=== PATIENT | female | born 1980 | race Caucasian/White ===

== ENCOUNTER 2020-04-26 12:09 | Outpatient (CLI) | payer BC, SELFPAY ==
--- NOTE | ~2020-04-26 | XR_ITS ---
XR finger 3rd RT min 2V 04/26/2020 12:33 Indication: Right third finger pain. Status post fall on 02/07/2020 Procedure: 4 views right third finger Comparison: 12/28/2019 Findings: There is a healing nondisplaced intra-articular fracture right third distal phalanx. Normal bone mineralization. No significant soft tissue abnormality. No radiopaque foreign bodies. Impression: 1: Healing nondisplaced intra-articular fracture right third distal phalanx. Reviewed, dictated and finalized at location A. Impression: 1: Healing nondisplaced intra-articular fracture right third distal phalanx.
== END 2020-04-26 12:10 | disposition home or self-care (01) ==
PROVIDERS: PCP Internal Medicine Pulmonary Disease
DX: M79.644 Pain in right finger(s) (principal)
CPT/HCPCS: 73140

== ENCOUNTER 2022-12-09 14:57 | Emergency (ER) | payer BC, SELFPAY ==
[2022-12-09 15:06] VITALS: BP 135/80; PULSE 74; RESP 14; TEMP 36.8; O2SAT 100
--- NOTE | 2022-12-09 15:21 | ED.EAR ---
HPI - Ear Problem General Chief complaint: Ear Stated complaint: Ear Pain/Sore Throat Time Seen by Provider: 12/09/22 15:18 Source: patient, RN notes reviewed and old records reviewed Mode of arrival: ambulatory Limitations: no limitations History of Present Illness HPI Narrative: 42 year old female who presents to [facility] care with complaints of 3 day history of increased pain to her right ear and sore throat with cough and nasal congestion and drainage. Patient reports that she was put on Augmentin on the 29 of November for sinus infection but quit taking it due to stomach upset. Patient reports that she has noted some wheezing and she is expectorating some green tinged phlegm.Patient has been taking Zyrtec,Claritin, Mucinex, Tylenol and Ibuprofen for her symptoms. MD Complaint: ear pain and other (cough, sinus congestion and drainage, sore throat) Location: right ear Duration: constant Discharge from ear: Reports no Treatment prior to arrival: oral analgesic and other (Mucinex, Claritin and Zyrtec) Related Data Home Medications Medication Instructions Recorded Confirmed aripiprazole 10 mg tablet 10 mg PO DAILY 12/09/22 12/09/22 Allergies Allergy/AdvReac Type Severity Reaction Status Date / Time levofloxacin Allergy Unknown Hives Verified 12/09/22 15:17 Review of Systems Review of Systems: CONSTITUTIONAL: Reports malaise, chills, sweats, or fever. EYES: Denies visual changes, redness, or discharge. ENT: Reports rhinorrhea, congestion, sinus pain, right otalgia and sore throat. CARDIOVASCULAR: Denies chest pain, palpitations, or edema. RESPIRATORY: Reports cough.? Denies acute dyspnea. GASTROINTESTINAL: Denies abdominal pain, nausea, vomiting, diarrhea SKIN: Denies rash or itching. MUSCULOSKELETAL: Denies myalgia. NEUROLOGIC: Denies headache. All systems reviewed & are unremarkable except as noted in HPI and below [facility] Past Medical History Medical History (Updated 12/10/22 @ 08:31 by Radha Manzano NP) Depression Social History Social History (Updated 12/10/22 @ 08:29 by Radha Manzano NP) Smoking packs per day: 1 Smoking cigarettes per day: 20.0 Smoking status: Current every day smoker Gender identity (if verbalized by the patient): Female Comments At time of signature, agree with nursing past medical, surgical, social and family history. There is no relevant family history pertinent to the presenting complaint Exam Narrative: GENERAL: Well-appearing, well-nourished, and in no acute distress. HEAD: Normocephalic EYES: PERRLA, conjunctivae clear ENT: Nares clear, turbinates edematous and erythematous, clear yellowish discharge. Mucous membranes moist.Right TM red and bulging, Left TM pearly villatoro with dull light reflex,no tragal tenderness. Oropharynx erythematous without lesions. Tonsils mildly enlarged and without exudate, no drooling, no hoarseness, no trismus, uvula midline, post nasal drainage NECK: Supple. No lymphadenopathy CHEST: Scattered wheezing on auscultation, breath sounds equal.positive wheezing, no rhonchi, rales, or stridor. No respiratory distress, speaks in full sentences.loose cough SAO2 100% on room air HEART: Regular rate and rhythm. No murmur heard. SKIN: Warm, dry, no rash. NEURO: Alert and oriented x3. PSYCH: Normal mood and affect Course Course Emergency Course: Patient is aware of diagnosis, understands and agrees to treatment plan.? Anticipatory guidance given.? Patient agrees to follow-up as directed and is aware of reasons to seek care at the emergency department. Portions of this record may have been created with voice recognition software Level of Care: Express Care Visit Vital Signs Vital signs: Vital Signs Temperature 36.8 C 12/09/22 15:06 Pulse Rate 74 12/09/22 15:06 Respiratory Rate 14 12/09/22 15:06 Blood Pressure 135/80 12/09/22 15:06 Pulse Oximetry 100 12/09/22 15:06 Oxygen Delivery Room Air
== END 2022-12-09 15:29 | disposition home or self-care (01) ==
PROVIDERS: Emergency Provider Registered Nurse
DX: J40 Bronchitis, not specified as acute or chronic (principal); H65.01 Acute serous otitis media, right ear; F17.210 Nicotine dependence, cigarettes, uncomplicated
CPT/HCPCS: 99213; G0463

== ENCOUNTER 2024-11-29 08:54 | Emergency (ER) | payer MEDICAID, SELFPAY ==
[2024-11-29 09:04] VITALS: BP 160/85; PULSE 90; RESP 18; TEMP 36.6; O2SAT 100
--- NOTE | 2024-11-29 09:12 | ED_ITS ---
HPI - URI/Sore Throat General Chief Complaint: Upper Respiratory Infection Stated Complaint: cough/sneezing/nose Time Seen by Provider: 11/29/24 09:14 Source: patient, RN notes reviewed and old records reviewed Mode of arrival: ambulatory Limitations: no limitations History of Present Illness HPI Narrative: 44-year-old female who presents to [facility] Care with complaints 3 day history coughing, sneezing, having runny nose, some headache, does report wheezing especially when supine denies any fevers. Patient reports she has taking Claritin, Robitussin, Mucinex and has been using albuterol inhaler for her sympt oms without improvement. Patient admits to some shortness of breath with exertion reports history of bronchitis in the past, Patient does vape daily. She states that she has not been taking her blood pressure medication lately with blood pressure elevated today at time of triage. MD elicited complaint: cough, rhinorrhea, nasal congestion and other (sneezing and some wheezing) Pertinent past history: other (Bronchitis) Onset (ago): day(s) (3) Severity: moderate Able to tolerate fluids by mouth: Yes Treatments prior to arrival: other (Mucinex Claritin Robitussin and inhaler) Related Data Home Medications ?Medication ?Instructions ?Recorded ?Confirmed ?Last Taken ?Type aripiprazole 10 mg tablet 10 mg PO DAILY 12/09/22 12/09/22 Unknown History Allergies Allergy/AdvReac Type Severity Reaction Status Date / Time levofloxacin Allergy Unknown Hives Verified 12/09/22 15:17 Review of Systems Review of Systems: CONSTITUTIONAL: Reports malaise, no chills, sweats, or fever. EYES: Denies visual changes, redness, or discharge. ENT: Reports rhinorrhea, congestion, sinus pain,no otalgia and no sore throat. CARDIOVASCULAR: Denies chest pain, palpitations, or edema. RESPIRATORY: Reports cough.? Denies dyspnea.reports some wheezing GASTROINTESTINAL: Denies abdominal pain, nausea, vomiting, diarrhea SKIN: Denies rash or itching. MUSCULOSKELETAL: Denies myalgia. NEUROLOGIC: Reports headache. All systems reviewed & are unremarkable except as noted in HPI and below [facility] Past Medical History Medical History (Updated 12/02/24 @ 13:39 by Radha Manzano NP) Hypertension Bronchitis Depression Social History Social History (Updated 12/02/24 @ 13:45 by Radha Manzano NP) Smoking packs per day: 1 Smoking cigarettes per day: 20.0 Smoking status: Current every day smoker Tobacco type: e-cigarettes/vaping Additional smoking assessment comments: former cigatette smoker Alcohol intake: current Alcohol use details: rare Substance use: unknown Gender identity (if verbalized by the patient): Female Comments At time of signature, agree with nursing past medical, surgical, social and family history. There is no relevant family history pertinent to the presenting complaint Exam Narrative: GENERAL: Well-appearing, well-nourished, and in no acute distress. HEAD: Normocephalic EYES: PERRLA, conjunctivae clear ENT: Nares clear, turbinates edematous and erythematous, clear discharge. Mucous membranes moist. TM pearly villatoro with dull light reflex bilaterally; no tragal tenderness. Oropharynx erythematous without lesions. Tonsils not enlarged and without exudate, no drooling, no hoarseness, no trismus, uvula midline.post nasal drainage observed NECK: Supple. No lymphadenopathy CHEST: scattered wheezing on auscultation, breath sounds equal.+ wheezing,no rhonchi, rales, or stridor. No respiratory distress, speaks in full sentences. HEART: Regular rate and rhythm. No murmur heard. SKIN: Warm, dry, no rash. NEURO: Alert and oriented x3. PSYCH: Normal mood and affect Course Course Emergency Course: Patient is aware of diagnosis, understands and agrees to treatment plan.? Anticipatory guidance given.? Patient agrees to follow-up as directed and is aware of reasons to seek care at the emergency department. Portions of this record may have been created with voice recognition software Level of Care: Express Care Visit Vital Signs Vital signs: Vital Signs Temperature 36.6 C 11/29/24 09:04 Pulse Rate 90 11/29/24 09:04 Respiratory Rate 18 11/29/24 09:04 Blood Pressure 160/85 H 11/29/24 09:04 Pulse Oximetry 100 11/29/24 09:04 Oxygen Delivery Room Air 11/29/24 09:04 Temperature 36.6 C 11/29/24 09:04 Pulse Rate 90 11/29/24 09:04 Respiratory Rate 18 11/29/24 09:04 Blood Pressure 160/85 H 11/29/24 09:04 Pulse Oximetry 100 11/29/24 09:04 Oxygen Delivery Room Air 11/29/24 09:04 Reviewed MDM - URI/Sore Throat MDM Narrative Medical decision making narrative: Differential diagnosis considered: Sarabia virus, strep pharyngitis, allergic rhinitis, upper respiratory tract infection, sinusitis, rhinosinusitis, nasopharyngitis. viral pharyngitis, otitis media, otitis externa, pneumonia, bronchitis, viral cough syndrome, viral syndrome, and influenza.? Exam findings show no acute concerns or changes; patient is non-toxic appearing and is in no distress.? Patient is appropriate for outpatient treatment and follow-up. Differential Diagnosis Differential diagnosis: Likely upper respiratory infection, sinusitis, viral infection and bronchitis Medical Records Attestation: I reviewed the patient's medical records. Lab Data Attestation: I reviewed the patient's lab results. Critical Care Time Critical Care Time Critical Care Time: No Discharge Plan Discharge Clinical Impression: Bronchitis Patient Disposition: Home, Self-Care Condition: Stable Instructions: Antibiotic Form, Acute Bronchitis (ED) Additional Instructions: Increase fluids especially juices and water [id number] cough and cold medicine of your choice for your symptoms Zyrtec Claritin or Idalmis daily Continue your inhaler/nebulizer as directed Steroids as directed--take with food heat to the face 20-30 minutes 4-6 times a day for pain Salt water gargles, throat lozenges or throat sprays as desired Antibiotic as directed--finished the medication If your symptoms persist, change or worsen significantly before you can contact your personal physician then please, without delay, go to the emergency department for further evaluation. Follow-up with PCP in 7-10 days or sooner if needed Follow up with PCP soon in regards to your blood pressure which is elevated above threshold for referral. Blood pressure above 120/80 may indicate pre- hypertension. 160/85 need to resume your blood pressure medication and monitor blood pressure at least twice daily Patient Language: Tamazight Prescriptions: New prednisone 50 mg tablet 50 mg PO DAILY Qty: 5 0RF azithromycin 250 mg tablet See Rx Instructions .ROUTE .COMPLEX Qty: 6 0RF Rx Instructions: For 250 mg dose pack: take 500 mg today (day 1), then 250 mg for 4 days (days 2-5) albuterol sulfate 90 mcg/actuation HFA aerosol inhaler 2 puff inhalation QID PRN (Reason: shortness of breath or wheezing) Qty: 6.7 0RF Rx Instructions: Whatever is covered on her insurance No Action aripiprazole 10 mg tablet 10 mg PO DAILY albuterol sulfate 90 mcg/actuation HFA aerosol inhaler 2 puff inhalation QID PRN (Reason: shortness of breath or wheezing) Qty: 6.7 0RF azithromycin 250 mg tablet See Rx Instructions .ROUTE .COMPLEX Qty: 6 0RF Rx Instructions: For 250 mg dose pack: take 500 mg today (day 1), then 250 mg for 4 days (days 2-5) prednisone 20 mg tablet 40 mg PO BID 5 Days Qty: 20 0RF Follow-up/Referrals: PHYSICIAN NOT ON STAFF,NONSTAFF [Primary Care Provider] - Time of Disposition: 09:27 [place] Coma Scale Eyes: Open Verbal: Oriented and Alert Motor: Follows Commands Jun Coma Total Score: 15
--- OUTSIDE RECORDS SUMMARY | 2024-12-06 17:58 | XMS_ITS | Encounter Summary ---
Author Organization [facility] Address [address] [place] [address]. [place], [place] [address] [place] [address] Care Team Providers Care Water Valve Mechanic Name Role Phone Mikhail Pineda MD Unavailable Jeancarlos Nuñez MD Primary Care Provider Unatrent ilable Encounter Details Date Type Department Care Team (Late st Contact Info) Description 05/16/2020 10:45 AM CDT - 05/16/2020 11:59 PM CDT Hospital Encounter [facility] [address] [place] [address] Jess oRjas, [facility] [address] [place] [address] Discharge Disposition: Home or Self Care (Routine Discharge) Social History Tobacco Use Types Packs/Day Years Used Date Smoking Tobacco: Every Day Cigarettes Smokeless Tobacco: Never Alcohol Use Standard Drinks/Week Comments Not Currently 0 (1 standard drink = 0.6 oz pur e alcohol) PHQ-2 Answer Date Recorded PHQ-2 Score - If the patient scores above 3, please move on to questions 3-9 2 05/08/2020 Comments Unknown Sex and Gender Information Value Date Recorded Sex Assigned at Not on file Legal Sex Female 7:01 PM CDT Gender Identity Not on file Sexual Orientation Not on file COVID-19 Exposure Response Date Recorded In the last month, have you been in contact with someone who was confirmed or suspected to have Coronavirus / COVID-19? No / Unsure 05/16/2020 10:42 AM CDT documented as of this encounter Medications at Time of Discharge acetaminophen 325 MG tablet Take by mouth every 6 (six) hours as needed for Pain. acyclovir 400 MG tablet TAKE 1 TABLET BY MOUTH EVERY 12 HOURS FROM START OF PRODOMAL STAGE TO HEALING STAGE 03/06/2020 buPROPion XL 300 MG 24 hr tabletIndication s:Anxiety and depression Take 1 tablet (300 mg total) by mouth daily. 30 tablet 5 05/08/2020 cetirizine 10 MG tabletIndication s:Non-seasonal allergic rhinitis due to other allergic trigger Take 1 tablet (10 mg total) by mouth daily. 30 tablet 5 05/08/2020 fluticasone propionate 50 MCG/ACT nasal sprayIndications :Non-seasonal allergic rhinitis due to other allergic trigger 1 spray by Nasal route daily. 16 g 5 05/08/2020 ibuprofen 400 MG tablet Take 400 mg by mouth every 6 (six) hours as needed for Pain. montelukast 10 MG tabletIndication s:Anxiety and depression Take 1 tablet (10 mg total) by mouth daily. 30 tablet 5 05/01/2020 vitamin B-12 (CYANOCOBALAMIN) 1000 mcg tablet Take 1,000 mcg by mouth daily. vitamin D3, cholecalciferol, 5000 UNITS capsule Take 1 capsule by mouth daily. ARIPiprazole 10 MG tabletIndication s:Recurrent major depressive disorder, in partial remission (CMS/HCC),Anxiet y and depression Take 1 tablet (10 mg total) by mouth daily. 30 tablet 5 05/08/2020 01/01/2021 LORazepam 0.5 MG tabletIndication s:Anxiety and depression Take 1 tablet (0.5 mg total) by mouth every 6 (six) hours as needed for Anxiety. 30 tablet 05/01/2020 05/26/2020 documented as of this encounter Plan of Treatment Not on file documented as of this encounter Procedures Procedure Name Priority Date/Time Associated Diagnosis Comments XR THIRD FINGER RT 3V Routine 05/16/2020 10:52 AM CDT Finger injury, right, subsequent encounter documented in this encounter Results * XR THIRD FINGER RT 3V (05/16/2020 10:52 AM CDT) Anatomical Region Laterality Modality Hand Radiographic Jazzy ging 05/16/2020 11:5 6 AM CDT Impressions 05/16/2020 11:59 AM CDT IMPRESSION: No significant interval healing changes known subacute right third finger distal phalangeal fracture. Interpreted By: Charisse Monterroso MD, 05/16/2020 11:56 AM Narrative 05/16/2020 11:59 AM CDT EXAMINATION: ??RIGHT THIRD FINGER RADIOGRAPH(S) INDICATION: Follow-up fracture TECHNIQUE: ??3 views. COMPARISON: Right third finger radiograph from [facility] 04/26/2020 FINDINGS: ??No subacute fracture involving third finger distal phalanx at the medial base with oblique orientation and intra-articular extension demonstrates no significant interval callus formation. No significant angulation No dislocation of the third finger. Limited evaluation of the partially imaged remaining hand on this nondedicated study. ?? Procedure Note Charisse Monterroso MD - 05/16/2020 EXAMINATION: RIGHT THIRD FINGER RADIOGRAPH(S) INDICATION: Follow-up fracture TECHNIQUE: 3 views. COMPARISON: Right third finger radiograph from [facility] 04/26/2020 FINDINGS: No subacute fracture involving third finger distal phalanx at the medial base with oblique orientation and intra-articular extension demonstrates no significant interval callus formation. No significant angulation No dislocation of the third finger. Limited evaluation of the partially imaged remaining hand on this nondedicated study. IMPRESSION: No significant interval healing changes known subacute right thirdfinger distal phalangeal fracture. Interpreted By: Charisse Monterroso MD, 05/16/2020 11:56 AM us Jess Rojas [facility] Final Resu lt documented in this encounter Visit Diagnoses Diagnosis Finger injury, right, subsequent encounter documented in this encounter Additional Health Concerns Assessment Noted Time PHQ-9 Depression Total Score: 7 03/08/20 20 4:11 PM CDT documented as of this encounter Care Teams Water Valve Mechanic Relationship Specialty Start Date End Date Jeancarlos Nuñez MD PCP - General FAMILY PRACTICE 04/26/20 05/30/21 Mikhail Pineda MD 03/06/20 documented as of this encounter
--- OUTSIDE RECORDS SUMMARY | 2024-12-06 17:58 | XMS_ITS | Encounter Summary ---
Author Organization [facility] Address [facility] [facility]. [place], [place] [id number] [place] [address] Care Team Providers Care Systems Management Consultant Name Role Phone Malathi Sheppard MD Primary Care Provider [phone] Mikhail Pineda MD Unavailable Encounter Details Date Type Department Care Team (Late st Contact Info) Description 04/20/2020 [employer] Message Enc [facility] Medical [facility] [address] [place] [address] Jeancarlos Nuñez MD Other Social History Tobacco Use Types Packs/Day Years Used Date Smoking Tobacco: Never Smokeless Tobacco: Never Alcohol Use Standard Drinks/Week Comments Not Currently 0 (1 standard drink = 0.6 oz pur e alcohol) PHQ-2 Answer Date Recorded PHQ-2 Score 3 03/20/2020 Comments Unknown Sex and Gender Information Value Date Recorded Sex Assigned at Not on file Legal Sex Female 7:01 PM CDT Gender Identity Not on file Sexual Orientation Not on file COVID-19 Exposure Response Date Recorded In the last month, have you been in contact with someone who was confirmed or suspected to have Coronavirus / COVID-19? No / Unsure 04/07/2020 10:55 AM CDT documented as of this encounter Progress Notes * Cathy Santos RN - 04/25/2020 4:32 PM CDT Sent to Dr. Sheppard in another encounter documented in this encounter Plan of Treatment Not on file documented as of this encounter Visit Diagnoses Not on filedocumented in this encounter Additional Health Concerns Assessment Noted Time PHQ-9 Depression Total Score: 7 03/08/20 4:11 PM CDT documented as of this encounter Care Teams Systems Management Consultant Relationship Specialty Start Date End Date Malathi Sheppard MD [address] [facility] [place] [address] PCP - General FAMILY PRACTICE 03/06/20 04/25/20 Mikhail Pineda MD [address] [place] [address] 03/06/20 documented as of this encounter
--- OUTSIDE RECORDS SUMMARY | 2024-12-06 17:58 | XMS_ITS | Encounter Summary ---
Author Organization [facility] Address [facility]. [place], [place] [address] [place] [address] Care Team Providers Care Carpentry Teacher Name Role Phone Mikhail Pineda MD Primary Care Provider [phone] Encounter Details Date Type Department Care Team (Late st Contact Info) Description 06/13/2015 Abstract [facility] [address] [place] [address] [place] [address] Mikhail Pineda MD [address] - [facility] [address] [place] [id number] Social History Tobacco Use Types Packs/Day Years Used Date Smoking Tobacco: Never Assessed Comments Unknown Sex and Gender Information Value Date Recorded Sex Assigned at Not on file Legal Sex Female 7:01 PM CDT Gender Identity Not on file Sexual Orientation Not on file documented as of this encounter Plan of Treatment Not on file documented as of this encounter Visit Diagnoses Diagnosis Routine general medical examination at a health care facility documented in this encounter Care Teams Carpentry Teacher Relationship Specialty Start Date End Date Mikhail Pineda MD PCP - General 12/10/11 03/05/20 documented as of this encounter
--- OUTSIDE RECORDS SUMMARY | 2024-12-06 17:58 | XMS_ITS | Clinical Summary ---
Author Organization [facility] Address [facility]6 [facility]. [place], [place] [address] [place] [address] Care Team Providers Care Pie Maker Name Role Phone Mikhail Pineda MD Unavailable Brianna Blanco NP Primary Care Provider [phone] Allergies Active Allergy Reactions Criticality Noted Date Comments Levofloxacin Anaphylaxis High 03/08/2020 Medications vitamin D3, cholecalciferol, 5000 UNITS capsule Take 1 capsule by mouth daily. Active vitamin B-12 (CYANOCOBALAMIN) 1000 mcg tablet Take 1,000 mcg by mouth daily. Active acyclovir 400 MG tablet TAKE 1 TABLET BY MOUTH EVERY 12 HOURS FROM START OF PRODOMAL STAGE TO HEALING STAGE 0 Active montelukast 10 MG tabletIndication s:Anxiety and depression Take 1 tablet (10 mg total) by mouth daily. 30 tablet 5 0 Active buPROPion XL 300 MG 24 hr tabletIndication s:Anxiety and depression Take 1 tablet (300 mg total) by mouth daily. 30 tablet 5 0 Active fluticasone propionate 50 MCG/ACT nasal sprayIndications :Non-seasonal allergic rhinitis due to other allergic trigger 1 spray by Nasal route daily. 16 g 5 0 Active cetirizine 10 MG tabletIndication s:Non-seasonal allergic rhinitis due to other allergic trigger Take 1 tablet (10 mg total) by mouth daily. 30 tablet 5 0 Active acetaminophen 325 MG tablet Take by mouth every 6 (six) hours as needed for Pain. Active ibuprofen 400 MG tablet Take 400 mg by mouth every 6 (six) hours as needed for Pain. Active fluconazole 150 MG tabletIndication s:Acute recurrent sinusitis, unspecified location Take 1 tablet po on first day, repeat 1 tablet in 3 days 2 tablet 0 Active LORazepam 0.5 MG tabletIndication s:Anxiety and depression TAKE 1 TABLET(0.5 MG) BY MOUTH EVERY 6 HOURS NEEDED FOR ANXIETY 30 tablet 1 Active ARIPiprazole 10 MG tabletIndication s:Recurrent major depressive disorder, in partial remission (CMS/HCC),Anxiet y and depression Take 1 tablet (10 mg total) by mouth daily. 90 tablet 1 1 Active azithromycin 250 MG tabletIndication s:Acute non-recurrent sinusitis of other sinus Take 2 tablets by mouth on day one then 1 daily for four days. 6 tablet 1 Active methylPREDNISolo ne, MARIIA, 4 MG tabletIndication s:Acute recurrent sinusitis, unspecified location 6 TABLETS ON DAY ONE, 5 TABLETS DAY TWO, 4 TABLETS DAY THREE, 3 TABLETS DAY FOUR, 2 TABLETS DAY FIVE, AND 1 TABLET DAY SIX 1 each 1 Active Active Problems Problem Noted Date Diagnosed Date Closed nondisplaced fracture of distal phalanx of right middle finger with routine healing, subsequent encounter 05/16/2020 Family disruption due to fam jackson member on deployment 05/08/2020 Recurrent major depressive disorder, in partial remission 04/08/2020 Anxiety and depression 03/08/2020 Family History Medical History Relation Comments No Known Problems Father COPD Mother Relation Status Comments Father Alive Mother Alive Social History Tobacco Use Types Packs/Day Years [...] on file Sexual Orientation Not on file Last Filed Vital Signs Vital Sign Reading Time Taken Comments Blood Pressure 139/88 03/08/2020 4:00 PM CDT Pulse 98 03/08/2020 4:00 PM CDT Temperature 36.8 ??C (98.3 ??F) 03/08/2020 4:00 PM CD T Respiratory Rate - - Oxygen Saturation 100% 03/08/2020 4:00 PM CDT Inhaled Oxygen Concentration - - Weight 75.3 kg (166 lb) 06/07/2020 11:16 AM CDT Height 170.2 cm (5' 7 ) 06/07/2020 11:16 AM CDT Body Mass Index 26 06/07/2020 11:16 AM CDT Plan of Treatment Health Maintenance Due Date Last Done Comments Cervical Cancer Screening Pa p Smear (Age 30 to 64) Every 3 Years 1980 Annual Physical 1983 Pneumococcal Vaccine: Pediat rics (0 to 5 Years) and At-Risk Patients (6 to 64 Years) (1 of 2 - PCV) 1986 Hepatitis C 1998 DTaP, Tdap and Td Vaccines ( 1 - Tdap) 1999 Hepatitis B Vaccines (1 of 3 - 19+ 3-dose series) 1999 Cervical Cancer Screening Pa p with HPV Testing (Age 30 to 64) Every 5 Years 2010 Cervical Cancer Screening with HPV 2010 Mammogram Screening 2020 COVID-19 Vaccine (2023-2 5 season) 2024 Influenza Adult (#1) 2024 HPV Vaccines Aged Out No longer eligi ble based on patient's age to complete this topic Meningococcal Vaccine Aged Out No sean edi eligible based on patient's age to complete this topic RSV Immunizations Under 20 Months Aged Out No longer eligible based on patient's age to complete this topic Insurance [facility] [[email or web address]] Care Teams Pie Maker Relationship Specialty Start Date End Date Brianna Blanco NP PCP - General Nurse Practitioner Family 09/25/22 Mikhail Pineda MD 03/06/20
--- OUTSIDE RECORDS SUMMARY | 2024-12-06 17:58 | XMS_ITS | Encounter Summary ---
Author Organization [facility] Address [facility]. [place], [place] [address] [place] [address] Care Team Providers Care Silo Painter Name Role Phone Mikhail Pineda MD Unavailable Jeancarlos Nuñez MD Primary Care Provider Unava ilable Bebe Pack BAR HOSTESS Primary Care Provider [phone] Brianna Blanco BAR HOSTESS Primary Care Provider [phone] Encounter Details Date Type Department Care Team (Late st Contact Info) Description 01/29/2021 MyChart Message Enc [facility] Medical [place] [address] [place] [address] Jeancarlos Nuñez MD RE: Other Social History Tobacco Use Types Packs/Day [...] documented as of this encounter Care Teams Silo Painter Relationship Specialty Start Date End Date Jeancarlos Nuñez MD PCP - General FAMILY PRACTICE 04/26/20 05/30/21 Bebe Pack NP [address] [place], [place] [id number] PCP - General NURSE PRACTITIONER 05/31/21 09/24/22 Brianna Blanco NP [address] [place] [address] PCP - General Nurse Practitioner [facility] 09/25/22 Mikhail Pineda MD 03/06/20 documented as of this encounter
--- OUTSIDE RECORDS SUMMARY | 2024-12-06 17:58 | XMS_ITS | Encounter Summary ---
Author Organization [facility] Address [facility]6 [facility]. [place], [place] [address] [place] [address] Care Team Providers Care Sueding Machine Operator Name Role Phone Mikhail Pineda MD Unavailable Jeancarlos Nuñez MD Primary Care Provider Unava ilable Reason for Referral * Consultation (Routine) - Closed Specialty Diagnoses / Procedures Referred By Donaldo adams Referred To Contact ORTHOPAEDICS Diagnoses Displaced fracture of distal phalanx of left middle finger, initial encounter for closed fracture Jeancarlos Nuñez MD [facility] [address] [place] [address] Phone: tel: Referral ID Status Reason Start Date Expiration Date V isits Requested Visits Authorized [id number] Closed Specialty Services 05/11/2020 06/10/2021 99 99 Reason for Visit * Reason Onset Date Comments Results 05/10/2020 Encounter Details Date Type Department Care Team (Late st Contact Info) Description 05/10/2020 Telephone [facility] Medical [address] [address] Jeancarlos Nuñez MD Results Social History Tobacco Use Types Packs/Day Years [...] have Coronavirus / COVID-19? No / Unsure 05/08/2020 1:42 PM CDT documented as of this encounter Progress Notes * Adri Brenner - 05/11/2020 3:46 PM CDT Spoke to pt and she wanted to go ahead and proceed with ortho ref. I ordered this for the patient * Jeancarlos Nuñez MD - 05/11/2020 2:18 PM CDT The report says her injury occurred on 02/07/2020, the xr was taken 04/26/2020 and showed a nondisplaced healing fracture of the end joint of the middle finger. Since she is about 3 months out from the injury and assuming no further injury since 01/2020, it should gradually be getting better. If she still has significant symptoms she should see an ortho doctor, find out if she wants a referral to [facility]. * Cathy Santos RN - 05/11/2020 11:01 AM CDT The x-ray was ordered under Dr. Sheppard's name & the patient had just established with Dr. Nuñez, it's scanned under the media tab 05/08/20 05:20 and just says result. Can you please look at this * Paolo Gordon - 05/10/2020 3:14 PM CDT Patient calling in for results on x-rays done about 3 weeks ago she had them done at [facility]. please give her a call back when available documented in this encounter Plan of Treatment Scheduled Referrals Name Type Priority Associated Diagnoses Orde r Schedule Ambulatory referral to Orthopedics (OTHER) Referral Routine Displaced fracture of distal phalanx of left middle finger, initial encounter for closed fracture Ordered: 05/11/2020 documented as of this encounter Visit Diagnoses Diagnosis Displaced fracture of distal phalanx of left middle finger, initial encounter for closed fracture- Primary documented in this encounter Additional Health Concerns Assessment Noted Time PHQ-9 Depression Total Score: 7 03/08/20 20 4:11 PM CDT documented as of this encounter Care Teams Sueding Machine Operator Relationship Specialty Start Date End Date Jeancarlos Nuñez MD PCP - General FAMILY PRACTICE 04/26/20 05/30/21 Mikhail Pineda MD 03/06/20 documented as of this encounter
--- OUTSIDE RECORDS SUMMARY | 2024-12-06 17:58 | XMS_ITS | Encounter Summary ---
Author Organization [facility] Address [address] [place] [address]. [place], [place] [address] [place] [address] Care Team Providers Care Enterprise Project Manager Name Role Phone Mikhail Pineda MD Unavailable Jeancarlos Nuñez MD Primary Care Provider Unava ilable Bebe Pack SKIN DIVING TEACHER Primary Care Provider [phone] Brianna Blanco SKIN DIVING TEACHER Primary Care Provider [phone] Encounter Details Date Type Department Care Team (Late st Contact Info) Description 05/16/2020 [email or web address] Message Enc [facility] [address], [address] [address] Jess Rojas, OPERATING ROOM MANAGER- [address] [facility] [address] Visit Follow Up Social History Tobacco Use Types Packs/Day Years [...] AM CDT documented as of this encounter Plan of Treatment Not on file documented as of this encounter Visit Diagnoses Not on filedocumented in this encounter Additional Health Concerns Assessment Noted Time PHQ-9 Depression Total Score: 7 03/08/20 20 4:11 PM CDT documented as of this encounter Care Teams Enterprise Project Manager Relationship Specialty Start Date End Date Jeancarlos Nuñez MD PCP - General FAMILY PRACTICE 04/26/20 05/30/21 Bebe Pack NP [address] [place] [address] PCP - General NURSE PRACTITIONER 05/31/21 09/24/22 Brianna Blanco NP [address] [place] [address] PCP - General Nurse Practitioner [facility] 09/25/22 Mikhail Pineda MD 03/06/20 documented as of this encounter
--- OUTSIDE RECORDS SUMMARY | 2024-12-06 17:58 | XMS_ITS | Encounter Summary ---
Author Organization [facility] Address [address] [place] [address]. [place], [place] [address] [place] [address] Care Team Providers Care Manipulative Therapy Specialist Name Role Phone Malathi Sheppard MD Primary Care Provider [phone] Mikhail Pineda MD Unavailable Encounter Details Date Type Department Care Team (Latest Contact Info) Description 04/07/2020 Travel Social History Tobacco Use Types Packs/Day Years [...] documented as of this encounter Care Teams Manipulative Therapy Specialist Relationship Specialty Start Date End Date Malathi Sheppard MD [facility] [address] [address] PCP - General FAMILY PRACTICE 03/06/20 04/25/20 Mikhail Pineda MD [address] [address] 03/06/20 documented as of this encounter
--- OUTSIDE RECORDS SUMMARY | 2024-12-06 17:58 | XMS_ITS | Encounter Summary ---
Author Organization [facility] Address [facility]6 [facility]. [place], [place] [address] [place] [address] Care Team Providers Care Golf Teacher Name Role Phone Mikhail Pineda MD Unavailable Jeancarlos Nuñez MD Primary Care Provider Unava ilable Reason for Visit * Reason Onset Date Comments Problem 04/26/2020 Encounter Details Date Type Department Care Team (Late st Contact Info) Description 04/26/2020 Telephone [facility] Medical [address] [address] Jeancarlos Nuñez MD Problem Social History Tobacco Use Types Packs/Day Years [...] as of this encounter Progress Notes * Jeancarlos Nuñez MD - 04/26/2020 4:19 PM CDT I recommend 2 things: 1, I am sending in a prescription for Lorazepam/Ativan 0.5 mg 4 times daily as needed, #30, 2, I recommend she increase the buspirone from 5 to 10 mg daily, I sent a prescription for it also both to the [facility] in [place]. * Jeancarlos Nuñez MD - 04/26/2020 4:14 PM CDT Contact: ----- Message from Cathy Santos RN sent at 04/26/2020 3:41 PM CDT ----- ----- Message ----- From: Cathy Santos RN Sent: 04/25/2020 4:34 PM CDT To: Malathi Sheppard MD ----- Message from Cathy Santos RN sent at 04/25/2020 4:34 PM CDT ----- Homer, I was wondering if I could get a short term prescription until my appt for anxiety. I don't always have a lot of issues with it but lately it's been worse. I've been having a lot of personal problemsand having anxiety/panic attacks 1- 2x's a week. Abilify has definitely helped my moods so thank youvery much for that. If not on the anxiety until we talk I understand but thought I would ask. Thank you, Alecia documented in this encounter Plan of Treatment Not on file documented as of this encounter Visit Diagnoses Diagnosis Recurrent major depressive disorder, in partial remission (CMS/HCC)- Primary Anxiety and depression Dysthymic disorder documented in this encounter Additional Health Concerns Assessment Noted Time PHQ-9 Depression Total Score: 7 03/08/20 20 4:11 PM CDT documented as of this encounter Care Teams Golf Teacher Relationship Specialty Start Date End Date Jeancarlos Nuñez MD PCP - General FAMILY PRACTICE 04/26/20 05/30/21 Mikhail Pineda MD 03/06/20 documented as of this encounter
--- OUTSIDE RECORDS SUMMARY | 2024-12-06 17:58 | XMS_ITS | Encounter Summary ---
Author Organization [facility] Address [facility]6 [facility] [place], [place] [address] [place] [address] Care Team Providers Care Vegetable Inspector Name Role Phone Malathi Sheppard MD Primary Care Provider [phone] Mikhail Pineda MD Unavailable Jeancarlos Nuñez MD Primary Care Provider Unava ilable Reason for Visit * Reason Onset Date Comments Refill Request 04/25/2020 Encounter Details Date Type Department Care Team (Late st Contact Info) Description 04/25/2020 Telephone [place] [address] [place] [address] Jeancarlos Nuñez MD Refill Request Social History Tobacco Use Types Packs/Day Years [...] as of this encounter Progress Notes * Hilda Nguyen MA - 04/25/2020 3:41 PM CDT Last seen 03/08/20 Last fill was not by us as she was a new pt to us, will pend * JodiEliodonna Salmeron - 04/25/2020 3:37 PM CDT Patient was told to call pharmacy, she states pharmacy told her to call us. Patient requesting refill on buPROPion XL 300 MG 24 hr tablet, and montelukast 10 MG tablet, send to [facility] in [place]. Callback # [phone] documented in this encounter Plan of Treatment Not on file documented as of this encounter Visit Diagnoses Diagnosis Anxiety and depression- Primary Dysthymic disorder documented in this encounter Additional Health Concerns Assessment Noted Time PHQ-9 Depression Total Score: 7 03/08/20 4:11 PM CDT documented as of this encounter Care Teams Vegetable Inspector Relationship Specialty Start Date End Date Malathi Sheppard MD [address] [place] [address] PCP - General FAMILY PRACTICE 03/06/20 04/25/20 Jeancarlos Nuñez MD [address] [place] [address] PCP - General FAMILY PRACTICE 04/26/20 05/30/21 Mikhail Pineda MD [address] [place] [address] 03/06/20 documented as of this encounter
--- OUTSIDE RECORDS SUMMARY | 2024-12-06 17:58 | XMS_ITS | Encounter Summary ---
Author Organization [facility] Address [address] [place] [address]. [place], [place] [address] [place] [address] Care Team Providers Care Data Integrity Specialist Name Role Phone Mikhail Pineda MD Unavailable Jeancarlos Nuñez MD Primary Care Provider Unava ilable Reason for Visit * Reason Comments Image (SCAN) XR FINGER 3RD RT MIN 2V Encounter Details Date Type Department Care Team (Late st Contact Info) Description 04/26/2020 Scan HEALTH INFO [facility] Scanned, Documents Image (SCAN) (XR FINGER 3RD RT MIN 2V) Social History Tobacco Use Types Packs/Day Years [...] PM CDT documented as of this encounter Plan of Treatment Not on file documented as of this encounter Procedures Procedure Name Priority Date/Time Associated Diagnosis Comments IMAGE GENERIC Routine 04/26/2020 5:30 AM CDT documented in this encounter Results * IMAGE STUDY (04/26/2020 5:30 AM CDT) Anatomical Region Laterality Modality Other 04/26/2020 5:30 AM CDT us Documents Scanned SCANNING Edited Result - Final documented in this encounter Visit Diagnoses Not on filedocumented in this encounter Additional Health Concerns Assessment Noted Time PHQ-9 Depression Total Score: 7 03/08/20 4:11 PM CDT documented as of this encounter Care Teams Data Integrity Specialist Relationship Specialty Start Date End Date Jeancarlos Nuñez MD PCP - General FAMILY PRACTICE 04/26/20 05/30/21 Mikhail Pineda MD 03/06/20 documented as of this encounter
--- OUTSIDE RECORDS SUMMARY | 2024-12-06 17:58 | XMS_ITS | Encounter Summary ---
Author Organization [facility] Address [facility]6 [facility]. [place], [place] [address] [place] [address] Care Team Providers Care Radio Engineer Name Role Phone Mikhail Pineda MD Unavailable Jeancarlos Nuñez MD Primary Care Provider Unava ilable Encounter Details Date Type Department Care Team (Late st Contact Info) Description 04/26/2020 Orders Only [facility] Medical [facility] [address] [place] [address] Jeancarlos Nuñez MD Social History Tobacco Use Types Packs/Day Years [...] documented as of this encounter Care Teams Radio Engineer Relationship Specialty Start Date End Date Jeancarlos Nuñez MD PCP - General FAMILY PRACTICE 04/26/20 05/30/21 Mikhail Pineda MD 03/06/20 documented as of this encounter
--- OUTSIDE RECORDS SUMMARY | 2024-12-06 17:58 | XMS_ITS | Encounter Summary ---
Author Organization [facility] Address [address] [place] [address]. [place], [place] [address] [place] [address] Care Team Providers Care Broadcast Systems Engineer Name Role Phone Mikhail Pineda MD Unavailable Jeancarlos Nuñez MD Primary Care Provider Unava ilable Reason for Visit * Reason Onset Date Comments Question 04/26/2021 Encounter Details Date Type Department Care Team (Late st Contact Info) Description 04/26/[address] [address] Jeancarlos Nuñez MD Question Social History Tobacco Use Types Packs/Day Years [...] on file documented as of this encounter Progress Notes * Jeancarlos Nuñez MD - 04/26/2021 4:50 PM CDT I erx'ed zpak and medrol dosepak * Jeancarlos Nuñez MD - 04/26/2021 4:50 PM CDT ----- Message from Leta Farfan sent at 04/26/2021 4:45 PM CDT ----- ----- Message ----- From: Adri Brenner MA Sent: 04/26/2021 3:16 PM CDT To: Jeancarlos Nuñez MD ----- Message ----- From: Leta Farfan Sent: 04/26/2021 10:37 AM CDT To: Jeancarlos Alarcon * Leta Farfan - 04/26/2021 4:44 PM CDT How many mg of zpack and medrol * Jeancarlos Nuñez MD - 04/26/2021 3:30 PM CDT Ok to send in a zpak and a medrol dosepak, should be seen if not improved * Adri Brenner - 04/26/2021 3:16 PM CDT Please adivse * Leta Farfan - 04/26/2021 10:36 AM CDT Images from the original note were not included. Alecia Mabry James Nurse I was wondering if I could get a zpack and a medrol dose pack. Since I've been back from [place] for a month now I've had a lot of yellow/green sinus drainage, headaches, sneezing, itchy/watery eyes and now I have a cough that is dry and non productive but making my chest hurt from doing it so much. Thelast time this happened Dr. Nuñez prescribed a zpack and a medrol dose pack for me. If so I use [facility] in [facility]. Thanks so much. documented in this encounter Plan of Treatment Not on file documented as of this encounter Visit Diagnoses Diagnosis Acute recurrent pansinusitis- Primary Other acute sinusitis Acute non-recurrent sinusitis of other sinus Acute recurrent sinusitis, unspecified location documented in this encounter Additional Health Concerns Assessment Noted Time PHQ-9 Depression Total Score: 7 03/08/20 20 4:11 PM CDT documented as of this encounter Care Teams Broadcast Systems Engineer Relationship Specialty Start Date End Date Jeancarlos Nuñez MD PCP - General FAMILY PRACTICE 04/26/20 05/30/21 Mikhail Pineda MD 03/06/20 documented as of this encounter
--- OUTSIDE RECORDS SUMMARY | 2024-12-06 17:58 | XMS_ITS | Encounter Summary ---
Author Organization [facility] Address [address] [place] [address]. [place], [place] [address] [place] [address] Care Team Providers Care Assistant Child Care Teacher Name Role Phone Mikhail Pineda MD Unavailable Jeancarlos Nuñez MD Primary Care Provider Unava ilable Encounter Details Date Type Department Care Team (Late st Contact Info) Description 04/26/2021 Orders Only [facility] Medical Replaced By [facility] [address] [place] [address] Leta Farfan Social History Tobacco Use Types Packs/Day Years [...] as of this encounter Progress Notes * Leta Farfan - 04/26/2021 4:43 PM CDT How many documented in this encounter Plan of Treatment Not on file documented as of this encounter Visit Diagnoses Not on filedocumented in this encounter Additional Health Concerns Assessment Noted Time PHQ-9 Depression Total Score: 7 03/08/20 20 4:11 PM CDT documented as of this encounter Care Teams Assistant Child Care Teacher Relationship Specialty Start Date End Date Jeancarlos Nuñez MD PCP - General FAMILY PRACTICE 04/26/20 05/30/21 Mikhail Pineda MD 03/06/20 documented as of this encounter
--- OUTSIDE RECORDS SUMMARY | 2024-12-06 17:58 | XMS_ITS | Encounter Summary ---
Author Organization [facility] Address [facility]. [place], [place] [address] [place] [address] Care Team Providers Care Geriatric Aide Name Role Phone Malathi Sheppard MD Primary Care Provider [phone] Mikhail Pineda MD Unavailable Reason for Visit * Reason Comments Medication Patient states that she wants to discuss about changing anxiety medication. [facility] [place], [place] Meet and Greet Provider meet and greet w [facility] provider Encounter Details Date Type Department Care Team (Late st Contact Info) Description 04/07/2020 11:40 AM CDT Telemedicine [facility] Medical [place] [address] [place] [id number] Charlie Kaur MD Medication (Patient states that she wants to discuss about changing anxiety medication. [facility] [place], [place]); Meet and Greet Provider (meet and greet with provider) Social History Tobacco Use Types Packs/Day Years [...] as of this encounter Progress Notes * Charlie Kaur MD - 04/07/2020 11:40 AM CDT Reason for Visit: Medication (Patient states that she wants to discuss about changing anxiety medication. [facility] [place], [place]) and Meet and Greet Provider (meet and greet with provider) Diagnoses/Impression: 1. Recurrent major depressive disorder, in partial remission ([facility]) ARIPiprazole 5 MG tablet Recommendations and Plan: Rx sent for abilify 5 mg to [facility], I asked her to make a video visit again in 1 month. Orders Placed This Encounter ??? acyclovir 400 MG tablet ??? ARIPiprazole 5 MG tablet History of Present Illness: HPI Visit :I introduced and identified myself, received verbal consent from the patient to proceed with this video visit and made the patient aware that the same confidentiality and information systems auditor practices apply. The patient joined the video visit from Home. I completed the virtual visit from Office. The following clinical staff helped with this visit Nurse: Isac Baker and LINDSAY Zamudio. Total Time Spent in Minutes: 15 minutes recreation therapist, 20 min on documentation and erx'es I spoke with Alecia via Room 77/[employer]. She indicated that she had used Abilify/aripiprazole 5 mg (though she was not sure of the dose) before for about 2 months and had a good response to it with improved energy, mood and sleep. She has been depressed, denied SI, and is wanting to go back on Abilify. She did not have problems with it including no galactorrhea. She has some sleep diffuculty, shehas used trazodone in the past but did not have a good experience with it. She has not tried mirtazapine. Today I sent in an rx for Abilify 5 mg daily to [facility] in [place]. I asked her to make a video visit in 1 month or call sooner if problems. Health maint:Never smoked no DM, glucose 113 03/08/202003/2020 Imm needs Tdap,flu No lipids, Pap ROS: Review of Systems Constitutional: Positive for malaise/fatigue. Psychiatric/Behavioral: Positive for depression. Negative for suicidal ideas. The patient has insomnia. The patient is not nervous/anxious. Medications: Current Outpatient Medications: ??? ARIPiprazole 5 MG tablet, Take 1 tablet (5 mg total) by mouth daily., Disp: 30 tablet, Rfl: 5 ??? acyclovir 400 MG tablet, TAKE 1 TABLET BY MOUTH EVERY 12 HOURS FROM START OF PRODOMAL STAGE TO HEALING STAGE, Disp: , Rfl: ??? azithromycin 250 MG tablet, Take 2 tablets by mouth on day one then 1 daily for four days., Disp: 6 tablet, Rfl: 0 ??? buPROPion XL 300 MG 24 hr tablet, Take 300 mg by mouth daily., Disp: , Rfl: ??? busPIRone 5 MG tablet, Take 1 tablet (5 mg total) by mouth 2 (two) times daily., Disp: 60 tablet, Rfl: 0 ??? cetirizine 10 MG tablet, Take 10 mg by mouth daily., Disp: , Rfl: ??? fluticasone propionate 50 MCG/ACT nasal spray, 1 spray by Nasal route daily., Disp: , Rfl: ??? montelukast 10 MG tablet, Take 10 mg by mouth daily., Disp: , Rfl: ??? vitamin B-12 (CYANOCOBALAMIN) 1000 mcg tablet, Take 1,000 mcg by mouth daily., Disp: , Rfl: ??? vitamin D3, cholecalciferol, 5000 UNITS capsule, Take 1 capsule by mouth daily., Disp: , Rfl: Allergies Allergen Reactions ??? Levaquin [Levofloxacin] Anaphylaxis Past Medical History: Diagnosis Date ??? Allergy ??? Anxiety ??? Depression Past Surgical History: Procedure Laterality Date ??? ACNE CYST REMOVAL left rist ??? BONE MARROW/BLOOD-DERIVED PERIPHERAL STEM CELL TRANSPLANTAT; ALLOGENEIC DONOR LYMPHOCYTE INFUSIONS 2017 ??? SOLUTION ELECTRODE CLEAN 2005 ??? TUBAL LIGATION 2003 Social History Socioeconomic History ??? Marital status: Spouse name: Not on file ??? Number of children: Not on file ??? Years of education: Not on file ??? Highest education level: Not on file Occupational History ??? Not on file Social Needs ??? Financial resource strain: Not on file ??? Food insecurity: Worry: Not on file Inability: Not on file ??? Transportation needs: Medical: Not on file Non-medical: Not on file Tobacco Use ??? Smoking status: Never Smoker ??? Smokeless tobacco: Never Used Substance and Sexual Activity ??? Alcohol use: Not Currently ??? Drug use: Never ??? Sexual activity: Not on file Lifestyle ??? Physical activity: Days per week: Not on file Minutes per session: Not on file ??? Stress: Not on file Relationships ??? Social connections: Talks on phone: Not on file Gets together: Not on file Attends yarsani service: Not on file Active member of club or organization: Not on file Attends meetings of clubs or organizations: Not on file Relationship status: Not on file ??? Intimate partner violence: Fear of current or ex partner: Not on file Emotionally abused: Not on file Physically abused: Not on file Forced sexual activity: Not on file Other Topics Concern ??? Not on file Social History Narrative ??? Not on file No family history on file. No family status information on file. Physical Exam Constitutional: She appears well-developed and well-nourished. No distress. Neurological: She is alert. No cranial nerve deficit. Coordination normal. Psychiatric: Her behavior is normal. Thought content normal. There were no vitals filed for this visit. Diagnoses/Impression: 1. Recurrent major depressive disorder, in partial remission (CMS/HCC) ARIPiprazole 5 MG tablet Recommendations and Plan: Rx sent for abilify 5 mg to [facility] in [place], I asked her to make a video visit again in 1 month. Orders Placed This Encounter ??? acyclovir 400 MG tablet ??? ARIPiprazole 5 MG tablet CHARLIE KAUR Referring Provider: No ref. provider found PCP: Malathi Sheppard MD Multiple questions asked and answered, patient expressed understanding and agreement with plan. documented in this encounter Plan of Treatment Not on file documented as of this encounter Visit Diagnoses Diagnosis Recurrent major depressive disorder, in partial remission (CMS/HCC)- Primary documented in this encounter Additional Health Concerns Assessment Noted Time PHQ-9 Depression Total Score: 7 03/08/20 20 4:11 PM CDT documented as of this encounter Care Teams Geriatric Aide Relationship Specialty Start Date End Date Malathi Sheppard MD [address] [id number] PCP - General FAMILY PRACTICE 03/06/20 04/25/20 Mikhail Pineda MD [address] [address] 03/06/20 documented as of this encounter
--- OUTSIDE RECORDS SUMMARY | 2024-12-06 17:58 | XMS_ITS | Encounter Summary ---
Author Organization [facility] Address [facility]. [place], [place] [address] [place] [address] Care Team Providers Care Ludlow Machine Operator Name Role Phone Mikhail Pineda MD Unavailable Jeancarlos Nuñez MD Primary Care Provider Unava ilable Reason for Visit * Reason Onset Date Comments Refill Request 01/31/2021 Encounter Details Date Type Department Care Team (Late st Contact Info) Description 01/31/[address] [address] Jeancarlos Nuñez MD Refill Request Social [...] Progress Notes * Hilda Nguyen MA - 01/31/2021 12:05 PM CST Seen 04/07 Filled 09/22 and 01/01 L APPLIANCE ASSEMBLY SUPERVISOR * Stacie Mendez Tobias - 01/31/2021 11:11 AM CST Refil; ARIPiprazole 10 MG tablet [[id number] LORAZEPAM 0.5 MG tablet [[id number] [facility] [place] C/b [phone] L APPLIANCE ASSEMBLY SUPERVISOR documented in this encounter Plan of Treatment Not on file documented as of this encounter Visit Diagnoses Diagnosis Anxiety and depression Dysthymic disorder Recurrent major depressive disorder, in partial remission (CMS/HCC) documented in this encounter Additional Health Concerns Assessment Noted Time PHQ-9 Depression Total Score: 7 03/08/20 4:11 PM CDT documented as of this encounter Care Teams Ludlow Machine Operator Relationship Specialty Start Date End Date Jeancarlos Nuñez MD PCP - General FAMILY PRACTICE 04/26/20 05/30/21 Mikhail Pineda MD 03/06/20 documented as of this encounter
--- OUTSIDE RECORDS SUMMARY | 2024-12-06 17:58 | XMS_ITS | Encounter Summary ---
Author Organization [facility] Address [address] [place] [address]. [place], [place] [address] [place] [address] Care Team Providers Care Assessor Name Role Phone Mikhail Pineda MD Unavailable Jeancarlos Nuñez MD Primary Care Provider [facility] Encounter Details Date Type Department Care Team (Latest Contact Info) Description 05/08/2020 Travel Social History Tobacco Use Types Packs/Day [...] documented as of this encounter Care Teams Assessor Relationship Specialty Start Date End Date Jeancarlos Nuñez MD PCP - General FAMILY PRACTICE 04/26/20 05/30/21 Mikhail Pineda MD 03/06/20 documented as of this encounter
--- OUTSIDE RECORDS SUMMARY | 2024-12-06 17:58 | XMS_ITS | Encounter Summary ---
Author Organization [facility] Address [address] [place] [address]. [place], [place] [address] [place] [address] Care Team Providers Care Container Washer Machine Name Role Phone Mikhail Pineda MD Unavailable Jeancarlos Nuñez MD Primary Care Provider Unava ilable Reason for Visit * Reason Onset Date Comments Problem 06/09/2020 Encounter Details Date Type Department Care Team (Late st Contact Info) Description 06/09/2020 Telephone [facility] Medical [address] [address] Jeancarlos Nuñez MD Problem Social [...] have Coronavirus / COVID-19? No / Unsure 06/07/2020 10:40 AM CDT documented as of this encounter Progress Notes * Jeancarlos Nuñez MD - 06/09/2020 1:39 PM CDT I sent a prescription for Augmentin and Medrol to the [facility] in [place], I am also sending a prescription for yeast infection in case that develops after taking the antibiotic. Let us know if youare not improved * Jeancarlos Nuñez MD - 06/09/2020 1:37 PM CDT ----- Message from Fabián Darden MA sent at 06/09/2020 12:30 PM CDT ----- Regarding: Medication Questions Contact: ----- Message ----- From: Alecia Mabry Sent: 06/09/2020 7:58 AM CDT To: Jeancarlos Alarcon Nurse Subject: Medication Questions I've have allergies and sinus issues. I take Zyrtec singular and Flonase for over a year without much relief. Today my allergies are awful. My sinuses are green/yellow a lot of sneezing and constant runny nose. My last dr gave me antibiotics and medrol dose pack back in January . I was wondering if I could get another round of those. If so [facility]. Thank you documented in this encounter Plan of Treatment Not on file documented as of this encounter Visit Diagnoses Diagnosis Acute recurrent sinusitis, unspecified location- Primary documented in this encounter Additional Health Concerns Assessment Noted Time PHQ-9 Depression Total Score: 7 03/08/20 20 4:11 PM CDT documented as of this encounter Care Teams Container Washer Machine Relationship Specialty Start Date End Date Jeancarlos Nuñez MD PCP - General FAMILY PRACTICE 04/26/20 05/30/21 Mikhail Pineda MD 03/06/20 documented as of this encounter
--- OUTSIDE RECORDS SUMMARY | 2024-12-06 17:58 | XMS_ITS | Encounter Summary ---
Author Organization [facility] Address [address] [place] [address]. [place], [place] [address] [place] [address] Care Team Providers Care Leather Polisher Name Role Phone Mikhail Pineda MD Unavailable Jeancarlos Nuñez MD Primary Care Provider Unava ilable Reason for Visit * Reason Onset Date Comments Medication Request 01/01/2021 Encounter Details Date Type Department Care Team (Late st Contact Info) Description 01/01/[address] [address] Jeancarlos Nuñez MD Medication Request Social History Tobacco Use Types Packs/Day [...] as of this encounter Progress Notes * Trish Elizondo RN - 01/18/2021 2:52 PM CST No answer/ no option to leave message D DAYCARE WORKER * Jeancarlos Nuñez MD - 01/01/2021 12:06 PM CST I approved the aripiprazole. We should do at least a video visit regarding this intervention, ask Alecia to check her weight and report to us D DAYCARE WORKER * Hilda Nguyen MA - 01/01/2021 11:43 AM CST Pended to below pharmacy last given 05/2020 Please advise on the other art of message D DAYCARE WORKER * Hilda Nguyen MA - 01/01/2021 11:42 AM CST ----- Message from Alecia Velazquezer sent at 12/30/2020 6:12 AM CHILD DAYCARE WORKER ----- Regarding: Other Contact: Hi, I'm needing a refill on my generic Abilify but am needing it sent to the pharmacy below. We currently don't have insurance and with the [facility] this is the cheapest place. Also, was wondering if Dr. Nuñez would order me some Phentermine. I've gained some weight over the last 4 years and would like a little help to lose it. I've used it in the past and it worked well. He asked me before about weight gain since starting Abilify and I've probably gained about 10 pounds so not horrible but I'm weighing around 185-190 and usually weigh 135-140. I also weaned off Wellbutrin a month ago as it was not helping moods as well as it once had. I feelgood on just the Abilify for now unless he would like to add a low dose of something else. I am usually on 2 mood stabilizers at a time but am fine holding off if that is his recommendations. I look forward to hearing back from you. Thanks so much for all the help. [facility] [phone] [address] [facility] D DAYCARE WORKER documented in this encounter Plan of Treatment Not on file documented as of this encounter Visit Diagnoses Diagnosis Recurrent major depressive disorder, in partial remission (CMS/HCC) Anxiety and depression Dysthymic disorder documented in this encounter Additional Health Concerns Assessment Noted Time PHQ-9 Depression Total Score: 7 03/08/20 20 4:11 PM CDT documented as of this encounter Care Teams Leather Polisher Relationship Specialty Start Date End Date Jeancarlos Nuñez MD PCP - General FAMILY PRACTICE 04/26/20 05/30/21 Mikhail Pineda MD 03/06/20 documented as of this encounter
--- OUTSIDE RECORDS SUMMARY | 2024-12-06 17:58 | XMS_ITS | Encounter Summary ---
Author Organization [facility] Address [address] [place] [address]. [place], [place] [address] [place] [address] Care Team Providers Care Engineering Faculty Member Name Role Phone Mikhail Pineda MD Unavailable Jeancarlos Nuñez MD Primary Care Provider [facility] Encounter Details Date Type Department Care Team (Latest Contact Info) Description 05/16/2020 Travel Social History Tobacco Use Types Packs/Day [...] documented as of this encounter Care Teams Engineering Faculty Member Relationship Specialty Start Date End Date Jeancarlos Nuñez MD PCP - General FAMILY PRACTICE 04/26/20 05/30/21 Mikhail Pineda MD 03/06/20 documented as of this encounter
--- OUTSIDE RECORDS SUMMARY | 2024-12-06 17:58 | XMS_ITS | Encounter Summary ---
Author Organization [facility] Address [address] [place] [address]. [place], [place] [address] [place] [address] Care Team Providers Care Epic Professional Name Role Phone iMkhail Pineda MD Primary Care Provider [phone] Encounter Details Date Type Department Care Team (Late st Contact Info) Description 12/09/2011 [facility] Emergency Room [address] [place] [address] [place] [address] Cayetano Meléndez MD [address] [place] [address] Social History Tobacco Use Types Packs/Day Years Used Date Smoking Tobacco: Never Assessed Comments Unknown Sex and Gender Information Value Date Recorded Sex Assigned at Not on file Legal Sex Female 7:01 PM CDT Gender Identity Not on file Sexual Orientation Not on file documented as of this encounter Plan of Treatment Not on file documented as of this encounter Visit Diagnoses Diagnosis Other depressive disorder documented in this encounter Care Teams Epic Professional Relationship Specialty Start Date End Date Mikhail Pineda MD PCP - General 12/10/11 03/05/20 documented as of this encounter
--- OUTSIDE RECORDS SUMMARY | 2024-12-06 17:58 | XMS_ITS | Encounter Summary ---
Author Organization [facility] Address [facility]6 [facility]. [place], [place] [address] [place] [address] Care Team Providers Care Lieutenant Fire Fighter Name Role Phone Mikhail Pineda MD Unavailable Jeancarlos Nuñez MD Primary Care Provider [facility] ilable Encounter Details Date Type Department Care Team (Late st Contact Info) Description 04/04/2021 Orders Only [facility] Medical [facility] [address] [place] [address] Jeancarlos Nuñez MD Social History [...] documented as of this encounter Care Teams Lieutenant Fire Fighter Relationship Specialty Start Date End Date Jeancarlos Nuñez MD PCP - General FAMILY PRACTICE 04/26/20 05/30/21 Mikhail Pineda MD 03/06/20 documented as of this encounter
--- OUTSIDE RECORDS SUMMARY | 2024-12-06 17:58 | XMS_ITS | Encounter Summary ---
Author Organization [facility] Address [facility]. [place], [place] [address] [place] [address] Care Team Providers Care Lifter/Driver Name Role Phone Mikhail Pineda MD Unavailable Jeancarlos Nuñez MD Primary Care Provider Unava ilable Bebe Pack RISK AND INSURANCE MANAGER Primary Care Provider [phone] Brianna Blanco RISK AND INSURANCE MANAGER Primary Care Provider [phone] Encounter Details Date Type Department Care Team (Late st Contact Info) Description 12/30/2020 MyChart Message Enc [facility] Medical [address] [address] [place] [address] Jeancarlos Nuñez MD Other Social [...] documented as of this encounter Care Teams Lifter/Driver Relationship Specialty Start Date End Date Jeancarlos Nuñez MD PCP - General FAMILY PRACTICE 04/26/20 05/30/21 Bebe Pack NP [address] [place] [address] PCP - General NURSE PRACTITIONER 05/31/21 09/24/22 Brianna Blanco NP [address] [place] [address] PCP - General Nurse Practitioner [facility] 09/25/22 Mikhail Pineda MD 03/06/20 documented as of this encounter
--- OUTSIDE RECORDS SUMMARY | 2024-12-06 17:58 | XMS_ITS | Encounter Summary ---
Author Organization [facility] Address [address] [place] [address]. [place], [place] [address] [place] [address] Care Team Providers Care Disability Benefits Specialist Name Role Phone Mikhail Pineda MD Unavailable Jeancarlos Nuñez MD Primary Care Provider [facility] Encounter Details Date Type Department Care Team (Latest Contact Info) Description 06/07/2020 Travel Social History Tobacco Use Types Packs/Day [...] documented as of this encounter Care Teams Disability Benefits Specialist Relationship Specialty Start Date End Date Jeancarlos Nuñez MD PCP - General FAMILY PRACTICE 04/26/20 05/30/21 Mikhail Pineda MD 03/06/20 documented as of this encounter
--- OUTSIDE RECORDS SUMMARY | 2024-12-06 17:58 | XMS_ITS | Encounter Summary ---
Author Organization [facility] Address [facility]6 [facility]. [place], [place] [address] [place] [address] Care Team Providers Care Drafter Seismograph Name Role Phone Katie Paul MD Primary Care Provider [phone] Mikhail Pineda MD Unavailable Reason for Visit * Reason Comments New Patient Patient is new to [facility], here for a meet and greet. [facility] [place], [place] Medication pt states that she n eeds to chage depression med Finger pain pt c/o swelling in r ight middle finger x 4 wks ago Encounter Details Date Type Department Care Team (Late st Contact Info) Description 03/08/2020 4:00 PM CDT Office Visit [facility] [address] [place] [address] Katie Paul MD [address] [facility] [place] [address] New Patient (Patient is new to the clinic, here for a meet and greet. [facility] [place], [place]); Medication (pt states that she needs to chage depression med); Finger pain (pt c/o swelling in right middle finger x 4 wks ago) Social History Tobacco Use Types Packs/Day Years Used Date Smoking Tobacco: Never Smokeless Tobacco: Never Alcohol Use Standard Drinks/Week Comments Not Currently 0 (1 standard drink = 0.6 oz pur e alcohol) Comments Unknown Sex and Gender Information Value Date Recorded Sex Assigned at Not on file Legal Sex Female 7:01 PM CDT Gender Identity Not on file Sexual Orientation Not on file COVID-19 Exposure Response Date Recorded In the last month, have you been in contact with someone who was confirmed or suspected to have Coronavirus / COVID-19? No / Unsure 03/08/2020 3:33 PM CDT documented as of this encounter Last Filed Vital Signs Vital Sign Reading Time Taken Comments Blood Pressure 139/88 03/08/2020 4:00 PM CDT Pulse 98 03/08/2020 4:00 PM CDT Temperature 36.8 ??C (98.3 ??F) 03/08/2020 4:00 PM CD T Respiratory Rate - - Oxygen Saturation 100% 03/08/2020 4:00 PM CDT Inhaled Oxygen Concentration - - Weight 75.5 kg (166 lb 6.4 oz) 03/08/2020 4:00 P M CDT Height 171.5 cm (5' 7.5 ) 03/08/2020 4:00 PM CDT Body Mass Index 25.68 03/08/2020 4:00 PM CDT documented in this encounter Progress Notes * Katie Paul MD - 03/08/2020 4:00 PM CDTAddended by: KATIE PAUL on: 03/14/2020 12:41 PM Modules accepted: Orders * Katie Paul MD - 03/08/2020 4:00 PM CDT Reason for Visit: New Patient (Patient is new to the clinic, here for a meet and greet. [facility] [place], [place]); Medication (pt states that she needs to chage depression med); and Finger pain (pt c/o swelling in right middle finger x 4 wks ago) History of Present Illness: I met Alecia in clinic today for the first time and she is here to establish care with us. Her medical history is significant for anxiety/ depression since age 9 and seasonal allergies. She wants to change her depression medications today stating Cymbalta is not helping her anymore and causing side effects so agrees to taper it off. She has tried some SSRIs and SNRIs in the past. Interested in giving Buspirone a try and will initiate it after she has tapered herself off of Cymbalta over a 2 weeks period. No SI or HI, intent or plans. Admits to increased stress for the past few monthsnow. Also mentions pain associated with swelling in her right middle finger for the past 4 weeks now after she fell outdoors playing with her dog. She noticed some initial bruising which has resolved now but she continues to have localized pain with occasional swelling so wants to get imaging done. ROS: Review of Systems Constitutional: Negative for chills, fever and malaise/fatigue. Respiratory: Negative for cough and shortness of breath. Cardiovascular: Negative for chest pain and palpitations. Gastrointestinal: Negative for abdominal pain, constipation, diarrhea, nausea and vomiting. Musculoskeletal: Positive for falls and joint pain (right middle finger swelling x weeks). Skin: Negative for itching and rash. Neurological: Negative for dizziness and headaches. Psychiatric/Behavioral: Positive for depression. Negative for hallucinations, memory loss, substance abuse and suicidal ideas. The patient is nervous/anxious. The patient does not have insomnia. Medications: Current Outpatient Medications: ??? busPIRone 5 MG tablet, Take 1 tablet (5 mg total) by mouth 2 (two) times daily., Disp: 60 tablet, Rfl: 0 ??? cetirizine 10 MG tablet, Take 10 mg by mouth daily., Disp: , Rfl: ??? DULoxetine 30 MG capsule, Take 1 capsule (30 mg total) by mouth daily., Disp: 15 capsule, Rfl: 0 ??? fluticasone propionate 50 MCG/ACT nasal spray, 1 spray by Nasal route daily., Disp: , Rfl: ??? vitamin B-12 (CYANOCOBALAMIN) 1000 mcg tablet, Take 1,000 mcg by mouth daily., Disp: , Rfl: ??? vitamin D3, cholecalciferol, 5000 UNITS capsule, Take 1 capsule by mouth daily., Disp: , Rfl: ??? buPROPion XL 300 MG 24 hr tablet, Take 300 mg by mouth daily., Disp: , Rfl: ??? montelukast 10 MG tablet, Take 10 mg by mouth daily., Disp: , Rfl: Not on File Past Medical History: Diagnosis Date ??? Allergy [...] file Gets together: Not on file Attends judaism service: Not on file Active member of [...] information on file. Physical Exam Constitutional: She is oriented to person, place, and time. She appears well- developed and well-nourished. No distress. HENT: Head: Normocephalic and atraumatic. Right Ear: External ear normal. Left Ear: External ear normal. Eyes: Conjunctivae are normal. Right eye exhibits no discharge. Left eye exhibits no discharge. Cardiovascular: Normal rate and regular rhythm. Musculoskeletal: Normal range of motion. She exhibits no edema, tenderness (of right midlle finger,not warm and ROM completely ivon,) or deformity. Neurological: She is alert and oriented to person, place, and time. Psychiatric: She has a normal mood and affect. Her behavior is normal. Nursing note and vitals reviewed. Filed Vitals: 03/08/20 1600 BP: 139/88 Pulse: 98 Temp: 98.3 ??F (36.8 ??C) TempSrc: Oral SpO2: 100% Weight: 75.5 kg (166 lb 6.4 oz) Height: 5' 7.5 (1.715 m) Diagnoses/Impression: 1. Encounter to establish care with new doctor COMPREHENSIVE METABOLIC PANEL CBC W/DIFF AUTOMATED THYROID STIM HORMONE, TSH 2. Encounter for medication review and counseling 3. Pain of finger of right hand XR THIRD FINGER RT 3V 4. Anxiety and depression DULoxetine 30 MG capsule busPIRone 5 MG tablet Recommendations and Plan: - Will call patient with lab results tomorrow and she requests for a printed out X ray order so shecan get it at a facility closer to her residence - Plan regarding mood medications discussed in detail, Cymbalta to be tapered off after which Buspirone will be introduced, possibility of increasing Wellbutrin's dose to 450 mg/ day max discussed for near future and advised to keep an eye on any additional or worsening symptoms - F/U after 4 weeks via tele or virtual visit Orders Placed This Encounter ??? XR THIRD FINGER RT 3V ??? COMPREHENSIVE METABOLIC PANEL ??? CBC W/DIFF AUTOMATED ??? THYROID STIM HORMONE, TSH ??? buPROPion XL 300 MG 24 hr tablet ??? DISCONTD: DULoxetine 60 MG capsule ??? montelukast 10 MG tablet ??? cetirizine 10 MG tablet ??? vitamin D3, cholecalciferol, 5000 UNITS capsule ??? vitamin B-12 (CYANOCOBALAMIN) 1000 mcg tablet ??? fluticasone propionate 50 MCG/ACT nasal spray ??? DULoxetine 30 MG capsule ??? busPIRone 5 MG tablet Katie Paul Referring Provider: No ref. provider found PCP: Katie Paul MD I discussed the entire plan with my patient and all questions/ concerns were answered. Patient verbalizes understanding of the plan and agrees to follow the recommendations. * Lizz Bradley - 03/08/2020 4:00 PM CDT Performed a blood draw in pt's right cephalic vein with one stick successfully without any incidents. LWCMA * Katie Paul MD - 03/08/2020 4:00 PM CDT Normal hemoglobin, kidney/ liver function and thyroid level. Her white count is elevated with high neutrophil count and not sure what's the source of this as yesterday she was feeling fine (afebrile)besides seasonal allergies. Ask patient about any additional symptoms like fever, cough. SOB, UTI and should get repeat CBC after a week or so on a nurse visit to make sure these values are trending d own. Order for lab placed. documented in this encounter Plan of Treatment Not on file documented as of this encounter Procedures Procedure Name Priority Date/Time Associated Diagnosis Comments COMPREHENSIVE METABOLIC PANEL Routine 03/08/2020 4:54 PM CDT Encounter to establish care with new doctor CBC W/DIFF AUTOMATED Routine 03/08/2020 4:54 PM CDT Encounter to establish care with new doctor THYROID STIM HORMONE TSH Routine 03/08/2020 4:54 PM CDT Encounter to establish care with new doctor COLLECTION VENOUS BLOOD VENIPUNCTURE Routine 03/08/2020 4:52 PM CDT Pain of finger of right hand documented in this encounter Results * THYROID STIM HORMONE, TSH (03/08/2020 4:54 PM CDT) TSH 1.568 0.358 - 3.740 uIU/ML 03/08/2020 6:35 PM CDT [facility] 03/08/2020 4:54 PM CDT us Katie Paul MD LABORATORY Final Result [facility] [address] [place] [address], * (ABNORMAL) CBC W/DIFF AUTOMATED (03/08/2020 4:54 PM CDT) [facility] Signature WBC 16.2(H) 4.50 - 10.80 x10'3/uL 03/08/2020 6:35 PM CDT [facility] RBC 4.59 4.10 - 5.40 x10'6/uL 03/08/2020 6:35 PM CDT [facility] HGB 14.0 12.0 - 16.0 G/DL 03/08/2020 6:35 PM CDT [facility] HCT 43.1 36.0 - 47.0 % 03/08/2020 6:35 PM CDT [facility] MCV 93.9 78.0 - 100.0 FL 03/08/2020 6:35 PM CDT [facility] MCH 30.5 27.0 - 31.0 PG 03/08/2020 6:35 PM CDT [facility] MCHC 32.5(L) 33.0 - 36.0 G/DL 03/08/2020 6:35 PM CDT [facility] RDW 13.0 11.5 - 14.5 % 03/08/2020 6:35 PM CDT [facility] PLT 329 150 - 350 x10'3/uL 03/08/2020 6:35 PM CDT [facility] MPV 11.8(H) 7.4 - 10.4 FL 03/08/2020 6:35 PM CDT [facility] DIFFERENTIAL TYPE AUTOMATED DIFFERENTIAL 03/08/2020 6:36 PM CDT [facility] NEUTROPHILS % 73.3 % 03/08/2020 6:36 PM CDT [facility] LYMPHOCYTES % 16.8 % 03/08/2020 6:36 PM CDT [facility] MONOCYTES % 7.4 % 03/08/2020 6:36 PM CDT [facility] EOSINOPHILS % 2.3 % 03/08/2020 6:36 PM CDT [facility] BASOPHILS % 0.2 % 03/08/2020 6:36 PM CDT [facility] ABS. NEUTROPHILS 11.84(H) 1.60 - 8.30 x10'3/uL 03/08/2020 6:36 PM CDT [facility] ABS. LYMPHOCYTES 2.72 0.80 - 4.70 x10'3/uL 03/08/2020 6:36 PM CDT [facility] ABS. MONOCYTES 1.20 0.00 - 1.50 x10'3/uL 03/08/2020 6:36 PM CDT [facility] ABS. EOSINOPHILS 0.37 0.00 - 0.40 x10'3/uL 03/08/2020 6:36 PM CDT [facility] ABS. BASOPHILS 0.04 0.00 - 0.20 x10'3/uL 03/08/2020 6:36 PM CDT [facility] 03/08/2020 4:54 PM CDT Katie Paul MD LABORATORY Final Result [facility] [address] [place] [address], * (ABNORMAL) COMPREHENSIVE METABOLIC PANEL (03/08/2020 4:54 PM CDT) SODIUM S/P/B 141 136 - 145 MMOL/L 03/08/2020 6:35 PM CDT [facility] POTASSIUM S/P/B 3.8 3.5 - 5.1 MMOL/L 03/08/2020 6:35 PM CDT [facility] CHLORIDE S/P/B 104 98 - 107 MMOL/L 03/08/2020 6:35 PM T [facility] CO2 29.7 21 - 32 MMOL/L 03/08/2020 6:35 PM T [facility] GLUCOSE 113(H) 70 - 99 MG/DL 03/08/2020 6:35 PM T [facility] BUN 13 6 - 24 MG/DL 03/08/2020 6:35 PM T [facility] CREATININE S/P/B 0.97 0.55 - 1.02 MG/DL 03/08/2020 6:35 PM [facility] CALCIUM S/P/B 9.2 8.4 - 10.5 MG/DL 03/08/2020 6:35 PM T [facility] BILIRUBIN TOTAL S/P/B 0.5 0.2 - 1.0 MG/DL 03/08/2020 6:35 PM T [facility] ALKALINE PHOSPHATASE S/P/B 88 37 - 98 U/L 03/08/2020 6:35 PM [facility] AST 13(L) 15 - 37 U/L 03/08/2020 6:35 PM [facility] ALT 19 14 - 59 U/L 03/08/2020 6:35 PM T [facility] TOTAL PROTEIN S/P/B 8.3(H) 6.4 - 8.2 G/DL 03/08/2020 6:35 PM [facility] ALBUMIN S/P/B 4.0 3.4 - 5.0 G/DL 03/08/2020 6:35 [facility] ANION GAP 7.3 5 - 15 MMOL/L 03/08/2020 6:35 PM [facility] Comment:REFERENCE RANGE NOT ESTABLISHED OSMOLALITY (CALC) 293 MOSM/KG 03/08/2020 6:35 PM T [facility] Comment:REFERENCE RANGE NOT ESTABLISHED EGFR NON-AFR. AMER. 74(L) >90 ML/MIN/1 .73 M2 03/08/2020 6:35 PM CDT [facility] EGFR AFR. AMER. 85(L) >90 ML/MIN/1 .73 M2 03/08/2020 6:35 PM CDT [facility] GFR NOTES THE ESTIMATED GFR IS CALCULATED USING THE 2009 CKD-EPI EQUATION. THE FOLLOWING CATEGORIES FOR GRADING RENAL FUNCTION ARE RECOMMENDED BY THE INTERNATIONAL SOCIETY OF NEPHROLOGY (KDIGO 2012 CLINICAL PRACTICE GUIDELINE). 03/08/2020 6:35 PM CDT [facility] Comment: G1,NORMAL OR HIGH: >89 ml/min/1.73 m2 G2,MILDLY DECREASED: 60-89 ml/min/1.73 m2 G3A,MILDLY TO MODERATELY DECREASED: 45-59 ml/min/1.73 m2 G3B,MODERATELY TO SEVERELY DECREASED: 30-44 ml/min/1.73 m2 G4,SEVERELY DECREASED: 15-29 ml/min/1.73 m2 G5,KIDNEY FAILURE: <15 ml/min/1.73 m2 03/08/2020 4:54 PM CDT Katie Paul MD LABORATORY Final Result Performing Organization Address City/State/[facility] Co de Phone Number [facility] [address] [place] [address], documented in this encounter Visit Diagnoses Diagnosis Encounter to establish care with new doctor- Primary Other reasons for seeking consultation Encounter for medication review and counseling Other specified counseling Pain of finger of right hand Pain in limb Anxiety and depression Dysthymic disorder Abnormal white blood cell count Unspecified disease of white blood cells Acute non-recurrent sinusitis of other sinus documented in this encounter Additional Health Concerns Assessment Noted Time PHQ-9 Depression Total Score: 7 03/08/20 20 4:11 PM CDT documented as of this encounter Care Teams Drafter Seismograph Relationship Specialty Start Date End Date Katie Paul MD [address] [place] [id number] PCP - General FAMILY PRACTICE 03/06/20 04/25/20 Mikhail Pineda MD [address] [place] [address] 03/06/20 documented as of this encounter
--- OUTSIDE RECORDS SUMMARY | 2024-12-06 17:58 | XMS_ITS | Encounter Summary ---
Author Organization [facility] Address formerly [facility]6 [facility]. [place], [place] [address] [place] [address] Care Team Providers Care Experimental Welder Name Role Phone Mikhail Pineda MD Unavailable Jeancarlos Nuñez MD Primary Care Provider Unava ilable Bebe Pack PEST TECHNICIAN Primary Care Provider [phone] Brianna Blanco PEST TECHNICIAN Primary Care Provider [phone] Encounter Details Date Type Department Care Team (Late st Contact Info) Description 04/26/2021 MyChart Message Enc [facility] Medical [place] [address] [place] [address] Jeancarlos Nuñez MD Other Social [...] documented as of this encounter Care Teams Experimental Welder Relationship Specialty Start Date End Date Jeancarlos Nuñez MD PCP - General FAMILY PRACTICE 04/26/20 05/30/21 Bebe Pack NP [address] [place] [address] PCP - General NURSE PRACTITIONER 05/31/21 09/24/22 Brianna Blanco NP [address] [place] [address] PCP - General Nurse Practitioner [facility] 09/25/22 Mikhail Pineda MD 03/06/20 documented as of this encounter
--- OUTSIDE RECORDS SUMMARY | 2024-12-06 17:58 | XMS_ITS | Encounter Summary ---
Author Organization [facility] Address [address] [place] [address]. [place], [place] [address] [place] [address] Care Team Providers Care Vice Principal Name Role Phone Mikhail Pineda MD Unavailable Jeancarlos Nuñez MD Primary Care Provider Unava ilable Reason for Visit * Reason Comments Hand Injury Right 3rd digit DOI: 02/04/2020 Encounter Details Date Type Department Care Team (Late st Contact Info) Description 05/16/2020 11:00 AM CDT Office Visit [facility] [address] [place] [address] Jess Rojas, [facility] [address] [facility] [place] [address] Hand Injury (Right 3rd digit DOI: 02/04/2020) Social History Tobacco Use Types Packs/Day Years [...] AM CDT documented as of this encounter Last Filed Vital Signs Vital Sign Reading Time Taken Comments Blood Pressure - - Pulse - - Temperature - - Respiratory Rate - - Oxygen Saturation - - Inhaled Oxygen Concentration - - Weight 75.3 kg (166 lb) 05/16/2020 10:51 AM CDT Height 171.5 cm (5' 7.5 ) 05/16/2020 10:51 AM CD T Body Mass Index 25.62 05/16/2020 10:51 AM CDT documented in this encounter Progress Notes * Jess Rojas, TRUST ADMINISTRATOR-BC - 05/16/2020 11:00 AM CDT Chief Complaint: Hand Injury (Right 3rd digit DOI: 02/04/2020) History of Present Illness: Alecia Mabry is a 39-year-old female who presents to the office for Hand Injury (Right 3rd digit DOI:02/04/2020) Patient states that she fell over her dog's toy and stuck her hand out to catch herself. She statesthat the next day her middle finger was swollen and bruised. She states that the pain has continuedsince the injury. She states that 3 weeks ago she had an appointment with her PCP and they ordered an xray at [facility] and they referred her to our office. She states that she has an aching pain located at the phalange joint and distally on her RIGHT 3rd finger. She states that she feels a shifting motion. She states that she is unable to make a fist and has a hard time grabbing items. She has notattended physical therapy and has not been wearing any immobilizer. She has continued with her daily activities. Patient denies numbness but does still have tingling with certain motions. She has tried Tylenol and ibuprofen without relief. Patient in LEFT hand dominant. ROS: See HPI for pertinent positives Problem List: Patient Active Problem List Diagnosis ??? Anxiety and depression ??? Recurrent major depressive disorder, in partial remission (CMS/HCC) ??? Family disruption due to family member on deployment ??? Closed nondisplaced fracture of distal phalanx of right middle finger, initial encounter History: Past Medical History: Diagnosis Date ??? Allergy ??? Anxiety ??? Depression Past Surgical History: Procedure Laterality Date ??? ACNE CYST REMOVAL left rist ??? BONE MARROW/BLOOD-DERIVED PERIPHERAL STEM CELL TRANSPLANTAT; ALLOGENEIC DONOR LYMPHOCYTE INFUSIONS 2017 ??? SOLUTION ELECTRODE CLEAN 2005 ??? TUBAL LIGATION 2003 Family History Problem Relation Name Age of Onset ??? COPD Mother ??? No Known Problems Father Family Status Relation Name Status ??? Mother Alive ??? Father Alive Social History Socioeconomic History ??? Marital status: [...] on file Tobacco Use ??? Smoking status: Current Every Day Smoker Types: Cigarettes ??? Smokeless tobacco: Never Used Substance and Sexual Activity ??? Alcohol use: Not Currently ??? Drug use: Never ??? Sexual activity: Not on file Lifestyle ??? Physical activity: Days per week: Not on file Minutes per session: Not on file ??? Stress: Not on file Relationships ??? Social connections: Talks on phone: Not on file Gets together: Not on file Attends baptism service: Not on file Active member of [...] Social History Narrative ??? Not on file Medications: Current Outpatient Medications: ??? acetaminophen 325 MG tablet, Take by mouth every 6 (six) hours as needed for Pain., Disp: , Rfl: ??? ibuprofen 400 MG tablet, Take 400 mg by mouth every 6 (six) hours as needed for Pain., Disp: , Rfl: ??? acyclovir 400 MG tablet, TAKE 1 TABLET BY MOUTH EVERY 12 HOURS FROM START OF PRODOMAL STAGE TO HEALING STAGE, Disp: , Rfl: ??? ARIPiprazole 10 MG tablet, Take 1 tablet (10 mg total) by mouth daily., Disp: 30 tablet, Rfl: 5 ??? buPROPion XL 300 MG 24 hr tablet, Take 1 tablet (300 mg total) by mouth daily., Disp: 30 tablet, Rfl: 5 ??? cetirizine 10 MG tablet, Take 1 tablet (10 mg total) by mouth daily., Disp: 30 tablet, Rfl: 5 ??? fluticasone propionate 50 MCG/ACT nasal spray, 1 spray by Nasal route daily., Disp: 16 g, Rfl: 5 ??? LORazepam 0.5 MG tablet, Take 1 tablet (0.5 mg total) by mouth every 6 (six) hours as needed for Anxiety., Disp: 30 tablet, Rfl: 0 ??? montelukast 10 MG tablet, Take 1 tablet (10 mg total) by mouth daily., Disp: 30 tablet, Rfl: 5 ??? vitamin B-12 (CYANOCOBALAMIN) 1000 mcg tablet, Take 1,000 mcg by mouth daily., Disp: , Rfl: ??? vitamin D3, cholecalciferol, 5000 UNITS capsule, Take 1 capsule by mouth daily., Disp: , Rfl: Allergies Allergen Reactions ??? Levaquin [Levofloxacin] Anaphylaxis Objective: Body mass index is 25.62 kg/m??. Last Recorded Weight 05/16/20 1051 Weight: 75.3 kg (166 lb) Physical exam: Constitutional: Alert and in no acute distress. Neurological: The patient was oriented to person, place, and time. Eyes: The sclera and conjunctiva were normal ENT: Hearing was normal. Neck: The appearance of the neck was normal. Cardiovascular: Normal pulses. Pulmonary: No respiratory distress. Skin: No injuries or skin lesion. Musculoskeletal: EXAM of right third finger today reveals tenderness to ulnar side of distal interphalangeal joint with palpation, able to make a fist, minimal swelling, no ecchymosis, good capillaryrefill, good wrist range of motion, neurovascularly intact. Results: X-ray of right third from today reviewed and reveals distal phalanx at the base of the ulnar side with intra-articular extension with minimal signs of healing in stable positioning. Assessment: Encounter Diagnose(s) ICD-10-CM ICD-9-CM SNOMED CT(R) 1. Closed nondisplaced fracture of distal phalanx of right middle finger, initial encounter S62.662A 816.02 CLOSED FRACTURE OF DISTAL PHALANX OF MIDDLE FINGER Plan: She has been using her hand frequently since she has been moving and has not been immobilizing at all since her injury. I had placed her in a metal splint prior to leaving the office but also demonstrated that she can charis tape her second and third digits if the splint becomes intolerable. I have encouraged for her to quit smoking which he voices that she is already working on. She will follow-up in 2 weeks for reevaluation and depending on her healing possible discontinuation of splinting at that time. Follow up: Return in about 2 weeks (around 05/30/2020) for Visit with Imaging (RIGHT 3rd finger). KELLY CAMP documented in this encounter Plan of Treatment Not on file documented as of this encounter Visit Diagnoses Diagnosis Closed nondisplaced fracture of distal phalanx of right middle finger, initial encounter- Primary documented in this encounter Additional Health Concerns Assessment Noted Time PHQ-9 Depression Total Score: 7 03/08/20 4:11 PM CDT documented as of this encounter Care Teams Vice Principal Relationship Specialty Start Date End Date Jeancarlos Nuñez MD PCP - General FAMILY PRACTICE 04/26/20 05/30/21 Mikhail Pineda MD 03/06/20 documented as of this encounter
--- OUTSIDE RECORDS SUMMARY | 2024-12-06 17:58 | XMS_ITS | Encounter Summary ---
Author Organization [facility] Address [facility] [place] [address] [place] [address] Care Team Providers Care Ticket Printer Name Role Phone Mikhail Pineda MD Unavailable Jeancarlos Nuñez MD Primary Care Provider Unava ilable Bebe Pack FILLER WIPER Primary Care Provider [phone] Brianna Blanco FILLER WIPER Primary Care Provider [phone] Encounter Details Date Type Department Care Team (Late st Contact Info) Description 06/09/2020 MyChart Message Enc [facility] Medical [place] [address] [place] [address] Jeancarlos Nuñez MD RE: Medication Questions Social History Tobacco Use Types Packs/Day Years [...] as of this encounter Progress Notes * Fabián Darden MA - 06/09/2020 12:30 PM CDT Please advise documented in this encounter Plan of Treatment Not on file documented as of this encounter Visit Diagnoses Not on filedocumented in this encounter Additional Health Concerns Assessment Noted Time PHQ-9 Depression Total Score: 7 03/08/20 20 4:11 PM CDT documented as of this encounter Care Teams Ticket Printer Relationship Specialty Start Date End Date Jeancarlos Nuñez MD PCP - General FAMILY PRACTICE 04/26/20 05/30/21 Bebe Pack NP [address] [place] [address] PCP - General NURSE PRACTITIONER 05/31/21 09/24/22 Brianna Blanco NP [address] [facility] [place] [address] PCP - General Nurse Practitioner Family 09/25/22 Mikhail Pineda MD 03/06/20 documented as of this encounter
--- OUTSIDE RECORDS SUMMARY | 2024-12-06 17:58 | XMS_ITS | Encounter Summary ---
Author Organization [facility] Address [address] [place] [address]. [place], [place] [address] [place] [address] Care Team Providers Care Torch Cutter Name Role Phone Mikhail Pineda MD Primary Care Provider [phone] Encounter Details Date Type Department Care Team (Late st Contact Info) Description 05/09/1995 Abstract [facility] CONVERSION [address] [place] [address] , Generic ConversionMD Social History Tobacco Use Types Packs/Day Years [...] Diagnoses Not on filedocumented in this encounter Care Teams Torch Cutter Relationship Specialty Start Date End Date Mikhail Pineda MD PCP - General 12/10/11 03/05/20 documented as of this encounter
--- OUTSIDE RECORDS SUMMARY | 2024-12-06 17:58 | XMS_ITS | Encounter Summary ---
Author Organization [facility] Address [address] [place] [address]. [place], [place] [address] [place] [address] Care Team Providers Care Fermentation Scientist Name Role Phone Mikhail Pineda MD Primary Care Provider [phone] Encounter Details Date Type Department Care Team (Late st Contact Info) Description 07/29/1999 Abstract [facility] CONVERSION [address] [place] [address] , Generic ConversionMD Social History Tobacco Use [...] on filedocumented in this encounter Care Teams Fermentation Scientist Relationship Specialty Start Date End Date Mikhail Pineda MD PCP - General 12/10/11 03/05/20 documented as of this encounter
--- OUTSIDE RECORDS SUMMARY | 2024-12-06 17:58 | XMS_ITS | Encounter Summary ---
Author Organization [facility] Address [facility]. [place], [place] [address] [place] [address] Care Team Providers Care Picker And Packer Name Role Phone Mikhail Pineda MD Unavailable Jeancarlos Nuñez MD Primary Care Provider Unava ilable Reason for Visit * Reason Onset Date Comments Refill Request 04/28/2020 please send to n pharmacy Encounter Details Date Type Department Care Team (Late st Contact Info) Description 04/28/2020 Telephone [place] [address] [place] [address] Jeancarlos Nuñez MD Refill Request (please send to new pharmacy) Social History Tobacco Use Types Packs/Day Years [...] Progress Notes * Cathy Santos RN - 05/01/2020 11:02 AM CDT Websphere Administrator verified with the pharmacy that the Lorazepam was not picked up. * Tigist Turner - 04/28/2020 1:18 PM CDT Pt asking that her scripts for lorazepam 0.5 MG, buproprion XL 300 MG, and montelukast 10 MG be resent to [facility] at [address] [place], [place]. States they did not potato picker script intime before leaving for [place]. documented in this encounter Plan of Treatment Not on file documented as of this encounter Visit Diagnoses Diagnosis Anxiety and depression Dysthymic disorder documented in this encounter Additional Health Concerns Assessment Noted Time PHQ-9 Depression Total Score: 7 03/08/20 20 4:11 PM CDT documented as of this encounter Care Teams Picker And Packer Relationship Specialty Start Date End Date Jeancarlos Nuñez MD PCP - General FAMILY PRACTICE 04/26/20 05/30/21 Mikhail Pineda MD 03/06/20 documented as of this encounter
--- OUTSIDE RECORDS SUMMARY | 2024-12-06 17:58 | XMS_ITS | Encounter Summary ---
Author Organization [facility] Address [facility]6 [facility]. [place], [place] [address] [place] [address] Care Team Providers Care Credit Card Associate Name Role Phone Malathi Sheppard MD Primary Care Provider [phone] Mikhail Pineda MD Unavailable Reason for Visit * Reason Onset Date Comments Medication Information 03/16/2020 Encounter Details Date Type Department Care Team (Late st Contact Info) Description 03/16/2020 Telephone [facility] Medical [facility] [address] [place] [address] Malathi Sheppard MD 125 [facility] [place] [address] Medication Information Social History Tobacco Use Types Packs/Day Years [...] as of this encounter Progress Notes * Martha Tavarez MA - 03/16/2020 4:27 PM CDT Sent order to [facility] pharmacy * Deepika Saba - 03/16/2020 3:58 PM CDT Pt is in [place] and would like script sent to [facility]. [facility] [phone] Pt can be reached at [phone] * Nissa Parra - 03/16/2020 3:48 PM CDT Called pt. No answer left voicemail to call back * Nissa Parra - 03/16/2020 3:48 PM CDT ----- Message from Malathi Sheppard MD sent at 03/14/2020 12:40 PM CDT ----- Will send an antibiotic script to her pharmacy for sinusitis. documented in this encounter Plan of Treatment Not on file documented as of this encounter Visit Diagnoses Diagnosis Acute non-recurrent sinusitis of other sinus documented in this encounter Additional Health Concerns Assessment Noted Time PHQ-9 Depression Total Score: 7 03/08/20 20 4:11 PM CDT documented as of this encounter Care Teams Credit Card Associate Relationship Specialty Start Date End Date Malathi Sheppard MD [address] [place] [address] PCP - General FAMILY PRACTICE 03/06/20 04/25/20 Mikhail Pineda MD [address] [place] [address] 03/06/20 documented as of this encounter
--- OUTSIDE RECORDS SUMMARY | 2024-12-06 17:58 | XMS_ITS | Encounter Summary ---
Author Organization [facility] Address [address] [place] [address]. [place], [place] [address] [place] [address] Care Team Providers Care Racing Mechanic Name Role Phone Mikhail Pineda MD Primary Care Provider [phone] Encounter Details Date Type Department Care Team (Late st Contact Info) Description 02/04/1995 Abstract [facility] CONVERSION [address] [place] [address] , Generic ConversionMD Social History Tobacco Use [...] on filedocumented in this encounter Care Teams Racing Mechanic Relationship Specialty Start Date End Date Mikhail Pineda MD PCP - General 12/10/11 03/05/20 documented as of this encounter
--- OUTSIDE RECORDS SUMMARY | 2024-12-06 17:58 | XMS_ITS | Encounter Summary ---
Author Organization [facility] Address [facility]6 [facility]. [place], [place] [address] [place] [address] Care Team Providers Care Software Team Leader Name Role Phone Malathi Sheppard MD Primary Care Provider [phone] Mikhail Pineda MD Unavailable Encounter Details Date Type Department Care Team (Latest Contact Info) Description 03/08/2020 Travel Social History Tobacco Use Types Packs/Day [...] documented as of this encounter Care Teams Software Team Leader Relationship Specialty Start Date End Date Malathi Sheppard MD [address] [place] [address] PCP - General FAMILY PRACTICE 03/06/20 04/25/20 Mikhail Pineda MD 125 [facility] [place] [address] 03/06/20 documented as of this encounter
--- OUTSIDE RECORDS SUMMARY | 2024-12-06 17:58 | XMS_ITS | Encounter Summary ---
Author Organization [facility] Address [facility]. [place], [place] [address] [place] [address] Care Team Providers Care Surveying Crew Stake Runner Name Role Phone Mikhail Pineda MD Unavailable Jeancarlos Nuñez MD Primary Care Provider Unava ilable Reason for Visit * Reason Comments Hand Injury Right 3rd digit DOI: 02/04/2020 Fracture Closed nondisplaced fracture of distal phalanx of right middle finger Encounter Details Date Type Department Care Team (Late st Contact Info) Description 06/07/2020 10:45 AM CDT Office Visit [address] [address] Jess Rojas, HARDBOARD GRINDER- [address] [facility] [place] [address] Hand Injury (Right 3rd digit DOI: 02/04/2020); Fracture (Closed nondisplaced fracture of distal phalanx of right middle finger) Social History Tobacco Use Types Packs/Day Years [...] Mass Index 26 06/07/2020 11:16 AM CDT documented in this encounter Progress Notes * Jess Rojas, HARDBOARD GRINDER-JESUS - 06/07/2020 10:45 AM CDT Chief Complaint: Hand Injury (Right 3rd digit DOI: 02/04/2020) and Fracture (Closed nondisplaced fracture of distal phalanx of right middle finger) History of Present Illness: Alecia Mabry is a 39-year-old female who presents to the office for Hand Injury (Right 3rd digit DOI:02/04/2020) and Fracture (Closed nondisplaced fracture of distal phalanx of right middle finger) Patient return to clinic today for follow up RIGHT middle finger injury. She came into clinic without any splints or charis taping. She reports that her pain is doing better and only hurts with certain movements. She states she has not been using her splint as much due to it gets in the way of her activities. She denies any numbness or tingling. Previous visit on 05/16/2020: Patient states that she fell over her dog's toy and stuck her hand out to catch herself. She statesthat the next day her middle finger was swollen and bruised. She states that the pain has continuedsince the injury. She states that 3 weeks ago she had an appointment with her PCP and they ordered an xray at [facility] and they referred her to our [...] middle finger with routine healing, subsequent encounter History: Past Medical History: Diagnosis Date ??? Allergy ??? Anxiety ??? Depression Past Surgical History: Procedure Laterality Date ??? ACNE CYST REMOVAL left rist ??? BONE MARROW/BLOOD-DERIVED PERIPHERAL STEM CELL TRANSPLANTAT; ALLOGENEIC DONOR LYMPHOCYTE INFUSIONS 2017 ??? SOLUTION ELECTRODE CLEAN 4 2005 ??? TUBAL LIGATION 2003 Family History Problem Relation Name Age of Onset ??? COPD Mother ??? No Known Problems Father Social History Tobacco Use ??? Smoking status: Current Every Day Smoker Types: Cigarettes ??? Smokeless tobacco: Never Used Substance Use Topics ??? Alcohol use: Not Currently ??? Drug use: Never Medications: Current Outpatient Medications: ??? acetaminophen 325 [...] daily., Disp: 16 g, Rfl: 5 ??? ibuprofen 400 MG tablet, Take 400 mg by mouth every 6 (six) hours as needed for Pain., Disp: , Rfl: ??? LORazepam 0.5 MG tablet, Take 1 [...] Allergen Reactions ??? Levaquin [Levofloxacin] Anaphylaxis Objective: Filed Vitals: 06/07/20 1116 Weight: 75.3 kg (166 lb) Height: 5' 7 (1.702 m) Body mass index is 26 kg/m??. Physical Exam: Constitutional: Alert and in no acute distress. Neurological: The patient was oriented to person, place, and time. Eyes: The sclera and conjunctiva were normal ENT: Hearing was normal. Neck: The appearance of the neck was normal. Cardiovascular: Normal pulses. Pulmonary: No respiratory distress. Skin: No injuries or skin lesions. Musculoskeletal: EXAM of RIGHT 3rd finger today reveals minimal tenderness at the ulna sided base of the distal phalanx with palpation, able to make a fist, no pain with flexion, able to make a fist,no swelling, no ecchymosis, good capillary refill. Results: XRAY of RIGHT hand today reveals progressive healing of 3rd distal phalanx fracture in stable alignment with minimal visualization of fracture line on imaging today. Assessment: Encounter Diagnose(s) ICD-10-CM ICD-9-CM SNOMED CT(R) 1. Closed nondisplaced fracture of distal phalanx of right middle finger with routine healing, subsequent encounter S62.662D V54.19 CLOSED FRACTURE OF DISTAL PHALANX OF MIDDLE FINGER Plan: She has done very well and is demonstrating minimal signs of pain on examination today. I have recommend discontinuing the bracing and activity as tolerated. She will follow up as needed. Follow up: Return if symptoms worsen or fail to improve. KELLY CAMP documented in this encounter Plan of Treatment Not on file documented as of this encounter Visit Diagnoses Diagnosis Closed nondisplaced fracture of distal phalanx of right middle finger with routine healing, subsequent encounter- Primary documented in this encounter Additional Health Concerns Assessment Noted Time PHQ-9 Depression Total Score: 7 03/08/20 4:11 PM CDT documented as of this encounter Care Teams Surveying Crew Stake Runner Relationship Specialty Start Date End Date Jeancarlos Nuñez MD PCP - General FAMILY PRACTICE 04/26/20 05/30/21 Mikhail Pineda MD 03/06/20 documented as of this encounter
--- OUTSIDE RECORDS SUMMARY | 2024-12-06 17:58 | XMS_ITS | Encounter Summary ---
Author Organization [facility] Address [address] [place] [address]. [place], [place] [address] [place] [address] Care Team Providers Care Creative Writing Professor Name Role Phone Mikhail Pineda MD Unavailable Jeancarlos Nuñez MD Primary Care Provider Unava ilable Encounter Details Date Type Department Care Team (Late st Contact Info) Description 04/03/2021 MyCReferrizert Message Enc [facility] Medical [facility] [address] [place] [address] Jeancarlos Nuñez MD Other Social [...] as of this encounter Progress Notes * Aisha Elizondo - 04/04/2021 2:26 PM CDT Last visit 05/08/2020 Filled 01/31/21 * Aisha Elizondo - 04/04/2021 2:25 PM CDTFrom: Alecia Mabry To: Dr. Donna Nuñez Sent: 04/03/2021 10:58 AM CDT Subject: Other Could you please send a 90 day supply of my Aripiprazole 10mg to [facility] in [facility]. documented in this encounter Plan of Treatment Not on file documented as of this encounter Visit Diagnoses Diagnosis Recurrent major depressive disorder, in partial remission (CMS/HCC) Anxiety and depression Dysthymic disorder documented in this encounter Additional Health Concerns Assessment Noted Time PHQ-9 Depression Total Score: 7 03/08/20 4:11 PM CDT documented as of this encounter Care Teams Creative Writing Professor Relationship Specialty Start Date End Date Jeancarlos Nuñez MD PCP - General FAMILY PRACTICE 04/26/20 05/30/21 Mikhail Pineda MD 03/06/20 documented as of this encounter
--- OUTSIDE RECORDS SUMMARY | 2024-12-06 17:58 | XMS_ITS | Encounter Summary ---
Author Organization [facility] Address [address] [place] [address]. [place], [place] [address] [place] [address] Care Team Providers Care Hand Baseball Sewer Name Role Phone Mikhail Pineda MD Unavailable Jeancarlos Nuñez MD Primary Care Provider Unava ilable Encounter Details Date Type Department Care Team (Late st Contact Info) Description 05/16/2020 Orders Only [facility] [address] [facility] 1 [place] [address] Jess Rojas, [facility] 1215 [facility] [place] [address] Social History Tobacco Use Types Packs/Day Years [...] on file documented as of this encounter Results * XR THIRD FINGER [...] Right third finger radiograph from [facility] 04/26/2020 FINDINGS: ??No subacute fracture involving third [...] views. COMPARISON: Right third finger radiograph from [facility] 04/26/2020 FINDINGS: No subacute fracture involving third [...] Monterroso MD, 05/16/2020 11:56 AM us Jess Mendez Bob [employer] SUPERINTENDENT-[facility] GENERAL IMAGING Final Resu lt documented in this encounter Visit Diagnoses Diagnosis Finger injury, right, subsequent encounter- Primary Finger injury, right, subsequent encounter documented in this encounter Additional Health Concerns Assessment Noted Time PHQ-9 Depression Total Score: 7 03/08/20 20 4:11 PM CDT documented as of this encounter Care Teams Hand Baseball Sewer Relationship Specialty Start Date End Date Jeancarlos Nuñez MD PCP - General FAMILY PRACTICE 04/26/20 05/30/21 Mikhail Pineda MD 03/06/20 documented as of this encounter
--- OUTSIDE RECORDS SUMMARY | 2024-12-06 17:58 | XMS_ITS | Encounter Summary ---
Author Organization [facility] Address [facility]6 [facility]. [place], [place] [address] [place] [address] Care Team Providers Care Piggyback Clerk Name Role Phone Malathi Sheppard MD Primary Care Provider [phone] Mikhail Pineda MD Unavailable Reason for Visit * Reason Onset Date Comments Fax Documentation 04/07/2020 Encounter Details Date Type Department Care Team (Late st Contact Info) Description 04/07/2020 Telephone [facility] Medical [facility] [address] [place] [address] Malathi Sheppard MD 125 [facility] [place] [address] Fax Documentation Social History Tobacco Use Types Packs/Day Years [...] as of this encounter Progress Notes * Lizz Bradley - 04/07/2020 12:50 PM CDT Called and spoke with the Radiology dept at [facility] regarding pt's X- Ray orders, info will be faxed to [phone]. documented in this encounter Plan of Treatment Not on file documented as of this encounter Visit Diagnoses Not on filedocumented in this encounter Additional Health Concerns Assessment Noted Time PHQ-9 Depression Total Score: 7 03/08/20 20 4:11 PM CDT documented as of this encounter Care Teams Piggyback Clerk Relationship Specialty Start Date End Date Malathi Sheppard MD 125 [facility] [place] [address] PCP - General FAMILY PRACTICE 03/06/20 04/25/20 Mikhail Pineda MD 125 [facility] [place] [address] 03/06/20 documented as of this encounter
--- OUTSIDE RECORDS SUMMARY | 2024-12-06 17:58 | XMS_ITS | Encounter Summary ---
Author Organization [facility] Address [facility]. [place], [place] [address] [place] [address] Care Team Providers Care Moving Worker Name Role Phone Malathi Sheppard MD Primary Care Provider [phone] Mikhail Pineda MD Unavailable Jeancarlos Nuñez MD Primary Care Provider Unava ilable Bebe Pack PROCESS VALIDATION ENGINEER Primary Care Provider [phone] Brianna Blanco PROCESS VALIDATION ENGINEER Primary Care Provider [phone] Encounter Details Date Type Department Care Team (Late st Contact Info) Description 04/21/2020 MyChart Message Enc [facility] Medical [address] [address] Jeancarlos Nuñez MD Medication Questions Social History Tobacco Use Types [...] encounter Progress Notes * Adri Brenner - 04/27/2020 11:54 AM CDT Called pt and could not get through on the number * Jeancarlos Nuñez MD - 04/26/2020 5:05 PM CDT Ah ok, so no increase in buspirone * Zoila Peña LPN - 04/26/2020 4:33 PM CDT Patient states Buspirone was discontinued when Dr. Nuñez started her on Bupropion 300mg qd. * Jeancarlos Nuñez MD - 04/26/2020 4:23 PM CDT I sent in Rx's for Lorazepam and an increased dose of the buspirone from 5 to 10 mg daily. * Malathi Sheppard MD - 04/26/2020 2:08 PM CDT Patient recently established care with Dr. Nuñez. Can you kindly send this message to him? Thanks * Cathy Santos RN - 04/25/2020 4:33 PM CDT Patient has a virtual visit 05/08, please advise * Cathy Santos RN - 04/25/2020 4:33 PM CDTFrom: Alecia Mabry To: Jeancarlos Nuñez MD Sent: 04/21/2020 2:45 PM CDT Subject: Medication Questions Hello, I was wondering if I could get a short term prescription until my appt for anxiety. I don't always have a lot of issues with it but lately it's been worse. I've been having a lot of personal problemsand having anxiety/panic attacks 1- 2x's a week. Abilify has definitely helped my moods so thank youvery muc h for that. If not on the anxiety [...] documented as of this encounter Care Teams Moving Worker Relationship Specialty Start Date End Date Malathi Sheppard MD [address] [place] [address] PCP - General FAMILY PRACTICE 03/06/20 04/25/20 Jeancarlos Nuñez MD [address] [place] [address] PCP - General FAMILY PRACTICE 04/26/20 05/30/21 Bebe Pack NP [address] [place] [address] PCP - General NURSE PRACTITIONER 05/31/21 09/24/22 Brianna Blanco NP [address] [place] [address] PCP - General Nurse Practitioner [facility] 09/25/22 Mikhail Pineda MD [address] [place] [address] 03/06/20 documented as of this encounter
--- OUTSIDE RECORDS SUMMARY | 2024-12-06 17:58 | XMS_ITS | Encounter Summary ---
Author Organization [facility] Address [facility]6 [facility]. [place], [place] [address] [place] [address] Care Team Providers Care Gun Numberer Name Role Phone Malathi hSeppard MD Primary Care Provider [phone] Mikhail Pineda MD Unavailable Reason for Visit * Reason Onset Date Comments Appointment Request 04/04/2020 Encounter Details Date Type Department Care Team (Late st Contact Info) Description 04/04/2020 Telephone [place] [address] [place] [address] Jeancarlos Nuñez MD Appointment Request Social History Tobacco Use Types Packs/Day [...] as of this encounter Progress Notes * Zoila Peña LPN - 04/05/2020 1:27 PM CDT Given to front end specialist staff to schedule. * Jeancarlos Nuñez MD - 04/05/2020 12:17 PM CDT Yes video visit is ok * Zoila Peña LPN - 04/05/2020 12:12 PM CDT Patient would like to schedule a video visit. Is that going to be okay with you Dr. Nuñez? * Jeancarlos Nuñez MD - 04/05/2020 10:33 AM CDT Yes I would accept her as a new pt as I see her * Cathy Santos RN - 04/05/2020 10:21 AM CDT Patient just established with Dr. Sheppard 03/08/20. Are you accepting new patients? * Johnie Salmeron - 04/04/2020 12:58 PM CDT Patient requesting a new patient appointment. According to my info Dr. Nuñez is not accepting nepatients; patient is aware but still requesting an appointment. Callback # [phone] documented in this encounter Plan of Treatment Not on file documented as of this encounter Visit Diagnoses Not on filedocumented in this encounter Additional Health Concerns Assessment Noted Time PHQ-9 Depression Total Score: 7 03/08/20 20 4:11 PM CDT documented as of this encounter Care Teams Gun Numberer Relationship Specialty Start Date End Date Malathi Sheppard MD [address] [place] [address] PCP - General FAMILY PRACTICE 03/06/20 04/25/20 Mikhail Pineda MD [address] [place] [address] 03/06/20 documented as of this encounter
--- OUTSIDE RECORDS SUMMARY | 2024-12-06 17:58 | XMS_ITS | Encounter Summary ---
Author Organization [facility] Address [address] [place] [address]. [place], [place] [address] [place] [address] Care Team Providers Care Health Insurance Specialist Name Role Phone Mikhail Pineda MD Unavailable Jeancarlos Nuñez MD Primary Care Provider Ariela weirable Encounter Details Date Type Department Care Team (Late st Contact Info) Description 06/06/2020 Orders Only [facility] [address] [place] [address], [facility] [address] [place] [address] Lyndsey Hurd RN Social History Tobacco Use Types Packs/Day Years [...] as of this encounter Results * XR HAND RT 3V (06/07/2020 11:20 AM CDT) Anatomical Region Laterality Modality Hand Radiographic Jazzy ging 06/07/2020 2:53 PM CDT Impressions 06/07/2020 3:02 PM CDT IMPRESSION: Healed third distal phalangeal fracture. Otherwise unremarkable. Interpreted By: Rajiv Morse, 06/07/2020 2:53 PM Narrative 06/07/2020 3:02 PM CDT Examination: Right hand. Exam time: 1022 hours. Clinical history: Follow-up of third distal phalangeal fracture. Comparison: 05/16/2020. Technique: Three views. Findings: There has been complete healing of the previously evident nondisplaced oblique intra-articular fracture through the ulnar aspect of the base of the third distal phalanx. No new fracture is identified. No other significant bone or joint abnormality is noted. The soft tissues are unremarkable. Procedure Note Rajiv Morse MD - 06/07/2020 Examination: Right hand. Exam time: 1022 hours. Clinical history: Follow-up of third distal phalangeal fracture. Comparison: 05/16/2020. Technique: Three views. Findings: There has been complete healing of the previously evident nondisplaced oblique intra-articular fracture through the ulnar aspectof the base of the third distal phalanx. No new fracture is identified. No other significant bone or joint abnormality is noted. The soft tissuesare unremarkable. IMPRESSION: Healed third distal phalangeal fracture. Otherwise unremarkable. Interpreted By: Rajiv Morse, 06/07/2020 2:53 PM Jess Rojas PRODUCT MARKETER-[facility] Final Resu lt documented in this encounter Visit Diagnoses Diagnosis Closed nondisplaced fracture of distal phalanx of right middle finger, initial encounter- Primary Closed nondisplaced fracture of distal phalanx of right middle finger, initial encounter documented in this encounter Additional Health Concerns Assessment Noted Time PHQ-9 Depression Total Score: 7 03/08/20 20 4:11 PM CDT documented as of this encounter Care Teams Health Insurance Specialist Relationship Specialty Start Date End Date Jeancarlos Nuñez MD PCP - General FAMILY PRACTICE 04/26/20 05/30/21 Mikhail Pineda MD 03/06/20 documented as of this encounter
--- OUTSIDE RECORDS SUMMARY | 2024-12-06 17:58 | XMS_ITS | Encounter Summary ---
Author Organization [facility] Address [address] [place] [address]. [place], [place] [address] [place] [address] Care Team Providers Care Clinical Account Manager Name Role Phone Mikhail Pineda MD Unavailable Jeancarlos Nuñez MD Primary Care Provider Unatrent ilable Encounter Details Date Type Department Care Team (Late st Contact Info) Description 06/07/2020 10:15 AM CDT - 06/07/2020 11:59 PM CDT Hospital Encounter [facility] [address] [place] [address] Jess Rojas, [facility] [address] [facility] [place] [address] Discharge Disposition: Home or Self Care (Routine [...] spray by Nasal route daily. 16 g 05/08/2020 ibuprofen 400 MG tablet Take 400 [...] hours as needed for Anxiety. 30 tablet 05/29/2020 06/26/2020 documented as of this encounter Plan of Treatment Not on file documented as of this encounter Procedures Procedure Name Priority Date/Time Associated Diagnosis Comments XR HAND RT 3V Routine 06/07/2020 11:20 AM CDT Closed nondisplaced fracture of distal phalanx of right middle finger, initial encounter documented in this encounter Results * XR HAND RT [...] Rajiv Morse, 06/07/2020 2:53 PM Jess Rojas CLINICAL AIDE-[facility] GENERAL IMAG[facility] Final Resu lt documented in this encounter Visit Diagnoses Diagnosis Closed nondisplaced fracture of distal phalanx of right middle finger, initial encounter documented in this encounter Additional Health Concerns Assessment Noted Time PHQ-9 Depression Total Score: 7 03/08/20 20 4:11 PM CDT documented as of this encounter Care Teams Clinical Account Manager Relationship Specialty Start Date End Date Jeancarlos Nuñez MD PCP - General FAMILY PRACTICE 04/26/20 05/30/21 Mikhail Pineda MD 03/06/20 documented as of this encounter
--- OUTSIDE RECORDS SUMMARY | 2024-12-06 17:58 | XMS_ITS | Encounter Summary ---
Author Organization [facility] Address [facility]. [place], [place] [address] [place] [id number] Care Team Providers Care Cloth Shrinking Machine Operator Helper Name Role Phone Mikhail Pineda MD Unavailable Charlie Kaur MD Primary Care Provider Unava ilable Reason for Visit * Reason Comments Medication Check [facility] today the [facility] Encounter Details Date Type Department Care Team (Latest Contact Info) Description 05/08/2020 2:00 PM CDT Telemedicine [address] [phone] Charlie Kaur MD Medication Check ([facility] uses [facility] today the [facility]) Social History Tobacco Use Types Packs/Day Years [...] Progress Notes * Charlie Kaur MD - 05/08/2020 2:00 PM CDT Reason for Visit: Medication Check ([facility] [place] [facility] the [facility]) Diagnoses/Impression: 1. Non-seasonal allergic rhinitis due to other allergic trigger fluticasone propionate 50 MCG/ACT nasal spray cetirizine 10 MG tablet 2. Anxiety and depression buPROPion XL 300 MG 24 hr tablet ARIPiprazole 10 MG tablet 3. Recurrent major depressive disorder, in partial remission (CMS/HCC) ARIPiprazole 10 MG tablet 4. Family disruption due to family member on deployment son to [facility] [employer] [facility] [place] 05/2020 , out of contact for 9 weeks Recommendations and Plan: Increase aripiprazole to 10 mg daily, continue same bupropion and lorazepam, refills for fluticasone and cetirizine, all prescription sent to [facility] in [facility], repeat video visit in 6weeks. Orders Placed This Encounter ??? buPROPion XL 300 MG 24 hr tablet ??? fluticasone propionate 50 MCG/ACT nasal spray ??? ARIPiprazole 10 MG tablet ??? cetirizine 10 MG tablet History of Present Illness: HPI Chief complaint:med check V.V. Visit : I introduced and identified myself, received verbal consent from the patient to proceed with this video visit and made the patient aware that the same confidentiality and career information specialist practices apply. The patient joined the video visit from Home. I completed the virtual visit from Office. The following clinical staff helped with this visit MA: Hilda Caceres Total Time Spent in Minutes: 8 minutes on phone call, Today I had a video visit with Alecia, she said that her mood was about 80% improved with the additionof Abilify 1 month ago, she did experience slight next-day sedation after taking the aripiprazole at at bedtime, but felt that she needed some additional help with her mood and anxiety. There have been some additional stressors most notably her son, 17 years old just joined the and is going away to [facility] [place] for 9 weeks during which time she cannot be in contact with him. Also her 20-year-old daughter is moving out although she will be in contact with Alecia. There is no interpersonal conflict between the patient and either of her children. Due to the above stressors and response 5 mg Abilify I will increase her dose to 10 mg and I sent the new dose to the [facility] in [facility]. I am also sending refills for her fluticasone and cetirizine and bupropion there. I have askedthe patient to have another video visit in about 6 weeks. Health maint:Never smoked no DM, glucose 113 03/08/202003/2020 Imm needs Tdap,flu No lipids, Pap ROS: Review of Systems Psychiatric/Behavioral: Positive for depression. Negative for suicidal ideas. The patient is nervous/anxious. The patient does not have insomnia. Medications: Current Outpatient Medications: ??? ARIPiprazole 10 MG tablet, Take 1 [...] daily., Disp: 16 g, Rfl: 5 ??? acyclovir 400 MG tablet, TAKE 1 TABLET BY MOUTH EVERY 12 HOURS FROM START OF PRODOMAL STAGE TO HEALING STAGE, Disp: , Rfl: ??? LORazepam 0.5 MG [...] file Gets together: Not on file Attends islam service: Not on file Active member of [...] appears well- developed and well-nourished. No distress. Pulmonary/Chest: No respiratory distress. Neurological: She is alert and oriented to person, place, and time. No cranial nerve deficit. There were no vitals filed for this visit. Diagnoses/Impression: 1. Non-seasonal allergic rhinitis due to other allergic trigger fluticasone propionate 50 MCG/ACT nasal spray cetirizine 10 MG tablet 2. Anxiety and depression buPROPion XL 300 MG 24 hr tablet ARIPiprazole 10 MG tablet 3. Recurrent major depressive disorder, in partial remission (CMS/HCC) ARIPiprazole 10 MG tablet 4. Family disruption due to family member on deployment son to [employer] 05/2020 , out of contact for 9 weeks Recommendations and Plan: Increase aripiprazole to 10 mg daily, continue same bupropion and lorazepam, refills for fluticasone and cetirizine, all prescription sent to [facility] in [facility], repeat video visit in 6weeks. Orders Placed This Encounter ??? buPROPion XL 300 MG 24 hr tablet ??? fluticasone propionate 50 MCG/ACT nasal spray ??? ARIPiprazole 10 MG tablet ??? cetirizine 10 MG tablet CHARLIE KAUR Referring Provider: No ref. provider found PCP: CHARLIE KAUR MD Multiple questions asked and answered, patient expressed understanding and agreement with plan. documented in this encounter Plan of Treatment Not on file documented as of this encounter Visit Diagnoses Diagnosis Non-seasonal allergic rhinitis due to other allergic trigger- Primary Anxiety and depression Dysthymic disorder Recurrent major depressive disorder, in partial remission ([facility]) Family disruption due to family member on deployment documented in this encounter Additional Health Concerns Assessment Noted Time PHQ-9 Depression Total Score: 7 03/08/20 20 4:11 PM CDT documented as of this encounter Care Teams Cloth Shrinking Machine Operator Helper Relationship Specialty Start Date End Date Charlie Kaur MD PCP - General FAMILY PRACTICE 04/26/20 05/30/21 Mikhail Pineda MD 03/06/20 documented as of this encounter
--- OUTSIDE RECORDS SUMMARY | 2024-12-06 17:58 | XMS_ITS | Encounter Summary ---
Author Organization [facility] Address [facility]. [place], [place] [address] [place] [address] Care Team Providers Care Cargo Broker Name Role Phone Mikhail Pineda MD Primary Care Provider Encounter Details Date Type Department Care Team (Late st Contact Info) Description 12/10/2011 [place] [address] Kyleigh Salmon MD [address] [place] [id number] Social History Tobacco Use Types Packs/Day Years Used Date Smoking Tobacco: Never Assessed Comments Unknown Sex and Gender Information Value Date Recorded Sex Assigned at Not on file Legal Sex Female 7:01 PM CDT Gender Identity Not on file Sexual Orientation Not on file documented as of this encounter Plan of Treatment Not on file documented as of this encounter Visit Diagnoses Diagnosis Major depressive disorder, recurrent episode (CMS/HCC) Major depressive disorder, recurrent episode, unspecified documented in this encounter Care Teams Cargo Broker Relationship Specialty Start Date End Date Mikhail Pineda MD PCP - General 12/10/11 03/05/20 documented as of this encounter
--- OUTSIDE RECORDS SUMMARY | 2024-12-06 18:00 | XMS_ITS | Encounter Summary ---
Author Organization [facility] Address [address] [place] [address] Care Team Providers Care Superintendent Building Name Role Phone Mona Hernandez NP Primary Care Provider [phone] Evaristo Wills MD Unavailable [phone] Encounter Details Date Type Department Care Team (Late st Contact Info) Description 07/30/[address] [facility] Medical Group [facility] [address] [place] [address] Mayra Richardson, DO [address] [place] [id number] Menopausal symptoms (Primary Dx) Social History Tobacco Use Types Packs/Day Years Used Date Smoking Tobacco: Every Day Vaping Smokeless Tobacco: Former Alcohol Use Standard Drinks/Week Comments Yes 0 (1 standard drink = 0.6 oz pur e alcohol) once per month Comments No Sex and Gender Information Value Date Recorded Sex Assigned at Not on file Legal Sex Female 9:09 AM CASING SEWER Gender Identity Female 07/30/2024 4:35 PM CDT Sexual Orientation Choose not to disclose 2023 4:35 PM CDT Occupation Industry Job Start Date Job End Date [employer] Not on file Not on file Not on file documented as of this encounter Plan of Treatment Not on file documented as of this encounter Results * LH (07/30/2024 9:48 AM CDT) LH 9.1 IUnits/L Comment: Interpretive Data Males: ??Adults: ? 1.7 - 8.6 ?? IUnits/L Females: ?Follicular: ? 2.4 - 12.6 ??IUnits/L ??Ovulation: ? 14.0 - 95.6 ??IUnits/L ?Luteal: ? 1.0 - 11.4 ??IUnits/L ??Postmenopausal: 7.7 - 58.5 ??IUnits/L Current interpretive data was last revised on 2019. Testing performed by: [facility], [address] [place] [address]., [id number] Blood 07/30/2024 9:48 AM CDT 07/30/2024 2:50 PM CDT us Mayra Richardson DO LAB BLOOD ORDERABLES [facility] Result MICHELLE [id number] [address] Department [place] [address] * Follicle stimulating hormone (07/30/2024 9:48 AM CDT) FSH 5.6 IUnits/L Comment: Interpretive Data Male: Adults: ?1.5 - 12.4 IUnits/L Female: ?? Follicular: ?3.5 - 12.5 IUnits/L Ovulation: ? 4.7 - 21.5 IUnits/L Luteal: ?1.7 - 7.7 IUnits/L Postmenopausal: 25.8 - 134.8 IUnits/L Current interpretive data was last revised 2015. Testing performed by: [facility], [address] [place]., [address] Blood 07/30/2024 9:48 AM CDT 07/30/2024 2:50 PM CDT Mayra Richardson DO LAB BLOOD ORDERABLES Fi [facility] Result MICHELLE SPRINGER [address] [address] Department [employer] [place] [address] * Estradiol (07/30/2024 9:48 AM CDT) Estradiol 87.8 pg/mL Comment: Interpretive Data Male: ?11 - 43 pg/mL Female: ??Follicular ? 31 - 90 pg/mL ??Ovulation ?60 - 533 pg/mL ??Luteal ? 60 - 232 pg/mL ??Postmenopausal ?? < 50 ??pg/mL Patients treated with Fluvestrant (Faslodex) should be tested using an alternate assay such as LC-MS. Contact the [facility], , to request analysis by LC-MS. Current interpretive data was last revised 2020. Testing performed by: [facility], [address] [place]., [address] Blood 07/30/2024 9:48 AM CDT 07/30/2024 2:50 PM CDT Mayra Richardson DO LAB BLOOD ORDERABLES Fi n[facility] Result MICHELLE SPRINGER [id number] [address] Department [employer] [place] [address] documented in this encounter Visit Diagnoses Diagnosis Menopausal symptoms- Primary Symptomatic menopausal or female climacteric states documented in this encounter Care Teams Superintendent Building Relationship Specialty Start Date End Date Mona Hernandez NP [address] [place] [id number] PCP - General Internal Medicine 12/12/22 Evaristo Wills MD [address] [place] [address] 12/12/22 documented as of this encounter
--- OUTSIDE RECORDS SUMMARY | 2024-12-06 18:00 | XMS_ITS | Encounter Summary ---
Author Organization [facility] Healthcare Address [address] [place] [address] Care Team Providers Care Web Press Jogger Name Role Phone Mona Hernandez NP Primary Care Provider [phone] Evaristo Wills MD Unavailable [phone] Encounter Details Date Type Department Care Team (Latest Contact Info) Description 08/26/2023 3:14 PM CDT - 08/26/2023 11:59 PM CDT Hospital Encounter [address] [address] Screening for malignant neoplasm of the cervix Discharge Disposition: Discharge to home or self care Social History Tobacco Use Types Packs/Day Years Used Date Smoking Tobacco: Every Day Vaping Smokeless Tobacco: Former Alcohol Use Standard Drinks/Week Comments Yes 0 (1 standard drink = 0.6 oz pur e alcohol) once per month Comments No Sex and Gender Information Value Date Recorded Sex Assigned at Not on file Legal Sex Female 9:09 AM PIANO SOUNDING BOARD MATCHER Gender Identity Female 07/30/2024 4:35 PM CDT Sexual Orientation Choose not to disclose 2023 4:35 PM CDT Occupation Industry Job Start Date Job End Date Lyndon Torres Not on file Not on file Not on file documented as of this encounter Medications at Time of Discharge Abilify 15 mg tablet Take 1 tablet (15 mg total) by mouth daily 07/01/2023 albuterol HFA (PROVENTIL HFA,VENTOLIN HFA,PROAIR HFA) 90 mcg/actuation inhaler INHALE 2 PUFFS BY MOUTH 4 TIMES DAILY NEEDED FOR SHORTNESS OF BREATH FOR WHEEZING 12/09/2022 zolpidem (AMBIEN) 5 mg tablet Take 1 tablet (5 mg total) by mouth nightly at bedtime. 07/25/2023 ARIPiprazole (ABILIFY) 10 mg tablet Take 1 tablet (10 mg total) by mouth daily 4 ferrous sulfate 325 mg (65 mg of elemental iron) tabletIndication s:Iron Deficiency Anemia Take 1 tablet (65 mg of elemental iron total) by mouth daily with breakfast. 30 tablet 10/10/2018 4 mirtazapine (REMERON) 7.5 mg tablet Take 7.5 mg by mouth nightly 4 oxyCODONE (ROXICODONE) 5 mg immediate release tabletIndication s:Pain Take 1-2 tablets (5-10 mg total) by mouth every 4 (four) hours as needed for pain. 10 tablet 10/10/2018 4 documented as of this encounter Discharge Disposition Disposition Code Departure Means Destination Discharge to home or self care documented in this encounter Plan of Treatment Not on file documented as of this encounter Procedures Procedure Name Priority Date/Time Associated Diagnosis Comments HIGH RISK HPV DNA DETECTION WITH GENOTYPING Routine 08/26/2023 3:14 PM CDT Screening for malignant neoplasm of the cervix PAP AND HIGH RISK HPV, REFLEX TO GENOTYPING Routine 08/26/2023 9:11 AM CDT Screening for malignant neoplasm of the cervix documented in this encounter Results * High Risk HPV DNA Detection with Genotyping (Molecular component) (08/26/2023 3:14 PM CDT) HPV HR 16 Not Detected Not Detected MICHELLE SPRINGER Comment:Testing performed by : [facility], [address] [facility], [place]., [address] HPV HR 18 Not Detected Not Detected MICHELLE SPRINGER Comment:Testing performed by : [facility], [address] [place]., [address] HPV HR Non 16/18 Not Detected Not Detected MICEHLLE SPRINGER Comment: Interpretive Data Nucleic acid amplification for detection of high-risk Human Papilloma virus (HPV) is performed by the Alexis Vamsi 6800 HPV test. ??This assay specifically detects HPV-16 and HPV-18 genotypes. ??The following HPV genotypes are detected as high-risk HPV: ?? HPV-31, 33, 35, ,39, 45, 51, 52, 56, 58, 59, 66, and 68. ??This assay has been approved by the [place] Food and Drug Administration for detection of HPV in cervical specimens collected by a physician using an endocervical brush/spatula or cervical broom and placed in the ThinPrep Pap Test PreservCyt collection containers. ??The performance characteristics of this test have been verified by the [facility] Molecular Infectious Disease laboratory. Correlate with separately reported cytology results, as applicable. Interpretive data last revised 23 Testing performed by: [facility], [address] [place]., [address] Endocervical 08/26/2023 3:14 PM CDT 08/27/2023 12:32 PM CDT Narrative MICHELLE - 2023 4:41 AM CDT Clinical history and diagnosis->DX Z12.4 Testing type->Screening Last menstrual period (date if known)->N/A Mayra Richardson DO LAB BODY FLUIDS AND STO OLS ORDERABLES Final Result MICHELLE SPRINGER [address] Department [place] [address] * Pap and High Risk HPV and Genotyping (Cytology Component) (08/26/2023 9:11 AM CDT) Thin prep (Pap test) 08/26/2023 9:11 AM CDT 08/26/2023 9:11 AM CDT Narrative PATHOLOGY - 09/01/2023 9:02 AM CDT [facility] Department of Pathology [id number] [place] [id number] Final Report with Addendum Note to Patients: This report may contain a detailed description of human tissue sent by a health care provider to the laboratory for pathologic evaluation. The content of this report is essential for diagnosis and may provide important critical findings. This information may be unfamiliar to patients to review without a medical professional present. It is advised that the patient review this report in the presence of a health care provider who can answer questions and explain the details. Patient Name: ??ALECIA MABRY Address: ??[address] [facility] [facility], ?? [place], [place] [address] Gender: ??F : ??1980 (Age: 42) Service: ?? Location: ?? Hospital #: ??[id number] Patient Type: ?? SPECIMEN Taken: ??08/26/2023 Received: ??08/26/2023 Accessioned:: ??08/27/2023 Reported: ??09/01/2023 Physician(s): Salud Soria D.O. Diagnosis: SOURCE OF SPECIMEN ? SCREENING THIN PREP IMAGED PAP w/ HPV: STATEMENT OF ADEQUACY ?- Specimen satisfactory for interpretation; endocervical/transformation zone component absent or ?insufficient ? GENERAL CATEGORIZATION: ?- Negative for intraepithelial lesion or malignancy ? INTERPRETATION: ?- Fungal organisms present, morphologically consistent with leann species ?- Predominance of coccobacilli consistent with shift in vaginal gio. Possible bacterial vaginosis ? TODD Bee(ASCP) Report Electronically Reviewed and Signed Out By ??TODD Mireles(ASCP) ??09/01/2023 09:02:01Addenda: HPV Test Interpretation (Normal-Negative for High Risk HPV) HPV HR 16- Not detected HPV HR 18-Not detected HPV HR non 16/18- Not detected Interpretive Data Nucleic acid amplification for detection of high-risk Human Papilloma virus (HPV) is performed by the Alexis Vamsi 6800 HPV test. This assay specifically detects HPV- 16 and HPV-18 genotypes. The following HPV genotypes are detected as high-risk HPV: HPV-31, 33, 35, 39, 45, 51, 52, 56, 58, 59, 66, and 68. This assay has been approved by the [place] Food and Drug Administration for detection of HPV in cervical specimens collected by a physician using an endocervical brush/spatula or cervical broom and placed in the ThinPrep Pap Test PreservCyt collection containers. The performance characteristics of this test have been verified by the [facility] Molecular Infectious Disease laboratory. Correlate with reported cytology results, as applicable. Interpretive data last revised 23 TODD Bee(ASCP)Report Electronically Reviewed and Signed Out By ??TODD Bee(ASCP) ??2023 12:48:27 ?? Specimen(s) Received: A: SCREENING THIN PREP IMAGED PAP w/ HPV Clinical History: Last Menstrual Period: n/s The Pap test is a screening test used to aid in the detection of cervical cancer and its precursors. ??It should not be the sole means by which malignant and premalignant lesions are diagnosed. ??Both false negative and false positive results may occur. ?? It also has poor sensitivity for the detection of endometrial lesions and should not be used to evaluate suspected endometrial abnormalities. ??For these reasons it is most important to obtain Pap tests at regular intervals. The performance characteristics of some immunohistochemical stains, fluorescence in-situ hybridization tests and immunophenotyping by flow cytometry cited in this report (if any) were determined by the Surgical Pathology Department at [facility] as part of an ongoing quality control representative program and in compliance with federally mandated regulations drawn from the Clinical Laboratory Improvement Act of 1988 (CLIA '88). ??Some of these tests rely on the use of analyte specific reagents and are subject to specific labeling requirements by the [place] Food and Drug Administration. ??Such diagnostic tests may only be performed in a facility that is certified by the Department of Health and Human Services as a high complexity laboratory under CLIA '88. The FDA has determined that such clearance or approval is not necessary. ??This test is used for clinical purposes. ??It should not be regarded as investigational or for research. ??Nevertheless, federal rules concerning the medical use of analyte specific reagents require that the following disclaimer be attached to the report: This test was developed and its performance characteristics determined by the Surgical Pathology Department [facility]. ??It has not been cleared or approved by the U. S. Food and Drug Administration. Mayra Richardson DO LAB CYTOLOGY ORDERABLES Final Result Performing Organization Address City/State/[facility] Co de Phone Number PATHOLOGY [address] [place] [address] documented in this encounter Visit Diagnoses Diagnosis Screening for malignant neoplasm of the cervix documented in this encounter Care Teams Web Press Jogger Relationship Specialty Start Date End Date Mona Hernandez NP [address] [place] [address] PCP - General Internal Medicine 12/12/22 Evaristo Wills MD [address] [facility] [place] [address] 12/12/22 documented as of this encounter
--- OUTSIDE RECORDS SUMMARY | 2024-12-06 18:00 | XMS_ITS | Encounter Summary ---
Author Organization [facility] Address [address] [address] Care Team Providers Care Rn Advice Name Role Phone Mona Hernandez NP Primary Care Provider [phone] Evaristo Wills MD Unavailable [phone] Reason for Visit * Diagnostic Imaging (Routine) - Closed Specialty Diagnoses / Procedures Referred By Donaldo adams Referred To Contact Diagnoses Encounter for screening mammogram for malignant neoplasm of breast Procedures Screening Mammogram Bilateral W Mayra Cisse, DO [address] [address] Phone: tel: fax: [facility] Referral ID Status Reason Start Date Expiration Date Visits Re quested Visits Authorized [id number] Closed 08/26/2023 09/24/2024 1 1 Encounter Details Date Type Department Care Team (Latest Contact Info) Description 08/27/2023 11:10 AM CDT Ancillary Procedure [facility] [address] [facility] [place] [phone] Encounter for screening mammogram for malignant neoplasm of breast Social History Tobacco Use Types Packs/Day Years Used Date Smoking Tobacco: Every Day Vaping Smokeless Tobacco: Former Alcohol Use Standard Drinks/Week Comments Yes 0 (1 standard drink = 0.6 oz pur e alcohol) once per month Comments No Sex and Gender Information Value Date Recorded Sex Assigned at Not on file 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 Gender Identity Female 07/30/2024 4:35 PM CDT Sexual Orientation Choose not to disclose 2023 4:35 PM CDT Occupation Industry Job Start Date Job End Date 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 Torres Not on file Not on file Not on file documented as of this encounter Plan of Treatment Not on file documented as of this encounter Procedures Procedure Name Priority Date/Time Associated Diagnosis Comments SCREENING MAMMOGRAM BILATERAL W ANDRE Schedule Routine, Read Routine (OP Routine) 08/27/2023 11:30 AM CDT Encounter for screening mammogram for malignant neoplasm of breast documented in this encounter Results * Screening Mammogram Bilateral W Andre (08/27/2023 11:30 AM CDT) Anatomical Region Laterality Modality Breast Bilateral Mammography Addenda Addendum by Efrain Curry MD on 09/05/2023 4:39 PM CDT BILATERAL DIGITAL MAMMOGRAPHY with tomography. Comparison studies have become available. ??These are dated 04/02/2019 and 03/16/2019. Mammography Findings CAD (computer-aided detection) software was utilized. The breasts are heterogeneously dense. ??This may lower the sensitivity of mammography. No masses, significant calcifications or other abnormalities are seen. Impression There is no mammographic evidence of malignancy. Screening mammogram in 1 year is recommended. BI-RADS Category 1: Negative Narrative 2023 4:41 PM CDT BILATERAL DIGITAL MAMMOGRAPHY with tomography. The present examination has no comparisons. ??If comparison studies become available, the current study will be reviewed. Mammography Findings CAD (computer-aided detection) software was utilized. The breasts are heterogeneously dense. ??This may lower the sensitivity of mammography. No masses, significant calcifications or other abnormalities are seen. Impression There is no mammographic evidence of malignancy. Screening mammogram in 1 year is recommended. BI-RADS Category 1: Negative PATIENT LETTER SENT Mayra Richardson DO IMG MAMMO PROCEDURES Ed ited Result - Final documented in this encounter Visit Diagnoses Diagnosis Encounter for screening mammogram for malignant neoplasm of breast documented in this encounter Care Teams Rn Advice Relationship Specialty Start Date End Date Mona Hernandez NP [address] [facility] [place] [address] PCP - General Internal Medicine 12/12/22 Evaristo Wills MD [address] [facility] [place] [address] 12/12/22 documented as of this encounter
--- OUTSIDE RECORDS SUMMARY | 2024-12-06 18:00 | XMS_ITS | Encounter Summary ---
Author Organization [facility] Healthcare Address [address] [place] [address] Care Team Providers Care Financial Aid Manager Name Role Phone Mona Hernandez NP Primary Care Provider [phone] Evaristo Wills MD Unavailable [phone] Encounter Details Date Type Department Care Team (Late st Contact Info) Description 07/30/2024 9:50 AM CDT Lab [facility] [address] [place] [id number] Menopausal symptoms Social History Tobacco Use Types Packs/Day Years Used Date Smoking Tobacco: Every Day Vaping Smokeless Tobacco: Former Alcohol Use Standard Drinks/Week Comments Yes 0 (1 standard drink = 0.6 oz pur e alcohol) once per month Comments No Sex and Gender Information Value Date Recorded Sex Assigned at Not on file 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 Gender Identity Female 07/30/2024 4:35 PM CDT Sexual Orientation Choose not to disclose 2023 4:35 PM CDT Occupation Industry Job Start Date Job End Date [employer] Torres Not on file Not on file Not on file documented as of this encounter Plan of Treatment Not on file documented as of this encounter Procedures Procedure Name Priority Date/Time Associated Diagnosis Comments ESTRADIOL Routine 07/30/2024 9:48 AM CDT Menopausal symptoms LUTEINIZING HORMONE (LH) Routine 07/30/2024 9:48 AM CDT Menopausal symptoms FOLLICLE STIMULATING HORMONE Routine 07/30/2024 9:48 AM CDT Menopausal symptoms documented in this encounter Results * Estradiol (07/30/2024 9:48 AM CDT) Estradiol [...] was last revised 2020. Testing performed by: [facility], [address] [place]., [address] Blood 07/30/2024 9:48 AM CDT 07/30/2024 2:50 PM CDT Mayra Richardson DO LAB BLOOD ORDERABLES Fi nal Result MICHELLE [address] [address] Department [place] [address] * Follicle stimulating hormone (07/30/2024 9:48 AM CDT) FSH 5.6 IUnits/L Comment: Interpretive Data Male: Adults: ?1.5 - 12.4 IUnits/L Female: ?? Follicular: ?3.5 - 12.5 IUnits/L Ovulation: ? 4.7 - 21.5 IUnits/L Luteal: ?1.7 - 7.7 IUnits/L Postmenopausal: 25.8 - 134.8 IUnits/L Current interpretive data was last revised 2015. Testing performed by: [facility], [address] [place]., [address] Blood 07/30/2024 9:48 AM CDT 07/30/2024 2:50 PM CDT Mayra Richardson DO LAB BLOOD ORDERABLES Fi nal Result Performing Organization Address [facility] de Phone Number MICHELLE SPRINGER [address] [address] [place] [address] * (07/30/2024 9:48 AM CDT) [facility] 9.1 IUnits/L Comment: Interpretive Data Males: ??Adults: ? 1.7 - 8.6 ?? IUnits/L Females: ?Follicular: ? 2.4 - 12.6 ??IUnits/L ??Ovulation: ? 14.0 - 95.6 ??IUnits/L ?Luteal: ? 1.0 - 11.4 ??IUnits/L ??Postmenopausal: 7.7 - 58.5 ??IUnits/L Current interpretive data was last revised on 2019. Testing performed by: [facility], [address] [place]., [address] Blood 07/30/2024 9:48 AM CDT 07/30/2024 2:50 PM CDT Mayra Richardson DO LAB BLOOD ORDERABLES Fi nal Result Performing Organization Address [facility] de Phone Number MICHELLE SPRINGER [address] [place] [address] documented in this encounter Visit Diagnoses Diagnosis Menopausal symptoms Symptomatic menopausal or female climacteric states documented in this encounter Care Teams Financial Aid Manager Relationship Specialty Start Date End Date Mona Hernandez NP [address] [facility] [place] [address] PCP - General Internal Medicine 12/12/22 Evaristo Wills MD [address] [facility] [address] 12/12/22 documented as of this encounter
--- OUTSIDE RECORDS SUMMARY | 2024-12-06 18:00 | XMS_ITS | Encounter Summary ---
Author Organization [facility] Address [address] [address] Care Team Providers Care Director Of Veterans Affairs Name Role Phone Mona Hernandez NP Primary Care Provider [phone] Evaristo Wills MD Unavailable [phone] Reason for Visit * Reason Comments Cough Cough, wheezing for over 1 week. Mucinex for her SX and Advil.. Pt has inhaler after previous diagnosis for bronchitis 1 month ago. Not helping much.Right ear pain. Pt tests for Covid at work and is neg. 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 Gender Identity Female 07/30/2024 4:35 PM CDT Sexual Orientation Choose not to disclose 2023 4:35 PM CDT documented as of this encounter Last Filed Vital Signs Vital Sign Reading Time Taken Comments Blood Pressure 142/100 02/09/2023 2:10 PM CDT Pulse 92 02/09/2023 2:10 PM CDT Temperature 36.6 ??C (97.8 ??F) 02/09/2023 2:10 PM CD T Respiratory Rate 20 02/09/2023 2:10 PM CDT Oxygen Saturation 99% 02/09/2023 2:10 PM CDT Inhaled Oxygen Concentration - - Weight 79.4 kg (175 lb) 02/09/2023 2:10 PM CDT Height 170.7 cm (5' 7.21 ) 02/09/2023 2:10 PM CD T Body Mass Index 27.24 02/09/2023 2:10 PM CDT documented in this encounter Patient Instructions * Patient Instructions* Jeancarlos Skinner PA - 02/09/2023 3:15 PM CDT Complete any medications as prescribed You will need to take over the counter medications Mucinex for chest congestion Sudafed for nasal/head congestion Zyrtec for nasal drainage Flonase for sinuses Dayquil/Delysm for cough Tylenol/Motrin for fever Drink plenty of fluids to stay hydrated Get plenty of rest If your symptoms worsen or you experience shortness of breath, return or go to ER. documented in this encounter Ordered Prescriptions Prescription Sig Dispense Quantity Refills Last Filled Start Date End Date azithromycin (ZITHROMAX) 250 mg tabletIndications:B acterial upper respiratory infection Take 2 tabs (500 mg) by mouth today, than 1 tab (250 mg) daily for 4 days. 6 tablet 02/09/2023 02/14/2023 documented in this encounter Progress Notes * Jeancarlos Skinner PA - 02/09/2023 3:15 PM CDT Images from the original note were not included. Subjective/Objective Patient ID: Alecia Mabyr is a 42 y.o. female. Chief Complaint Cough (Cough, wheezing for over 1 week. Mucinex for her SX and Advil.. Pt has inhaler after previous diagnosis for bronchitis 1 month ago. Not helping much./Right ear pain. Pt tests for Covid at workand is neg.) 42-year-old white female with one-week history of fatigue, congestion, right ear pain, postnasal drainage, runny nose, sinus pressure, sore throat, cough with green sputum and headache, she has used Mucinex, Robitussin, Sudafed, Tylenol, ibuprofen and an inhaler with no relief, she has been vaccinated for COVID, no known COVID exposure Cough Associated symptoms include ear pain, headaches, postnasal drip, rhinorrhea and a sore throat. Pertinent negatives include no chills, fever, myalgias, shortness of breath or wheezing. Review of Systems Constitutional: Positive for fatigue. Negative for appetite change, chills, diaphoresis and fever. HENT: Positive for congestion, ear pain, postnasal drip, rhinorrhea, sinus pressure and sore throat. Negative for facial swelling, sinus pain and sneezing. Respiratory: Positive for cough. Negative for shortness of breath and wheezing. Gastrointestinal: Negative for abdominal pain, diarrhea, nausea and vomiting. Musculoskeletal: Negative for myalgias. Neurological: Positive for headaches. Physical Exam Vitals and nursing note reviewed. Constitutional: General: She is not in acute distress. Appearance: Normal appearance. HENT: Right Ear: Hearing, tympanic membrane, ear canal and external ear normal. Left Ear: Hearing, tympanic membrane, ear canal and external ear normal. Nose: No congestion or rhinorrhea. Right Sinus: No maxillary sinus tenderness or frontal sinus tenderness. Left Sinus: No maxillary sinus tenderness or frontal sinus tenderness. Mouth/Throat: Pharynx: Posterior oropharyngeal erythema present. No pharyngeal swelling, oropharyngeal exudate oruvula swelling. Eyes: General: Right eye: No discharge. Left eye: No discharge. Cardiovascular: Rate and Rhythm: Normal rate and regular rhythm. Pulmonary: Breath sounds: Normal breath sounds and air entry. Abdominal: Tenderness: There is no abdominal tenderness. Lymphadenopathy: Cervical: No cervical adenopathy. Skin: General: Skin is warm and dry. Neurological: Mental Status: She is alert. Mental status is at baseline. Psychiatric: Attention and Perception: Attention normal. Mood and Affect: Mood normal. Speech: Speech normal. Vitals: 02/09/23 1410 BP: 142/100 Pulse: 92 Resp: 20 Temp: 36.6 ??C (97.8 ??F) TempSrc: Temporal SpO2: 99% Weight: 79.4 kg (175 lb) Height: 170.7 cm (5' 7.21 ) Procedures Assessment/Plan COVID negative Rx for Zithromax sent to pharmacy Complete any medications as prescribed You will need to take over the counter medications Mucinex for chest congestion Sudafed for nasal/head congestion Zyrtec for nasal drainage Flonase for sinuses Dayquil/Delysm for cough Tylenol/Motrin for fever Drink plenty of fluids to stay hydrated Get plenty of rest If your symptoms worsen or you experience shortness of breath, return or go to ER. Diagnoses and all orders for this visit: Bacterial upper respiratory infection (Primary) - azithromycin (ZITHROMAX) 250 mg tablet; Take 2 tabs (500 mg) by mouth today, than 1 tab (250 mg) daily for 4 days. Acute cough - COVID-19 POC Recent Results (from the past 4 hour(s)) COVID-19 POC Collection Time: 02/09/23 3:24 PM Result Value Ref Range COVID-19 Ag POC (BD Veritor) Presumptive Negative Presumptive Negative, Invalid Patient Education: Disposition Treatment plan including expectations, follow up, and return precautions discussed with patient/parent, verbalizes understanding. Medication dosage, use, and potential adverse reactions discussed with patient/parent. Advised to follow up with PCP if symptoms do not resolve as expected or sooner if condition worsens. Signs/symptoms warranting ER evaluation reviewed. Patient and/or guardian was given an opportunity to ask questions, questions answered. ADRIANA Maxwell documented in this encounter Plan of Treatment Not on file documented as of this encounter Procedures Procedure Name Priority Date/Time Associated Diagnosis Comments COVID-19 POC Routine 02/09/2023 3:24 PM CDT Acute cough documented in this encounter Results * COVID-19 POC (02/09/2023 3:24 PM CDT) COVID-19 Ag POC (BD Veritor) Presumptive Negative Presumptive Negative, Invalid [facility] [place] Nasal 02/09/2023 3:24 PM CDT Jeancarlos WRIGHT POINT OF CARE TEST ORDERABLES Final Result [facility] [address] [place] [address] documented in this encounter Visit Diagnoses Diagnosis Bacterial upper respiratory infection- Primary Acute cough documented in this encounter Historical Medications * This list may reflect changes made after this encounter. albuterol HFA (PROVENTIL HFA,VENTOLIN HFA,PROAIR HFA) 90 mcg/actuation inhaler INHALE 2 PUFFS BY MOUTH 4 TIMES DAILY NEEDED FOR SHORTNESS OF BREATH FOR WHEEZING 12/09/2022 added in this encounter Additional Health Concerns Infection Onset Date Last Indicated Resolved Time COVID: Suspected 02/09/2023 02/09/2023 02/09/2023 3:26 PM CDT documented as of this encounter Care Teams Director Of Veterans Affairs Relationship Specialty Start Date End Date Mona Hernandez, KEISHA [address] [place] [address] PCP - General Internal Medicine 12/12/22 Evaristo Wills MD [address] [facility] [place] [address] 12/12/22 documented as of this encounter
--- OUTSIDE RECORDS SUMMARY | 2024-12-06 18:00 | XMS_ITS | Encounter Summary ---
Author Organization [facility] Address [address] [place] [address] Care Team Providers Care Spiritual Counselor Name Role Phone Evaristo Wills MD Primary Care Provider [phone] Reason for Visit * Diagnostic Imaging (Routine) - Closed Specialty Diagnoses / Procedures Referred By Contac bryan Referred To Contact Procedures Breast Imaging Diagnostic Outside Reference Transcribed Order, Provider Referral ID Status Reason Start Date Expiration Date Visits Re quested Visits Authorized [id number] Closed 09/01/2023 09/30/2024 1 1 Encounter Details Date Type Department Care Team (Late st Contact Info) Description 04/02/2019 Ancillary Procedure [facility] [address] [place] [address] Social History Tobacco Use Types Packs/Day Years Used Date Smoking Tobacco: Some Days Cigarettes Comments:5 cigarettes per we ek Alcohol Use Standard Drinks/Week Comments Yes 0 (1 standard drink = 0.6 oz pur e alcohol) once per month Comments Unknown Sex and Gender Information Value Date Recorded Sex Assigned at Not on file 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 us Provider Transcribed Order IMG MAMMO PROCEDURES Final Result [id number] documented in this encounter Visit Diagnoses Not on filedocumented in this encounter Care Teams Spiritual Counselor Relationship Specialty Start Date End Date Evaristo Wills MD PCP - General 09/07/18 12/11/22 documented as of this encounter
--- OUTSIDE RECORDS SUMMARY | 2024-12-06 18:00 | XMS_ITS | Encounter Summary ---
Author Organization [facility] Healthcare Address [address] [place] [address] Care Team Providers Care Railway Switchman Name Role Phone Evaristo Wills MD Primary Care Provider [phone] Encounter Details Date Type Department Care Team (Late st Contact Info) Description 10/09/2018 7:30 AM TANK PUMPER PANELBOARD - 10/09/2018 10:20 AM TANK PUMPER PANELBOARD Surgery [facility] [place] [address] [place] [address] Rosemarie Jung MD 1 [facility] [address] [place] [address] [facility] Surgery Details Date/Time Status Location OR Service Patient Class Case Class Case Type Trauma Case? 10/09/2018 7:30 AM Posted [facility] OPERATING ROOM OR 08 Minor Procedures Outpatient in Bed Emergent Panel 1 Procedure LRB Anes Op Region Wound Class Comments [facility] Bone Marrow Bilateral Choice Hip Class I - Clean Back cleaned with betadine. Draped with ioban and sterile drapes Bilateral marrow harvests performed 15 ml of 0.5% bupivacaine instilled on each side for pain control Pressure dressing applied, patient transferred to PACU post extubation. 1400 ml of marrow extracted and transferred to cryotherapy labotatory. Surgeon Surgeon Role Service Panel Yaquelin Hill MD Assisting Minor Procedures 1 Rosemarie Jung MD Primary Minor Procedures 1 Case Notes Approved 09/16 documented in this encounter Social History Tobacco Use Types Packs/Day Years Used Date Smoking Tobacco: Some Days Cigarettes Comments:5 cigarettes per we ek Alcohol Use Standard Drinks/Week Comments Yes 0 (1 standard drink = 0.6 oz pur e alcohol) once per month Comments Unknown Sex and Gender Information Value Date Recorded Sex Assigned at Not on file Legal Sex Female 9:09 AM TANK PUMPER PANELBOARD Gender Identity Female 07/30/2024 4:35 PM CDT Sexual Orientation Choose not to disclose 2023 4:35 PM CDT documented as of this encounter Last Filed Vital Signs Vital Sign Reading Time Taken Comments Blood Pressure 130/89 10/09/2018 6:15 AM TANK PUMPER PANELBOARD Pulse 68 10/09/2018 6:15 AM TANK PUMPER PANELBOARD Temperature 36.2 ??C (97.2 ??F) 10/09/2018 6:15 AM CS T Respiratory Rate 16 10/09/2018 6:15 AM TANK PUMPER PANELBOARD Oxygen Saturation 100% 10/09/2018 6:15 AM TANK PUMPER PANELBOARD Inhaled Oxygen Concentration - - Weight 74.4 kg (164 lb 0.4 oz) 10/09/2018 6:15 A M TANK PUMPER PANELBOARD Height 172 cm (5' 7.72 ) 10/09/2018 6:15 AM TANK PUMPER PANELBOARD Body Mass Index 25.15 10/09/2018 6:15 AM TANK PUMPER PANELBOARD documented in this encounter Discharge Summaries * Amador Chavarria MD - 10/10/2018 12:44 PM CST Inpatient Discharge Summary BRIEF OVERVIEW Admitting Provider: Yaquelin Hill MD Discharge Provider: Yaquelin Hill MD Primary Care Physician at Discharge: Evaristo Wills MD [phone] Admission Date: 10/09/2018 Discharge Date: 10/10/2018 Admission Location: [facility] Primary Discharge Diagnosis: Donor of stem cell DETAILS OF HOSPITAL STAY Hospital Course: Brief Admission History Patient is a 38 y.o.??female??healthy stem cell donor candidate for her daughter Rika Gaines. ??Patient presents today for bone marrow harvest. There has been no change in past medical history, allergies, medications, or hospitalizations since she was last seen. Problem List Patient Active Problem List Diagnosis ??? Donor of stem cell No past medical history on file. Social History Social History ??? Marital status: Spouse name: N/A ??? Number of children: N/A ??? Years of education: N/A Occupational History ??? Not on file. Social History Main Topics ??? Smoking status: Current Some Day Smoker Types: Cigarettes ??? Smokeless tobacco: Not on file Comment: 5 cigarettes per week ??? Alcohol use Yes Comment: once per month ??? Drug use: No ??? Sexual activity: No Other Topics Concern ??? Not on file Social History Narrative ??? No narrative on file Past Surgical History: Procedure Laterality Date ??? CYST REMOVAL Left 05/1995 wrist cyst removal ??? CYST REMOVAL Right 05/1995 right leg bone spur removed ??? ENDOMETRIAL ABLATION 11/04/2007 ??? TUBAL LIGATION 07/20/2004 No family history on file. Hospital Course by Systems: 1. Neurologic: Alecia received oxycodone PRN for pain following harvest. She will continue oxycodone at home as needed. 2. Respiratory: She remained stable on room air. 3. Cardiovascular: Alecia remained hemodynamically stable during her admission. 4. FEN/GI: Alecia was given PRN Zofran following the procedure. She was able to tolerate PO without issue prior to discharge. 7. Hematology: The follow up CBC was stable and Alecia required no blood transfusions. She was startedon Fe+ supplements for the next 30 days. Operative Procedures Performed: Procedure(s): [facility] Bone Marrow Discharge Details Physical Exam at Discharge: Discharge Condition: stable Pulse: 72 Resp: 14 BP: 105/58 Temp: 37 ??C (98.6 ??F) Weight: 74.4 kg (164 lb 0.4 oz) Pertinent Exam Findings at Discharge: none Discharge Disposition: Code Status at Discharge: Full Discharge Instructions: Activity Instructions Post-Discharge Activity: May return to school / daycare / usual activities with restrictions (Specify) Return to School: No restrictions Diet Instructions Pediatric Discharge Diet Diet Type: Return to previous diet Other Instructions Oncology Discharge Notify Provider Call the Hematology/Oncology Clinic at for any of the following symptoms: -Temperature greater than 101F once or greater than 100.4F twice within a 1 hour period. -Persistent nausea, vomiting, diarrhea. -Shortness of breath -Rash -Chills Summary of care Alecia was admitted for a bone marrow aspiration as she is the donor for her daughter's stem cell transplant. Discharge Medications: Your medication list START taking these medications ferrous sulfate 325 mg (65 mg of elemental iron) tablet Take 1 tablet (65 mg of elemental iron total) by mouth daily with breakfast. oxyCODONE 5 mg immediate release tablet Commonly known as: ROXICODONE Take 1-2 tablets (5-10 mg total) by mouth every 4 (four) hours as needed for pain. Outpatient Follow-Up: Future Appointments Date Time Provider Department Center 11/10/2018 10:00 AM Neela Ortiz, [id number] Cosigned by Cindy Berumen MD at 10/10/2018 3:39 PM TANK PUMPER PANELBOARD PUMPER PANELBOARD PUMPER PANELBOARD Associated attestation - Cindy Berumen MD - 10/10/2018 3:39 PM TANK PUMPER PANELBOARD I have seen and examined the patient on 10/10/18. I agree with the findings and plan of care as documented by Dr. Chavarria... documented in this encounter Medications at Time of Discharge ferrous sulfate 325 mg (65 mg of elemental iron) tabletIndication s:Iron Deficiency Anemia Take 1 tablet (65 mg of elemental iron total) by mouth daily with breakfast. 30 tablet 10/10/2018 4 oxyCODONE (ROXICODONE) 5 mg immediate release tabletIndication s:Pain Take 1-2 tablets (5-10 mg total) by mouth every 4 (four) hours as needed for pain. 10 tablet 10/10/2018 4 documented as of this encounter Ordered Prescriptions Prescription Sig Dispense Quantity Refills Last Filled Start Date End Date oxyCODONE (ROXICODONE) 5 mg immediate release tabletIndications: Pain Take 1-2 tablets (5-10 mg total) by mouth every 4 (four) hours as needed for pain. 10 tablet 10/10/2018 4 ferrous sulfate 325 mg (65 mg of elemental iron) tabletIndications: Iron Deficiency Anemia Take 1 tablet (65 mg of elemental iron total) by mouth daily with breakfast. 30 tablet 10/10/2018 4 documented in this encounter Discharge Disposition Disposition Code Departure Means Destination Discharge to home or self care documented in this encounter Progress Notes * Amador Chavarria MD - 10/10/2018 11:28 AM CST Images from the original note were not included. Pediatric Oncology Daily Progress Note Subjective Chief complaint of stem cell donor. Interval History: Underwent bone marrow aspiration successfully yesterday. Pain has been controlled. No other acute events. Objective Vitals: Vitals 24 hour ranges: Temp: [36.4 ??C (97.5 ??F)-37 ??C (98.6 ??F)] Pulse: [62-77] Resp: [14-20] BP: (86-107)/(42-75) CAB 24 hr Ranges: I/O last 2 completed shifts: In: 5542 [P.O.:2742; I.V.:2800] Out: 1400 [Blood:1400] I/O this shift: In: 500 [P.O.:500] Out: - Physical Exam: Physical Exam Constitutional: She is oriented to person, place, and time. She appears well- developed and well-nourished. No distress. HENT: Head: Normocephalic and atraumatic. Right Ear: External ear normal. Left Ear: External ear normal. Nose: Nose normal. Eyes: EOM are normal. Right eye exhibits no discharge. Left eye exhibits no discharge. Cardiovascular: Normal rate, regular rhythm and normal heart sounds. Exam reveals no gallop and no friction rub. No murmur heard. Pulmonary/Chest: Effort normal and breath sounds normal. No stridor. No respiratory distress. She has no wheezes. She has no rales. Abdominal: Soft. Bowel sounds are normal. She exhibits no distension. There is no tenderness. Thereis no guarding. Musculoskeletal: She exhibits no edema. Back: Neurological: She is alert and oriented to person, place, and time. No cranial nerve deficit. She exhibits normal muscle tone. Skin: Skin is warm. Capillary refill takes less than 2 seconds. No rash noted. She is not diaphoretic. Psychiatric: She has a normal mood and affect. Nursing note and vitals reviewed. Lab/Radiology/Diagnostic Review: Laboratory review: Lab results in the last 24 hours: Recent Results (from the past 24 hour(s)) Allogenic profile Collection Time: 10/09/18 11:29 AM Result Value Ref Range CD2 % 81 % CD3 Percent 73 % CD4 Percent 39 35 - 79 % CD8 Percent 32 15 - 57 % CD19 Percent 15 % CD20 % 16 % [id number] Percent 10 % Allogenic profile Collection Time: 10/09/18 11:30 AM Result Value Ref Range CD2 % 84 % CD3 Percent 76 % CD4 Percent 40 35 - 79 % CD8 Percent 33 15 - 57 % CD19 Percent 13 % CD20 % 13 % [id number] Percent 11 % CBC with auto differential Collection Time: 10/10/18 10:22 AM Result Value Ref Range WBC 19.3 (H) 3.8 - 9.9 K/cumm Hgb 9.5 (L) 11.9 - 15.5 g/dL Hct 28.5 (L) 35.6 - 45.5 % Plt 223 150 - 400 K/cumm MPV 11.7 9.1 - 12.3 fL RBC 3.07 (L) 3.90 - 5.20 M/cumm MCV 92.8 81.3 - 96.4 fL MCH 30.9 27.1 - 33.3 pg MCHC 33.3 32.3 - 35.7 g/dL RDW CV 13.3 11.1 - 14.9 % RDW SD 45.2 35.7 - 48.1 fL NRBC Abs 0.00 0.00 - 0.01 K/cumm Differential, auto Collection Time: 10/10/18 10:22 AM Result Value Ref Range Neutrophil absolute 13.8 (H) 1.7 - 6.5 K/cumm Immature granulocyte absolute 0.1 0.0 - 0.1 K/cumm Lymphocytes absolute 4.1 (H) 0.8 - 3.3 K/cumm Monocyte absolute 1.1 (H) 0.2 - 0.8 K/cumm Eosinophils absolute 0.1 0.0 - 0.5 K/cumm Basophils, abs 0.0 0.0 - 0.1 K/cumm Neutrophils 71.7 % Immature granulocytes 0.6 % Lymphocytes 21.2 % Monocytes 5.9 % Eosinophils 0.3 % Basophils 0.3 % Assessment/Plan Donor of stem cell Assessment & Plan Repeat CBC today stable. Pain has been well controlled. - Will change dressing - Discharge today Cosigned by Cindy Berumen MD at 10/10/2018 3:48 PM TANK PUMPER PANELBOARD PUMPER PANELBOARD PUMPER PANELBOARD Associated attestation - Cindy Berumen MD - 10/10/2018 3:48 PM TANK PUMPER PANELBOARD I have seen and examined the patient on 10/10/18. I agree with the findings and plan of care as documented by Dr. Chavarria... documented in this encounter H&P Notes * Yaquelin Hill MD - 10/09/2018 7:27 AM CST Images from the original note were not included. HPI: Patient is a 38 y.o. female healthy stem cell donor candidate for her daughter Rika Gaines. Patient presents today for bone marrow harvest. There has been no change in past medical history, allergies, medications, or hospitalizations since she was last seen. ?? Patient is currently well with no fevers, no rashes, no cough, rhinorrhea, no weight loss, change in appetite. Detailed ROS below. ? Medical History No past medical history on file. Surgical History Past Surgical History: Procedure Laterality Date ??? CYST REMOVAL Left 05/1995 ?? wrist cyst removal ??? CYST REMOVAL Right 05/1995 ?? right leg bone spur removed ??? ENDOMETRIAL ABLATION ?? 11/04/2007 ??? TUBAL LIGATION ?? 07/20/2004 ?? Allergies Allergen Reactions ??? Levofloxacin Hives Family history: Daughter with Aplastic Anemia Social History: Pediatric Social History: Living Conditions: Living Conditions ?? Social History Narrative: Social History ?? Social History Narrative ??? No narrative on file ?? Tobacco History: History Smoking Status ??? Not on file Smokeless Tobacco ??? Not on file ? Review of Systems: ?? Review of Systems Constitutional: Negative. HENT: Negative. Eyes: Negative for photophobia, pain, discharge, redness and itching. Respiratory: Negative for apnea, cough, choking, chest tightness and shortness of breath. Cardiovascular: Negative for chest pain, palpitations and leg swelling. Gastrointestinal: Negative for abdominal distention, abdominal pain, constipation, diarrhea and nausea. Genitourinary: Negative for difficulty urinating and dysuria. Musculoskeletal: Negative for arthralgias, back pain, gait problem and myalgias. Allergic/Immunologic: Negative for environmental allergies, food allergies and immunocompromised state. Neurological: Negative for dizziness, light-headedness, numbness and headaches. Hematological: Negative for adenopathy. Does not bruise/bleed easily. Psychiatric/Behavioral: Negative for agitation. ? Objective Vitals: Vitals: 10/09/18 0615 BP: 130/89 Pulse: 68 Resp: 16 Temp: 36.2 ??C (97.2 ??F) SpO2: 100% ?? Physical Exam: ?? Physical Exam ?? General: stable, no acute distress HEENT: PERRL, EOMI, OP clear Neck: no lymphadenopathy Lungs: Clear to auscultation bilaterally. Heart: RRR, no murmur Abd: soft, NT, no hepatosplenomegaly, no tenderness, no mass Ext: warm, well-perfused, no edema Neuro: normal strength and reflexes throughout. ?? Lab/Radiology/Diagnostic Review: ??Results for ALECIA LOUIS ( ) as of 10/09/2018 07:28 Ref. Range 10/08/2018 12:58 10/08/2018 13:16 WBC Latest Ref Range: 3.8 - 9.9 K/cumm 8.2 Hgb Latest Ref Range: 11.9 - 15.5 g/dL 13.4 Hct Latest Ref Range: 35.6 - 45.5 % 40.6 Plt Latest Ref Range: 150 - 400 K/cumm 245 MPV Latest Ref Range: 9.1 - 12.3 fL 11.7 RBC Latest Ref Range: 3.90 - 5.20 M/cumm 4.40 MCV Latest Ref Range: 81.3 - 96.4 fL 92.3 MCH Latest Ref Range: 27.1 - 33.3 pg 30.5 MCHC Latest Ref Range: 32.3 - 35.7 g/dL 33.0 RDW CV Latest Ref Range: 11.1 - 14.9 % 13.1 RDW SD Latest Ref Range: 35.7 - 48.1 fL 44.5 NRBC, abs Latest Ref Range: 0.00 - 0.01 K/cumm 0.00 Neutrophil abs Latest Ref Range: 1.7 - 6.5 K/cumm 5.0 Immature granulocyte absolute Latest Ref Range: 0.0 - 0.1 K/cumm 0.0 Lymphocytes absolute Latest Ref Range: 0.8 - 3.3 K/cumm 2.4 Monocyte abs Latest Ref Range: 0.2 - 0.8 K/cumm 0.6 Eosinophils absolute Latest Ref Range: 0.0 - 0.5 K/cumm 0.1 Basophils, abs Latest Ref Range: 0.0 - 0.1 K/cumm 0.1 Neutrophil pct Latest Units: % 60.6 Immature granulocytes Latest Units: % 0.2 Lymphocytes Latest Units: % 28.9 Monocytes Latest Units: % 7.9 Eosinophils Latest Units: % 1.6 Basophils Latest Units: % 0.8 HCG, ur Latest Ref Range: Negative Negative ?? Assessment / Plan Patient Active Problem List Diagnosis ??? Donor of stem cell ?No change in medical history. Plan to proceed with bone marrow harvest today. Admit for observation for pain control after the procedure PUMPER PANELBOARD PUMPER PANELBOARD documented in this encounter Nursing Notes * Jackie Parry RN - 10/10/2018 3:45 PM CST Discharge instruction and pain control discussed with patient. No further questions or concerns from pt. At this time. PUMPER PANELBOARD * Kaylynn Pimentel RN - 10/10/2018 5:35 AM CST Notified resident of patients blood pressure 92/52 and pain of 8 that current pain regimen is not managing. DrMani To see patient. PUMPER PANELBOARD documented in this encounter Miscellaneous Notes * Assessment & Plan Note - Amador Chavarria MD - 10/10/2018 11:28 AM TANK PUMPER PANELBOARD Associated Problem(s): Donor of stem cell Repeat CBC today stable. Pain has been well controlled. - Will change dressing - Discharge today PUMPER PANELBOARD * Subjective & Objective - Amador Chavarria MD - 10/10/2018 11:26 AM TANK PUMPER PANELBOARD Images from the original note were not included. Pediatric Oncology Daily Progress Note Subjective Chief complaint of stem cell donor. Interval History: Underwent bone marrow aspiration successfully yesterday. Pain has been controlled. No other acute events. Objective Vitals: Vitals 24 hour ranges: Temp: [36.4 ??C (97.5 ??F)-37 ??C (98.6 ??F)] Pulse: [62-77] Resp: [14-20] BP: (86-107)/(42-75) CAB 24 hr Ranges: I/O last 2 completed shifts: In: 5542 [P.O.:2742; I.V.:2800] Out: 1400 [Blood:1400] I/O this shift: In: 500 [P.O.:500] Out: - Physical Exam: Physical Exam Constitutional: She is oriented to person, place, and time. She appears well- developed and well-nourished. No distress. HENT: Head: Normocephalic and atraumatic. Right Ear: External ear normal. Left Ear: External ear normal. Nose: Nose normal. Eyes: EOM are normal. Right eye exhibits no discharge. Left eye exhibits no discharge. Cardiovascular: Normal rate, regular rhythm and normal heart sounds. Exam reveals no gallop and no friction rub. No murmur heard. Pulmonary/Chest: Effort normal and breath sounds normal. No stridor. No respiratory distress. She has no wheezes. She has no rales. Abdominal: Soft. Bowel sounds are normal. She exhibits no distension. There is no tenderness. Thereis no guarding. Musculoskeletal: She exhibits no edema. Back: Neurological: She is alert and oriented to person, place, and time. No cranial nerve deficit. She exhibits normal muscle tone. Skin: Skin is warm. Capillary refill takes less than 2 seconds. No rash noted. She is not diaphoretic. Psychiatric: She has a normal mood and affect. Nursing note and vitals reviewed. Lab/Radiology/Diagnostic Review: Laboratory review: Lab results in the last 24 hours: Recent Results (from the past 24 hour(s)) Allogenic profile Collection Time: 10/09/18 11:29 AM Result Value Ref Range CD2 % 81 % CD3 Percent 73 % CD4 Percent 39 35 - 79 % CD8 Percent 32 15 - 57 % CD19 Percent 15 % CD20 % 16 % [id number] Percent 10 % Allogenic profile Collection Time: 10/09/18 11:30 AM Result Value Ref Range CD2 % 84 % CD3 Percent 76 % CD4 Percent 40 35 - 79 % CD8 Percent 33 15 - 57 % CD19 Percent 13 % CD20 % 13 % [id number] Percent 11 % CBC with auto differential Collection Time: 10/10/18 10:22 AM Result Value Ref Range WBC 19.3 (H) 3.8 - 9.9 K/cumm Hgb 9.5 (L) 11.9 - 15.5 g/dL Hct 28.5 (L) 35.6 - 45.5 % Plt 223 150 - 400 K/cumm MPV 11.7 9.1 - 12.3 fL RBC 3.07 (L) 3.90 - 5.20 M/cumm MCV 92.8 81.3 - 96.4 fL MCH 30.9 27.1 - 33.3 pg MCHC 33.3 32.3 - 35.7 g/dL RDW CV 13.3 11.1 - 14.9 % RDW SD 45.2 35.7 - 48.1 fL NRBC Abs 0.00 0.00 - 0.01 K/cumm Differential, auto Collection Time: 10/10/18 10:22 AM Result Value Ref Range Neutrophil absolute 13.8 (H) 1.7 - 6.5 K/cumm Immature granulocyte absolute 0.1 0.0 - 0.1 K/cumm Lymphocytes absolute 4.1 (H) 0.8 - 3.3 K/cumm Monocyte absolute 1.1 (H) 0.2 - 0.8 K/cumm Eosinophils absolute 0.1 0.0 - 0.5 K/cumm Basophils, abs 0.0 0.0 - 0.1 K/cumm Neutrophils 71.7 % Immature granulocytes 0.6 % Lymphocytes 21.2 % Monocytes 5.9 % Eosinophils 0.3 % Basophils 0.3 % PUMPER PANELBOARD * Plan of Care - Kaylynn Pimentel RN - 10/10/2018 3:02 AM CST Health Behavior: ??? Understanding of discharge needs will improve Adequate for Discharge Goals: Clinical Goals for the Shift: Increase PO intake to maintain hydration status Summary: PUMPER PANELBOARD * Hospital Course - Amador Chavarria MD - 10/09/2018 12:52 PM CST Brief Admission History Patient is a 38 y.o.??female??healthy stem cell donor candidate for her daughter Rika Gaines. ??Patient presents today for bone marrow harvest. There has been no change in past medical history, allergies, medications, or hospitalizations since she was last seen. Problem List Patient Active Problem List Diagnosis ??? Donor of stem cell No past medical history on file. Social History Social History ??? Marital status: Spouse name: N/A ??? Number of children: N/A ??? Years of education: N/A Occupational History ??? Not on file. Social History Main Topics ??? Smoking status: Current Some Day Smoker Types: Cigarettes ??? Smokeless tobacco: Not on file Comment: 5 cigarettes per week ??? Alcohol use Yes Comment: once per month ??? Drug use: No ??? Sexual activity: No Other Topics Concern ??? Not on file Social History Narrative ??? No narrative on file Past Surgical History: Procedure Laterality Date ??? CYST REMOVAL Left 05/1995 wrist cyst removal ??? CYST REMOVAL Right 05/1995 right leg bone spur removed ??? ENDOMETRIAL ABLATION 11/04/2007 ??? TUBAL LIGATION 07/20/2004 No family history on file. Hospital Course by Systems: 1. Neurologic: Alecia received oxycodone PRN for pain following harvest. She will continue oxycodone at home as needed. 2. Respiratory: She remained stable on room air. 3. Cardiovascular: Alecia remained hemodynamically stable during her admission. 4. FEN/GI: Alecia was given PRN Zofran following the procedure. She was able to tolerate PO without issue prior to discharge. 7. Hematology: The follow up CBC was stable and Alecia required no blood transfusions. She was startedon Fe+ supplements for the next 30 days. PUMPER PANELBOARD PUMPER PANELBOARD PUMPER PANELBOARD * Brief Op Note - Rosemarie Jung MD - 10/09/2018 7:30 AM CST Operative Progress Note Attending Surgeon: Rosemarie Jung MD Surgical Team: Type Proof Reproducer: Geneva Land RN Scrub: Alecia Bello RN DATE OF SURGERY : 10/09/2018 Preoperative Diagnosis: Z52.3 Postoperative Diagnosis: Post-op Diagnosis Bone marrow donor [Z52.3] Procedure: Procedure(s): [facility] Bone Marrow from haploidentical family member - mother Operative Findings: General anesthesia induced. Patient placed prone on table and arm rests adjusted. Back cleaned withbetadine mid back to mid thigh. Draped with ioban and sterile drapes. Bone marrow harvested bilaterally from posterior iliac crests. Cell count 19 mid-way through procedure. 1400 ml marrow extracted.Hemostasis secured with pressure. 15 ml of 0.5% bupivacaine instilled into periosteum on each side for analgesia. Pressure dressings applied. Anesthesia revered, patient extubated and transferred to recovery room. Marrow filtered, labeled, and transferred to cryotherapy lab for red cell depletion prior to infusion. Estimated Blood Loss: 1400 mL Intraoperative Fluids: As needed Specimens: No specimen collected in procedure Implants: Nothing was implanted during the procedure Blood/Blood Products Transfused: None during procedure Complications: None Condition on Discharge from the operating room was stable Rosemarie Jung MD Date: 10/12/2018 Time: 5:09 PM No Resident involved on case. Dr. Hill assisted with the procedure. PUMPER PANELBOARD * Pre-Procedure Instructions - Ariadna Torrez RN - 10/05/2018 3:58 PM TANK PUMPER PANELBOARD We are pleased that you and your doctor have chosen [facility] for this surgery. We hope that the following information will help make your visit a pleasant one. Any changes in health status from screening call: Anesthesia evaluation 09/04/18. Alecia denies any changes in her health status Surgery Date: 10/09/2018 Surgery Time: 0730 Arrival Time: 0615 Solids Time: 0000 (solid food, milk products, breast milk or formula) Clears Time: 0400 (water, clear apple juice, white soda or electrolyte solutions such as Gatorade or Pedialyte Nothing in mouth after Clears time Night before your surgery: ?? Good bath/shower, wash hair and brush teeth. Wear clean clothes after bath/shower. Day of surgery: We are located on the 6th floor of [facility]. Please take green [facility] elevators. Check in at the Registration Desk in the Same Day Surgery Waiting Area. Give medication as directed. ?? No makeup, no jewelry (including all body piercings) nail kazakh and no metal in hair. ?? Dress in clean comfortable clothes. No contact lens or removable dental retainers. ?? We may require a urine sample of your child. No tampons, must wear pad only. ?? If you have a special item such as stuffed animal, pillow or blanket please bring with you. ?? If you use a BIPAP,CPAP machine or glucometer machine, please bring it with you. ?? Please bring insurance cards and photo ID for any adult with you. ?? Park in the Main Garage across from the main hospital. ?? Check in at the Registration Desk on the 6th Floor in the Perioperative Area When you arrive for the procedure: ?? You will be registered and taken back to the pre-op room. We limit visitors to 2 at a time with the patient. We ask that you not bring other children with you. ?? An IV may be started prior to going to sleep. ?? A head to toe cleansing with antibacterial wipes may be completed while you are still awake. Please call [phone] if you have questions, concerns or are delayed on day of surgery. PUMPER PANELBOARD documented in this encounter Plan of Treatment Not on file documented as of this encounter Procedures Procedure Name Priority Date/Time Associated Diagnosis Comments DIFFERENTIAL AUTO STAT 10/10/2018 10: 22 AM TANK PUMPER PANELBOARD CBC WITH AUTO DIFFERENTIAL STAT 10/10/2018 10:22 AM TANK PUMPER PANELBOARD ALLOGENEIC PROFILE Routine 10/09/2018 11 :30 AM TANK PUMPER PANELBOARD ALLOGENEIC PROFILE Routine 10/09/2018 11 :29 AM TANK PUMPER PANELBOARD CBC WITHOUT DIFFERENTIAL STAT 10/09/2018 10:53 AM TANK PUMPER PANELBOARD CBC WITHOUT DIFFERENTIAL STAT 10/09/2018 9:12 AM TANK PUMPER PANELBOARD HARVEST BONE MARROW 10/09/2018 7 :35 AM TANK PUMPER PANELBOARD Bone marrow donor Case Notes Approved 09/16 documented in this encounter Results * (ABNORMAL) Differential, auto (10/10/2018 10:22 AM TANK PUMPER PANELBOARD) Neutrophil abs 13.8(H) 1.7 - 6.5 K/cumm [facility] Imm gran abs 0.1 0.0 - 0.1 K/cumm [facility] Lymphocyte abs 4.1(H) 0.8 - 3.3 K/cumm [facility] Monocyte abs 1.1(H) 0.2 - 0.8 K/cumm [facility] Eosinophil abs 0.1 0.0 - 0.5 K/cumm [facility] Basophil abs 0.0 0.0 - 0.1 K/cumm [facility] Neutrophil pct 71.7 % [facility] Comment: Interpretive Data Percent cell count reference ranges are not reported, since discordance with absolute values may lead to misinterpretation of CBC data. Current Interpretive Data was last revised on 2018. Imm gran pct 0.6 % [facility] Comment: Interpretive Data Percent cell count reference ranges are not reported, since discordance with absolute values may lead to misinterpretation of CBC data. Current Interpretive Data was last revised on 2018. Lymphocyte pct 21.2 % [facility] Comment: Interpretive Data Percent cell count reference ranges are not reported, since discordance with absolute values may lead to misinterpretation of CBC data. Current Interpretive Data was last revised on 2018. Monocyte pct 5.9 % [facility] Comment: Interpretive Data Percent cell count reference ranges are not reported, since discordance with absolute values may lead to misinterpretation of CBC data. Current Interpretive Data was last revised on 2018. Eosinophil pct 0.3 % [facility] Comment: Interpretive Data Percent cell count reference ranges are not reported, since discordance with absolute values may lead to misinterpretation of CBC data. Current Interpretive Data was last revised on 2018. Basophil pct 0.3 % [facility] Comment: Interpretive Data Percent cell count reference ranges are not reported, since discordance with absolute values may lead to misinterpretation of CBC data. Current Interpretive Data was last revised on 2018. Blood specimen (specimen) 10/10/2018 10:22 AM TANK PUMPER PANELBOARD 10/10/2018 10:29 AM TANK PUMPER PANELBOARD Narrative [facility] - 10/10/2018 10:39 AM TANK PUMPER PANELBOARD Amador Chavarria MD LAB BLOOD ORDERABLES Final Result [facility] Department [place] [address] * (ABNORMAL) CBC with auto differential (10/10/2018 10:22 AM TANK PUMPER PANELBOARD) WBC 19.3(H) 3.8 - 9.9 K/cumm [facility] Hgb 9.5(L) 11.9 - 15.5 g/dL [facility] Hct 28.5(L) 35.6 - 45.5 % [facility] Plt 223 150 - 400 K/cumm [facility] MPV 11.7 9.1 - 12.3 fL [facility] RBC 3.07(L) 3.90 - 5.20 M/cumm [facility] MCV 92.8 81.3 - 96.4 fL [facility] MCH 30.9 27.1 - 33.3 pg [facility] MCHC 33.3 32.3 - 35.7 g/dL [facility] RDW CV 13.3 11.1 - 14.9 % [facility] RDW SD 45.2 35.7 - 48.1 fL [facility] NRBC abs 0.00 0.00 - 0.01 K/cumm [facility] Blood specimen (specimen) 10/10/2018 10:22 AM TANK PUMPER PANELBOARD 10/10/2018 10:29 AM TANK PUMPER PANELBOARD Narrative [facility] - 10/10/2018 10:38 AM TANK PUMPER PANELBOARD Amador Chavarria MD LAB BLOOD ORDERABLES Final Result Performing Organization Address City/State/[facility] Co ar Phone Number [facility] Department [place] [address] * Allogenic profile (10/09/2018 11:30 AM TANK PUMPER PANELBOARD) CD2 pct 84 % [facility] Comment:Testing performed by : [facility], [address] [place] [address], [address] CD3 pct 76 % [facility] Comment:Testing performed by : [facility], [address] [place] [address]., [address] CD4 pct 40 35 - 79 % [facility] Comment:Testing performed by : [facility], [address] [place]., [address] CD8 pct 33 15 - 57 % [facility] Comment:Testing performed by : [facility], [address], [address] CD19 pct 13 % [facility] Comment:Testing performed by : [facility], [address], [address] CD20 % 13 % [facility] Comment:Testing performed by : [facility], [address] [place]., [address] [id number] pct 11 % [facility] Comment:Testing performed by : [facility], [address] [place]., [address] Bone marrow 10/09/2018 11:3 0 AM TANK PUMPER PANELBOARD 10/09/2018 1:20 PM TANK PUMPER PANELBOARD Narrative [facility] - 10/09/2018 2:41 PM TANK PUMPER PANELBOARD POST ??This test was developed and its performance characteristics determined by the [facility]. It has not been cleared or approved by the [place] Food and Drug Administration. This test is used for clinical purposes. It should not be regarded as investigational or for research. This laboratory is certified under the Clinical Laboratory Improvement Amendments (CLIA) as qualified to perform high complexity clinical laboratory testing. Yaquelin Hill MD LAB BLOOD ORDERABLES Final Resu lt [facility] Department [place] [address] * Allogenic profile (10/09/2018 11:29 AM TANK PUMPER PANELBOARD) CD2 pct 81 % [facility] Comment:Testing performed by : [facility], [address], [address] CD3 pct 73 % [facility] Comment:Testing performed by : [facility], [address] [place]., [address] CD4 pct 39 35 - 79 % [facility] Comment:Testing performed by : [facility], [address] [place]., [address] CD8 pct 32 15 - 57 % [facility] Comment:Testing performed by : [facility], [address] [place]., [address] CD19 pct 15 % [facility] Comment:Testing performed by : [facility], [address], [address] CD20 % 16 % [facility] Comment:Testing performed by : [facility], [address] [facility], [place]., [address] [id number] pct 10 % [facility] Comment:Testing performed by : [facility], [address] [facility], [place]., [address] Bone marrow 10/09/2018 11:2 9 AM TANK PUMPER PANELBOARD 10/09/2018 11:29 AM TANK PUMPER PANELBOARD Narrative [facility] - 10/09/2018 1:16 PM TANK PUMPER PANELBOARD This test was developed and its performance characteristics determined by the [facility]. It has not been cleared or approved by the [place] Food and Drug Administration. This test is used for clinical purposes. It should not be regarded as investigational or for research. This laboratory is certified under the Clinical Laboratory Improvement Amendments (CLIA) as qualified to perform high complexity clinical laboratory testing. us Yaquelin Hill MD LAB BLOOD ORDERABLES Final Resu lt [facility] Department [place] [address] * (ABNORMAL) CBC without differential (10/09/2018 10:53 AM TANK PUMPER PANELBOARD) WBC 15.5(H) 3.8 - 9.9 K/cumm [facility] Hgb 10.9(L) 11.9 - 15.5 g/dL [facility] Hct 32.8(L) 35.6 - 45.5 % [facility] Plt 216 150 - 400 K/cumm [facility] Comment:Repeated and Verifie d. MPV 11.8 9.1 - 12.3 fL [facility] RBC 3.50(L) 3.90 - 5.20 M/cumm [facility] MCV 93.7 81.3 - 96.4 fL [facility] MCH 31.1 27.1 - 33.3 pg [facility] MCHC 33.2 32.3 - 35.7 g/dL [facility] RDW CV 13.1 11.1 - 14.9 % [facility] RDW SD 44.6 35.7 - 48.1 fL [facility] NRBC abs 0.00 0.00 - 0.01 K/cumm [facility] Blood specimen (specimen) 10/09/2018 10:53 AM TANK PUMPER PANELBOARD 10/09/2018 10:59 AM TANK PUMPER PANELBOARD Narrative [facility] - 10/09/2018 12:06 PM TANK PUMPER PANELBOARD Ramya Bernardo MD LAB BLOOD ORDERABLES Final Resu lt [facility] Department [place] [address] * (ABNORMAL) CBC without differential (10/09/2018 9:12 AM TANK PUMPER PANELBOARD) WBC 19.6(H) 3.8 - 9.9 K/cumm [facility] Hgb 10.5(L) 11.9 - 15.5 g/dL [facility] Comment:Repeated and Verifie d. Hct 31.2(L) 35.6 - 45.5 % [facility] Plt 120(L) 150 - 400 K/cumm [facility] Comment:Repeated and Verifie d. MPV 12.2 9.1 - 12.3 fL [facility] RBC 3.37(L) 3.90 - 5.20 M/cumm [facility] MCV 92.6 81.3 - 96.4 fL [facility] MCH 31.2 27.1 - 33.3 pg [facility] MCHC 33.7 32.3 - 35.7 g/dL [facility] RDW CV 13.2 11.1 - 14.9 % [facility] RDW SD 44.9 35.7 - 48.1 fL [facility] NRBC abs 1.15(H) 0.00 - 0.01 K/cumm [facility] Blood specimen (specimen) 10/09/2018 9:12 AM TANK PUMPER PANELBOARD 10/09/2018 9:12 AM TANK PUMPER PANELBOARD Narrative [facility] - 10/09/2018 9:29 AM TANK PUMPER PANELBOARD us Yaquelin Hill MD LAB BLOOD ORDERABLES Final Resu lt [facility] Department [place] [address] documented in this encounter Visit Diagnoses Diagnosis Donor of stem cell- Primary Bone marrow donor documented in this encounter Administered Medications Inactive Administered Medications - up to 3 most recent administrations Medication Order MAR Action Action Date Dose Rate Site acetaminophen (TYLENOL) tablet 650 mg 650 mg, oral, Every 6 hours PRN, headaches, Starting on Fri10/09/18 at 1613 Given 10/10/2018 10:19 AM TANK PUMPER PANELBOARD 650 mg Given 10/10/2018 4:35 AM TANK PUMPER PANELBOARD 650 mg Given 10/09/2018 9:55 PM TANK PUMPER PANELBOARD 650 mg bupivacaine (MARCAINE) 0.5 % (5 mg/mL) preservative free injection As needed, Starting on Fri10/09/18 at 1015, Intra-Op Given 10/09/2018 10:15 AM TANK PUMPER PANELBOARD 30 mL electrolyte-A (PLASMA-LYTE) infusion As needed, Starting on Fri10/09/18 at 0859, Intra-Op Given 10/09/2018 8:59 AM TANK PUMPER PANELBOARD 70 mL ferrous sulfate delayed release tablet 65 mg of elemental iron 65 mg of elemental iron, oral, Daily with breakfast, First dose on 10/10/18 at 0800, Indications: Iron Deficiency AnemiaIndications:Iron Deficiency Anemia Given 10/10/2018 10:20 AM TANK PUMPER PANELBOARD 65 mg of elemental iron heparin 1,000 unit/mL preservative free injection As needed, Starting on Fri10/09/18 at 0924, Intra-Op Given 10/09/2018 9:24 AM TANK PUMPER PANELBOARD 16,000 Units Other (Comment) ibuprofen (ADVIL,MOTRIN) tablet 600 mg 600 mg, oral, Every 6 hours PRN, mild pain (pain scale 1-4), Starting on 10/10/18 at 1014 Lactated Ringer's (LR) infusion 100 mL/hr, intravenous, Continuous, Starting on Fri10/09/18 at 1115, Phase I New Bag 10/09/2018 11:01 AM TANK PUMPER PANELBOARD 100 mL/hr 100 mL/hr Restarted 10/09/2018 10:36 AM TANK PUMPER PANELBOARD 100 mL/hr 100 mL/hr ondansetron (ZOFRAN) injection 4 mg 4 mg, intravenous, Once, On Fri10/09/18 at 1247, For 1 dose Given 10/09/2018 12:39 PM TANK PUMPER PANELBOARD 4 mg ondansetron ODT (ZOFRAN-ODT) disintegrating tablet 4 mg 4 mg, oral, Every 6 hours PRN, nausea, vomiting, Starting on Fri10/09/18 at 1216 Given 10/10/2018 12:27 PM TANK PUMPER PANELBOARD 4 mg Given 10/10/2018 5:40 AM TANK PUMPER PANELBOARD 4 mg oxyCODONE (ROXICODONE) tablet 10 mg 10 mg, oral, Every 4 hours PRN, 1st line for pain, Starting on 10/10/18 at 1015, Indications: PainIndications:Pain Given 10/10/2018 2:41 PM TANK PUMPER PANELBOARD 10 mg Given 10/10/2018 10:19 AM TANK PUMPER PANELBOARD 10 mg oxyCODONE (ROXICODONE) tablet 5 mg 5 mg, oral, Every 4 hours PRN, 1st line for pain, Starting on Fri10/09/18 at 1217, Indications: PainIndications:Pain Given 10/10/2018 2:35 AM TANK PUMPER PANELBOARD 5 mg Given 10/09/2018 10:55 PM TANK PUMPER PANELBOARD 5 mg Given 10/09/2018 12:39 PM TANK PUMPER PANELBOARD 5 mg oxyCODONE (ROXICODONE) tablet 7.5 mg 7.5 mg, oral, Every 4 hours PRN, 1st line for pain, Starting on 10/10/18 at 1015, Indications: PainIndications:Pain Given 10/10/2018 6:19 AM TANK PUMPER PANELBOARD 7.5 mg documented in this encounter Active and Recently Administered Medications Times are shown in TANK PUMPER PANELBOARD. Scheduled Medication Order 10/08/2018 10/09/2018 10/10/2018 bacitracin 500 unit/gram ointment 1 application 1 application (deactivated), topical, Once, On 10/10/18 at 1146, For 1 dose, Apply to affected area: wound 1146 (Due) ferrous sulfate delayed release tablet 65 mg of elemental iron 65 mg of elemental iron, oral, Daily with breakfast, First dose on 10/10/18 at 0800, Indications: Iron Deficiency Anemia 1020 (Given - Provid er: Jackie Parry RN - Comment: Pt wanted to have breakfast first.) ondansetron (ZOFRAN) injection 4 mg (COMPLETED) 4 mg, intravenous, Once, On Fri10/09/18 at 1247, For 1 dose 1239 (Given - Provider: Deepika Simons, HERBER) Continuous Medication Order 10/08/2018 10/09/2018 10/10/2018 Lactated Ringer's (LR) infusion 100 mL/hr, intravenous, Continuous, Starting on Fri10/09/18 at 1115, Phase I 1036 (Restarted - Provider: Maria C Wall, HERBER)1101 (New Bag - Provider: Maria C Wall, HERBER)2138 (Stopped - Provider: Kaylynn Pimentel RN - Comment: Fluids stopped on previous shift. Time unknown) PRN Medication Order 10/08/2018 10/09/2018 10/10/2018 acetaminophen (TYLENOL) tablet 650 mg 650 mg, oral, Every 6 hours PRN, headaches, Starting on Fri10/09/18 at 1613 1650 (Given - Provider: Jackie Parry, HERBER)2155 (Given - Provider: Kaylynn Pimentel, RN) 0435 (Given - Provider: Kaylynn Pimentel, HERBER)1019 (Given - Provider: Jackie Parry, HERBER) bupivacaine (MARCAINE) 0.5 % (5 mg/mL) preservative free injection (CANCELED) As needed, Starting on Fri10/09/18 at 1015, Intra-Op 1015 (Given - Provider: Yaquelin Hill MD - Comment: 15 mL injected to each surgical site, right and left lower back, per surgeon) electrolyte-A (PLASMA-LYTE) infusion (CANCELED) As needed, Starting on Fri10/09/18 at 0859, Intra-Op 0859 (Given - Provider: Yaquelin Hill MD - Comment: Used as irrigation for Bone marrow collection throughout case per surgeon) heparin 1,000 unit/mL preservative free injection (CANCELED) As needed, Starting on Fri10/09/18 at 0924, Intra-Op 0924 (Given - Provider: Yaquelin Hill MD - Comment: Not given intravenously. Used as irrigation in bone marrow collection bag throughout case per surgeon) ibuprofen (ADVIL,MOTRIN) tablet 600 mg 600 mg, oral, Every 6 hours PRN, mild pain (pain scale 1-4), Starting on 10/10/18 at 1014 1546 (Not Given - Provider: Jackie Parry RN - Reason: Patient/family refused - Comment: Pt. decided she did not want Ibuporfen. Med returned to [facility].) ondansetron ODT (ZOFRAN-ODT) disintegrating tablet 4 mg 4 mg, oral, Every 6 hours PRN, nausea, vomiting, Starting on Fri10/09/18 at 1216 0540 (Given - Provid er: Jo Rodriguez RN)1227 (Given - Provider: Jackie Parry RN) oxyCODONE (ROXICODONE) tablet 10 mg 10 mg, oral, Every 4 hours PRN, 1st line for pain, Starting on 10/10/18 at 1015, Indications: Pain 1019 (Given - Provid er: Jackie Parry RN)1441 (Given - Provider: Jackie Parry RN) oxyCODONE (ROXICODONE) tablet 5 mg (CANCELED) 5 mg, oral, Every 4 hours PRN, 1st line for pain, Starting on Fri10/09/18 at 1217, Indications: Pain 1239 (Given - Provider: Deepiak Simons RN)2255 (Given - Provider: Kaylynn Pimentel RN) 0235 (Given - Provider: Kaylynn Pimentel RN) oxyCODONE (ROXICODONE) tablet 5 mg 5 mg, oral, Every 4 hours PRN, 1st line for pain, Starting on Fri10/09/18 at 1426, For 10 doses, Indications: Pain oxyCODONE (ROXICODONE) tablet 7.5 mg (CANCELED) 7.5 mg, oral, Every 4 hours PRN, 1st line for pain, Starting on 10/10/18 at 1015, Indications: Pain 0619 (Given - Provid er: Kaylynn Pimentel RN) documented in this encounter Orders Medications Ordered That Trevor ht Not Have Been Administered Count Last Ordered Date First Ordered Date bacitracin 500 unit/gram oin tment 1 application 1 10/10/2018 ibuprofen (ADVIL,MOTRIN) tablet 600 mg 1 oxyCODONE (ROXICODONE) tablet 5 mg 2 201710/09/2018 acetaminophen (TYLENOL) tablet 650 mg 1 08/2018 HYDROmorphone (DILAUDID) injection 0.37 mg 1 10/09/2018 lidocaine 1% buffered 1 % (0 .5 mL) injection - ADS Override Pull 1 10/09/2018 ondansetron (ZOFRAN) injection 4 mg 1 10/09 Diet Count Last Ordered Date First Orde red Date PEDIATRIC DISCHARGE DIET 1 10/10/2018 Nursing Count Last Ordered Date First Orde red Date DISCHARGE ACTIVITY 1 10/10/2018 DISCHARGE CALL PROVIDER 1 10/10/2018 DISCHARGE INSTRUCTIONS 1 10/10/2018 Admission Count Last Ordered Date First Orde red Date ASSIGN PATIENT STATUS 1 10/09/2018 documented in this encounter Care Teams Railway Switchman Relationship Specialty Start Date End Date Evaristo Wills MD PCP - General 09/07/18 12/11/22 documented as of this encounter
--- OUTSIDE RECORDS SUMMARY | 2024-12-06 18:00 | XMS_ITS | Encounter Summary ---
Author Organization [facility] Address [address] [place] [address] Care Team Providers Care Circuits Engineer Name Role Phone Mona Hernandez NP Primary Care Provider [phone] Evaristo Wills MD Unavailable [phone] Encounter Details Date Type Department Care Team (Late st Contact Info) Description 09/03/2023 Telephone [facility] [address] [place] [address] Nissa Youssef LPN Social History Tobacco Use Types Packs/Day Years Used Date Smoking Tobacco: Every Day Vaping Smokeless Tobacco: Former Alcohol Use Standard Drinks/Week Comments Yes 0 (1 standard drink = 0.6 oz pur e alcohol) once per month Comments No Sex and Gender Information Value Date Recorded Sex Assigned at Not on file 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 Denies having any symptoms of BV or yeast * Telephone Encounter - Nissa Youssef LPN - 09/03/2023 2:08 PM CDT ----- Message from Mayra Richardson DO sent at 09/03/2023 12:52 PM CDT ----- Please inform the patient her pap smear was normal but did show evidence of both BV and yeast. If having symptoms, can send treatment to her pharmacy. documented in this encounter Plan of Treatment Not on file documented as of this encounter Visit Diagnoses Not on filedocumented in this encounter Care Teams Circuits Engineer Relationship Specialty Start Date End Date Mona Hernandez NP [facility] [facility] [place] [address] PCP - General Internal Medicine 12/12/22 Evaristo Wills MD [address] [facility] [place] [address] 12/12/22 documented as of this encounter
--- OUTSIDE RECORDS SUMMARY | 2024-12-06 18:00 | XMS_ITS | Encounter Summary ---
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 Name Role Phone Mona Hernandez NP Primary Care Provider [phone] Evaristo Wills MD Unavailable [phone] Reason for Visit * Reason Comments New Patient Encounter Details Date Type Department Care Team (Late st Contact Info) Description 08/26/2023 2:20 PM CDT Office Visit [facility] [place] [address] Mayra Richardson, DO [address] [place] [address] Encounter for annual routine gynecological examination (Primary Dx); Screening for malignant neoplasm of the cervix; Encounter for screening mammogram for malignant neoplasm of breast; Pelvic pain; Cystocele, midline Social History Tobacco Use Types Packs/Day Years Used Date Smoking Tobacco: Every Day Vaping Smokeless Tobacco: Former Tobacco Cessation:Ready to Q uit: Not Asked; Counseling Given: Not Answered Alcohol Use Standard Drinks/Week Comments Yes 0 (1 standard drink = 0.6 oz pur e alcohol) once per month Comments No Sex and Gender Information Value Date Recorded Sex Assigned at Not on file 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 Gender Identity Female 07/30/2024 4:35 PM CDT Sexual Orientation Choose not to disclose 2023 4:35 PM CDT Occupation Industry Job Start Date Job End Date Lyndon Torres Not on file Not on file Not on file documented as of this encounter Last Filed Vital Signs Vital Sign Reading Time Taken Comments Blood Pressure 132/100 08/26/2023 2:28 PM CDT Pulse - - Temperature - - Respiratory Rate - - Oxygen Saturation - - Inhaled Oxygen Concentration - - Weight 88.9 kg (196 lb) 08/26/2023 2:28 PM CDT Height 170.2 cm (5' 7 ) 08/26/2023 2:28 PM CDT Body Mass Index 30.7 08/26/2023 2:28 PM CDT documented in this encounter Progress Notes * Mayra Richardson, DO - 08/26/2023 2:20 PM CDT New CERTIFIED FRAUD EXAMINER Subjective: Alecia Mabry is a 42 y.o. year old female who presents for a new patient visit. Last pap in 2018 and abnormal. She reports abnormals in the past requiring colposcopy and states she was supposed to have one following her 2018 pap and didn't. She had it scheduled but the doctor got called out for a delivery and she kept trying to reschedule but states the office never called [place]. Last mammogram was in 2019. She is s/p tubal for contraception in 2003 after her last delivery. She had an ablation in 2005 andhas been amenorrheic since. She complains of possible prolapse. She states she saw something that looks like a penis at the vaginal opening. She has had intermittent loss of urine as well as low back pain and pelvic pressure. Menstrual History: No LMP recorded. (Menstrual status: Tubal Ligation). Sexual History: OB History 4 Para 3 Term 3 AB 1 Living 3 SAB 1 IAB Ectopic Multiple Live Births 3 # Outcome Date GA Labor/2nd Weight Sex Delivery Anes PTL Lv A1 A5 1 SAB 2 Term 11/11/00 2.977 kg (6 lb 9 oz) F Vag-Spont Living 3 Term 06/20/02 2.722 kg (6 lb) M Vag-Spont Living 4 Term 04/30/04 3.062 kg (6 lb 12 oz) F Vag-Spont Living Past Medical History: Diagnosis Date Depression Low vitamin D level Current Outpatient Medications: ARIPiprazole (ABILIFY) 10 mg tablet, Take 1 tablet (10 mg total) by mouth daily, Disp: , Rfl: zolpidem (AMBIEN) 5 mg tablet, Take 1 tablet (5 mg total) by mouth nightly at bedtime., Disp: , Rfl: albuterol HFA (PROVENTIL HFA,VENTOLIN HFA,PROAIR HFA) 90 mcg/actuation inhaler, INHALE 2 PUFFS BY MOUTH 4 TIMES DAILY NEEDED FOR SHORTNESS OF BREATH FOR WHEEZING (Patient not taking: Reported on 08/26/2023), Disp: , Rfl: ferrous sulfate 325 mg (65 mg of elemental iron) tablet, Take 1 tablet (65 mg of elemental iron total) by mouth daily with breakfast., Disp: 30 tablet, Rfl: 0 mirtazapine (REMERON) 7.5 mg tablet, Take 7.5 mg by mouth nightly, Disp: , Rfl: oxyCODONE (ROXICODONE) 5 mg immediate release tablet, Take 1-2 tablets (5-10 mg total) by mouth every 4 (four) hours as needed for pain., Disp: 10 tablet, Rfl: 0 Current Facility-Administered Medications: oxyCODONE (ROXICODONE) tablet 5 mg, 5 mg, oral, Q4H PRN, Michelleit-Meenakshi Gaines MD Allergies Allergen Reactions Levofloxacin Hives Augmentin [Amoxicillin-Pot Clavulanate] Stomach upset History reviewed. No pertinent family history. Social History Tobacco Use Smoking status: Every Day Types: Vaping Smokeless tobacco: Former Substance and Sexual Activity Drug use: No Sexual activity: Yes Partners: Female control/protection: Tubal Ligation Alcohol Use: Not on file Review of Systems Constitutional: Positive for fatigue. Negative for fever and unexpected weight change. HENT: Positive for postnasal drip. Respiratory: Negative for shortness of breath and wheezing. Cardiovascular: Positive for leg swelling. Negative for chest pain and palpitations. Gastrointestinal: Negative for abdominal pain, blood in stool, nausea and vomiting. Genitourinary: Positive for frequency. Negative for dysuria, hematuria, urgency, vaginal bleeding and vaginal discharge. Musculoskeletal: Positive for back pain. Skin: Negative for rash. Sweating Neurological: Positive for headaches. Psychiatric/Behavioral: Depression, Insomnia Objective: BP 132/100 Ht 170.2 cm (5' 7 ) Wt 196 lb (88.9 kg) BMI 30.70 kg/m?? Physical Exam Constitutional: Appearance: She is well-developed. Cardiovascular: Rate and Rhythm: Normal rate and regular rhythm. Pulmonary: Effort: Pulmonary effort is normal. Breath sounds: Normal breath sounds. Chest: Breasts: Right: No mass or tenderness. Left: No mass or tenderness. Abdominal: Palpations: Abdomen is soft. Tenderness: There is no abdominal tenderness. Genitourinary: Rectum normal, vagina normal and uterus normal. Right labia: normal. Left Labia: normal. No vaginal discharge. Right adnexa: normal. Left adnexa: normal. Cervix: nabothian cyst. Cervix: Normal exam. Genitourinary Comments: Grade 2 cystocele Musculoskeletal: General: No tenderness. Skin: General: Skin is warm and dry. Neurological: Mental Status: She is alert and oriented to person, place, and time. Psychiatric: Behavior: Behavior normal. Assessment and Plan: Alecia Mabry is a 42 y.o. female [employer] - Screening guidelines reviewed. Pap collected. - STD screening declined. - Mammogram ordered. - S/p tubal for contraception. Cystocele - Discussed in detail with the patient. She is very distraught by this and was tearful today. She would like it fixed LACHO. Discussed that her urinary issues are likely related to the prolapse and possibly the pelvic pressure but I'm not sure the back pain is. Will order a pelvic US to evaluate forother causes. Discussed treatment options of PFPT, pessary, and surgery. The patient wishes to undergo surgery. Will refer to urogynecology today. RTC in 1 year for WWE and PRN Mayra Richardson DO 08/26/2023 documented in this encounter Plan of Treatment Not on file documented as of this encounter Results * High Risk HPV DNA Detection with Genotyping (Molecular component) (08/26/2023 3:14 PM CDT) HPV HR 16 Not Detected Not Detected MICHELLE SPRINGER Comment:Testing performed by : , [address] [place]., [address] HPV HR 18 Not Detected Not Detected MICHELLE SPRINGER Comment:Testing performed by : , [address] [place]., [address] HPV HR Non 16/18 Not Detected Not Detected MICHELLE SPRINGER Comment: Interpretive Data Nucleic acid amplification [...] this test have been verified by the Molecular Infectious Disease laboratory. Correlate with separately reported cytology results, as applicable. Interpretive data last revised 23 Testing performed by: , [address] [place]., [address] Endocervical 08/26/2023 3:14 PM CDT 08/27/2023 12:32 PM CDT Narrative MICHELLE SPRINGER - 2023 4:41 AM CDT Clinical history and diagnosis->DX Z12.4 Testing type->Screening Last menstrual period (date if known)->N/A us Mayra Richardson DO LAB BODY FLUIDS AND STO OLS ORDERABLES Final Result MICHELLE SPRINGER [address] Department [place] [address] * Pap and High Risk HPV and Genotyping (Cytology Component) (08/26/2023 9:11 AM CDT) Thin prep (Pap test) 08/26/2023 9:11 AM CDT 08/26/2023 9:11 AM CDT Narrative PATHOLOGY [facility] - 09/01/2023 9:02 AM CDT [facility] Department of Pathology [address] [place], [place] [id number] Final Report with Addendum Note to Patients: [...] the details. Patient Name: ??ALECIA MABRY Address: ??[facility] [address] [facility], ?? [place], [place] [address] Gender: ??F : ??1980 (Age: 42) Service: ?? Location: ?? Hospital #: ??[id number] Patient Type: ?? SPECIMEN Taken: ??08/26/2023 Received: [...] this test have been verified by the Molecular Infectious Disease laboratory. Correlate with reported [...] determined by the Surgical Pathology Department at [facility] as part of an ongoing vice president quality improvement program and in compliance with federally mandated [...] determined by the Surgical Pathology Department [facility]. ??It has not been cleared or approved by the [place]. [place]. Food and Drug Administration. Mayra Richardson DO LAB CYTOLOGY ORDERABLES Final Result PATHOLOGY [address] [place] [address] documented in this encounter Visit Diagnoses Diagnosis Encounter for annual routine gynecological examination- Primary Screening for malignant neoplasm of the cervix Encounter for screening mammogram for malignant neoplasm of breast Pelvic pain Cystocele, midline Screening for malignant neoplasm of the cervix documented in this encounter Historical Medications * This list may reflect changes made after this encounter. zolpidem (AMBIEN) 5 mg tablet Take 1 tablet (5 mg total) by mouth nightly at bedtime. 07/25/2023 added in this encounter Care Teams Putty Mixer And Applier Relationship Specialty Start Date End Date Mona Hernandez NP [address] [place] [address] PCP - General Internal Medicine 12/12/22 Evaristo Wills MD [address] [place] [address] 12/12/22 documented as of this encounter
--- OUTSIDE RECORDS SUMMARY | 2024-12-06 18:00 | XMS_ITS | Encounter Summary ---
Author Organization [facility] Healthcare Address [address] [place] [address] Care Team Providers Care Clinical Case Manager Name Role Phone Evaristo Wills MD Primary Care Provider [phone] Encounter Details Date Type Department Care Team (Late st Contact Info) Description 10/09/2018 6:01 AM LOG HAUL CHAIN FEEDER - 10/10/2018 2:45 PM LOG HAUL CHAIN FEEDER Hospital Encounter [facility] [address] [place] [address] Yaquelin Hill MD 1 [facility] [address] [place] [address] Donor of stem cell (Primary Dx) Discharge Disposition: Discharge to home or self [...] on file Legal Sex Female 9:09 AM LOG HAUL CHAIN FEEDER Gender Identity Female 07/30/2024 4:35 PM CDT Sexual Orientation Choose not to disclose 2023 4:35 PM CDT documented as of this encounter Last Filed Vital Signs Vital Sign Reading Time Taken Comments Blood Pressure 116/59 10/10/2018 1:21 PM LOG HAUL CHAIN FEEDER Pulse 67 10/10/2018 1:21 PM LOG HAUL CHAIN FEEDER Temperature 36.3 ??C (97.3 ??F) 10/10/2018 1:21 PM CS T Respiratory Rate 14 10/10/2018 1:21 PM LOG HAUL CHAIN FEEDER Oxygen Saturation 97% 10/10/2018 1:21 PM LOG HAUL CHAIN FEEDER Inhaled Oxygen Concentration - - Weight 74.4 kg (164 lb 0.4 oz) 10/09/2018 6:15 A M LOG HAUL CHAIN FEEDER Height 172 cm (5' 7.72 ) 10/09/2018 6:15 AM LOG HAUL CHAIN FEEDER Body Mass Index 25.15 10/09/2018 6:15 AM LOG HAUL CHAIN FEEDER documented in this encounter Discharge Summaries * Amador Chavarria MD - 10/10/2018 12:44 PM CST Inpatient Discharge Summary BRIEF OVERVIEW Admitting Provider: Yaquelin Hill MD Discharge Provider: Yaquelin Hill MD Primary Care Physician at Discharge: Evaristo Wills MD [phone] Admission Date: 10/09/2018 Discharge Date: 10/10/2018 Admission Location: [facility] Primary Discharge Diagnosis: Donor of stem cell [...] next 30 days. Operative Procedures Performed: Procedure(s): [place] Bone Marrow Discharge Details Physical Exam at [...] Provider Department Center 11/10/2018 10:00 AM Neela Ortiz NP PD HEM [id number] PD Cosigned by Cindy Berumen MD at 10/10/2018 3:39 PM LOG HAUL CHAIN FEEDER HAUL CHAIN FEEDER HAUL CHAIN FEEDER Associated attestation - Cindy Berumen MD - 10/10/2018 3:39 PM LOG HAUL CHAIN FEEDER I have seen and examined the patient [...] Percent 15 % CD20 % 16 % [id number] Percent 10 % Allogenic profile Collection Time: 10/09/18 11:30 AM Result Value Ref Range CD2 % 84 % CD3 Percent 76 % CD4 Percent 40 35 - 79 % CD8 Percent 33 15 - 57 % CD19 Percent 13 % CD20 % 13 % [id number] Percent 11 % CBC with auto differential [...] Cindy Berumen MD at 10/10/2018 3:48 PM LOG HAUL CHAIN FEEDER HAUL CHAIN FEEDER HAUL CHAIN FEEDER Associated attestation - Cindy Berumen MD - 10/10/2018 3:48 PM LOG HAUL CHAIN FEEDER I have seen and examined the patient [...] observation for pain control after the procedure HAUL CHAIN FEEDER HAUL CHAIN FEEDER documented in this encounter Nursing Notes * Jackie Parry RN - 10/10/2018 3:45 PM CST Discharge instruction and pain control discussed with patient. No further questions or concerns from pt. At this time. HAUL CHAIN FEEDER * Kaylynn Pimentel, HERBER - 10/10/2018 5:35 AM CST Notified resident of patients blood pressure 92/52 and pain of 8 that current pain regimen is not managing. To see patient. HAUL CHAIN FEEDER documented in this encounter Miscellaneous Notes * Assessment & Plan Note - Amador Chavarria MD - 10/10/2018 11:28 AM LOG HAUL CHAIN FEEDER Associated Problem(s): Donor of stem cell Repeat CBC today stable. Pain has been well controlled. - Will change dressing - Discharge today HAUL CHAIN FEEDER * Subjective & Objective - Amador Chavarria MD - 10/10/2018 11:26 AM LOG HAUL CHAIN FEEDER Images from the original note were not [...] Percent 15 % CD20 % 16 % [id number] Percent 10 % Allogenic profile Collection Time: 10/09/18 11:30 AM Result Value Ref Range CD2 % 84 % CD3 Percent 76 % CD4 Percent 40 35 - 79 % CD8 Percent 33 15 - 57 % CD19 Percent 13 % CD20 % 13 % [id number] Percent 11 % CBC with auto differential [...] % Eosinophils 0.3 % Basophils 0.3 % HAUL CHAIN FEEDER * Plan of Care - Kaylynn Pimentel RN - 10/10/2018 3:02 AM CST Health Behavior: ??? Understanding of discharge needs will improve Adequate for Discharge Goals: Clinical Goals for the Shift: Increase PO intake to maintain hydration status Summary: HAUL CHAIN FEEDER * Hospital Course - Amador Chavarria MD [...] Fe+ supplements for the next 30 days. HAUL CHAIN FEEDER HAUL CHAIN FEEDER HAUL CHAIN FEEDER * Brief Op Note - Rosemarie Jung MD - 10/09/2018 7:30 AM CST Operative Progress Note Attending Surgeon: Rosemarie Jung MD Surgical Team: Automotive Project Engineer: Geneva Land RN Scrub: Alecia Bello RN DATE OF SURGERY : 10/09/2018 Preoperative Diagnosis: Z52.3 Postoperative Diagnosis: Post-op Diagnosis Bone marrow donor [Z52.3] Procedure: Procedure(s): [place] Bone Marrow from haploidentical family member - [...] case. Dr. Hill assisted with the procedure. HAUL CHAIN FEEDER * Pre-Procedure Instructions - Ariadna Torrez RN - 10/05/2018 3:58 PM LOG HAUL CHAIN FEEDER We are pleased that you and your doctor have chosen [facility] for this surgery. We hope that [...] are located on the 6th floor of [facility]. Please take green Atrium elevators. Check in at the Registration Desk in the Same Day Surgery Waiting Area. Give medication as directed. ?? No makeup, no jewelry (including all body piercings) nail pashto and no metal in hair. ?? Dress [...] while you are still awake. Please call [phone] if you have questions, concerns or are delayed on day of surgery. HAUL CHAIN FEEDER documented in this encounter Plan of Treatment Not on file documented as of this encounter Procedures Procedure Name Priority Date/Time Associated Diagnosis Comments DIFFERENTIAL AUTO STAT 10/10/2018 10: 22 AM LOG HAUL CHAIN FEEDER CBC WITH AUTO DIFFERENTIAL STAT 10/10/2018 10:22 AM LOG HAUL CHAIN FEEDER ALLOGENEIC PROFILE Routine 10/09/2018 11 :30 AM LOG HAUL CHAIN FEEDER ALLOGENEIC PROFILE Routine 10/09/2018 11 :29 AM LOG HAUL CHAIN FEEDER CBC WITHOUT DIFFERENTIAL STAT 10/09/2018 10:53 AM LOG HAUL CHAIN FEEDER CBC WITHOUT DIFFERENTIAL STAT 10/09/2018 9:12 AM LOG HAUL CHAIN FEEDER HARVEST BONE MARROW 10/09/2018 7 :35 AM LOG HAUL CHAIN FEEDER Bone marrow donor Case Notes Approved 09/16 documented in this encounter Results * (ABNORMAL) Differential, auto (10/10/2018 10:22 AM LOG HAUL CHAIN FEEDER) Neutrophil abs 13.8(H) 1.7 - 6.5 K/cumm [facility] Imm gran abs 0.1 0.0 - 0.1 K/cumm [facility] Lymphocyte abs 4.1(H) 0.8 - 3.3 K/cumm [facility] Monocyte abs 1.1(H) 0.2 - 0.8 K/cumm [facility] Eosinophil abs 0.1 0.0 - 0.5 K/cumm [facility] Basophil abs 0.0 0.0 - 0.1 K/cumm [facility] Neutrophil pct 71.7 % [facility] Comment: Interpretive Data Percent cell count reference ranges are not reported, since discordance with absolute values may lead to misinterpretation of CBC data. Current Interpretive Data was last revised on 2018. Imm gran pct 0.6 % [facility] Comment: Interpretive Data Percent cell count reference ranges are not reported, since discordance with absolute values may lead to misinterpretation of CBC data. Current Interpretive Data was last revised on 2018. Lymphocyte pct 21.2 % [facility] Comment: Interpretive Data Percent cell count reference ranges are not reported, since discordance with absolute values may lead to misinterpretation of CBC data. Current Interpretive Data was last revised on 2018. Monocyte pct 5.9 % [facility] Comment: Interpretive Data Percent cell count reference ranges are not reported, since discordance with absolute values may lead to misinterpretation of CBC data. Current Interpretive Data was last revised on 2018. Eosinophil pct 0.3 % [facility] Comment: Interpretive Data Percent cell count reference ranges are not reported, since discordance with absolute values may lead to misinterpretation of CBC data. Current Interpretive Data was last revised on 2018. Basophil pct 0.3 % [facility] Comment: Interpretive Data Percent cell count reference ranges are not reported, since discordance with absolute values may lead to misinterpretation of CBC data. Current Interpretive Data was last revised on 2018. Blood specimen (specimen) 10/10/2018 10:22 AM LOG HAUL CHAIN FEEDER 10/10/2018 10:29 AM LOG HAUL CHAIN FEEDER Narrative [facility] - 10/10/2018 10:39 AM LOG HAUL CHAIN FEEDER Amador Chavarria MD LAB BLOOD ORDERABLES Final Result [facility] [place] [address] * (ABNORMAL) CBC with auto differential (10/10/2018 10:22 AM LOG HAUL CHAIN FEEDER) WBC 19.3(H) 3.8 - 9.9 K/cumm [facility] Hgb 9.5(L) 11.9 - 15.5 g/dL [facility] Hct 28.5(L) 35.6 - 45.5 % [facility] Plt 223 150 - 400 K/cumm [facility] MPV 11.7 9.1 - 12.3 fL [facility] RBC 3.07(L) 3.90 - 5.20 M/cumm [facility] MCV 92.8 81.3 - 96.4 fL [facility] MCH 30.9 27.1 - 33.3 pg [facility] MCHC 33.3 32.3 - 35.7 g/dL [facility] RDW CV 13.3 11.1 - 14.9 % [facility] RDW SD 45.2 35.7 - 48.1 fL [facility] NRBC abs 0.00 0.00 - 0.01 K/cumm [facility] Blood specimen (specimen) 10/10/2018 10:22 AM LOG HAUL CHAIN FEEDER 10/10/2018 10:29 AM LOG HAUL CHAIN FEEDER Narrative [facility] - 10/10/2018 10:38 AM LOG HAUL CHAIN FEEDER Amador Chavarria MD LAB BLOOD ORDERABLES Final Result [facility] Department [place] [address] * Allogenic profile (10/09/2018 11:30 AM LOG HAUL CHAIN FEEDER) CD2 pct 84 % [facility] Comment:Testing performed by : [facility], [address] [facility], [address] CD3 pct 76 % [facility] Comment:Testing performed by : [facility], [address] [facility], [address] CD4 pct 40 35 - 79 % [facility] Comment:Testing performed by : [facility], [address] [facility], [address] CD8 pct 33 15 - 57 % [facility] Comment:Testing performed by : [facility], [address] [facility], [address] CD19 pct 13 % [facility] Comment:Testing performed by : [facility], [address] [facility], [address] CD20 % 13 % [facility] Comment:Testing performed by : [facility], [address] [facility], [address] [id number] pct 11 % [facility] Comment:Testing performed by : [facility], [address] [place] [address], [address] Bone marrow 10/09/2018 11:3 0 AM LOG HAUL CHAIN FEEDER 10/09/2018 1:20 PM LOG HAUL CHAIN FEEDER Narrative [facility] - 10/09/2018 2:41 PM LOG HAUL CHAIN FEEDER POST ??This test was developed and its performance characteristics determined by the [facility]. It has not been cleared or approved by the US Food and Drug Administration. This test is used for clinical purposes. It should not be regarded as investigational or for research. This laboratory is certified under the Clinical Laboratory Improvement Amendments (CLIA) as qualified to perform high complexity clinical laboratory testing. Yaquelin Hill MD LAB BLOOD ORDERABLES Final Resu lt [facility] Department [place] [address] * Allogenic profile (10/09/2018 11:29 AM LOG HAUL CHAIN FEEDER) CD2 pct 81 % [facility] Comment:Testing performed by : [facility], [address] [facility], [address] CD3 pct 73 % [facility] Comment:Testing performed by : [facility], [address] [place] [address], [address] CD4 pct 39 35 - 79 % [facility] Comment:Testing performed by : [facility], [address] [facility], [address] CD8 pct 32 15 - 57 % [facility] Comment:Testing performed by : [facility], [address] [place]., [address] CD19 pct 15 % [facility] Comment:Testing performed by : [facility], [address] [place] [address], [address] CD20 % 16 % [facility] Comment:Testing performed by : [facility], [address] [place] [address], [address] [id number] pct 10 % [facility] Comment:Testing performed by : [address], [address] Bone marrow 10/09/2018 11:2 9 AM LOG HAUL CHAIN FEEDER 10/09/2018 11:29 AM LOG HAUL CHAIN FEEDER Narrative [facility] - 10/09/2018 1:16 PM LOG HAUL CHAIN FEEDER This test was developed and its performance characteristics determined by the [facility]. It has not been [...] MD LAB BLOOD ORDERABLES Final Resu lt [facility] Department [place] [address] * (ABNORMAL) CBC without differential (10/09/2018 10:53 AM LOG HAUL CHAIN FEEDER) WBC 15.5(H) 3.8 - 9.9 K/cumm [facility] Hgb 10.9(L) 11.9 - 15.5 g/dL [facility] Hct 32.8(L) 35.6 - 45.5 % [facility] Plt 216 150 - 400 K/cumm [facility] Comment:Repeated and Verifie d. MPV 11.8 9.1 - 12.3 fL [facility] RBC 3.50(L) 3.90 - 5.20 M/cumm [facility] MCV 93.7 81.3 - 96.4 fL [facility] MCH 31.1 27.1 - 33.3 pg [facility] MCHC 33.2 32.3 - 35.7 g/dL [facility] RDW CV 13.1 11.1 - 14.9 % [facility] RDW SD 44.6 35.7 - 48.1 fL [facility] NRBC abs 0.00 0.00 - 0.01 K/cumm [facility] Blood specimen (specimen) 10/09/2018 10:53 AM LOG HAUL CHAIN FEEDER 10/09/2018 10:59 AM LOG HAUL CHAIN FEEDER Narrative [facility] - 10/09/2018 12:06 PM LOG HAUL CHAIN FEEDER Ramya Bernardo MD LAB BLOOD ORDERABLES Final Resu lt [facility] Department [place] [address] * (ABNORMAL) CBC without differential (10/09/2018 9:12 AM LOG HAUL CHAIN FEEDER) WBC 19.6(H) 3.8 - 9.9 K/cumm [facility] Hgb 10.5(L) 11.9 - 15.5 g/dL [facility] Comment:Repeated and Verifie d. Hct 31.2(L) 35.6 - 45.5 % [facility] Plt 120(L) 150 - 400 K/cumm [facility] Comment:Repeated and Verifie d. MPV 12.2 9.1 - 12.3 fL [facility] RBC 3.37(L) 3.90 - 5.20 M/cumm [facility] MCV 92.6 81.3 - 96.4 fL [facility] MCH 31.2 27.1 - 33.3 pg [facility] MCHC 33.7 32.3 - 35.7 g/dL [facility] RDW CV 13.2 11.1 - 14.9 % [facility] RDW SD 44.9 35.7 - 48.1 fL [facility] NRBC abs 1.15(H) 0.00 - 0.01 K/cumm [facility] Blood specimen (specimen) 10/09/2018 9:12 AM LOG HAUL CHAIN FEEDER 10/09/2018 9:12 AM LOG HAUL CHAIN FEEDER Narrative [facility] - 10/09/2018 9:29 AM LOG HAUL CHAIN FEEDER us Yaquelin Hill MD LAB BLOOD ORDERABLES Final Resu lt [facility] [place] [address] documented in this encounter Visit Diagnoses Diagnosis Donor of stem cell- Primary Donor of stem cell documented in this encounter Administered Medications Inactive Administered Medications - up to 3 most recent administrations Medication Order MAR Action Action Date Dose Rate Site acetaminophen (TYLENOL) tablet 650 mg 650 mg, oral, Every 6 hours PRN, headaches, Starting on Fri10/09/18 at 1613 Given 10/10/2018 10:19 AM LOG HAUL CHAIN FEEDER 650 mg Given 10/10/2018 4:35 AM LOG HAUL CHAIN FEEDER 650 mg Given 10/09/2018 9:55 PM LOG HAUL CHAIN FEEDER 650 mg ferrous sulfate delayed release tablet 65 mg of elemental iron 65 mg of elemental iron, oral, Daily with breakfast, First dose on 10/10/18 at 0800, Indications: Iron Deficiency AnemiaIndications:Iron Deficiency Anemia Given 10/10/2018 10:20 AM LOG HAUL CHAIN FEEDER 65 mg of elemental iron ibuprofen (ADVIL,MOTRIN) tablet 600 mg 600 mg, oral, Every 6 hours PRN, mild pain (pain scale 1-4), Starting on 10/10/18 at 1014 Lactated Ringer's (LR) infusion 100 mL/hr, intravenous, Continuous, Starting on Fri10/09/18 at 1115, Phase I New Bag 10/09/2018 11:01 AM LOG HAUL CHAIN FEEDER 100 mL/hr 100 mL/hr Restarted 10/09/2018 10:36 AM LOG HAUL CHAIN FEEDER 100 mL/hr 100 mL/hr ondansetron (ZOFRAN) injection 4 mg 4 mg, intravenous, Once, On Fri10/09/18 at 1247, For 1 dose Given 10/09/2018 12:39 PM LOG HAUL CHAIN FEEDER 4 mg ondansetron ODT (ZOFRAN-ODT) disintegrating tablet 4 mg 4 mg, oral, Every 6 hours PRN, nausea, vomiting, Starting on Fri10/09/18 at 1216 Given 10/10/2018 12:27 PM LOG HAUL CHAIN FEEDER 4 mg Given 10/10/2018 5:40 AM LOG HAUL CHAIN FEEDER 4 mg oxyCODONE (ROXICODONE) tablet 10 mg 10 mg, oral, Every 4 hours PRN, 1st line for pain, Starting on 10/10/18 at 1015, Indications: PainIndications:Pain Given 10/10/2018 2:41 PM LOG HAUL CHAIN FEEDER 10 mg Given 10/10/2018 10:19 AM LOG HAUL CHAIN FEEDER 10 mg oxyCODONE (ROXICODONE) tablet 5 mg 5 mg, oral, Every 4 hours PRN, 1st line for pain, Starting on Fri10/09/18 at 1217, Indications: PainIndications:Pain Given 10/10/2018 2:35 AM LOG HAUL CHAIN FEEDER 5 mg Given 10/09/2018 10:55 PM LOG HAUL CHAIN FEEDER 5 mg Given 10/09/2018 12:39 PM LOG HAUL CHAIN FEEDER 5 mg oxyCODONE (ROXICODONE) tablet 7.5 mg 7.5 mg, oral, Every 4 hours PRN, 1st line for pain, Starting on Fri10/10/18 at 1015, Indications: PainIndications:Pain Given 10/10/2018 6:19 AM LOG HAUL CHAIN FEEDER 7.5 mg documented in this encounter Active and Recently Administered Medications Times are shown in LOG HAUL CHAIN FEEDER. Scheduled Medication Order 10/08/2018 10/09/2018 10/10/2018 bacitracin 500 unit/gram ointment 1 application 1 application (deactivated), topical, Once, On 10/10/18 at 1146, For 1 dose, Apply to affected area: wound 1146 (Due) ferrous sulfate delayed release tablet 65 mg of elemental iron 65 mg of elemental iron, oral, Daily with breakfast, First dose on Fri10/10/18 at 0800, Indications: Iron Deficiency Anemia 1020 [...] I 1036 (Restarted - Provider: Maria C Wall RN)1101 (New Bag - Provider: Maria C Wall RN)2138 (Stopped - Provider: Kaylynn Pimentel RN - Comment: Fluids stopped on previous shift. Time unknown) PRN Medication Order 10/08/2018 10/09/2018 10/10/2018 acetaminophen (TYLENOL) tablet 650 mg 650 mg, oral, Every 6 hours PRN, headaches, Starting on Fri10/09/18 at 1613 1650 (Given - Provider: Jackie Parry, HERBER)2155 (Given - Provider: Kayylnn Pimentel RN) 0435 (Given - Provider: Kaylynn Pimentel RN)1019 (Given - Provider: Jackie Parry, HERBER) bupivacaine [...] did not want Ibuporfen. Med returned to [facility].) ondansetron ODT (ZOFRAN-ODT) disintegrating tablet 4 mg 4 mg, oral, Every 6 hours PRN, nausea, vomiting, Starting on Fri10/09/18 at 1216 0540 (Given - Provid er: Jo Rodriguez RN)1227 (Given - Provider: Jackie Parry, HERBER) oxyCODONE (ROXICODONE) tablet 10 mg 10 mg, oral, Every 4 hours PRN, 1st line for pain, Starting on 10/10/18 at 1015, Indications: Pain 1019 (Given - Provid er: Jackie Parry, HERBER)1441 (Given - Provider: Jackie Parry RN) oxyCODONE (ROXICODONE) tablet 5 mg (CANCELED) 5 mg, oral, Every 4 hours PRN, 1st line for pain, Starting on Fri10/09/18 at 1217, Indications: Pain 1239 (Given - Provider: Deepika Simons RN)2255 (Given - Provider: Kaylynn Pimentel RN) 0235 (Given - Provider: Kaylynn Pimentel RN) oxyCODONE (ROXICODONE) tablet 5 mg 5 mg, oral, Every 4 hours PRN, 1st line for pain, Starting on 10/09/18 at 1426, For 10 doses, Indications: Pain [...] acetaminophen (TYLENOL) tablet 650 mg 1 08/2018 bupivacaine (MARCAINE) 0.5 % (5 mg/mL) preservative free injection 1 10/09/2018 electrolyte-A (PLASMA-LYTE) infusion 1 08/2018 heparin 1,000 unit/mL preser vative free injection 1 10/09/2018 HYDROmorphone (DILAUDID) injection 0.37 mg 1 10/09/2018 [...] 10/09/2018 documented in this encounter Care Teams Clinical Case Manager Relationship Specialty Start Date End Date Evaristo Wills MD PCP - General 09/07/18 12/11/22 documented as of this encounter
--- OUTSIDE RECORDS SUMMARY | 2024-12-06 18:00 | XMS_ITS | Encounter Summary ---
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 Gender Identity Female 07/30/2024 4:35 PM CDT Sexual Orientation Choose not to disclose 2023 4:35 PM CDT documented as of this encounter Discharge Disposition Disposition Code Departure Means Destination Discharge to home or self care documented in this encounter Plan of Treatment Not on file documented as of this encounter Procedures Procedure Name Priority Date/Time Associated Diagnosis Comments HEPATITIS A ANTIBODY,IGG Routine 09/29/2018 4:43 PM CDT Stem cell donor BMT DONOR EVALUATION Routine 09/29/2018 4:43 PM CDT Stem cell donor CMV, IGG AND IGM ANTIBODIES Routine 09/29/2018 4:43 PM CDT Stem cell donor HEPATITIS C ANTIBODY Routine 09/29/2018 4:43 PM CDT Stem cell donor HEPATITIS A ANTIBODY, IGM Routine 09/29/2018 4:43 PM CDT Stem cell donor ELENA-PAREDES VIRUS VCA, IGM Routine 09/29/2018 4:43 PM CDT Stem cell donor ELENA PAREDES VIRUS VCA, IGG Routine 09/29/2018 4:43 PM CDT Stem cell donor HSV 2 ANTIBODY, IGG Routine 09/29/2018 4 :43 PM CDT Stem cell donor HSV 1 ANTIBODY, IGG Routine 09/29/2018 4 :43 PM CDT Stem cell donor VARICELLA ZOSTER ANTIBODY, IGG Routine 09/29/2018 4:43 PM CDT Stem cell donor documented in this encounter Results * Varicella zoster antibody, IgG (09/29/2018 4:43 PM CDT) Pathologist [facility] VZV IgG Negative Negative [facility] Comment: Interpretive Data Negative: ??No detectable antibody to Varicella-zoster ? virus. ??Such individuals ? are presumed to be uninfected with VZV and to ? be susceptible to primary infection. Equivocal: Presence or absence of detectable antibodies ? to VZV IgG cannot be determined and the test ? should be repeated. Positive: ??Indicated presence of detectable antibody to ? VZV. ??Indicative of current ? or previous infection or vaccination. Current interpretive data was last revised on 2017. Testing performed by: [facility], [address] [place] [address]., [id number] Blood specimen (specimen) 09/29/2018 4:43 PM CDT 09/29/2018 6:38 PM CDT Narrative [facility] - 09/30/2018 10:32 AM CDT Yaquelin Hill MD LAB MICROBIOLOGY - [facility] Final Result Performing Organization Address City/[facility]/ZIP Co de Phone Number [facility] Department [place] [address] * (ABNORMAL) CMV, IgG and IgM antibodies (09/29/2018 4:43 PM CDT) Pathologist [facility] CMV IgG Positive(A) Negative [facility] Comment: Interpretive Data Negative - No detectable CMV IgG antibody. Equivocal- Uncertain Immune Status. ??Additional sample should be sent. Positive - Indicates presence of detectable CMV IgG antibody. Current interpretive data was last revised on 2017. Testing performed by: [facility], [address] [place] [address]., [id number] CMV IgM Negative Negative [facility] Comment: Interpretive Data Negative - No detectable CMV IgM antibody. Equivocal- Uncertain Immune Status. ??Additional sample should be sent. Positive - Indicates presence of detectable CMV IgM antibody. Current interpretive data was last revised on 2017. Testing performed by: [facility], [address] [place] [address]., [id number] Blood specimen (specimen) 09/29/2018 4:43 PM CDT 09/29/2018 6:38 PM CDT [facility] - 09/30/2018 10:33 AM CDT Yaquelin Hill MD LAB MICROBIOLOGY - GENERAL [place] C[facility]KE RABBHARATHI Final Result [facility] [place] [address] * Elena-Paredes virus VCA, IgM (09/29/2018 4:43 PM CDT) [facility] EBV VCA IgM Negative Negative [facility] Comment: Interpretive Data Results ? Interpretation Negative ?No detectable IgM antibody to EBV-VCA. ?A negative result indicates no current ?infection with EBV. If clinical suspicion ?of acute EBV infection is present, testing ?should be repeated after one week. Equivocal ? If the sample is equivocal, recommend ?repeating the test with a second sample ?within one week. Positive ?A positive test result indicates a current ?or reactivated infection with EBV. Interpretive data revised 02/25/2017. Testing performed by: [facility], [address] [place]., [address] Blood specimen (specimen) 09/29/2018 4:43 PM CDT 09/29/2018 6:38 PM CDT Narrative [facility] - 09/30/2018 10:31 AM CDT us Yaquelin Hill MD LAB BLOOD ORDERABLES Final Resu lt Performing Organization Address [facility] [place] [address] * (ABNORMAL) Elena Paredes virus VCA, IgG (09/29/2018 4:43 PM CDT) [facility] EBV VCA IgG Positive( A) Negative [facility] Comment: Interpretive Data Results ? Interpretation Negative ?No detectable antibody to VCA IgG ?antibody. Equivocal ? Uncertain immune status, suggest ?sending additional sample. Positive ?Indicates the presence of antibody; ?90% of the adult population will ?have been infected with EBV sometime ?in the past. Interpretive data revised 02/25/2017. Testing performed by: [facility], [address] [place] [address]., [id number] Blood specimen (specimen) 09/29/2018 4:43 PM CDT 09/29/2018 6:38 PM CDT Narrative [facility] - 09/30/2018 10:30 AM CDT us Yaquelin Hill MD LAB BLOOD ORDERABLES Final Resu lt [facility] [place] [address] * Hepatitis C antibody (09/29/2018 4:43 PM CDT) Hep C Ab Nonreactive Nonreactive [facility] Comment: Interpretive Data Positive results should be confirmed by a molecular method. If positive, a second separately collected sample should be submitted for Hepatitis C Virus (HCV) RNA Detection and Quantitation by Real-Time Reverse Assistant Professor Of Art-PCR (RT-PCR). Current interpretive data was last revised on 2016. Testing performed by: [facility], [address] [place] [address]., [id number] Blood specimen (specimen) 09/29/2018 4:43 PM CDT 09/29/2018 6:38 PM CDT Narrative [facility] - 09/30/2018 10:59 AM CDT Yaquelin Hill MD LAB MICROBIOLOGY - GENERAL KATELYN WILLIS Edited Result - Final Performing Organization Address [facility] [place] [address] * Hepatitis A antibody, IgM (09/29/2018 4:43 PM CDT) Hep A IgM Nonreactive Nonreactive [facility] Comment: Interpretive Data If test is reported as GRAYZONE, new sample should be drawn in two weeks for testing. Current interpretive data was last revised on 2016. Testing performed by: [facility], [address] [place] [address]., [id number] Blood specimen (specimen) 09/29/2018 4:43 PM CDT 09/29/2018 6:38 PM CDT Narrative [facility] - 09/30/2018 10:59 AM CDT Yaquelin Hill MD LAB MICROBIOLOGY - GENERAL KATELYN WILLIS Edited Result - Final Performing Organization Address [facility] [place] [address] * Hepatitis A antibody, IgG (09/29/2018 4:43 PM CDT) Hep A IgG Nonreactive Nonreactive [facility] Comment:Testing performed by : [facility], [address] [place] [address]., [id number] Blood specimen (specimen) 09/29/2018 4:43 PM CDT 09/29/2018 6:38 PM CDT Narrative [facility] - 09/30/2018 10:28 AM CDT Yaquelin Hill MD LAB [place]LOOD [place] [address] * (ABNORMAL) HSV 2 antibody, IgG (09/29/2018 4:43 PM CDT) HSV 2 IgG Positive( A) Negative [facility] Comment: Interpretive Data 1. Negative: No detectable IgG antibody to HSV-2. 2. Equivocal: Presence or absence of detectable antibodies to HSV-2 cannot be determined and the test should be repeated. 3. Positive: Indicates presence of detectable IgG antibody to HSV-2. Current interpretive data was last revised on 2017. Testing performed by: [facility], [address] [place] [address]., [id number] Blood specimen (specimen) 09/29/2018 4:43 PM CDT 09/29/2018 6:38 PM CDT Narrative [facility] - 09/30/2018 10:32 AM CDT Yaquelin Hill MD LAB MICROBIOLOGY - [facility] [place] [address] * (ABNORMAL) HSV 1 antibody, IgG (09/29/2018 4:43 PM CDT) HSV 1 IgG Positive( A) Negative [facility] Comment: Interpretive Data 1. Negative: No detectable IgG antibody to HSV-1. 2. Equivocal: Presence or absence of detectable antibodies to HSV-1 cannot be determined and the test should be repeated. 3. Positive: Indicates presence of detectable IgG antibody to HSV-1. Current interpretive data was last revised on 2017. Testing performed by: [facility], [address] [place] [address]., [id number] Blood specimen (specimen) 09/29/2018 4:43 PM CDT 09/29/2018 6:38 PM CDT [facility] - 09/30/2018 10:32 AM CDT Yaquelin Hill MD LAB MICROBIOLOGY - GENERAL KATELYN WILLIS Final Result [facility] [place] [address] * (ABNORMAL) BMT donor evaluation (09/29/2018 4:43 PM CDT) Hep B surf Ag, donor Negative Negative [facility] Comment:Testing performed by : [facility], [address] [place] [address]., [address] Hep B core Ab, donor Negative Negative [facility] Comment:Testing performed by : [facility], [address] [place] [address], [id number] Hep C Ab, donor Negative Negative [facility] Comment:Testing performed by : [facility], [address] [place] [address], [address] HIV 1-2 Ab, donor Negative Negative [facility] Comment:Testing performed by : [facility], [address] [place] [address]., [address] HTLV I/II Ab, donor Negative Negative [facility] Comment:Testing performed by : [facility], [address] [place] [address]., [address] Syphilis testing, donor Negative Negative [facility] Comment:Testing performed by : [facility], [address] [place] [address]., [address] HIV EMIL, donor Negative Negative [facility] Comment:Testing performed by : [facility], [address] [place] [address]., [address] HCV EMIL, donor Negative Negative [facility] Comment:Testing performed by : [address] [address] HBV EMIL, donor Negative Negative [facility] Comment:Testing performed by : [facility], [address] [place] [address], [address] WNV EMIL, donor Negative Negative [facility] Comment:Testing performed by : [facility], [address] [place] [address]., [address] CMV testing, donor Positive(A) Negative [facility] Comment: Interpretive Data Testing [place] [address]. ??Panel consists of testing for Hepatitis B, Hepatitis C, HIV, HTLV, Syphilis, CMV, West Nile Virus, and Chaga. Testing performed by: [facility], [address] [place]., [address] Chagas testing, donor Negative Negative [facility] Comment:Testing performed by : [facility], [address] [place]., [address] Blood specimen (specimen) 09/29/2018 4:43 PM CDT 09/29/2018 5:44 PM CDT Narrative [facility] - 09/30/2018 12:01 PM CDT us Yaquelin Hill MD LAB BLOOD ORDERABLES Final Resu lt [facility] [place] [address] documented in this encounter Visit Diagnoses Diagnosis Stem cell donor documented in this encounter Care Teams Senior Instructor Relationship Specialty Start Date End Date Evarisot Wills MD PCP - General 09/07/18 12/11/22 documented as of this encounter
--- OUTSIDE RECORDS SUMMARY | 2024-12-06 18:00 | XMS_ITS | Clinical Summary ---
Author Organization [facility] Care Team Providers Care Milker Machine Name Role Phone Mona Hernandez NP Primary Care Provider [phone] Evaristo Wills MD Unavailable [phone] Allergies Active Allergy Reactions Criticality Noted Date Comments Amoxicillin-Pot Clavulanate Stomach upset Low 12/12 Levofloxacin Hives Medium 09/04/2018 Medications zolpidem (AMBIEN) 5 mg tablet Take 1 tablet (5 mg total) by mouth nightly at bedtime. 3 Active albuterol HFA (PROVENTIL HFA,VENTOLIN HFA,PROAIR HFA) 90 mcg/actuation inhaler INHALE 2 PUFFS BY MOUTH 4 TIMES DAILY NEEDED FOR SHORTNESS OF BREATH FOR WHEEZING 3 Active lisinopriL (PRINIVIL,ZESTR IL) 40 mg tablet Take 1 tablet (40 mg total) by mouth daily 4 Active Abilify 15 mg tablet Take 1 tablet (15 mg total) by mouth daily 3 Active hydroCHLOROthia zide (MICROZIDE) 12.5 mg capsule Take 1 capsule (12.5 mg total) by mouth daily 4 Active Hospital, Clinic, or Other Facility Administered Medication Ordered Dose Route Frequency Start Date End Date Status oxyCODONE (ROXICODONE) tablet 5 mgIndications:Pain 5 mg oral Every 4 hours PRN 10/09/2018 Active Active Problems Problem Noted Date Diagnosed Date Closed nondisplaced fracture of distal phalanx of right middle finger 05/16/2020 Recurrent major depressive disorder, in partial remission 04/08/2020 Anxiety and depression 03/08/2020 Donor of stem cell 09/04/2018 Assessment & Plan (10/10/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 Pain has been well controlled. - Will change dressing - Discharge today Assessment & Plan (09/04/2018 3:47 PM CDT): Donor evaluation performed. Immunizations Name Administration Dates Next Due MMR 12/22/2009 Surgical History Surgery Date Site/Laterality Comments CYST REMOVAL 05/01/1995 - 05/30/1995 Left wrist cyst removal CYST REMOVAL 05/01/1995 - 05/30/1995 Right right leg bone spur removed TUBAL LIGATION 07/20/2004 ENDOMETRIAL ABLATION 11/04/2007 TUBAL LIGATION 2004 HARVEST BONE MARROW 2017 ENDOMETRIAL ABLATION W/ NOVASURE 2005 OTHER SURGICAL HISTORY Bone Growth Removal on Femur 1991 Medical History Medical History Date Comments Depression Low vitamin D level Social History Tobacco Use Types Packs/Day Years Used Date Smoking Tobacco: Every Day Vaping Smokeless Tobacco: Former Alcohol Use Standard Drinks/Week Comments Yes 0 (1 standard drink = 0.6 oz pur e alcohol) once per month Comments No Sex and Gender Information Value Date Recorded Sex Assigned at Not on file 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 Gender Identity Female 07/30/2024 4:35 PM CDT Sexual Orientation Choose not to disclose 2023 4:35 PM CDT Occupation Industry Job Start Date Job End Date [employer] Not on file Not on file Not on file Obstetrics History Para Term AB IAB SAB Ectopic Multiple Livin g Live Births 4 3 3 1 1 3 3 Date Outcome GA Total Labor Labor/2nd/3rd Weight Sex Type Anes PTL Maye A1 A5 Name Clin SAB 1999 Term 2.977 kg (6 lb 9 oz) F Vag-S pont Living 2001 Term 2.722 kg (6 lb) M Vag-S pont Living 2003 Term 3.062 kg (6 lb 12 oz) F Vag-S pont Living Last Filed Vital Signs Vital Sign Reading Time Taken Comments Blood Pressure 138/88 07/30/2024 8:59 AM CDT Pulse 92 02/09/2023 2:10 PM CDT Temperature 36.6 ??C (97.8 ??F) 02/09/2023 2:10 PM CD T Respiratory Rate 20 02/09/2023 2:10 PM CDT Oxygen Saturation 99% 02/09/2023 2:10 PM CDT Inhaled Oxygen Concentration - - Weight 87.3 kg (192 lb 6.4 oz) 07/30/2024 8:59 A M CDT Height 170.2 cm (5' 7 ) 08/26/2023 2:28 PM CDT Body Mass Index 30.13 08/26/2023 2:28 PM CDT Plan of Treatment Health Maintenance Due Date Last Done Comments Depression Screening 1980 Pneumococcal vaccine <65 (1 of 2 - PCV) 1986 DTaP/Tdap/Td Vaccine (1 - Tdap) 1991 Varicella Vaccines (1 of 2 - 13+ 2-dose series) 1993 Hepatitis B Screening 1998 Covid-19 Vaccine (2023-2 5 season) 2024 03/28/2022, 07/23/2021, 06/28/2021 Influenza Vaccine (#1) 2024 Cervical Cancer Screening 08/26/20242022, 08/26/2023 Regular Well Visit/Exam 18-64 08/26/2024 08/26/2023 Breast Cancer Screening-Mammogram 08/27/2024 08/27/2023 Hepatitis C Screening Completed 09/29/2018 , 09/09/2018 HPV Vaccines Aged Out No longer eligi ble based on patient's age to complete this topic Procedures Procedure Name Priority Date/Time Associated Diagnosis Comments SCREENING MAMMOGRAM BILATERAL W ANDRE Schedule Routine, Read Routine (OP Routine) 08/27/2023 11:30 AM CDT Encounter for screening mammogram for malignant neoplasm of breast HIGH RISK HPV DNA DETECTION WITH GENOTYPING Routine 08/26/2023 3:14 PM CDT Screening for malignant neoplasm of the cervix HEPATITIS C ANTIBODY Routine 09/29/2018 4:43 PM CDT Stem cell donor from Last 3 Months or Most Recently Relevant to Health Maintenance Results * Screening Mammogram Bilateral W Andre [...] MAMMO PROCEDURES Ed ited Result - Final * High Risk HPV DNA Detection with Genotyping (Molecular component) (08/26/2023 3:14 PM CDT) HPV HR 16 Not Detected Not Detected [facility] Comment:Testing performed by : [facility], [address] [facility]., [address] HPV HR 18 Not Detected Not Detected [facility] Comment:Testing performed by : [facility], [address] [facility] [place]., [address] HPV HR Non 16/18 Not Detected Not Detected [facility] Comment: Interpretive Data Nucleic acid amplification for [...] this test have been verified by the [facility] Molecular Infectious Disease laboratory. Correlate with separately reported cytology results, as applicable. Interpretive data last revised 23 Testing performed by: [facility], [address] [place] [address]., [address] Endocervical 08/26/2023 3:14 PM CDT 08/27/2023 12:32 PM CDT Narrative [facility] - 2023 4:41 AM CDT Clinical history and diagnosis->DX Z12.4 Testing type->Screening Last menstrual period (date if known)->N/A Mayra Richardson DO LAB BODY FLUIDS AND STO OLS ORDERABLES Final Result [facility] [address] Department [place] [address] * Hepatitis C antibody (09/29/2018 4:43 PM CDT) Hep C Ab Nonreactive Nonreactive [facility] Comment: Interpretive Data Positive results should be confirmed by a molecular method. If positive, a second separately collected sample should be submitted for Hepatitis C Virus (HCV) RNA Detection and Quantitation by Real-Time Reverse Crucible Packer-PCR (RT-PCR). Current interpretive data was last revised on 2016. Testing performed by: [facility], [address] [facility], [place]., [address] Blood specimen (specimen) 09/29/2018 4:43 PM CDT 09/29/2018 6:38 PM CDT Katlin MARTINEZ [facility] - 09/30/2018 10:59 AM CDT Yaquelin Hill MD LAB MICROBIOLOGY - GENERAL KATELYN WILLIS Edited Result - Final [facility] [place] [address] from Last 3 Months or Most Recently Relevant to Health Maintenance Insurance IDPA [facility] MEDICAID [id number] DC M87 DC Advance Directives For more information, please contact: [phone] Documents on File Type Date Recorded Patient Public Services Assistant Expl anation ADVANCE DIRECTIVE 10/09/2018 6:07 AM * Full Code (Latest Code Status on File) Date Activated Date Inactivated Comments 10/09/2018 12:43 PM 10/10/2018 5:52 PM Care Teams Milker Machine Relationship Specialty Start Date End Date Mona Hernandez INTERIOR DESIGN FACULTY MEMBER [address] [facility] [place] [address] PCP - General Internal Medicine 12/12/22 Evaristo Wills MD [address] [facility] [place] [address] 12/12/22
--- OUTSIDE RECORDS SUMMARY | 2024-12-06 18:00 | XMS_ITS | Referral Summary ---
Author Organization [facility] HealthCare Care Team Providers Care Outpatient Services Director Name Role Phone Mona Hernandez NP Primary Care Provider [phone] Evaristo Wills MD Unavailable [phone] Allergies Active Allergy Reactions Criticality Noted [...] 09/04/2018 Assessment & Plan (10/10/2018 11:28 AM RN SANE): Repeat CBC today stable. Pain has been well controlled. - Will change dressing - Discharge today Assessment & Plan (09/04/2018 3:47 PM CDT): Donor evaluation performed. 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 Gender Identity Female 07/30/2024 4:35 PM CDT Sexual Orientation Choose not to disclose 2023 4:35 PM CDT Occupation Industry Job Start Date Job End Date [employer] Not on file Not on file Not on file Last Filed Vital Signs [...] 08/26/2023 2:28 PM CDT Plan of Treatment Not on file Procedures Procedure Name Priority Date/Time Associated Diagnosis [...] Detected [facility] Comment:Testing performed by : [facility], [address] [place]., [address] HPV HR 18 Not Detected Not Detected [facility] Comment:Testing performed by : [facility], [address] [place]., [address] HPV HR Non 16/18 Not Detected Not [...] this test have been verified by the [facility] Molecular Infectious Disease laboratory. Correlate with separately reported cytology results, as applicable. Interpretive data last revised 23 Testing performed by: [facility], [address] [place]., [address] Endocervical 08/26/2023 3:14 PM CDT 08/27/2023 12:32 PM CDT Narrative [facility] - 2023 4:41 AM CDT Clinical history and diagnosis->DX Z12.4 Testing type->Screening Last menstrual period (date if known)->N/A us Mayra Richardson DO LAB BODY FLUIDS AND STO OLS ORDERABLES Final Result [facility] [address] Department [place] [address] * Hepatitis C antibody (09/29/2018 4:43 PM CDT) Hep C Ab Nonreactive Nonreactive [facility] Comment: Interpretive Data Positive results should be confirmed by a molecular method. If positive, a second separately collected sample should be submitted for Hepatitis C Virus (HCV) RNA Detection and Quantitation by Real-Time Reverse Car Racer-PCR (RT-PCR). Current interpretive data was last revised on 2016. Testing performed by: [facility], [address] [place]., [address] Blood specimen (specimen) 09/29/2018 4:43 PM CDT 09/29/2018 6:38 PM CDT Narrative [facility] - 09/30/2018 10:59 AM CDT Yaquelin Hill MD LAB MICROBIOLOGY - GENERAL KATELYN WILLIS Edited Result - Final [facility] [place] [address] from Last 3 Months or Most Recently Relevant to Health Maintenance Insurance [place] [address] [employer] [facility] [place]ICA[place] [employer] [place] [employer] [place] [employer] [place] Advance Directives For more information, please contact: [phone] Documents on File Type Date Recorded Patient Hot Baller Expl anation ADVANCE DIRECTIVE 10/09/2018 6:07 AM * Full Code (Latest Code Status on File) Date Activated Date Inactivated Comments 10/09/2018 12:43 PM 10/10/2018 5:52 PM Care Teams Outpatient Services Director Relationship Specialty Start Date End Date Mona Hernandez NP [address] [place] [address] PCP - General Internal Medicine 12/12/22 Evaristo Wills MD [address] [place] [address] 12/12/22
--- OUTSIDE RECORDS SUMMARY | 2024-12-06 18:00 | XMS_ITS | Encounter Summary ---
Author Organization [facility] Healthcare Address [address] [place] [address] Care Team Providers Care Instructor Hairspring Name Role Phone Evaristo Wills MD Primary Care Provider [phone] Encounter Details Date Type Department Care Team (Late st Contact Info) Description 09/22/2018 Orders Only [facility] [address] [place] [address] Mike Draper RN Stem cell donor (Primary Dx) Social History Tobacco Use Types Packs/Day Years Used Date Smoking Tobacco: Some Days Cigarettes Comments:5 cigarettes per we ek Alcohol Use Standard Drinks/Week Comments Yes 0 (1 standard drink = 0.6 oz pur e alcohol) once per month Comments Unknown Sex and Gender Information Value Date Recorded Sex Assigned at Not on file 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 Testing performed by: [facility], [address] [place] [address]., [id number] Blood specimen (specimen) 09/29/2018 4:43 PM CDT 09/29/2018 6:38 PM CDT Narrative [facility] - 09/30/2018 10:32 AM CDT Yaquelin Hill MD LAB MICROBIOLOGY - GENERAL [facility] Final Result [facility] Department [place] [address] * (ABNORMAL) CMV, IgG and IgM antibodies (09/29/2018 4:43 PM CDT) CMV IgG Positive(A) Negative [facility] Comment: Interpretive Data Negative - No detectable CMV IgG antibody. Equivocal- Uncertain Immune Status. ??Additional sample should be sent. Positive - Indicates presence of detectable CMV IgG antibody. Current interpretive data was last revised on 2017. Testing performed by: [facility], [address] [place] [address], [place]., [address] CMV IgM Negative Negative [facility] Comment: Interpretive Data Negative - No detectable CMV IgM antibody. Equivocal- Uncertain Immune Status. ??Additional sample should be sent. Positive - Indicates presence of detectable CMV IgM antibody. Current interpretive data was last revised on 2017. Testing performed by: [facility], [address] [place] [address], [place]., [address] Blood specimen (specimen) 09/29/2018 4:43 PM CDT 09/29/2018 6:38 PM CDT Narrative [facility] - 09/30/2018 10:33 AM CDT Yaquelin Hill MD LAB MICROBIOLOGY - [facility] KATELYN WILLIS Final Result [facility] Department [place] [address] * Ron-Paredes virus VCA, IgM (09/29/2018 4:43 PM CDT) EBV VCA IgM Negative Negative [facility] Comment: Interpretive Data Results ? Interpretation Negative [...] Interpretive data revised 02/25/2017. Testing performed by: [facility], [address] [place]., [address] Blood specimen (specimen) 09/29/2018 4:43 PM CDT 09/29/2018 6:38 PM CDT Narrative [facility] - 09/30/2018 10:31 AM CDT us Yaquelin Hill MD LAB BLOOD ORDERABLES Final Resu lt Performing Organization Address [facility] [place] [address] * (ABNORMAL) Ron Paredes virus VCA, IgG (09/29/2018 4:43 PM CDT) [facility] EBV VCA IgG Positive( A) Negative [facility] Comment: Interpretive Data Results ? Interpretation Negative ?No detectable antibody to VCA IgG ?antibody. Equivocal ? Uncertain immune status, suggest ?sending additional sample. Positive ?Indicates the presence of antibody; ?90% of the adult population will ?have been infected with EBV sometime ?in the past. Interpretive data revised 02/25/2017. Testing performed by: [facility], [address] [place]., [address] Blood specimen (specimen) 09/29/2018 4:43 PM CDT 09/29/2018 6:38 PM CDT Narrative [facility] - 09/30/2018 10:30 AM CDT Yaquelin Hill MD LAB BLOOD ORDERABLES Final Resu lt Performing Organization Address [facility] [place] [address] * Hepatitis C antibody (09/29/2018 4:43 PM CDT) [facility] Hep C Ab Nonreactive Nonreactive [facility] Comment: Interpretive Data Positive results should be confirmed by a molecular method. If positive, a second separately collected sample should be submitted for Hepatitis C Virus (HCV) RNA Detection and Quantitation by Real-Time Reverse [employer] Architect-PCR (RT-PCR). Current interpretive data was last revised on 2016. Testing performed by: [facility], [address] [place] [address]., [address] Blood specimen (specimen) 09/29/2018 4:43 PM CDT 09/29/2018 6:38 PM CDT Narrative [facility] - 09/30/2018 10:59 AM CDT Yaquelin Hill MD LAB MICROBIOLOGY - GENERAL OR[facility] LAZARO Edited Result - Final Performing Organization Address [facility] [place] [address] * Hepatitis A antibody, IgM (09/29/2018 4:43 PM CDT) Hep A IgM Nonreactive Nonreactive [facility] Comment: Interpretive Data If test is reported as GRAYZONE, new sample should be drawn in two weeks for testing. Current interpretive data was last revised on 2016. Testing performed by: [facility], [address] [place] [address]., [id number] Blood specimen (specimen) 09/29/2018 4:43 PM CDT 09/29/2018 6:38 PM CDT Narrative [facility] - 09/30/2018 10:59 AM CDT Yaquelin Hill MD LAB MICROBIOLOGY - GENERAL KAT[facility] WILLIS Edited Result - Final Performing Organization Address City/[facility] Co de Phone Number [facility] [place], [place] [id number] * Hepatitis A antibody, IgG (09/29/2018 4:43 PM CDT) Hep A IgG Nonreactive Nonreactive [facility] Comment:Testing performed by : [facility], [address] [place] [address]., [address] Blood specimen (specimen) 09/29/2018 4:43 PM CDT 09/29/2018 6:38 PM CDT Narrative [facility] - 09/30/2018 10:28 AM CDT Yaquelin Hill MD LAB BLOOD [place] [address] * (ABNORMAL) HSV 2 antibody, IgG (09/29/2018 4:43 PM CDT) HSV 2 IgG Positive( A) Negative [facility] Comment: Interpretive Data 1. Negative: No detectable IgG antibody to HSV-2. 2. Equivocal: Presence or absence of detectable antibodies to HSV-2 cannot be determined and the test should be repeated. 3. Positive: Indicates presence of detectable IgG antibody to HSV-2. Current interpretive data was last revised on 2017. Testing performed by: [facility], [address] [facility] [place]., [address] Blood specimen (specimen) 09/29/2018 4:43 PM CDT 09/29/2018 6:38 PM CDT [facility] - 09/30/2018 10:32 AM CDT Yaquelin Hill MD LAB MICROBIOLOGY - GENERAL ORDE RABLES Final Result Performing Organization Address [facility] [place] [address] * (ABNORMAL) HSV 1 antibody, IgG (09/29/2018 4:43 PM CDT) HSV 1 IgG Positive( A) Negative [facility] Comment: Interpretive Data 1. Negative: No detectable IgG antibody to HSV-1. 2. Equivocal: Presence or absence of detectable antibodies to HSV-1 cannot be determined and the test should be repeated. 3. Positive: Indicates presence of detectable IgG antibody to HSV-1. Current interpretive data was last revised on 2017. Testing performed by: [facility], [address] [place]., [address] Blood specimen (specimen) 09/29/2018 4:43 PM CDT 09/29/2018 6:38 PM CDT Narrative [facility] - 09/30/2018 10:32 AM CDT us Yaquelin Hill MD LAB MICROBIOLOGY - GENERAL [facility] WILL[facility] Final Result [facility] Department [place] [address] * (ABNORMAL) BMT donor evaluation (09/29/2018 4:43 PM CDT) Hep B surf Ag, donor Negative Negative [facility] Comment:Testing performed by : [facility], [address] [place] [address]., [address] Hep B core Ab, donor Negative Negative [facility] Comment:Testing performed by : [facility], [address] [place] [address]., [address] Hep C Ab, donor Negative Negative [facility] Comment:Testing performed by : [facility], [address] [place] [address]., [address] HIV 1-2 Ab, donor Negative Negative [facility] Comment:Testing performed by : [facility], [address] [place] [address]., [address] HTLV I/II Ab, donor Negative Negative [facility] Comment:Testing performed by : [facility], [address] [place] [address]., [address] Syphilis testing, donor Negative Negative [facility] Comment:Testing performed by : [facility], [address] [place] [address]., [address] HIV EMIL, donor Negative Negative [facility] Comment:Testing performed by : [facility], [address] [place] [address]., [address] HCV EMIL, donor Negative Negative [facility] Comment:Testing performed by : [facility], [address] [place]., [address] HBV EMIL, donor Negative Negative [facility] Comment:Testing performed by : [facility], [address] [place] [address]., [address] WNV EMIL, donor Negative Negative [facility] Comment:Testing performed by : [facility], [address] [place] [address]., [address] CMV testing, donor Positive(A) Negative [facility] Comment: Interpretive Data Testing performed [place] [address]. ??Panel consists of testing for Hepatitis B, Hepatitis C, HIV, HTLV, Syphilis, CMV, West Nile Virus, and Chaga. Testing performed by: [facility], [address] [place] [address], [address] Chagas testing, donor Negative Negative [facility] Comment:Testing performed by : [facility], [address] [place] [address], [address] Blood specimen (specimen) 09/29/2018 4:43 PM CDT 09/29/2018 5:44 PM CDT Narrative [facility] - 09/30/2018 12:01 PM CDT us Yaquelin Hill MD LAB BLOOD ORDERABLES Final Resu lt [facility] Department [place] [address] documented in this encounter Visit Diagnoses Diagnosis Stem cell donor- Primary Stem cell donor documented in this encounter Care Teams Instructor Hairspring Relationship Specialty Start Date End Date Evaristo Wills MD PCP - General 09/07/18 12/11/22 documented as of this encounter
--- OUTSIDE RECORDS SUMMARY | 2024-12-06 18:00 | XMS_ITS | Encounter Summary ---
Author Organization [facility] Healthcare Address [address] [place] [address] Care Team Providers Care Fisheries Management Biologist Name Role Phone Mona Hernandez NP Primary Care Provider [phone] Evaristo Wills MD Unavailable [phone] Reason for Visit * Reason Comments Hot Flashes Encounter Details Date Type Department Care Team (Late st Contact Info) Description 07/30/2024 9:00 AM CDT Office Visit [facility] [facility] [address] [place] [address] Mayra Richardson, DO [address] [address] Hot flashes (Primary Dx) Social History Tobacco Use Types Packs/Day Years Used Date Smoking Tobacco: Every Day Vaping Smokeless Tobacco: Former Alcohol Use Standard Drinks/Week Comments Yes 0 (1 standard drink = 0.6 oz pur e alcohol) once per month Comments No Sex and Gender Information Value Date Recorded Sex Assigned at Not on file 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 Gender Identity Female 07/30/2024 4:35 PM CDT Sexual Orientation Choose not to disclose 2023 4:35 PM CDT Occupation Industry Job Start Date Job End Date [employer] Not on file Not on file Not on file documented as of this encounter Last Filed Vital Signs Vital Sign Reading Time Taken Comments Blood Pressure 138/88 07/30/2024 8:59 AM CDT Pulse - - Temperature - - Respiratory Rate - - Oxygen Saturation - - Inhaled Oxygen Concentration - - Weight 87.3 kg (192 lb 6.4 oz) 07/30/2024 8:59 A M CDT Height - - Body Mass Index 30.13 08/26/2023 2:28 PM CDT documented in this encounter Progress Notes * Mayra Richardson, DO - 07/30/2024 9:00 AM CDT Subjective Patient ID: Alecia Mabry is a 43 y.o. female. She presents today with request to have her hormone levels checked. She has been struggling with night sweats and wants to know if she is going through menopause. She had an ablation back in 2006 andhas not had any bleeding since. I have reviewed: allergies, current medications, past family history, past medical history, past social history, past surgical history, and problem list Review of Systems Constitutional: Negative for fatigue, fever and unexpected weight change. Hot flashes Respiratory: Negative for shortness of breath and wheezing. Cardiovascular: Negative for chest pain and palpitations. Gastrointestinal: Negative for abdominal pain, blood in stool, nausea and vomiting. Genitourinary: Negative for dysuria, frequency, hematuria, urgency, vaginal bleeding and vaginal discharge. Skin: Negative for rash. Objective Physical Exam HENT: Head: Normocephalic and atraumatic. Pulmonary: Effort: Pulmonary effort is normal. Musculoskeletal: General: Normal range of motion. Skin: General: Skin is warm and dry. Neurological: General: No focal deficit present. Mental Status: She is alert. Assessment/Plan Hot flashes - Discussed with the patient that menopause is a cause for hot flashes but there are other causes as well. Average age of menopause is 51 but women obviously go through it before and after that. Unfortunately, we do not have bleeding to go off of. Will order hormone levels today to determine menopausal status - FSH, LH, estradiol. Briefly discussed options for hot flashes including hormones, non-hormonal prescription options (Effexor, clonidine, gabapentin), and OTC herbal supplements like black cohosh. RTC PRN Mayra Richardson DO documented in this encounter Plan of Treatment Not on file documented as of this encounter Visit Diagnoses Diagnosis Hot flashes- Primary documented in this encounter Discontinued Medications Medication Sig Discontinue Reason Start Date End Da te ferrous sulfate 325 mg (65 mg of elemental iron) tabletIndications:Iron Deficiency Anemia Take 1 tablet (65 mg of elemental iron total) by mouth daily with breakfast. Other 10/10/2018 07/30/2024 oxyCODONE (ROXICODONE) 5 mg immediate release tabletIndications:Pain Take 1-2 tablets (5-10 mg total) by mouth every 4 (four) hours as needed for pain. Other 10/10/2018 07/30/2024 ARIPiprazole (ABILIFY) 10 mg tablet Take 1 tablet (10 mg total) by mouth daily Other 07/30/2024 mirtazapine (REMERON) 7.5 mg tablet Take 7.5 mg by mouth nightly Other 07/30/2024 documented as of this encounter Historical Medications * This list may reflect changes made after this encounter. hydroCHLOROthiazi de (MICROZIDE) 12.5 mg capsule Take 1 capsule (12.5 mg total) by mouth daily 05/12/2024 Abilify 15 mg tablet Take 1 tablet (15 mg total) by mouth daily 07/01/2023 lisinopriL (PRINIVIL,ZESTRIL ) 40 mg tablet Take 1 tablet (40 mg total) by mouth daily 05/12/2024 added in this encounter Care Teams Fisheries Management Biologist Relationship Specialty Start Date End Date Mona Hernandez FILLING STATION LABORER [address] [facility] [facility] [address] [employer] [place] [address] PCP - General Internal Medicine 12/12/22 Evaristo Wills MD [address] [employer] [place] [address] 12/12/22 documented as of this encounter
--- OUTSIDE RECORDS SUMMARY | 2024-12-06 18:00 | XMS_ITS | Encounter Summary ---
Author Organization [facility] Medical Group Address [address] [address] Care Team Providers Care Pocket Stitcher Name Role Phone Mona Hernandez NP Primary Care Provider [phone] Evaristo Wills MD Unavailable [phone] Encounter Details Date Type Department Care Team (Late st Contact Info) Description 08/26/2023 Orders Only [facility] [address] [place] [id number] Mayra Richardson, [address] [place] [address] Cystocele, midline (Primary Dx) Social History Tobacco Use Types Packs/Day Years Used Date Smoking Tobacco: Every Day Vaping Smokeless Tobacco: Former Alcohol Use Standard Drinks/Week Comments Yes 0 (1 standard drink = 0.6 oz pur e alcohol) once per month Comments No Sex and Gender Information Value Date Recorded Sex Assigned at Not on file 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 Gender Identity Female 07/30/2024 4:35 PM CDT Sexual Orientation Choose not to disclose 2023 4:35 PM CDT Occupation Industry 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
--- OUTSIDE RECORDS SUMMARY | 2024-12-06 18:00 | XMS_ITS | Encounter Summary ---
Author Organization [facility] Healthcare Address [address] [place] [address] Care Team Providers Care Night Warehouse Selector Name Role Phone Evaristo Wills MD Primary Care Provider [phone] Encounter Details Date Type Department Care Team (Late st Contact Info) Description 10/09/2018 7:33 AM DIGITAL MARKETING APPRENTICE Anesthesia Event [facility] [place] [address] Benny Ramírez MD [address] [place] [address] Ryanne Osman NP 1 [facility] 6 [place] [address] Anesthesia Record Procedure Summary Procedure Name Responsible Anesthesiologist Anesthesia Start Time Anesthesia Stop Time [place] Bone Marrow (Bilateral: Hip) Benny Ramírez MD 10/09/18 0733 10/09/18 1046 Events Date Time Event Comment 10/09/2018 0733 An Start 0735 In Room 0737 An Start Data 0739 An Induction The patient was reevaluated immediately before moderate or deep sedation use and before anesthesia induction. 0744 An Intubation 0748 IV Placed 0810 Anesthesia Ready 0818 Proc Start 0822 Quick Note Eyes checked 1005 Quick Note Eyes checked 1020 Proc Fin 1034 Out of Room 1035 An Extubation 1035 an stop data 1046 Handoff to RN I completed my handoff to the receiving nurse during which we: 1. Patient identified 2. Responsible provider identified 3. Pertinent medical history reviewed 4. Procedure type and surgical course discussed 5. Intraoperative anesthetic management and any significant issues discussed 6. Expectations and concerns for postop period discussed 7. Questions solicited from receiving nurse 8. Patient disposition at the time of handoff: PACU 1046 An Stop Meds Name Total midazolam PF 2 mg fentaNYL 100 mcg lidocaine 1 % PF 30 mg propofol 200 mg rocuronium 30 mg dexamethasone 4 mg/ml 4 mg HYDROmorphone 1 mg/mL 0.5 mg neostigmine 1 mg/mL 2 mg glycopyrrolate 0.4 mg ondansetron PF 2 mg/mL 4 mg ePHEDrine 15 mg LR 2,700 mL * Agents Name N2O O2 Air Sevoflurane Inspired Sevoflurane * Blood No blood administrations on file. Lines, Drains, and Airways Type Details Placement Removal Peripheral IV Placement Date: 10/09/18; Placement Time: 06; Catheter Size: 22 G; Orientation: Right; Location: Antecubital; Site Prep: Chlorhexidine; Patient Tolerance: Tolerated well; Removal Date: 10/09/18; Removal Time: 2137; Removal Reason: Per patient/family request (Painful) 10/09/18 0649 by Munira Arevalo RN 10/09/182137 by Kaylynn Pimentel RN ETT Placement Date: 10/09/18; Placement Time: 822 (created via procedure documentation); Mask Ventilation: 1; Technique: Direct laryngoscopy; Type: ETT - single; Single Lumen Tube Size: 7 mm; Cuffed: Yes; Laryngoscope: Kimberly; Blade Size: 3; Location: Oral; Grade View: Grade I; Insertion Attempts: 1; Placement Verification: Auscultation; Removal Date: 10/09/18; Removal Time: 10310/09/18822 by Sal Jackman MD 10/09/181034 by Sal Jackman MD Peripheral IV Placement Date: 10/09/18; Placement Time: 822 (created via procedure documentation); Catheter Size: 18 G; Orientation: Right; Location: Wrist; Site Prep: Chlorhexidine; Insertion Attempts: 1; Removal Date: 10/09/18; Removal Time: 2137; Removal Reason: Per patient/family request (Extremely painful with flushing) 10/09/18822 by Sal Jackman MD 10/09/182137 by Kaylynn Pimentel RN RETIRED Surgical Site 10/09/18; 0827; Right; Back; Right lower back; 10/09/18; 0943 10/09/18826 by Geneva Land RN 10/09/18942 by Geneva Land RN RETIRED Surgical Site 10/09/18; 0827; Ba ck; 11/02/24 (Retired LDA, Removed/Completed by [employer] with LDA Utility); 1213 (Retired LDA, Removed/Completed by [employer] with LDA Utility) 10/09/18826 by Geneva Land RN 11/02/24 1213 by Discharge Provider, Automatic documented in this encounter Social History Tobacco Use Types Packs/Day Years Used Date Smoking Tobacco: Some Days Cigarettes Comments:5 cigarettes per we ek Alcohol Use Standard Drinks/Week Comments Yes 0 (1 standard drink = 0.6 oz pur e alcohol) once per month Comments Unknown Sex and Gender Information Value Date Recorded Sex Assigned at Not on file Legal Sex Female 9:09 AM DIGITAL MARKETING APPRENTICE Gender Identity Female 07/30/2024 4:35 PM CDT Sexual Orientation Choose not to disclose 2023 4:35 PM CDT documented as of this encounter OR Notes * Anesthesia Postprocedure Evaluation - Ria May MD - 10/09/2018 11:33 AM CST Patient: Alecia Sanderson Procedure Summary Date: 10/09/18 Room / Location: [facility] [address] [place] [address] OPERATING ROOM Anesthesia Start: 732 Anesthesia Stop: 1045 Procedure: [place] Bone Marrow (Bilateral ) Diagnosis: (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) Provider: Yaquelin Hill MD Responsible Provider: Benny Ramírez MD Anesthesia Type: general ASA Status: 1 Anesthesia Type: general Last vitals BP 116/83 Pulse 65 Temp 36.3 ??C (97.3 ??F) (Temporal) Resp 12 SpO2 98% Anesthesia Post Evaluation Patient location during evaluation: PACU Patient participation: complete - patient participated Level of consciousness: fully awake Pain score: 1 Pain management: adequate Airway patency: adequate Evidence of recall: unable to evaluate Anesthetic complications: no Cardiovascular status: acceptable Respiratory status: acceptable and spontaneous ventilation Hydration status: acceptable Pt is: normothermic Nausea/Vomiting status: none TAL MARKETING APPRENTICE * Anesthesia Procedure Notes - Sal Jackman MD - 10/09/2018 8:23 AM DIGITAL MARKETING APPRENTICE Associated Order(s): PERIPHERAL LINE Peripheral IV Catheter Patient location: OR Staff: Supervising provider: BENNY RAMÍREZ Placed by: Resident: SAL JACKMAN Preprocedure prep: Prep solution: chlorhexadine PPE: gloves PIV line: Laterality: right Site: wrist Catheter size: 18 g Technique: anatomical landmarks and direct visualization Procedure details: good blood return and occlusive dressing applied Number of attempts: 1 Assessment: Events: patient tolerated procedure well with no complications TAL MARKETING APPRENTICE * Anesthesia Procedure Notes - Sal Jackman MD - 10/09/2018 8:22 AM DIGITAL MARKETING APPRENTICE Associated Order(s): ANESTHESIA INTUBATION Airway Patient location: OR Urgency: elective Indications for airway management: anesthesia and airway protection Difficult airway: no Staff: Supervising provider: BENNY RAMÍREZ Placed by: Resident: SAL JACKMAN Emergent airway documentation: Risks and benefits discussed: yes Consent obtained: yes Consent given by: patient Airway prep: Preoxygenated: yes Patient position: sniffing Mask difficulty assessment: 1 - vent by mask Spontaneous ventilation during airway: absent Sedation level during airway: GA Final airway details: Final airway type: endotracheal airway Tube type: ETT ETT size: 7.0 mm Cuffed: yes Technique used for successful ETT placement: direct laryngoscopy Devices/Methods used in placement: intubating stylet and cricoid pressure Insertion site: oral Blade type: Kimberly Blade size: 3 Cormack-Lehane (direct): grade I - full view of glottis Cuff inflated with: air ETT to lips: 21 cm Placement verified by: auscultation Airway secured with: silk tape Number of attempts: 1 TAL MARKETING APPRENTICE * Anesthesia Preprocedure Evaluation - Ria May MD - 10/09/2018 6:13 AM CST Anesthesia Evaluation Procedure(s): [place] Bone Marrow HISTORY HPI Alecia is a 38 year old female who presented to CPAP clinic for anesthesia assessment and planning prior to bone marrow harvest for her 14yr old daughter. Past Medical History Neurological Neuro/Psych system: negative Cardiovascular Cardiac system: negative Respiratory + Current smoker (occasional, approx 2 packs/mo) Pertinent negatives: COPD; asthma and sleep apnea (SAMUEL) Hepatic / Heme Hepatic/Heme system: negative Gastrointestinal Pertinent negatives: GERD Renal / Renal/ system: negative Musculoskeletal/Pain Musculoskeletal/Pain system: negative Endocrine / Other Endocrine/Other system: negative Review of Systems + dentures/partials (upper teeth) Pertinent negatives: productive cough; wheezing; SOB; recent cold/flu; fever; nausea; diarrhea and chipped/loose teeth PAT Summary and Plans Additional comments: Prior [place] OSH, no reported problems No family history of GA problems NPO prior to midnight, gum at 0625 Has not smoked past 3 days. Patient Active Problem List Diagnosis ??? Donor of stem cell No past medical history on file. Past Surgical History: Procedure Laterality Date ??? CYST REMOVAL Left 05/1995 wrist cyst removal ??? CYST REMOVAL Right 05/1995 right leg bone spur removed ??? ENDOMETRIAL ABLATION 11/04/2007 ??? TUBAL LIGATION 07/20/2004 OB History No data available Allergies Allergen Reactions ??? Levofloxacin Hives HOME MEDICATIONS : Not on File Current Facility-Administered Medications: ??? lidocaine 1% buffered 1 % (0.5 mL) injection - ADS Override Pull, , , Social History Smoking Status ??? Current Some Day Smoker ??? Types: Cigarettes Smokeless Tobacco ??? Not on file Comment: 5 cigarettes per week Alcohol Use ??? Yes Comment: once per month Drug Use No No family history on file. PAT Physical Exam Airway Exam: Mallampati: II Cervical ROM: FROM TM distance: 3 Cardiovascular Exam: Rate: regular Rhythm: regular Pulmonary Exam: LCTA EENT Exam: trachea midline Dental Exam: Appears intact (False upper teeth, no chipped/loose teeth, no dental implants) Skin Exam: Skin is warm and dry. Capillary refill is < 3 seconds. Abdominal exam: Abdomen is soft. Current state: Patient's current state is cooperative. Additional comments: GA plan discussed: PIV, IV induction, airway management, monitoring, recovery.SE and risks discussed. Questions answered. There were no vitals filed for this visit. PT: 09/09/2018: 13.1 sec INR: 09/09/2018: 0.92 APTT: 09/09/2018: 25.6 sec Hgb A1C: No results found for requested labs within last 720 hours. CBC RBC: 10/08/2018: 4.40 M/cumm RDW: No results found for requested labs within last 720 hours. MCHC: 10/08/2018: 33.0 g/dL MCH: 10/08/2018: 30.5 pg MCV: 10/08/2018: 92.3 fL Hct: 10/08/2018: 40.6 % Hgb: 10/08/2018: 13.4 g/dL WBC: 10/08/2018: 8.2 K/cumm MPV: 10/08/2018: 11.7 fL Platelets: 10/08/2018: 245 K/cumm RDW CV: 10/08/2018: 13.1 % RDW Sd: 10/08/2018: 44.5 fL BMP Glucose: 09/09/2018: 96 mg/dL Calcium: 09/09/2018: 9.2 mg/dL Sodium: 09/09/2018: 141 mmol/L Potassium: 09/09/2018: 3.7 mmol/L CO2: 09/09/2018: 26 mmol/L Chloride: 09/09/2018: 110 mmol/L BUN: 09/09/2018: 16 mg/dL Creatinine: 09/09/2018: 0.65 mg/dL DOS Physical Exam Medical history, medications, and allergies reviewed. Attestation: This PAT evaluation 10/09/2018. Airway Exam: Mallampati: I Cervical ROM: FROM TM distance: 3.5 Jaw ROM: full Cardiovascular Exam: Rate: regular Rhythm: regular Pulmonary Exam: LCTA EENT Exam: trachea midline Dental Exam: Appears intact Skin Exam: Skin is warm. Capillary refill is < 3 seconds. Current state: Patient's current state is cooperative. Additional comments: Patient complains of itchy skin after IV start in right forearm only. No obvious rash or hyperemia. Natural teeth covered with veneers Anesthesia Plan ASA 1 Planned anesthesia: General Team communication plan: oral ET tube Induction: Induction: intravenous. Postoperative Plan: No postoperative mechanical ventilation intended. Patient's planned disposition post procedure is Floor. Informed Consent: Discussed plan with resident. Anesthesia plan and risks discussed with patient. Plan and Consent Comments: Plan GETA and prone position. Consent and Attending signature: I and/or my designee have discussed the anesthesia plan, benefits, possible alternatives, parental presence at time of induction (if indicated), and clinically relevant risks that may include dental injury, unintentional awareness, and/or other complications. The patient and/or parent/legal guardian understand, and agree to proceed. All questions answered. TAL MARKETING APPRENTICE TAL MARKETING APPRENTICE TAL MARKETING APPRENTICE documented in this encounter Plan of Treatment Not on file documented as of this encounter Procedures Procedure Name Priority Date/Time Associated Diagnosis Comments PERIPHERAL LINE Routine 10/09/2018 8:23 AM DIGITAL MARKETING APPRENTICE Procedure Note - Sal Jackman MD - 10/09/2018 8:23 AM CSTThis note is in progress. Peripheral IV Catheter Patient location: OR Staff: Supervising provider: BENNY RAMÍREZ Placed by: Resident: SAL JACKMAN Preprocedure prep: Prep solution: chlorhexadine PPE: gloves PIV line: Laterality: right Site: wrist Catheter size: 18 g Technique: anatomical landmarks and direct visualization Procedure details: good blood return and occlusive dressing applied Number of attempts: 1 Assessment: Events: patient tolerated procedure well with no complications ANESTHESIA INTUBATION Routine 10/09/2018 8:22 AM DIGITAL MARKETING APPRENTICE Procedure Note - Sal Jackman MD - 10/09/2018 8:22 AM CSTThis note is in progress. Airway Patient location: OR Urgency: elective Indications for airway management: anesthesia and airway protection Difficult airway: no Staff: Supervising provider: BENNY RAMÍREZ Placed by: Resident: SAL JACKMAN Emergent airway documentation: Risks and benefits discussed: yes Consent obtained: yes Consent given by: patient Airway prep: Preoxygenated: yes Patient position: sniffing Mask difficulty assessment: 1 - vent by mask Spontaneous ventilation during airway: absent Sedation level during airway: GA Final airway details: Final airway type: endotracheal airway Tube type: ETT ETT size: 7.0 mm Cuffed: yes Technique used for successful ETT placement: direct laryngoscopy Devices/Methods used in placement: intubating stylet and cricoidpressure Insertion site: oral Blade type: Kimberly Blade size: 3 Cormack-Lehane (direct): grade I - full view of glottis Cuff inflated with: air ETT to lips: 21 cm Placement verified by: auscultation Airway secured with: silk tape Number of attempts: 1 documented in this encounter Visit Diagnoses Not on filedocumented in this encounter Administered Medications Inactive Administered Medications - up to 3 most recent administrations Medication Order MAR Action Action Date Dose Rate Site dexamethasone (DECADRON) injection Administer over 30 Minutes, As needed, Starting on Fri10/09/18 at 0816, Anesthesia Intra-op Given 10/09/2018 8:16 AM DIGITAL MARKETING APPRENTICE 4 mg ePHEDrine injection As needed, Starting on Fri10/09/18 at 0937, Anesthesia Intra-op Given 10/09/2018 10:15 AM DIGITAL MARKETING APPRENTICE 10 mg Given 10/09/2018 9:37 AM DIGITAL MARKETING APPRENTICE 5 mg fentaNYL (SUBLIMAZE) preservative free injection As needed, Starting on Fri10/09/18 at 0735, Anesthesia Intra-op Given 10/09/2018 10:09 AM DIGITAL MARKETING APPRENTICE 25 mcg Given 10/09/2018 9:47 AM DIGITAL MARKETING APPRENTICE 25 mcg Given 10/09/2018 7:35 AM DIGITAL MARKETING APPRENTICE 50 mcg glycopyrrolate (ROBINUL) injection As needed, Starting on Fri10/09/18 at 0836, Anesthesia Intra-op Given 10/09/2018 8:36 AM DIGITAL MARKETING APPRENTICE 0.4 mg HYDROmorphone (DILAUDID) injection As needed, Starting on Fri10/09/18 at 0819, Anesthesia Intra-op Given 10/09/2018 9:25 AM DIGITAL MARKETING APPRENTICE 0.25 mg Given 10/09/2018 8:19 AM DIGITAL MARKETING APPRENTICE 0.25 mg Lactated Ringer's (LR) infusion Continuous PRN, Starting on Fri10/09/18 at 0733, Anesthesia Intra-op New Bag 10/09/2018 9:40 AM DIGITAL MARKETING APPRENTICE New Bag 10/09/2018 8:54 AM DIGITAL MARKETING APPRENTICE New Bag 10/09/2018 7:33 AM DIGITAL MARKETING APPRENTICE lidocaine PF (XYLOCAINE) 10 mg/mL (1 %) preservative free injection As needed, Starting on Fri10/09/18 at 0735, Anesthesia Intra-op Given 10/09/2018 7:39 AM DIGITAL MARKETING APPRENTICE 30 mg midazolam (VERSED) preservative free injection As needed, Starting on Fri10/09/18 at 0733, Anesthesia Intra-op Given 10/09/2018 7:33 AM DIGITAL MARKETING APPRENTICE 2 mg neostigmine (PROSTIGMIN) injection As needed, Starting on Fri10/09/18 at 0836, Anesthesia Intra-op Given 10/09/2018 8:36 AM DIGITAL MARKETING APPRENTICE 2 mg ondansetron (ZOFRAN) injection As needed, nausea, vomiting, Starting on Fri10/09/18 at 0909, Anesthesia Intra-op Given 10/09/2018 9:09 AM DIGITAL MARKETING APPRENTICE 4 mg propofol (DIPRIVAN) IV As needed, Starting on Fri10/09/18 at 0735, Anesthesia Intra-op Given 10/09/2018 7:35 AM DIGITAL MARKETING APPRENTICE 200 mg rocuronium (ZEMURON) injection As needed, Starting on Fri10/09/18 at 0735, Anesthesia Intra-op Given 10/09/2018 7:35 AM DIGITAL MARKETING APPRENTICE 30 mg documented in this encounter Orders Procedures Count Last Ordered Date First Orde red Date ANESTHESIA INTUBATION 1 10/09/2018 PERIPHERAL LINE 1 10/09/2018 documented in this encounter Care Teams Night Warehouse Selector Relationship Specialty Start Date End Date Evaristo Wills MD PCP - General 09/07/18 12/11/22 documented as of this encounter
--- OUTSIDE RECORDS SUMMARY | 2024-12-06 18:00 | XMS_ITS | Encounter Summary ---
Author Organization [facility] Healthcare Address [address] [place] [address] Care Team Providers Care Floriculture Professor Name Role Phone Evaristo Wills MD Primary Care Provider [phone] Reason for Visit * Diagnostic Imaging (Routine) - Closed Specialty Diagnoses / Procedures Referred By Contac bryan Referred To Contact Procedures Breast Imaging Diagnostic Outside Reference Breast Imaging Screening Outside Reference Transcribed Order, Provider Referral ID Status Reason Start Date Expiration Date Visits Re quested Visits Authorized [id number] Closed 09/01/2023 09/30/2024 1 1 Encounter Details Date Type Department Care Team (Late st Contact Info) Description 03/16/2019 Ancillary Procedure [facility] [address] [place] [address] Social History Tobacco Use Types Packs/Day Years Used Date Smoking Tobacco: Some Days Cigarettes Comments:5 cigarettes per we ek Alcohol Use Standard Drinks/Week Comments Yes 0 (1 standard drink = 0.6 oz pur e alcohol) once per month Comments Unknown Sex and Gender Information Value Date Recorded Sex Assigned at Not on file Legal Sex Female 9:09 AM DRIER OPERATOR Gender Identity Female 07/30/2024 4:35 PM CDT Sexual Orientation Choose not to disclose 2023 4:35 PM CDT documented as of this encounter Plan of Treatment Not on file documented as of this encounter Procedures Procedure Name Priority Date/Time Associated Diagnosis Comments BREAST IMAGING MG DIAGNOSTIC OUTSIDE REFERENCE Routine 03/16/2019 12:00 AM CDT documented in this encounter Results * Breast Imaging Diagnostic Outside Reference (03/16/2019 12:00 AM CDT) Narrative [id number] - 09/01/2023 11:54 AM CDT This order has been auto-finalized and does not contain a result. us Provider Transcribed Order IMG MAMMO PROCEDURES Final Result [id number] documented in this encounter Visit Diagnoses Not on filedocumented in this encounter Care Teams Floriculture Professor Relationship Specialty Start Date End Date Evaristo Wills MD PCP - General 09/07/18 12/11/22 documented as of this encounter
--- OUTSIDE RECORDS SUMMARY | 2024-12-06 18:00 | XMS_ITS | Encounter Summary ---
Author Organization [facility] Healthcare Address [address] [place] [address] Care Team Providers Care Search Consultant Name Role Phone Evaristo Wills MD Primary Care Provider [phone] Encounter Details Date Type Department Care Team (Late st Contact Info) Description 10/01/2018 Orders Only [facility] [address] [facility], [address] [place] [address] Mike Draper, HERBER Donor of stem cell (Primary Dx) Social History Tobacco Use Types Packs/Day Years Used Date Smoking Tobacco: Some Days Cigarettes Comments:5 cigarettes per we ek Alcohol Use Standard Drinks/Week Comments Yes 0 (1 standard drink = 0.6 oz pur e alcohol) once per month Comments Unknown Sex and Gender Information Value Date Recorded Sex Assigned at Not on file Legal Sex Female 9:09 AM SHIP BOSS Gender Identity Female 07/30/2024 4:35 PM CDT Sexual Orientation Choose not to disclose 2023 4:35 PM CDT documented as of this encounter Plan of Treatment Not on file documented as of this encounter Results * hCG, urine, qualitative (10/08/2018 1:16 PM SHIP BOSS) HCG, ur Negative Negative [facility] Urine 10/08/2018 1:16 PM SHIP BOSS 10/08/2018 1:22 PM SHIP BOSS Narrative [facility] - 10/08/2018 1:38 PM SHIP BOSS Yaquelin Hill MD LAB URINE ORDERABLES Final Resu lt Performing Organization Address [facility] Co de Phone Number [facility] [place] [address] * CBC with auto differential (10/08/2018 12:58 PM SHIP BOSS) WBC 8.2 3.8 - 9.9 K/cumm [facility] Hgb 13.4 11.9 - 15.5 g/dL [facility] Hct 40.6 35.6 - 45.5 % [facility] Plt 245 150 - 400 K/cumm [facility] MPV 11.7 9.1 - 12.3 fL [facility] RBC 4.40 3.90 - 5.20 M/cumm [facility] MCV 92.3 81.3 - 96.4 fL [facility] MCH 30.5 27.1 - 33.3 pg [facility] MCHC 33.0 32.3 - 35.7 g/dL [facility] RDW CV 13.1 11.1 - 14.9 % [facility] RDW SD 44.5 35.7 - 48.1 fL [facility] NRBC abs 0.00 0.00 - 0.01 K/cumm [facility] Blood specimen (specimen) 10/08/2018 12:58 PM SHIP BOSS 10/08/2018 1:43 PM SHIP BOSS Narrative [facility] - 10/08/2018 1:43 PM SHIP BOSS us Yaquelin Hill MD LAB BLOOD ORDERABLES Final Resu lt Performing Organization Address [facility]/ZIP Co de Phone Number [facility] [place] [address] documented in this encounter Visit Diagnoses Diagnosis Donor of stem cell- Primary Donor of stem cell documented in this encounter Care Teams Search Consultant Relationship Specialty Start Date End Date Evaristo Wills MD PCP - General 09/07/18 12/11/22 documented as of this encounter
--- OUTSIDE RECORDS SUMMARY | 2024-12-06 18:00 | XMS_ITS | Data Portability ---
Author Organization [place] - [facility], [employer] Address [address] [place] [address] Assessment Encounter Date Assessment Date Assessment LastModified by Organization Details LastModified Time 10/02/2021 10/02/2021 Medication Changes Sertraline 25 mg 0.5 tablet qD Flonase nasal spray as directed Azelstaline nasal spray as directed Montelukast 10 mg qD Loratadine 10 mg as directed Previously was seeing Nathaly Skinner in [place] [facility] obtained. Records requested. labs ordered to evaluate levels. Signs and symptoms of when to seek further care reviewed with patient. Patient to follow up with primary care provider or return to clinic for any worsening signs and symptoms. Always present to ER or Urgent Care with any progression of/alarming symptoms, significant changes in symptoms or any concerning or urgent matters. Patient verbalized agreement and understanding of treatment plan. F/U 4 weeks, sooner if needed [email or web address] Not available 10/02/2021 15:12:41 10/30/2021 10/30/2021 Medication Changes Sertraline 25 mg qD Loratadine 10 mg BID Augmentin 875-125 mg BID x 10 days Medrol dose pack Signs and symptoms of when to seek further care reviewed with patient. Patient to follow up with primary care provider or return to clinic for any worsening signs and symptoms. Always present to ER or Urgent Care with any progression of/alarming symptoms, significant changes in symptoms or any concerning or urgent matters. Patient verbalized agreement and understanding of treatment plan. F/U 8 weeks, sooner if needed [email or web address] Not available 10/30/2021 14:45:00 Plan of Treatment Reminders Order Date Submit Date Provider Last Modified By Organization Details Last Modified Time Details Appointments None recorded. Lab CMP, serum or plasma 2020 021 [facility], [address], [place], [address], 11:57:45 lipid panel, serum 2020 [facility], [address], [place], [address], 11:57:45 CBC 2020 [facility], [address], [place], [address], 11:57:45 TSH, serum or plasma 2020 [facility], [address], [place], [address], 11:57:45 Referral None recorded. Procedures None recorded. Surgeries None recorded. Imaging MAMMO, diagnostic , digital, bilateral 2020 [facility], [address], [place], [address], 15:16:21 US, breast, bilateral 2020 [facility], [address], [place], [address], 15:16:21 Medication Orders loratadine 10 mg tablet [email or web address] [facility], [address] [place], [address], 15:09:55 montelukas t 10 mg tablet 2020 [facility], [address] [place], [address], 15:10:22 fluticason e propionate 50 mcg/actuat ion nasal spray,susp ension 2020 [facility], [address] [place] [address], [address], 15:10:21 azelastine 137 mcg (0.1 %) nasal spray 2020 [facility], [address] [place] [address], [address], 15:10:18 aripiprazo le 10 mg tablet 2020 [facility], [address] [place] [address], [address], 15:10:19 sertraline 25 mg tablet 2020 [facility], [address] [place] [address], [address], 15:10:26 loratadine 10 mg tablet [address], [address] [place] [address], [address], 14:44:40 amoxicilli n 875 mg-potassi um clavulanat e 125 mg tablet [address] [facility], [address] [place] [address], [address], 17:56:55 Medrol (Adonis) 4 mg tablets in a dose pack 2020 [facility], [address] [place] [address], [address], 09:13:10 Patient TargetsNo targets recorded. Patient InstructionsNo instructions recorded. Reason for Referral None Reported. Results Created Date Observation Date Name Description Value Unit Range Abnormal Flag Note LastModifiedBy Organization Detail LastModifiedTime Result Notes None recorded. Problems Name Problem SNOMED Code Status Onset Date Resolution Date Notes Provider Name and Address Organization Details Recorded Time Moderate recurrent major depression 93444174 Active 021 DORIS Saez-BC, PMHNP-BC [address], [place], [address], [facility] 15:00:41 Allergic rhinitis 18244030 Active 021 DORIS Saez-BC, PMHNP-BC [address] , [place], [address], [facility] 15:06:56 Problem Notes None recorded. Procedures Surgical History Date Name Laterality Status Provider Name and Address Organization Details Recorded Time 9 Date of Last Mammogram completed DORIS Saez-BC, PMHNP-BC [address] [place], [address], [facility] 10/02/2021 14:41:29 9 Date of Last Pap Smear completed EITAN SaezP-BC, PMHNP-BC [address] [place], [address], [facility] 10/02/2021 14:41:44 Tubal Ligation completed EITAN SaezP-BC, PMHNP-BC [address] [place], [address], [facility] 10/02/2021 14:39:44 Endometrial Ablation completed Caryn Smalls PRODUCTION CONTROL MANAGER-BC, PMHNP-BC [address] [place], [address], [facility] 10/02/2021 14:40:07 excision of bone completed Caryn Smalls PRODUCTION CONTROL MANAGER-BC, PMHNP-BC [address] [place], [address], [facility] 10/02/2021 14:40:35 excision of ganglion cyst completed Caryn Smalls PRODUCTION CONTROL MANAGER-BC, PMHNP-BC [address] [place], [address], [facility] 10/02/2021 14:40:54 procedure on bone marrow completed Caryn Smalls, PRODUCTION CONTROL MANAGER-BC, PMHNP-BC [address] [place], [address], [facility] 10/02/2021 14:41:04 Imaging Results None recorded. Procedure Notes None recorded. Medical Equipment None Reported. Medications Name Sig Start Date Stop Date Status Note LastModified by Organization Details LastModified Time azithromyci n 250 mg tablet 10/02 completed Not Available Not Available Not Available Medrol (Adonis) 4 mg tablets in a dose pack Take 1 dose pk every day by oral route as directed. 11/06 completed Not Available Not Available Not Available lorazepam 0.5 mg tablet 10/02 completed Not Available Not Available Not Available sertraline 25 mg tablet Take 1 tablet every day by oral route for 90 days. active Not Available Not Available No t Available montelukast 10 mg tablet Take 1 tablet every day by oral route for 90 days. active Not Available Not Available No t Available azelastine 137 mcg (0.1 %) nasal spray [facility] 2 sprays twice a day by intranasa l route for 90 days. active Not Available Not Available No t Available fluticasone propionate 50 mcg/actuati on nasal spray,suspe nsion [place] 1 spray twice a day by intranasa l route for 90 days. active Not Available Not Available No t Available loratadine 10 mg tablet Take 1 tablet twice a day by oral route for 90 days. 2020 active Not Available Not Available Not Avai lable amoxicillin 875 mg-potassiu m clavulanate 125 mg tablet Take 1 tablet every 12 hours by oral route for 10 days. 05/30 completed Not Available Not Available Not Available aripiprazol e 10 mg tablet Take 1 tablet every day by oral route for 90 days. active Not Available Not Available No t Available Vitals Date Recorded Heart rate Respiratory rate Oxygen saturation Oxygen saturation in Arterial blood by Pulse oximetry Body temperature Body height Body mass index (BMI) Body weight Systolic blood pressure Diastolic blood pressure Provider Name and Address Organization Details Last Updated DateTime 72 /min 18 /min 99 % 99 % 98.1 [degF] 170.18 cm 26.2 kg/m2 45463.9 3 g 122 mm[Hg] 80 mm[Hg] [facility] 15:08:49 Date Recorded Body height Heart rate Respiratory rate Oxygen saturation Oxygen saturation in Arterial blood by Pulse oximetry Body temperature Systolic blood pressure Diastolic blood pressure Provider Name and Address Organization Details Last Updated DateTime 170.18 cm 99 /min 20 /min 98 % 98 % 98.2 [degF] 130 mm[Hg] 80 mm[Hg] [facility] 13:20:51 Social History Question Answer Notes LastModified by Organizat ion Details LastModified Time Tobacco Smoking Status Current Every Day Smoker Caryn Smalls, PRODUCTION CONTROL MANAGER-BC, PMHNP-BC [address] [place], [address], [place] 10/02/2021 14:37:25 Do You Have An Advance Directive? No Information not available 10/02/2021 What Is Your Level Of Alcohol Consumption? Occasional Information not available 10/02/2021 How Many Years Have You Consumed Alcohol? 16 [email or web address] Information not available 10/02/2021 Do You Wear A Helmet When Biking? No [email or web address] Information not available 10/02/2021 Are You Blind Or Do You Have Difficulty Seeing? No [email or web address] Information not available 10/02/2021 What Is Your Level Of Caffeine Consumption? Occasional [email or web address] Information not available 10/02/2021 What Type Of Picker Packer Do You Use? None [email or web address] Information not available 10/02/2021 What Is Your Code Status? Full Code [email or web address] Information not available 10/02/2021 Are You Currently Employed? Yes [email or web address] Information not available 10/02/2021 Are You Deaf Or Do You Have Serious Difficulty Hearing? No [email or web address] Information not available 10/02/2021 What Type Of Diet Are You Following? REGULAR [email or web address] Information not available 10/02/2021 What Is The Highest Grade Or Level Of School You Have Completed Or The Highest Degree You Have Received? 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 No [email or web address] Information no t available 10/02/2021 Are There Any Guns Present In Your Home? No [email or web address] Information not available 10/02/2021 Which Of Your Hands Is Dominant? Left [email or web address] Information not available 10/02/2021 Do You Use Insect Repellent Routinely? No [email or web address] Information not available 10/02/2021 Do You Have A Medical Power Of Installer Technician? No [email or web address] Information not available 10/02/2021 What Was The Date Of Your Most Recent Tobacco Screening? 10/02/2021 [email or web address] Information not available 10/02/2021 How Many Children Do You Have? 3 [email or web address] Information not available 10/02/2021 Do You Have Any Pets? Yes [email or web address] Information not available 10/02/2021 Do You Use Protection During Sex? No [email or web address] Information not available 10/02/2021 What Is Your Relationship Status? [email or web address] Information not available 10/02/2021 Do You Use Your Seat Belt Or Car Seat Routinely? Yes [email or web address] Information not available 10/02/2021 Are You Sexually Active? Yes [email or web address] Information not available 10/02/2021 Do You Have Smoke And Carbon Monoxide Detectors In Your Home? Yes [email or web address] Information not available 10/02/2021 At What Age Did You Start Smoking Tobacco? 18 [email or web address] Information not available 10/02/2021 Are You Passively Exposed To Smoke? Yes [email or web address] Information no t available 10/02/2021 How Much Tobacco Do You Smoke? 1 PPD [email or web address] Information not available 10/02/2021 Do You Feel Stressed (tense, Restless, Nervous, Or Anxious, Or Unable To Sleep At Night)? [id number] [email or web address] Information not available 10/02/2021 Do You Use Any Illicit Or Recreational Drugs? No [email or web address] Information not available 10/02/2021 Do You Use Sunscreen Routinely? Yes [email or web address] Information not available 10/02/2021 How Many Years Have You Smoked Tobacco? 20 [email or web address] Information not available 10/02/2021 Are You Currently In School? No [email or web address] Information not available 10/02/2021 Do You Have Any Dietary Restrictions? No Information not available 10/02/2021 Do You Or Have You Ever Used Any Other Forms Of Tobacco Or Nicotine? No [email or web address] Information not available 10/02/2021 Sex: Female Functional Status Question Answer Note LastModified by Organizat ion Details LastModified Time Do you have difficulty walking or climbing stairs? No [email or web address] Information not available 10/02/2021 Do you have transportation difficulties? No [email or web address] Information not available 10/02/2021 Are you able to walk? YESWOREST [email or web address] Information not available 10/02/2021 Do you have difficulty doing errands alone? No [email or web address] Information not available 10/02/2021 Are you able to care for yourself? Yes [email or web address] Information not available 10/02/2021 Do you have difficulty dressing or bathing? No [email or web address] Information not available 10/02/2021 What is your exercise level? None [email or web address] Information not available 10/02/2021 Mental Status Question Answer Note LastModified by Organization D etails LastModified Time Do you have difficulty concentrating, remembering or making decisions? Yes [email or web address] Information no t available 10/02/2021 Family History Relationship Description Onset Age of this Age Resolved Age Notes LastModified by Organization Details LastModified Time Mother Chronic obstructive pulmonary disease [email or web address] Not available 2020 14:32:53 Mother Hypertensive disorder [email or web address] Not available 2020 14:33:02 Brother Polycythemia vera (clinical) [email or web address] Not available 10/02 14:33:29 Brother Asthma [email or web address] Not available 10/02/2021 14:33:35 Paternal Grandmother Diabetes mellitus [email or web address] Not available 2020 14:33:50 Paternal Grandmother Hypertensive disorder [email or web address] Not available 2020 14:33:57 Paternal Grandmother Malignant tumor of breast [email or web address] Not available 2020 14:34:05 Paternal Grandmother Coronary arterioscler osis [email or web address] Not available 2020 14:34:19 Paternal Grandmother Dementia [email or web address] Not available 01/2021 14:34:47 Paternal Grandmother Anxiety disorder [email or web address] Not available 2020 14:35:08 Medical History Condition Response Anxiety Disorder Y Allergies/Hayfever Y Infectious Disease/Disorders/Virus Y Depression Y Gynecological History Statement/Question Response Date of Last Pap Smear 03/01/2019 Date of Last Mammogram 03/01/2019 Obstetrics History GPAL:G 4 P 3 0 1 3 Type Value Full Term 3 Spontaneous 1 Living 3 Total 4 Past Encounters Encounter ID Performer Location Encounter Start Date Encounter Closed Date Diagnosis/Indication Diagnosis SNOMED-CT Code Diagnosis ICD10 Code Diagnosis Note [id number] Caryn Smalls [facility], [facility] Main Office [address] [place] [address] 10/02/2021 06:44:43 10/02/2021 16:08:12 Moderate recurrent major depression 40545003 F33.1 Allergic rhinitis 107068 04 J30.9 Adult heal th examination 847766985 Z00.01 Fibrocysti c changes of bilateral breasts 9845179132 0577542 N60.11 N60.12 [id number] Caryn Smalls [facility], [facility] Main Office [address] [place] [address] 10/30/2021 06:37:08 10/30/2021 16:22:28 Moderate recurrent major depression 72632207 F33.1 Increased Sertraline to full tablet Allergic rhinitis 790785 04 J30.9 Acute sinusitis 53414376 J01.90 Health Concerns Section Related Observation LastModified by Organization Detai ls LastModified Time None Recorded Concern Status LastModified by Organization Details LastModified Time None Recorded Advance Directives Directive N: Payers Encounter Date Sequence Insurance Name Policy Number Policy Williamson Covered Member ID Williamson Member ID Guarantor Name 10/02/2021 1 [place] [id number] Alecia Lesa Mabry [id number] Alecia Mabry 10/30/2021 1 [place] [id number] Alecia Mcfadden Raghavendra [id number] Alecia Velazquezer Notes Date Note Type Note Provider Name and Address Organization Details Recorded Time 10/02/2021 text/html Anxiety/Depressi onR eported bypatient.Quality:s ymptoms worse in the evening;symptoms worse during the day;increased anxiety Severity:denies suicidal ideations; able to maintain relationships;inter ference with sleep Duration:symptoms lasting over 2 weeks Onset/Timing:gradua l Context:no major life stressors Modifying Factors:medications as directed Associated Symptoms:denies homicidal ideations; no significant weight gain; no significant weight loss; no visual/auditory hallucinations; no delusions; no shortness of breath; mood good; no crying spells; no panic; no isolation; sleeping well; appetite good; energy good; no apathy; maintaining functionality;anxie ty;depressionNotes: Wellbutrin, Cymbalta, Prozac, Zoloft, Paxil, Celexa, Effexor, Lexapro, Mirtazapine, BuspironeSinusitis/ AllergyReported bypatient.Location: frontal Quality:no pain; minimal discomfort;congeste d;watering Severity:no pain; no nosebleeds (epistaxis); no snoring;interferenc e with work;frequent breathing through the mouth Duration:long standing Onset/Timing:grad l onset Context:no recent upper respiratory infection; no recent sick contacts; not worse around animals; not worse with environmental exposure; not worse with certain foods; not worse with odors;worse with seasonal allergen exposure;worse around pollen;worse around dust;worse around molds;worse when mowing grass Alleviating factors:nothing gives relief Aggravating factors:worse when allergies are active Associated Symptoms:no fever; no weight loss; no cough; no hemoptysis; no hematemesis; no difficulty breathing; no feeling of strangulation; no nausea or vomiting; no headache; no sinus pain; no thick phlegm in throat; no decreased sense of smell; no nasal passage blockage; no ear fullness; no pain behind the eyes; no skin itching; no dental pain; no muscle aches;nasal discharge from both nostrils;constantly clearing the throat;nasal itching;eye itching Risk Factors:no increased stress; no family history of allergies; no history of nasal trauma; no allergy to aspirin; no history of nasal polyps; no history of asthma; no chemotherapy; no DM; no HIV; no immunodeficiency;cu rrent smoking or tobacco use Caryn Smalls, PRODUCTION CONTROL MANAGER-BC, PMHNP-BC [address] [place], [address], [place] 10/02/2021 15:15:41 10/30/2021 text/html Anxiety/Depressi onR eported bypatient.Quality:s ymptoms worse in the evening;symptoms worse during the day;increased anxiety Severity:denies suicidal ideations; able to maintain relationships;inter ference with sleep Duration:symptoms lasting over 2 weeks Onset/Timing:gradua l Context:no major life stressors Modifying Factors:medications as directed Associated Symptoms:denies homicidal ideations; no significant weight gain; no significant weight loss; no visual/auditory hallucinations; no delusions; no shortness of breath; mood good; no crying spells; no panic; no isolation; sleeping well; appetite good; energy good; no apathy; maintaining functionality;anxie ty;depressionNotes: Wellbutrin, Cymbalta, Prozac, Zoloft, Paxil, Celexa, Effexor, Lexapro, Mirtazapine, BuspironeSinusitis/ AllergyReported bypatient.Location: frontal Quality:no pain; minimal discomfort;congeste d;watering Severity:no pain; no nosebleeds (epistaxis); no snoring;interferenc e with work;frequent breathing through the mouth Duration:long standing Onset/Timing:gradua l onset Context:no recent upper respiratory infection; no recent sick contacts; not worse around animals; not worse with environmental exposure; not worse with certain foods; not worse with odors;worse with seasonal allergen exposure;worse around pollen;worse around dust;worse around molds;worse when mowing grass Alleviating factors:nothing gives relief Aggravating factors:worse when allergies are active Associated Symptoms:no fever; no weight loss; no cough; no hemoptysis; no hematemesis; no difficulty breathing; no feeling of strangulation; no nausea or vomiting; no headache; no sinus pain; no thick phlegm in throat; no decreased sense of smell; no nasal passage blockage; no ear fullness; no pain behind the eyes; no skin itching; no dental pain; no muscle aches;nasal discharge from both nostrils;constantly clearing the throat;nasal itching;eye itching Risk Factors:no increased stress; no family history of allergies; no history of nasal trauma; no allergy to aspirin; no history of nasal polyps; no history of asthma; no chemotherapy; no DM; no HIV; no immunodeficiency;cu rrent smoking or tobacco use Caryn Smalls, PRODUCTION CONTROL MANAGER-BC, PMHNP-BC [address] [place], [address], [facility] 10/30/2021 16:17:53 OBGyn Episode No OBEpisode recorded.
--- OUTSIDE RECORDS SUMMARY | 2024-12-06 18:00 | XMS_ITS | Encounter Summary ---
Author Organization [facility] Healthcare Address [address] [place] [address] Care Team Providers Care Associate Partner Name Role Phone Evaristo Wills MD Primary Care Provider [phone] Encounter Details Date Type Department Care Team (Late st Contact Info) Description 10/08/2018 1:00 PM ACUTE CARE SURGEON Lab [facility] [address] Rosemarie Jung MD [address] [place] [address] [address] [place] [address] Donor of stem cell Discharge Disposition: Discharge to home or self [...] on file Legal Sex Female 9:09 AM ACUTE CARE SURGEON Gender Identity Female 07/30/2024 4:35 PM CDT Sexual Orientation Choose not to disclose 2023 4:35 PM CDT documented as of this encounter Discharge Disposition Disposition Code Departure Means Destination Discharge to home or self care documented in this encounter Plan of Treatment Not on file documented as of this encounter Procedures Procedure Name Priority Date/Time Associated Diagnosis Comments HCG, URINE, QUALITATIVE Routine 10/08/2018 1:16 PM ACUTE CARE SURGEON Donor of stem cell DIFFERENTIAL AUTO Routine 10/08/2018 12: 58 PM ACUTE CARE SURGEON Donor of stem cell CBC WITH AUTO DIFFERENTIAL Routine 10/08/2018 12:58 PM ACUTE CARE SURGEON Donor of stem cell documented in this encounter Results * hCG, urine, qualitative (10/08/2018 1:16 PM ACUTE CARE SURGEON) HCG, ur Negative Negative [facility] Urine 10/08/2018 1:16 PM ACUTE CARE SURGEON 10/08/2018 1:22 PM ACUTE CARE SURGEON Narrative [facility] - 10/08/2018 1:38 PM ACUTE CARE SURGEON us Yaquelin Hill MD LAB URINE ORDERABLES Final Resu lt [facility] [place] [address] * Differential, auto (10/08/2018 12:58 PM ACUTE CARE SURGEON) Pathologist [facility] Neutrophil abs 5.0 1.7 - 6.5 K/cumm [facility] Imm gran abs 0.0 0.0 - 0.1 K/cumm [facility] Lymphocyte abs 2.4 0.8 - 3.3 K/cumm [facility] Monocyte abs 0.6 0.2 - 0.8 K/cumm [facility] Eosinophil abs 0.1 0.0 - 0.5 K/cumm [facility] Basophil abs 0.1 0.0 - 0.1 K/cumm [facility] Neutrophil pct 60.6 % [facility] Comment: Interpretive Data Percent cell count reference ranges are not reported, since discordance with absolute values may lead to misinterpretation of CBC data. Current Interpretive Data was last revised on 2018. Imm gran pct 0.2 % [facility] Comment: Interpretive Data Percent cell count reference ranges are not reported, since discordance with absolute values may lead to misinterpretation of CBC data. Current Interpretive Data was last revised on 2018. Lymphocyte pct 28.9 % [facility] Comment: Interpretive Data Percent cell count reference ranges are not reported, since discordance with absolute values may lead to misinterpretation of CBC data. Current Interpretive Data was last revised on 2018. Monocyte pct 7.9 % [facility] Comment: Interpretive Data Percent cell count reference ranges are not reported, since discordance with absolute values may lead to misinterpretation of CBC data. Current Interpretive Data was last revised on 2018. Eosinophil pct 1.6 % [facility] Comment: Interpretive Data Percent cell count reference ranges are not reported, since discordance with absolute values may lead to misinterpretation of CBC data. Current Interpretive Data was last revised on 2018. Basophil pct 0.8 % [facility] Comment: Interpretive Data Percent cell count reference ranges are not reported, since discordance with absolute values may lead to misinterpretation of CBC data. Current Interpretive Data was last revised on 2018. Blood specimen (specimen) 10/08/2018 12:58 PM ACUTE CARE SURGEON 10/08/2018 1:43 PM ACUTE CARE SURGEON Narrative [facility] - 10/08/2018 1:43 PM ACUTE CARE SURGEON us Yaquelin Hill MD LAB BLOOD ORDERABLES Final Resu lt [facility] Department [place] [address] * CBC with auto differential (10/08/2018 12:58 PM ACUTE CARE SURGEON) WBC 8.2 3.8 - 9.9 K/cumm [facility] Hgb 13.4 11.9 - 15.5 g/dL [facility] Hct 40.6 35.6 - 45.5 % [facility] Plt 245 150 - 400 K/cumm [facility] MPV 11.7 9.1 - 12.3 fL [facility] RBC 4.40 3.90 - 5.20 M/cumm [facility] MCV 92.3 81.3 - 96.4 fL [facility] MCH 30.5 27.1 - 33.3 pg [facility] MCHC 33.0 32.3 - 35.7 g/dL [facility] RDW CV 13.1 11.1 - 14.9 % [facility] RDW SD 44.5 35.7 - 48.1 fL [facility] NRBC abs 0.00 0.00 - 0.01 K/cumm [facility] Blood specimen (specimen) 10/08/2018 12:58 PM ACUTE CARE SURGEON 10/08/2018 1:43 PM ACUTE CARE SURGEON Narrative [facility] - 10/08/2018 1:43 PM ACUTE CARE SURGEON us Yaquelin Hill MD LAB BLOOD ORDERABLES Final Resu lt [facility] [address] [place] [address] documented in this encounter Visit Diagnoses Diagnosis Donor of stem cell documented in this encounter Care Teams Associate Partner Relationship Specialty Start Date End Date Evaristo Wills MD PCP - General 09/07/18 12/11/22 documented as of this encounter
--- OUTSIDE RECORDS SUMMARY | 2024-12-06 18:00 | XMS_ITS | Encounter Summary ---
Author Organization [facility] Medical Group Address [address] [address] Care Team Providers Care Kiln Transfer Operator Name Role Phone Mona Hernandez NP Primary Care Provider [phone] Evaristo Wills MD Unavailable [phone] Encounter Details Date Type Department Care Team (Late st Contact Info) Description 08/29/2023 Telephone [facility] [address] [place] [address] Nissa Youssef LPN Social History Tobacco Use Types Packs/Day Years Used Date Smoking Tobacco: Every Day Vaping Smokeless Tobacco: Former Alcohol Use Standard Drinks/Week Comments Yes 0 (1 standard drink = 0.6 oz pur e alcohol) once per month Comments No Sex and Gender Information Value Date Recorded Sex Assigned at Not on file Legal Sex Female 9:09 AM 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 * Telephone Encounter - Nissa Youssef LPN - 08/29/2023 8:30 AM CDT ----- Message from Mayra Richardson DO sent at 2023 4:18 PM CDT ----- Please inform the patient her pelvic ultrasound was normal. documented in this encounter Plan of Treatment Not on file documented as of this encounter Visit Diagnoses Not on filedocumented in this encounter Care Teams Kiln Transfer Operator Relationship Specialty Start Date End Date Mona Hernandez NP [address] [facility] [place] [address] PCP - General Internal Medicine 12/12/22 Evaristo Wilsl MD [address] [facility] [place] [address] 12/12/22 documented as of this encounter
--- OUTSIDE RECORDS SUMMARY | 2024-12-06 18:00 | XMS_ITS | Encounter Summary ---
Author Organization [facility] Medical Group Address [address] [facility] [address] [place] [address] Care Team Providers Care Rn Radiation Name Role Phone Mona Hernandez NP Primary Care Provider [phone] Evaristo Wills MD Unavailable [phone] Reason for Visit * Reason Comments Cough Original onset [place]ty Wisdom, started Augmentin, but couldn't handle stomach side effects, got better then came back on 12/01 lasted 1.5 days, new onset 12/06, sick since seen at [facility] Friday, dx with Bronchitis and R ear infection, Zpak Albuterol, prednisone - only one dose left Pred and one more Antibiotic left, not getting any better and now left ear pain as well, makes neck hurt, fatigued, green mucous cough, States she told them that Zpak doesn't always help but they still gave to her Encounter Details Date Type Department Care Team (Late st Contact Info) Description 12/12/2022 2:30 PM ENGLISH ADJUNCT FACULTY Office Visit [facility] [address] [place] [address] Georgia Bassett NP [address] [place] [address] Recurrent acute suppurative otitis media of right ear without spontaneous rupture of tympanic membrane (Primary Dx) Social History Tobacco Use Types Packs/Day Years Used Date Smoking Tobacco: Every Day Cigarettes Smokeless Tobacco: Former Tobacco Cessation:Ready to Q uit: Not Asked; Counseling Given: Not Answered Comments Unknown Sex and Gender Information Value Date Recorded Sex Assigned at Not on file Legal Sex Female 9:09 AM ENGLISH ADJUNCT FACULTY Gender Identity Female 07/30/2024 4:35 PM CDT Sexual Orientation Choose not to disclose 2023 4:35 PM CDT documented as of this encounter Last Filed Vital Signs Vital Sign Reading Time Taken Comments Blood Pressure 142/92 12/12/2022 2:15 PM ENGLISH ADJUNCT FACULTY Pulse 95 12/12/2022 2:15 PM ENGLISH ADJUNCT FACULTY Temperature 36.7 ??C (98 ??F) 12/12/2022 2:15 PM ENGLISH ADJUNCT FACULTY Respiratory Rate 14 12/12/2022 2:15 PM ENGLISH ADJUNCT FACULTY Oxygen Saturation 98% 12/12/2022 2:15 PM ENGLISH ADJUNCT FACULTY Inhaled Oxygen Concentration - - Weight 74.8 kg (165 lb) 12/12/2022 2:15 PM ENGLISH ADJUNCT FACULTY Height 170.2 cm (5' 7 ) 12/12/2022 2:15 PM ENGLISH ADJUNCT FACULTY Body Mass Index 25.84 12/12/2022 2:15 PM ENGLISH ADJUNCT FACULTY documented in this encounter Patient Instructions * Patient Instructions* Georgia Bassett NP - 12/12/2022 2:30 PM ENGLISH ADJUNCT FACULTY The treatment for ear infections (otitis media) may include any of the following: Take antibiotics as prescribed until they are gone. Take Tylenol or Motrin as directed for fever and/or discomfort. A warm (not hot) heating pad held over the ear can also help relieve the pain from the earache. Youshould use a thin cloth such as a dry washcloth between your skin and the heating pad. Follow up with your Primary Care Physician in 2 weeks for ear recheck or sooner if symptoms worsen or are not improving as planned. ISH ADJUNCT FACULTY documented in this encounter Ordered Prescriptions Prescription Sig Dispense Quantity Refills Last Filled Start Date End Date cefdinir (OMNICEF) 300 mg capsuleIndications :Recurrent acute suppurative otitis media of right ear without spontaneous rupture of tympanic membrane Take 1 capsule (300 mg total) by mouth 2 (two) times a day for 10 days 20 capsule 12/12/2022 3 documented in this encounter Progress Notes * Georgia Bassettne, FILM TOUCH UP INSPECTOR - 12/12/2022 2:30 PM CST Images from the original note were not included. Subjective/Objective Patient ID: Alecia Mabry is a 42 y.o. female. Chief Complaint Cough (Original onset [place] Alyx, started Augmentin, but couldn't handle stomach side effects, got better then came back on 12/01 lasted 1.5 days, new onset 12/06, sick since seen at [facility] Friday, dx with Bronchitis and R ear infection, Zpak Albuterol, prednisone - only one dose left Pred and one more Antibiotic left, not getting any better and now left ear pain as well, makes neck hurt, fatigued, green mucous cough, States she told them that Zpak doesn't always help but they still gave to her) Patient [facility] the [facility] with complaints of left ear pain, fatigue and cough.She states that the original onset was [place] Alyx and she was given Augmentin but stopped takingit due to stomach side effects. States that symptoms resolved but came back on 12/01/22 and lasted for a day and a half. Now states symptoms began on 12/06. She was seen on 12/09 at [facility] and was treated with a Zpak and steroids for brochitis and a right ear infection. States that she still has one dose of steroids and one dose of antibiotics left but states that she is not feeling any better. She has taken Mucinex, Robitussin, Tylenol and Motrin OTC for her symptoms. Cough Associated symptoms include ear pain. Pertinent negatives include no fever, headaches, myalgias, postnasal drip, rash, rhinorrhea, sore throat or shortness of breath. Review of Systems Constitutional: Negative for activity change, appetite change, fatigue and fever. HENT: Positive for ear pain. Negative for congestion, ear discharge, postnasal drip, rhinorrhea, sinus pressure and sore throat. Eyes: Negative for discharge. Respiratory: Positive for cough. Negative for shortness of breath. Gastrointestinal: Negative for diarrhea, nausea and vomiting. Musculoskeletal: Negative for myalgias. Skin: Negative for rash. Neurological: Negative for headaches. Hematological: Negative for adenopathy. Physical Exam Vitals reviewed. Constitutional: General: She is not in acute distress. Appearance: Normal appearance. She is well-developed. She is not ill-appearing. HENT: Head: Normocephalic. Right Ear: Ear canal and external ear normal. Tympanic membrane is erythematous and bulging. Left Ear: Ear canal and external ear normal. A middle ear effusion is present. Nose: No congestion or rhinorrhea. Right Sinus: No maxillary sinus tenderness or frontal sinus tenderness. Left Sinus: No maxillary sinus tenderness or frontal sinus tenderness. Mouth/Throat: Lips: [place]. Mouth: Mucous membranes are moist. Pharynx: Oropharynx is clear. Eyes: General: Right eye: No discharge. Left eye: No discharge. Conjunctiva/sclera: Conjunctivae normal. Cardiovascular: Rate and Rhythm: Normal rate and regular rhythm. Pulmonary: Effort: Pulmonary effort is normal. No respiratory distress. Breath sounds: Normal breath sounds and air entry. Abdominal: Tenderness: There is no abdominal tenderness. Musculoskeletal: General: Normal range of motion. Cervical back: Neck supple. Lymphadenopathy: Head: Right side of head: No tonsillar adenopathy. Left side of head: No tonsillar adenopathy. Cervical: No cervical adenopathy. Skin: General: Skin is warm and dry. Findings: No rash. Neurological: Mental Status: She is alert and oriented to person, place, and time. Mental status is at baseline. Psychiatric: Attention and Perception: Attention normal. Mood and Affect: Mood normal. Behavior: Behavior normal. Behavior is cooperative. Thought Content: Thought content normal. Judgment: Judgment normal. Vitals: 12/12/22 1415 BP: 142/92 Pulse: 95 Resp: 14 Temp: 36.7 ??C (98 ??F) TempSrc: Temporal SpO2: 98% Weight: 74.8 kg (165 lb) Height: 170.2 cm (5' 7 ) Assessment/Plan Antibiotics as prescribed Stop Azithromycin Finish Prednisone Follow up with PCP if symptoms do not improve Reviewed ER precautions There are no diagnoses linked to this encounter. No results found for this or any previous visit (from the past 4 hour(s)). There are no Patient Instructions on file for this visit. Disposition Treatment plan including expectations, follow up, and return precautions discussed with patient/parent, verbalizes understanding. Medication dosage, use, and potential adverse reactions discussed with patient/parent. Advised to follow up with PCP if symptoms do not resolve as expected or sooner if condition worsens. Signs/symptoms warranting ER evaluation reviewed. Patient and/or guardian was given an opportunity to ask questions, questions answered. Georgia Bassett NP ISH ADJUNCT FACULTY documented in this encounter Plan of Treatment Not on file documented as of this encounter Visit Diagnoses Diagnosis Recurrent acute suppurative otitis media of right ear without spontaneous rupture of tympanic membrane- Primary documented in this encounter Historical Medications * This list may reflect changes made after this encounter. mirtazapine (REMERON) 7.5 mg tablet Take 7.5 mg by mouth nightly 07/30/2024 ARIPiprazole (ABILIFY) 10 mg tablet Take 1 tablet (10 mg total) by mouth daily 07/30/2024 added in this encounter Care Teams Rn Radiation Relationship Specialty Start Date End Date Mona Hernandez NP [address] [place] [address] PCP - General Internal Medicine 12/12/22 Evaristo Wills MD [address] [place] [address] 12/12/22 documented as of this encounter
--- OUTSIDE RECORDS SUMMARY | 2024-12-06 18:00 | XMS_ITS | Encounter Summary ---
Author Organization [facility] Healthcare Address [address] [place] [address] Care Team Providers Care Pattern Shop Supervisor Name Role Phone Mona Hernandez NP Primary Care Provider [phone] Evaristo Wills MD Unavailable [phone] Encounter Details Date Type Department Care Team (Late st Contact Info) Description 08/04/2024 Telephone [facility] Medical Group [facility] [address] [place] [address] Nissa Youssef LPN Social History Tobacco Use Types Packs/Day Years Used Date Smoking Tobacco: Every Day Vaping Smokeless Tobacco: Former Alcohol Use Standard Drinks/Week Comments Yes 0 (1 standard drink = 0.6 oz pur e alcohol) once per month Comments No Sex and Gender Information Value Date Recorded Sex Assigned at Not on file 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 * Telephone Encounter - Nissa Youssef LPN - 08/04/2024 12:13 PM CDT ----- Message from Mayra Richardson DO sent at 08/04/2024 10:26 AM CDT ----- Please inform the patient her hormone levels were normal. documented in this encounter Plan of Treatment Not on file documented as of this encounter Visit Diagnoses Not on filedocumented in this encounter Care Teams Pattern Shop Supervisor Relationship Specialty Start Date End Date Mona Hernandez NP [address] [facility] [place] [address] PCP - General Internal Medicine 12/12/22 Evaristo Wills MD [address] [facility] [place] [address] 12/12/22 documented as of this encounter
--- OUTSIDE RECORDS SUMMARY | 2024-12-06 18:00 | XMS_ITS | Encounter Summary ---
Author Organization [facility] Medical Group Address [address] [address] Care Team Providers Care Pct Name Role Phone Mona Hernandez NP Primary Care Provider [phone] Evaristo Wills MD Unavailable [phone] Reason for Visit * Diagnostic Imaging (Routine) - Closed Specialty Diagnoses / Procedures Referred By Donaldo t Referred To Contact Diagnoses Pelvic pain in female Procedures US Pelvis Complete Mayra Richardson DO [address] [address] Phone: tel: fax: [facility] Referral ID Status Reason Start Date Expiration Date Visits Re quested Visits Authorized [id number] Closed 08/26/2023 09/24/2024 1 1 Encounter Details Date Type Department Care Team (Latest Contact Info) Description 08/27/2023 11:40 AM CDT Ancillary Procedure [facility] [address] [address] Pelvic pain in female Social History Tobacco Use Types Packs/Day Years Used Date Smoking Tobacco: Every Day Vaping Smokeless Tobacco: Former Alcohol Use Standard Drinks/Week Comments Yes 0 (1 standard drink = 0.6 oz pur e alcohol) once per month Comments No Sex and Gender Information Value Date Recorded Sex Assigned at Not on file Legal Sex Female 9:09 AM PETROLEUM LABORATORY TECHNICIAN Gender Identity Female 07/30/2024 4:35 PM CDT Sexual Orientation Choose not to disclose 2023 4:35 PM CDT Occupation Industry Job Start Date Job End Date Lyndon Torres Not on file Not on file Not on file documented as of this encounter Plan of Treatment Not on file documented as of this encounter Procedures Procedure Name Priority Date/Time Associated Diagnosis Comments US PELVIS COMPLETE Schedule Routine, Read Routine (OP Routine) 08/27/2023 12:04 PM CDT Pelvic pain in female US TRANSVAGINAL Schedule Routine, Read Routine (OP Routine) 08/27/2023 12:04 PM CDT Pelvic pain in female documented in this encounter Results * US Pelvis Complete (08/27/2023 12:04 PM CDT) Anatomical Region Laterality Modality Pelvis N/A Ultrasound Narrative 08/27/2023 5:25 PM CDT Transabdominal pelvic ultrasound was performed. ??Uterus measures 8.6 x 4.5 x 5.4 cm. ??Endometrial stripe is grossly normal. Right ovary is not seen. ??Left ovary is grossly normal. ?? Impression: 1. No uterine mass seen. ?? 2. Left ovary is unremarkable. ?? 3. Right ovary is not seen with transabdominal technique. ??Additional transvaginal imaging suggested. ?? us Mayra Richardson DO IMG US PROCEDURES Final Result * US Transvaginal (08/27/2023 12:04 PM CDT) Anatomical Region Laterality Modality Pelvis N/A Ultrasound Narrative 08/27/2023 5:26 PM CDT Transvaginal pelvic ultrasound was performed. ?? No uterine mass seen. ??Endometrial stripe measures 2.9 mm in thickness. ?? Nabothian cysts of the cervical region noted. ??No free fluid seen. ?? Right and left ovaries measure 3.1 x 1.6 x 2.2 cm and 2.7 x 2.0 x 2.0 cm in size respectively. ??No ovarian mass or cyst is seen. ??There is positive bilateral ovarian blood flow. ?? Impression: 1. Nabothian cysts of the cervical region incidentally noted. ?? 2. Otherwise, unremarkable pelvic ultrasound for patient age. ??No pelvic mass, free fluid, or ultrasound evidence of ovarian torsion. ?? us Mayra Richardson DO IMG US PROCEDURES Final Result documented in this encounter Visit Diagnoses Diagnosis Pelvic pain in female Unspecified symptom associated with female genital organs documented in this encounter Care Teams Pct Relationship Specialty Start Date End Date Mona Hernandez NP [address] [place] [address] PCP - General Internal Medicine 12/12/22 Evaristo Wills MD [address] [place] [address] 12/12/22 documented as of this encounter
--- OUTSIDE RECORDS SUMMARY | 2024-12-06 18:00 | XMS_ITS | Encounter Summary ---
Author Organization [facility] Healthcare Address [address] [place] [address] Care Team Providers Care Assistant Mechanic Name Role Phone Evaristo Wills MD Primary Care Provider [phone] Reason for Visit * Diagnostic Imaging (Routine) - Closed Specialty Diagnoses / Procedures Referred By Rickeyac bryan Referred To Contact Procedures Breast Imaging US Outside Reference Transcribed Order, Provider Referral ID Status Reason Start Date Expiration Date Visits Re quested Visits Authorized [id number] Closed 09/01/2023 09/30/2024 1 1 Encounter Details Date Type Department Care Team (Late st Contact Info) Description 04/02/2019 Ancillary Procedure [facility] [address] [place] [address] Social History Tobacco Use Types Packs/Day Years Used Date Smoking Tobacco: Some Days Cigarettes Comments:5 cigarettes per we ek Alcohol Use Standard Drinks/Week Comments Yes 0 (1 standard drink = 0.6 oz pur e alcohol) once per month Comments Unknown Sex and Gender Information Value Date Recorded Sex Assigned at Not on file Legal Sex Female 9:09 AM HOSPICE FELLOW Gender Identity Female 07/30/2024 4:35 PM CDT Sexual Orientation Choose not to disclose 2023 4:35 PM CDT documented as of this encounter Plan of Treatment Not on file documented as of this encounter Procedures Procedure Name Priority Date/Time Associated Diagnosis Comments BREAST IMAGING US OUTSIDE REFERENCE Routine 04/02/2019 12:00 AM CDT documented in this encounter Results * Breast Imaging US Outside Reference (04/02/2019 12:00 AM CDT) Narrative [facility] - 09/01/2023 11:45 AM CDT This order has been auto-finalized and does not contain a result. us Provider Transcribed Order IMG MAMMO PROCEDURES Final Result [facility] documented in this encounter Visit Diagnoses Not on filedocumented in this encounter Care Teams Assistant Mechanic Relationship Specialty Start Date End Date Evaristo Wills MD PCP - General 09/07/18 12/11/22 documented as of this encounter
--- OUTSIDE RECORDS SUMMARY | 2024-12-06 18:01 | XMS_ITS | Encounter Summary ---
Author Organization [facility] Address [address] [place] [address] Phone Care Team Providers Care Tow Operator Name Role Phone No, Physician Primary Care Provider [phone] Encounter Details Date Type Department Care Team (Late st Contact Info) Description 09/04/2018 11:00 AM CDT Office Visit [facility] Pediatrics Hematology and Oncology [facility] [address] [place] [address] Yaquelin Hill MD 1 [facility] [address] [place] [address] Donor of stem cell (Primary Dx) Social [...] on file Legal Sex Female 9:09 AM 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 Gender Identity Female 07/30/2024 4:35 PM CDT Sexual Orientation Choose not to disclose 2023 4:35 PM CDT documented as of this encounter Last Filed Vital Signs Vital Sign Reading Time Taken Comments Blood Pressure 122/93 09/04/2018 11:04 AM CDT Pulse 65 09/04/2018 11:04 AM CDT Temperature 36.1 ??C (97 ??F) 09/04/2018 11: 04 AM CDT Respiratory Rate 16 09/04/2018 11:0 4 AM CDT Oxygen Saturation 99% 09/04/2018 11: 04 AM CDT Inhaled Oxygen Concentration - - Weight 73.8 kg (162 lb 11.2 oz) 018 11:04 AM CDT Height 171.5 cm (5' 7.52 ) 09/04/2018 1 1:04 AM CDT Body Mass Index 25.09 09/04/2018 11:04 AM CDT documented in this encounter Progress Notes * Yaquelin Hill MD - 09/04/2018 11:00 AM CDT Pediatric Oncology Consult Note HPI: Patient is a 38 y.o. female healthy stem cell donor candidate for her daughter Rika Gaines. Patient presents today for evaluation of donor candidacy as well as discussion of risks and benefits ofstem cell donation. Patient is currently well with no fevers, no rashes, no cough, rhinorrhea, no weight loss, change in appetite. Detailed ROS below. No past medical history on file. Past Surgical History: Procedure Laterality Date ??? CYST REMOVAL Left 05/1995 wrist cyst removal ??? CYST REMOVAL Right 05/1995 right leg bone spur removed ??? ENDOMETRIAL ABLATION 11/04/2007 ??? TUBAL LIGATION 07/20/2004 (Not in a hospital admission) Allergies not on file No family history on file. Social History: Pediatric Social History: Living Conditions: Living Conditions Social History Narrative: Social History Social History Narrative ??? No narrative on file Tobacco History: History Smoking Status ??? Not on file Smokeless Tobacco ??? Not on file Review of Systems: Review of Systems Constitutional: Negative. HENT: Negative. [...] not bruise/bleed easily. Psychiatric/Behavioral: Negative for agitation. Objective Vitals: Most Recent: BP 122/93 (BP Location: Right arm) Pulse 65 Temp 36.1 ??C (97 ??F) (Tympanic) Resp 16 Ht 171.5 cm (5' 7.52 ) Wt 73.8 kg (162 lb 11.2 oz) SpO2 99% BMI 25.09 kg/m?? Physical Exam: Physical Exam General: stable, no acute distress HEENT: PERRL, EOMI, OP clear Neck: no lymphadenopathy Lungs: Clear to auscultation bilaterally. Heart: RRR, no murmur Abd: soft, NT, no hepatosplenomegaly, no tenderness, no mass Ext: warm, well-perfused, no edema Neuro: normal strength and reflexes throughout. Lab/Radiology/Diagnostic Review: Patient Education: We reviewed the risks of bone marrow stem cell donation. Almost all marrow donors report some symptoms after donation. The most common symptoms include pain and fatigue as well as nausea, vomiting and sore throat which may be related to general anesthesia. Other risks include bleeding, infection, and anemia which may require iron supplementation or transfusion. In a study by the NMDP 63% of 493 donors interviewed reported complete recovery within 14 days, and 24% between 2 weeks and 1 month after donation. Lenin MM, Rukhsana DL. Evaluation of hematopoietic stem cell donors. Hematology Am Soc Hematol Educ Program 2005: 469-475. e-pub ahead of print ; doi: 10.1182/asheducation-2005.1.469 Assessment /Plan Patient Active Problem List Diagnosis ??? Donor of stem cell 1. Patient a haploidentical match for the recipeint 2. Patient's infectious testing, liver function and Renal function will be drawn prior to transplant. 3. Patient has A+ blood type, evelyn negative. CBC 4. NMDP screening questionnaire was performed 5. Risks, benefits, and alternatives to stem cell donation were discussed with patient and family and they have elected to proceed with donation. documented in this encounter Miscellaneous Notes * Assessment & Plan Note - Yaquelin Hill MD - 09/04/2018 3:47 PM CDTAssociated Problem(s): Donor of stem cell Donor evaluation performed. documented in this encounter Plan of Treatment Not on file documented as of this encounter Visit Diagnoses Diagnosis Donor of stem cell- Primary documented in this encounter Care Teams Tow Operator Relationship Specialty Start Date End Date No, Physician PCP - General 09/04/18 09/06/18 documented as of this encounter
--- OUTSIDE RECORDS SUMMARY | 2024-12-06 18:01 | XMS_ITS | Encounter Summary ---
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
--- OUTSIDE RECORDS SUMMARY | 2024-12-06 18:01 | XMS_ITS | Encounter Summary ---
Author Organization [facility] Address [address] [facility] [address] [place] [address] Phone Care Team Providers Care Senior Controls Engineer Name Role Phone Evaristo Wills MD Primary Care Provider [phone] Encounter Details Date Type Department Care Team (Late st Contact Info) Description 04/28/2018 Orders Only [facility] Pediatrics Hematology and Oncology 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 Gender Identity Female 07/30/2024 4:35 PM CDT Sexual Orientation Choose not to disclose 2023 4:35 PM CDT documented as of this encounter Plan of Treatment Not on file documented as of this encounter Procedures Procedure Name Priority Date/Time Associated Diagnosis Comments HLA-C* HIGH RESOLUTION TYPING BY SBT, NON-RENAL Routine 04/28/2018 11:11 AM CDT documented in this encounter Results * HLA-C* High Resolution Typing by SBT, Non-Renal (04/28/2018 11:11 AM CDT) SBT HISTOTRAC C First Allele C*02:02 HISTOTRAC C Second Allele C*06:02 HISTOTRAC 04/28/2018 11:1 1 AM CDT 06/17/2018 10:00 AM CDT Narrative HISTOTRAC - 06/17/2018 10:00 AM CDT DNA was extracted from whole blood or buccal cell specimens, and relevant genomic regions were amplified by polymerase chain reactions (PCR). HLA ??typing was performed on PCR amplicons using reverse sequence-specific oligonucleotide (r- SSO), sequence-specific primers (SSP), and/or sequence based typing (SBT) ??based techniques. R-SSO, SSP, and SBT are FDA approved as IVD tests and validated by the [facility]. Testing performed at the [facility], [address] [place] [address], [place], [address]. [place] # [id number]. Vinicio Campbell M.D., Ph D., HLA Watch Repair Person Castillo Larkin M.D., Career Development Engineer, [facility] Clinical [facility] Current methodology comment last revised on 08/05/17. us Rosemarie Jung MD LAB BLOOD ORDERABLES Final Res ult HISTASHLYAC documented in this encounter Visit Diagnoses Not on filedocumented in this encounter Care Teams Senior Controls Engineer Relationship Specialty Start Date End Date Evaristo Wills MD PCP - General 09/17/07 09/03/18 documented as of this encounter
--- OUTSIDE RECORDS SUMMARY | 2024-12-06 18:01 | XMS_ITS | Encounter Summary ---
Author Organization [facility] Healthcare Address [address] [place] [address] Care Team Providers Care Tapering Machine Operator Name Role Phone Evaristo Wills MD Primary Care Provider [phone] Encounter Details Date Type Department Care Team (Late st Contact Info) Description 06/28/2009 9:28 AM CDT - 06/28/2009 11:59 PM CDT Hospital Encounter [facility] Evaristo Wills MD [address] [place] [id number] Other malaise and fatigue; Constipation; Backache Social History Tobacco Use Types Packs/Day Years Used Date Smoking Tobacco: Never Assessed Comments Unknown Sex and Gender Information Value Date Recorded Sex Assigned at Not on file 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
--- OUTSIDE RECORDS SUMMARY | 2024-12-06 18:01 | XMS_ITS | Encounter Summary ---
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 Name Role Phone Evaristo Wills MD Primary Care Provider [phone] Reason for Visit * (Routine) - Closed Specialty Diagnoses / Procedures Referred By Contac t Referred To Contact Diagnoses Stem cell donor Procedures STR Donor Testing (Donor Pre-Transplant) Yaquelin Hill MD Phone: tel: fax: Referral ID Status Reason Start Date Expiration Date Visits Re quested Visits Authorized [id number] Closed 09/04/2018 03/15/2020 1 1 Encounter Details Date Type Department Care Team (Late st Contact Info) Description 09/09/2018 5:15 PM CDT Lab [facility] [place] [address] Rosemarie Jung MD 1 [facility] [address] [place] [address] Stem cell donor Discharge Disposition: Discharge to [...] on file 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 Gender Identity Female 07/30/2024 4:35 PM CDT Sexual Orientation Choose not to disclose 2023 4:35 PM CDT documented as of this encounter Discharge Disposition Disposition Code Departure Means Destination Discharge to home or self care documented in this encounter Plan of Treatment Pending Results Name Type Priority Associated Diagnoses Date /Time STR Donor Testing (Donor Pre-Transplant) Lab Routine Stem cell donor 09/09/2018 5:24 PM CDT documented as of this encounter Procedures Procedure Name Priority Date/Time Associated Diagnosis Comments HLA CONFIRMATORY TYPING Routine 09/09/2018 5:24 PM CDT Stem cell donor HLA CLASS I DNA (ABC) DONOR Routine 09/09/2018 5:24 PM CDT Stem cell donor HEPATITIS A ANTIBODY,IGG Routine 09/09/2018 5:24 PM CDT Stem cell donor DIFFERENTIAL AUTO Routine 09/09/2018 5:2 4 PM CDT Stem cell donor BMT DONOR EVALUATION Routine 09/09/2018 5:24 PM CDT Stem cell donor CMV, IGG AND IGM ANTIBODIES Routine 09/09/2018 5:24 PM CDT Stem cell donor CBC WITH AUTO DIFFERENTIAL Routine 09/09/2018 5:24 PM CDT Stem cell donor HEPATITIS C ANTIBODY Routine 09/09/2018 5:24 PM CDT Stem cell donor HEPATITIS A ANTIBODY, IGM Routine 09/09/2018 5:24 PM CDT Stem cell donor ELENA-PAREDES VIRUS VCA, IGM Routine 09/09/2018 5:24 PM CDT Stem cell donor ELENA PAREDES VIRUS VCA, IGG Routine 09/09/2018 5:24 PM CDT Stem cell donor ABO/RH Routine 09/09/2018 5:24 PM CDT Stem cell donor HSV 2 ANTIBODY, IGG Routine 09/09/2018 5 :24 PM CDT Stem cell donor HSV 1 ANTIBODY, IGG Routine 09/09/2018 5 :24 PM CDT Stem cell donor SICKLE CELL SCREEN Routine 09/09/2018 5: 24 PM CDT Stem cell donor APTT Routine 09/09/2018 5:24 PM CDT Stem cell donor PROTIME-INR Routine 09/09/2018 5:24 PM CDT Stem cell donor CBC WITHOUT DIFFERENTIAL Routine 09/09/2018 5:24 PM CDT Stem cell donor DIRECT ANTIGLOBULIN TEST Routine 09/09/2018 5:24 PM CDT Stem cell donor BILIRUBIN, TOTAL AND DIRECT Routine 09/09/2018 5:24 PM CDT Stem cell donor VARICELLA ZOSTER ANTIBODY, IGG Routine 09/09/2018 5:24 PM CDT Stem cell donor TSH Routine 09/09/2018 5:24 PM CDT Stem cell donor T4, FREE Routine 09/09/2018 5:24 PM CDT Stem cell donor LACTATE DEHYDROGENASE Routine 09/09/2018 5:24 PM CDT Stem cell donor IGE Routine 09/09/2018 5:24 PM CDT Stem cell donor IGA Routine 09/09/2018 5:24 PM CDT Stem cell donor IGM Routine 09/09/2018 5:24 PM CDT Stem cell donor IGG Routine 09/09/2018 5:24 PM CDT Stem cell donor COMPREHENSIVE METABOLIC PANEL Routine 09/09/2018 5:24 PM CDT Stem cell donor HCG, URINE, QUALITATIVE Routine 09/09/2018 5:18 PM CDT Stem cell donor documented in this encounter Results * (ABNORMAL) Differential, auto (09/09/2018 5:24 PM CDT) Neutrophil abs 6.5 1.7 - 6.5 K/cumm [facility] Imm gran abs 0.0 0.0 - 0.1 K/cumm [facility] Lymphocyte abs 3.4(H) 0.8 - 3.3 K/cumm [facility] Monocyte abs 0.9(H) 0.2 - 0.8 K/cumm [facility] Eosinophil abs 0.2 0.0 - 0.5 K/cumm [facility] Basophil abs 0.1 0.0 - 0.1 K/cumm [facility] Neutrophil pct 58.0 % [facility] Comment: Interpretive Data Percent cell count reference ranges are not reported, since discordance with absolute values may lead to misinterpretation of CBC data. Current Interpretive Data was last revised on 2018. Imm gran pct 0.2 % [facility] Comment: Interpretive Data Percent cell count reference ranges are not reported, since discordance with absolute values may lead to misinterpretation of CBC data. Current Interpretive Data was last revised on 2018. Lymphocyte pct 30.6 % [facility] Comment: Interpretive Data Percent cell count reference ranges are not reported, since discordance with absolute values may lead to misinterpretation of CBC data. Current Interpretive Data was last revised on 2018. Monocyte pct 8.4 % [facility] Comment: Interpretive Data Percent cell count reference ranges are not reported, since discordance with absolute values may lead to misinterpretation of CBC data. Current Interpretive Data was last revised on 2018. Eosinophil pct 2.1 % [facility] Comment: Interpretive Data Percent cell count reference ranges are not reported, since discordance with absolute values may lead to misinterpretation of CBC data. Current Interpretive Data was last revised on 2018. Basophil pct 0.7 % [facility] Comment: Interpretive Data Percent cell count reference ranges are not reported, since discordance with absolute values may lead to misinterpretation of CBC data. Current Interpretive Data was last revised on 2018. Blood specimen (specimen) 09/09/2018 5:24 PM CDT 09/09/2018 5:34 PM CDT Narrative [facility] - 09/09/2018 5:47 PM CDT Yaquelin Hill MD LAB BLOOD ORDERABLES Final Resu lt Performing Organization Address [facility]/[place] [address] * Collection Task for HLA Typing 1, Donor (09/09/2018 5:24 PM CDT) HLA Class I DNA (ABC) Donor Received [facility] Comment:Testing performed by : [facility], [address] [place]., [address] Blood specimen (specimen) 09/09/2018 5:24 PM CDT 09/09/2018 6:28 PM CDT Narrative [facility] - 09/11/2018 8:51 AM CDT us Yaquelin Hill MD LAB BLOOD ORDERABLES Final Resu lt Performing Organization Address [facility] [place] [place] [address] * HLA Confirmatory Typing (09/09/2018 5:24 PM CDT) r-SSO HISTOTRAC A First Allele A*01 HISTOTRAC A Second Allele A*02 HISTOTRAC A First Serological Equivalent A1 HISTOTRAC A Second Serological Equivalent A2 HISTOTRAC B First Allele B*27 HISTOTRAC B Second Allele B*57 HISTOTRAC B First Serological Equivalent B27 HISTOTRAC B Second Serological Equivalent B57 HISTOTRAC Bw First Serological Equivalent Bw4 HISTOTRAC Bw Second Serological Equivalent Bw4 [facility] Confirmatory Interpretation Matches initial typing. [facility] Blood specimen (specimen) 09/09/2018 5:24 PM CDT 09/13/2018 8:50 AM CDT Narrative [facility] - 09/13/2018 8:50 AM CDT DNA was extracted from whole blood or buccal cell specimens, and relevant genomic regions were amplified by polymerase chain reactions (PCR). HLA typing was performed on PCR amplicons using reverse sequence-specific oligonucleotide (r-SSO) and/or sequence-specific primers (SSP) based techniques. r-SSO and SSP are FDA approved as IVD tests and validated by the [facility]. Testing performed at the [facility], [address] [place] [address], 5th floor, [place], [address]. CLIA # [id number]. Vinicio Campbell M.D., Ph D., HLA Security Services Specialist Castillo Larkin M.D., Seasonal Tax Preparer, [facility] Current methodology comment last revised on 08/05/17. us Yaquelin Hill MD LAB BLOOD ORDERABLES Final Resu lt [facility] * (ABNORMAL) CBC without differential (09/09/2018 5:24 PM CDT) WBC 11.0(H) 3.8 - 9.9 K/cumm [facility] Hgb 13.5 11.9 - 15.5 g/dL [facility] Hct 40.7 35.6 - 45.5 % [facility] Plt 236 150 - 400 K/cumm [facility] MPV 12.0 9.1 - 12.3 fL [facility] RBC 4.40 3.90 - 5.20 M/cumm [facility] MCV 92.5 81.3 - 96.4 fL [facility] MCH 30.7 27.1 - 33.3 pg [facility] MCHC 33.2 32.3 - 35.7 g/dL [facility] RDW CV 13.1 11.1 - 14.9 % [facility] RDW SD 44.5 35.7 - 48.1 fL [facility] NRBC abs 0.00 0.00 - 0.01 K/cumm [facility] Blood specimen (specimen) 09/09/2018 5:24 PM CDT 09/09/2018 5:34 PM CDT Narrative [facility] - 09/09/2018 6:50 PM CDT us Yaquelin Hill MD LAB BLOOD ORDERABLES Edited Res ult - Final [facility] Department [place] [address] * (ABNORMAL) BMT donor evaluation (09/09/2018 5:24 PM CDT) Hep B surf Ag, donor Negative Negative [facility] Comment:Testing performed by : [facility], [address] [place] [address]., [id number] Hep B core Ab, donor Negative Negative [facility] Comment:Testing performed by : [facility], [address] [place] [address]., [id number] Hep C Ab, donor Negative Negative [facility] Comment:Testing performed by : [facility], [address] [place] [address]., [id number] HIV 1-2 Ab, donor Negative Negative [facility] Comment:Testing performed by : [facility], [address] [place] [address]., [id number] HTLV I/II Ab, donor Negative Negative [facility] Comment:Testing performed by : [facility], [address] [place] [address]., [id number] Syphilis testing, donor Negative Negative [facility] Comment:Testing performed by : [facility], [address] [place] [address]., [id number] HIV EMIL, donor Negative Negative [facility] Comment:Testing performed by : [facility], [address] [place] [address]., [id number] HCV EMIL, donor Negative Negative [facility] Comment:Testing performed by : [facility], [address] [place]., [address] HBV EMIL, donor Negative Negative [facility] Comment:Testing performed by : [facility], [address] [place]., [address] WNV EMIL, donor Negative Negative [facility] Comment:Testing performed by : [facility], [address] [place] [address]., [id number] CMV testing, donor Positive(A) Negative [facility] Comment: Interpretive Data Testing performed by [employer], [place] [address]. ??Panel consists of testing for Hepatitis B, Hepatitis C, HIV, HTLV, Syphilis, CMV, West Nile Virus, and Chaga. Testing performed by: [facility], [address] [place] [address]., [id number] Chagas testing, donor Negative Negative [facility] Comment:Testing performed by : [facility], [address] [place] [address]., [id number] Blood specimen (specimen) 09/09/2018 5:24 PM CDT 09/09/2018 6:12 PM CDT Narrative [facility] - 09/11/2018 9:07 AM CDT us Yaquelin Hill MD LAB BLOOD ORDERABLES Final Resu lt [facility] Department [place] [address] * Sickle cell screen (09/09/2018 5:24 PM CDT) Sickle cell, solubility Negative Negative [facility] Comment: Interpretive Data A positive sickle cell screening test is not sufficient to diagnose the presence of hemoglobin S since other rare hemoglobins may produce a positive turbidity test and false positive results may occur in the presence of dysglobulinemias. ??Recommend confirmation of a positive test result by ordering hemoglobin analysis by HPLC if clinically indicated. Current interpretive data was last revised on 2006. Testing performed by: [facility], [address] [facility], [place] [address] Blood specimen (specimen) 09/09/2018 5:24 PM CDT 09/09/2018 6:13 PM CDT Narrative [facility] - 09/09/2018 6:50 PM CDT Yaquelin Hill MD LAB [place] [address] * Direct antiglobulin test (09/09/2018 5:24 PM CDT) Direct Darell BS Interpretation Negative [facility] Blood specimen (specimen) 09/09/2018 5:24 PM CDT 09/09/2018 5:36 PM CDT Narrative [facility] - 09/09/2018 5:53 PM CDT Yaquelin Hill MD LAB BLOOD BANK TEST ORDERABLES Final Result Performing Organization Address [facility] [place] [place] [address] * ABO/Rh (09/09/2018 5:24 PM CDT) ABO Rh A Positive [facility] Blood specimen (specimen) 09/09/2018 5:24 PM CDT 09/09/2018 5:36 PM CDT Narrative [facility] - 09/09/2018 5:44 PM CDT Yaquelin Hill MD LAB BLOOD BANK TEST ORDERABLES Final Result Performing Organization Address [facility]/[place] [address] * aPTT (09/09/2018 5:24 PM CDT) Pathologist [facility] aPTT 25.6 23.0 - 40.6 sec [facility] Comment: Interpretive Data Usual therapeutic range for monitoring unfractionated heparin is 1.5 - 2 times the mean of the normal range of the PTT. ?? Current interpretive data was last revised on 13 Blood specimen (specimen) 09/09/2018 5:24 PM CDT 09/09/2018 5:34 PM CDT Narrative [facility] - 09/09/2018 5:51 PM CDT Yaquelin Hill MD LAB BLOOD ORDERABLES Final Resu lt Performing Organization Address [facility] [place] [place] [address] * Protime-INR (09/09/2018 5:24 PM CDT) [facility] PT 13.1 12.0 - 16.1 sec [facility] INR 0.92 [facility] Comment: Interpretive data Recommended Therapeutic Ranges for Oral Anticoagulants: INR of 2.0 - 3.0 on Standard Dose. Indications, for example; prophylaxis and treatment of venous thrombosis. INR of 2.5 - 3.5 on High Dose. Indications, for example; a mechanical heart valve. Current interpretive data was last revised on 07. Blood specimen (specimen) 09/09/2018 5:24 PM CDT 09/09/2018 5:34 PM CDT Narrative [facility] - 09/09/2018 5:51 PM CDT Yaquelin Hill MD LAB [place]OD [place] [address] * Varicella zoster antibody, IgG (09/09/2018 5:24 PM CDT) Pathologist [facility] VZV IgG Negative Negative [facility] Comment: Interpretive Data Negative: ??No detectable antibody [...] last revised on 2017. Testing performed by: [facility], [address] [place]., [address] Blood specimen (specimen) 09/09/2018 5:24 PM CDT 09/09/2018 6:28 PM CDT Narrative [facility] - 09/10/2018 10:18 AM CDT us Yaquelin Hill MD LAB MICROBIOLOGY - [facility] KATELYN WILLIS Final Result [facility] Department [place] [address] * (ABNORMAL) CMV, IgG and IgM antibodies (09/09/2018 5:24 PM CDT) CMV IgG Positive(A) Negative [facility] Comment: Interpretive Data Negative - No detectable CMV IgG antibody. Equivocal- Uncertain Immune Status. ??Additional sample should be sent. Positive - Indicates presence of detectable CMV IgG antibody. Current interpretive data was last revised on 2017. Testing performed by: [facility], [address] [place]., [address] CMV IgM Negative Negative [facility] Comment: Interpretive Data Negative - No detectable CMV IgM antibody. Equivocal- Uncertain Immune Status. ??Additional sample should be sent. Positive - Indicates presence of detectable CMV IgM antibody. Current interpretive data was last revised on 2017. Testing performed by: [facility], [address] [place]., [address] Blood specimen (specimen) 09/09/2018 5:24 PM CDT 09/09/2018 6:28 PM CDT Narrative [facility] - 09/10/2018 10:16 AM CDT Yaquelin iHll MD LAB MICROBIOLOGY - [facility] KATELYN WILLIS Final Result [facility] Department [place] [address] * Elena-Paredes virus VCA, IgM (09/09/2018 5:24 PM CDT) EBV VCA IgM Negative Negative [facility] Comment: Interpretive Data Results ? Interpretation Negative [...] Interpretive data revised 02/25/2017. Testing performed by: [facility], [address] [place]., [address] Blood specimen (specimen) 09/09/2018 5:24 PM CDT 09/09/2018 6:28 PM CDT Narrative [facility] - 09/10/2018 10:17 AM CDT Yaquelin Hill MD LAB BLOOD ORDERABLES Final Resu lt Performing Organization Address [facility] [place] [address] * (ABNORMAL) Elena Paredes virus VCA, IgG (09/09/2018 5:24 PM CDT) [facility] EBV VCA IgG Positive( A) Negative [facility] Comment: Interpretive Data Results ? Interpretation Negative ?No detectable antibody to VCA IgG ?antibody. Equivocal ? Uncertain immune status, suggest ?sending additional sample. Positive ?Indicates the presence of antibody; ?90% of the adult population will ?have been infected with EBV sometime ?in the past. Interpretive data revised 02/25/2017. Testing performed by: [facility], [address] [place]., [address] Blood specimen (specimen) 09/09/2018 5:24 PM CDT 09/09/2018 6:28 PM CDT Narrative [facility] - 09/10/2018 10:17 AM CDT Yaquelin Hill MD LAB BLOOD ORDERABLES Final Resu lt Performing Organization Address [facility]/[place] [address] * Hepatitis C antibody (09/09/2018 5:24 PM CDT) [facility] Hep C Ab Nonreactive Nonreactive [facility] Comment: Interpretive Data Positive results should be confirmed by a molecular method. If positive, a second separately collected sample should be submitted for Hepatitis C Virus (HCV) RNA Detection and Quantitation by Real-Time Reverse Strategy Execution Consultant-PCR (RT-PCR). Current interpretive data was last revised on 2016. Testing performed by: [facility], [address] [place] [address]., [id number] Blood specimen (specimen) 09/09/2018 5:24 PM CDT 09/09/2018 6:43 PM CDT Narrative [facility] - 09/10/2018 10:18 AM CDT Yaquelin Hill MD LAB MICROBIOLOGY - GENERAL ORD LAZARO Edited Result - Final Performing Organization Address [facility] [place] [place] [address] * Hepatitis A antibody, IgM (09/09/2018 5:24 PM CDT) Hep A IgM Nonreactive Nonreactive [facility] Comment: Interpretive Data If test is reported as GRAYZONE, new sample should be drawn in two weeks for testing. Current interpretive data was last revised on 2016. Testing performed by: [facility], [address] [place] [address]., [id number] Blood specimen (specimen) 09/09/2018 5:24 PM CDT 09/09/2018 6:43 PM CDT Narrative [facility] - 09/10/2018 10:18 AM CDT Yaquelin Hill MD LAB MICROBIOLOGY - GENERAL KATELYN WILLIS Edited Result - Final Performing Organization Address [facility]/[place] [address] * Hepatitis A antibody, IgG (09/09/2018 5:24 PM CDT) Hep A IgG Nonreactive Nonreactive [facility] Comment:Testing performed by : [facility], [address] [place] [address]., [id number] Blood specimen (specimen) 09/09/2018 5:24 PM CDT 09/09/2018 6:43 PM CDT Narrative [facility] - 09/10/2018 9:38 AM CDT Yaquelin Hill MD LAB BLOOD ORDERABLES Final Resu lt Performing Organization Address [facility]/[place] [address] * (ABNORMAL) HSV 2 antibody, IgG (09/09/2018 5:24 PM CDT) HSV 2 IgG Positive( A) Negative [facility] Comment: Interpretive Data 1. Negative: No detectable IgG antibody to HSV-2. 2. Equivocal: Presence or absence of detectable antibodies to HSV-2 cannot be determined and the test should be repeated. 3. Positive: Indicates presence of detectable IgG antibody to HSV-2. Current interpretive data was last revised on 2017. Testing performed by: [facility], [address] [place]., [address] Blood specimen (specimen) 09/09/2018 5:24 PM CDT 09/09/2018 6:28 PM CDT Narrative [facility] - 09/10/2018 10:18 AM CDT Yaquelin Hill MD LAB MICROBIOLOGY - GENERAL ORDE RABLES Final Result Performing Organization Address [facility] [place] [place] [address] * (ABNORMAL) HSV 1 antibody, IgG (09/09/2018 5:24 PM CDT) HSV 1 IgG Positive( A) Negative [facility] Comment: Interpretive Data 1. Negative: No detectable IgG antibody to HSV-1. 2. Equivocal: Presence or absence of detectable antibodies to HSV-1 cannot be determined and the test should be repeated. 3. Positive: Indicates presence of detectable IgG antibody to HSV-1. Current interpretive data was last revised on 2017. Testing performed by: [facility], [address] [place]., [address] Blood specimen (specimen) 09/09/2018 5:24 PM CDT 09/09/2018 6:28 PM CDT Narrative [facility] - 09/10/2018 10:18 AM CDT Yaquelin Hill MD LAB MICROBIOLOGY - GENERAL ORDE [facility] Final Result Performing Organization Address [facility]/[place] [address] * IgM (09/09/2018 5:24 PM CDT) Immunoglobulin M 67.1 40.0 - 230.0 mg/dL [facility] Blood specimen (specimen) 09/09/2018 5:24 PM CDT 09/09/2018 5:34 PM CDT Narrative [facility] - 09/09/2018 6:16 PM CDT Yaquelin Hill MD LAB BLOOD ORDERABLES Final Resu lt Performing Organization Address [facility]/[place] [address] * IgA (09/09/2018 5:24 PM CDT) Immunoglobulin A 294.7 70.0 - 400.0 mg/dL [facility] Blood specimen (specimen) 09/09/2018 5:24 PM CDT 09/09/2018 5:34 PM CDT Narrative [facility] - 09/09/2018 6:17 PM CDT Yaquelin Hill MD LAB BLOOD ORDERABLES Final Resu lt Performing Organization Address [facility] [place] [place] [address] * IgG (09/09/2018 5:24 PM CDT) Immunoglobulin G 1,248.0 700.0 - 1,600.0 mg/dL [facility] Blood specimen (specimen) 09/09/2018 5:24 PM CDT 09/09/2018 5:34 PM CDT Narrative [facility] - 09/09/2018 6:16 PM CDT Yaquelin Hill MD LAB BLOOD ORDERABLES Final Resu lt Performing Organization Address [facility] [place] [place] [address] * IgE (09/09/2018 5:24 PM CDT) Pathologist [facility] IgE 3.1 1.0 - 100.0 IUnits/mL [facility] Blood specimen (specimen) 09/09/2018 5:24 PM CDT 09/09/2018 5:34 PM CDT Narrative [facility] - 09/09/2018 6:24 PM CDT Yaquelin Hill MD LAB BLOOD ORDERABLES Final Resu lt Performing Organization Address [facility] [place] [place] [address] * T4, free (09/09/2018 5:24 PM CDT) Pathologist [facility] Free T4 1.29 0.90 - 1.70 ng/dL [facility] Blood specimen (specimen) 09/09/2018 5:24 PM CDT 09/09/2018 5:34 PM CDT Narrative [facility] - 09/09/2018 6:16 PM CDT Yaquelin Hill MD LAB BLOOD ORDERABLES Final Resu lt Performing Organization Address [facility] [place] [place] [address] * TSH (09/09/2018 5:24 PM CDT) Thyroid Stimulating Hormone 2.31 0.30 - 4.20 mcIUnit/mL [facility] Blood specimen (specimen) 09/09/2018 5:24 PM CDT 09/09/2018 5:34 PM CDT Narrative [facility] - 09/09/2018 6:16 PM CDT Yaquelin Hill MD LAB BLOOD ORDERABLES Final Resu lt Performing Organization Address [facility] [place] [address] * Lactate dehydrogenase (LD) (09/09/2018 5:24 PM CDT) Lactate dehydrogenase (LDH) 183 100 - 250 Units/L [facility] Blood specimen (specimen) 09/09/2018 5:24 PM CDT 09/09/2018 5:34 PM CDT Narrative [facility] - 09/09/2018 6:17 PM CDT Yaquelin Hill MD LAB BLOOD ORDERABLES Final Resu lt Performing Organization Address [facility] [place] [address] * Bilirubin, total and direct (09/09/2018 5:24 PM CDT) Bilirubin, total 0.3 0.1 - 1.2 mg/dL [facility] Bilirubin, direct 0.1 0.1 - 0.3 mg/dL [facility] Bili direct/total ratio N/A <=0.2 Ratio [facility] Comment:Ratio of conjugated to total bilirubin has little diagnostic utility when total bilirubin concentrations are normal. Blood specimen (specimen) 09/09/2018 5:24 PM CDT 09/09/2018 5:34 PM CDT Narrative [facility] - 09/09/2018 6:17 PM CDT us Yaquelin Hill MD LAB BLOOD ORDERABLES Final Resu lt [facility] [[email or web address]] Department [place] [address] * Comprehensive metabolic panel (09/09/2018 5:24 PM CDT) Sodium 141 135 - 145 mmol/L [facility] Potassium, pl 3.7 3.3 - 4.9 mmol/L [facility] Chloride 110 97 - 110 mmol/L [facility] CO2 26 22 - 32 mmol/L [facility] Anion gap 5 2 - 15 mmol/L [facility] BUN 16 8 - 25 mg/dL [facility] Creatinine 0.65 0.60 - 1.10 mg/dL [facility] Glucose 96 70 - 199 mg/dL [facility] Comment: Interpretive Data Fasting glucose >/= 126 mg/dl is diagnostic for diabetes. ?? Fasting is defined as no caloric intake for at least 8 hours. Fasting glucose between 100 mg/dl to 125 mg/dl is diagnostic of prediabetes. In a patient with classic symptoms of hyperglycemia or hyperglycemic crisis, a random glucose >/= 200 mg/dl is diagnostic for diabetes. In the absence of unequivocal hyperglycemia, results should be confirmed by repeat testing. The classification and Diagnosis of Diabetes Diabetes Care 2017;40 (Suppl. 1):S11. Current interpretive data was last revised 2017. Calcium 9.2 8.5 - 10.3 mg/dL [facility] Bilirubin, total 0.3 0.1 - 1.2 mg/dL [facility] Protein, pl 7.1 6.5 - 8.5 g/dL [facility] Albumin 4.0 3.5 - 5.0 g/dL [facility] Alk phos 63 40 - 130 Units/L [facility] ALT 14 7 - 45 Units/L [facility] AST 16 10 - 45 Units/L [facility] Blood specimen (specimen) 09/09/2018 5:24 PM CDT 09/09/2018 5:34 PM CDT Narrative [facility] - 09/09/2018 6:17 PM CDT us Yaquelin Hill MD LAB BLOOD ORDERABLES Final Resu lt [facility] Department [place] [address] * (ABNORMAL) CBC with auto differential (09/09/2018 5:24 PM CDT) WBC 11.2(H) 3.8 - 9.9 K/cumm [facility] Hgb 13.5 11.9 - 15.5 g/dL [facility] Hct 40.6 35.6 - 45.5 % [facility] Plt 238 150 - 400 K/cumm [facility] MPV 11.8 9.1 - 12.3 fL [facility] RBC 4.39 3.90 - 5.20 M/cumm [facility] MCV 92.5 81.3 - 96.4 fL [facility] MCH 30.8 27.1 - 33.3 pg [facility] MCHC 33.3 32.3 - 35.7 g/dL [facility] RDW CV 13.2 11.1 - 14.9 % [facility] RDW SD 44.6 35.7 - 48.1 fL [facility] NRBC abs 0.00 0.00 - 0.01 K/cumm [facility] Blood specimen (specimen) 09/09/2018 5:24 PM CDT 09/09/2018 5:34 PM CDT Narrative [facility] - 09/09/2018 5:47 PM CDT Yaquelin Hill MD LAB BLOOD ORDERABLES Final Resu lt Performing Organization Address City/[facility]/[place] [address] * hCG, urine, qualitative (09/09/2018 5:18 PM CDT) HCG, ur Negative Negative [facility] Urine 09/09/2018 5:18 PM CDT 09/09/2018 5:35 PM CDT Narrative [facility] - 09/09/2018 5:55 PM CDT us Yaquelin Hill MD LAB URINE ORDERABLES Final Resu Performing Organization Address [facility] [place] [place] [address] documented in this encounter Visit Diagnoses Diagnosis Stem cell donor documented in this encounter Care Teams Line Construction Superintendent Relationship Specialty Start Date End Date Evaristo Wills MD PCP - General 09/07/18 12/11/22 documented as of this encounter
--- OUTSIDE RECORDS SUMMARY | 2024-12-06 18:01 | XMS_ITS | Encounter Summary ---
Author Organization [facility] Address [address] [facility] [address] [place] [address] Phone Care Team Providers Care Museum Archivist Name Role Phone Evaristo Wills MD Primary Care Provider [phone] Encounter Details Date Type Department Care Team (Late st Contact Info) Description 04/28/2018 Orders Only [facility] Pediatrics Hematology and Oncology 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 Gender Identity Female 07/30/2024 4:35 PM CDT Sexual Orientation Choose not to disclose 2023 4:35 PM CDT documented as of this encounter Plan of Treatment Not on file documented as of this encounter Procedures Procedure Name Priority Date/Time Associated Diagnosis Comments HLA-B* HIGH RESOLUTION TYPING BY SBT, NON-RENAL Routine 04/28/2018 11:11 AM CDT documented in this encounter Results * HLA-B* High Resolution Typing by SBT, Non-Renal (04/28/2018 11:11 AM CDT) SBT HISTOTRAC B First Allele B*27:03 HISTOTRAC B Second Allele B*57:01 HISTOTRAC 04/28/2018 11:1 1 AM CDT 06/17/2018 10:18 AM CDT Narrative HISTOTRAC - 06/17/2018 10:18 AM CDT DNA was extracted from whole blood or buccal cell specimens, and relevant genomic regions were amplified by polymerase chain reactions (PCR). HLA ??typing was performed on PCR amplicons using reverse sequence-specific oligonucleotide (r- SSO), sequence-specific primers (SSP), and/or sequence based typing (SBT) ??based techniques. R-SSO, SSP, and SBT are FDA approved as IVD tests and validated by the [facility]. Testing performed at the [facility], [address] [place] [address], [place], [address]. [place] # [id number]. Vinicio Campbell M.D., Ph D., HLA Radio Despatcher Castillo Larkin M.D., [place], [facility] Current methodology comment last revised on 08/05/17. us Rosemarie Jung MD LAB BLOOD ORDERABLES Final Res ult [facility]UARDO documented in this encounter Visit Diagnoses Not on filedocumented in this encounter Care Teams Museum Archivist Relationship Specialty Start Date End Date Evaristo Wills MD PCP - General 09/17/07 09/03/18 documented as of this encounter
--- OUTSIDE RECORDS SUMMARY | 2024-12-06 18:01 | XMS_ITS | Encounter Summary ---
Author Organization [facility] Healthcare Address [address] [place] [address] Care Team Providers Care Loading Rack Supervisor Name Role Phone No, Physician Primary Care Provider [phone] Evaristo Wills MD Primary Care Provider [phone] Reason for Referral * (Routine) - Closed Specialty Diagnoses / Procedures Referred By Donaldo adams Referred To Contact Diagnoses Stem cell donor Procedures STR Donor Testing (Donor Pre-Transplant) Yaquelin Hill MD Phone: tel: fax: Referral ID Status Reason Start Date Expiration Date Visits Re quested Visits Authorized [id number] Closed 09/04/2018 03/15/2020 1 1 Encounter Details Date Type Department Care Team (Late st Contact Info) Description 09/04/2018 Orders Only [facility], [address] [place] [address] Pilar Gunn, HERBER Stem cell donor (Primary Dx) Social History Tobacco Use Types Packs/Day Years Used Date Smoking Tobacco: Some Days Cigarettes Comments:5 cigarettes per we ek Alcohol Use Standard Drinks/Week Comments Yes 0 (1 standard drink = 0.6 oz pur e alcohol) once per month Comments Unknown Sex and Gender Information Value Date Recorded Sex Assigned at Not on file 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 Gender Identity Female 07/30/2024 4:35 PM CDT Sexual Orientation Choose not to disclose 2023 4:35 PM CDT documented as of this encounter Plan of Treatment Pending Results Name Type Priority Associated Diagnoses Date /Time STR Donor Testing (Donor Pre-Transplant) Lab Routine Stem cell donor 09/09/2018 5:24 PM CDT Scheduled Orders Name Type Priority Associated Diagnoses Orde r Schedule STR Donor Testing (Donor Pre-Transplant) Lab Routine Stem cell donor Expected: 09/09/2018, Expires: 09/04/2019 documented as of this encounter Results * Collection Task for HLA Typing 1, Donor (09/09/2018 5:24 PM CDT) HLA Class I DNA (ABC) Donor Received [facility] Comment:Testing performed by : [facility], [address] [place]., [address] Blood specimen (specimen) 09/09/2018 5:24 PM CDT 09/09/2018 6:28 PM CDT Narrative [facility] - 09/11/2018 8:51 AM CDT us Yaquelin Hill MD LAB BLOOD ORDERABLES Final Resu lt [facility] Department [place] [address] * HLA Confirmatory Typing (09/09/2018 5:24 PM [...] as IVD tests and validated by the [facility] HLA Laboratory. Testing performed at the [facility], [address] [place] [address], 5th floor, [place], [address]. IA # [id number]. Vinicio Campbell M.D., Ph D., HLA Sql Engineer Castillo Larkin M.D., Blunger Loader, [facility] Current methodology comment last revised on 08/05/17. us Yaquelin Hill MD LAB BLOOD ORDERABLES Final Resu lt [facility] * (ABNORMAL) CBC without differential (09/09/2018 5:24 PM CDT) WBC 11.0(H) 3.8 - 9.9 K/cumm [facility] Hgb 13.5 11.9 - 15.5 g/dL [facility] Hct 40.7 35.6 - 45.5 % [facility] Plt 236 150 - 400 K/cumm [facility] MPV 12.0 9.1 - 12.3 fL [facility] RBC 4.40 3.90 - 5.20 M/cumm [facility] MCV 92.5 81.3 - 96.4 fL [facility] MCH 30.7 27.1 - 33.3 pg [facility] MCHC 33.2 32.3 - 35.7 g/dL [facility] RDW CV 13.1 11.1 - 14.9 % [facility] RDW SD 44.5 35.7 - 48.1 fL [facility] NRBC abs 0.00 0.00 - 0.01 K/cumm [facility] Blood specimen (specimen) 09/09/2018 5:24 PM CDT 09/09/2018 5:34 PM CDT Narrative [facility] - 09/09/2018 6:50 PM CDT us Yaquelin Hill MD LAB BLOOD ORDERABLES Edited Res ult - Final [facility] Department [place] [address] * (ABNORMAL) BMT donor evaluation (09/09/2018 5:24 PM CDT) Hep B surf Ag, donor Negative Negative [facility] Comment:Testing performed by : [facility], [address] [place] [address]., [id number] Hep B core Ab, donor Negative Negative [facility] Comment:Testing performed by : [facility], [address] [place] [address]., [id number] Hep C Ab, donor Negative Negative [facility] Comment:Testing performed by : [facility], [address] [place] [address]., [id number] HIV 1-2 Ab, donor Negative Negative [facility] Comment:Testing performed by : [facility], [address] [place] [address]., [id number] HTLV I/II Ab, donor Negative Negative [facility] Comment:Testing performed by : [facility], [address] [place] [address]., [id number] Syphilis testing, donor Negative Negative [facility] Comment:Testing performed by : [facility], [address] [place] [address], [id number] HIV EMIL, donor Negative Negative [facility] Comment:Testing performed by : [facility], [address] [place] [address]., [id number] HCV EMIL, donor Negative Negative [facility] Comment:Testing performed by : [facility], [address] [place]., [address] HBV EMIL, donor Negative Negative [facility] Comment:Testing performed by : [facility], [address] [place] [address]., [id number] WNV EMIL, donor Negative Negative [facility] Comment:Testing performed by : [facility], [address] [place] [address]., [id number] CMV testing, donor Positive(A) Negative [facility] Comment: Interpretive Data Testing [place] [address]. ??Panel consists of testing for Hepatitis B, Hepatitis C, HIV, HTLV, Syphilis, CMV, West Nile Virus, and Chaga. Testing performed by: [facility], [address] [place] [address]., [id number] Chagas testing, donor Negative Negative [facility] Comment:Testing performed by : [facility], [address] [place] [address]., [id number] Blood specimen (specimen) 09/09/2018 5:24 PM CDT 09/09/2018 6:12 PM CDT Narrative [facility] - 09/11/2018 9:07 AM CDT Yaquelin Hill MD LAB BLOOD ORDERABLES Final Resu lt [facility] Department [place] [address] * Sickle cell screen (09/09/2018 5:24 PM CDT) Sickle cell, solubility Negative Negative [facility] Comment: Interpretive Data A positive sickle cell [...] last revised on 2006. Testing performed by: [facility], [address] [place]., [address] Blood specimen (specimen) 09/09/2018 5:24 PM CDT 09/09/2018 6:13 PM CDT Narrative [facility] - 09/09/2018 6:50 PM CDT Yaquelin Hill MD LAB BLOOD [place] [address] * Direct antiglobulin test (09/09/2018 5:24 PM CDT) Direct Darell BS Interpretation Negative [facility] Blood specimen (specimen) 09/09/2018 5:24 PM CDT 09/09/2018 5:36 PM CDT Narrative [facility] - 09/09/2018 5:53 PM CDT Yaquelin Hill MD LAB BLOOD BANK TEST ORDERABLES Final Result Performing Organization Address [facility]/[place] [address] * ABO/Rh (09/09/2018 5:24 PM CDT) ABO Rh A Positive [facility] Blood specimen (specimen) 09/09/2018 5:24 PM CDT 09/09/2018 5:36 PM CDT Narrative [facility] - 09/09/2018 5:44 PM CDT Yaquelin Hill MD LAB BLOOD BANK TEST [place] [address] * aPTT (09/09/2018 5:24 PM CDT) aPTT 25.6 23.0 - 40.6 sec [facility] Comment: Interpretive Data Usual therapeutic range for monitoring unfractionated heparin is 1.5 - 2 times the mean of the normal range of the PTT. ?? Current interpretive data was last revised on 13 Blood specimen (specimen) 09/09/2018 5:24 PM CDT 09/09/2018 5:34 PM CDT Narrative [facility] - 09/09/2018 5:51 PM CDT Yaquelin Hill MD LAB BLOOD [place] [address] * Protime-INR (09/09/2018 5:24 PM CDT) [facility] PT 13.1 12.0 - 16.1 sec [facility] INR 0.92 [facility] Comment: Interpretive data Recommended Therapeutic Ranges for Oral Anticoagulants: INR of 2.0 - 3.0 on Standard Dose. Indications, for example; prophylaxis and treatment of venous thrombosis. INR of 2.5 - 3.5 on High Dose. Indications, for example; a mechanical heart valve. Current interpretive data was last revised on 07. Blood specimen (specimen) 09/09/2018 5:24 PM CDT 09/09/2018 5:34 PM CDT Narrative [facility] - 09/09/2018 5:51 PM CDT Yaquelin Hill MD LAB BLOOD [place]AB[place] [address] * Varicella zoster antibody, IgG (09/09/2018 5:24 PM CDT) [facility] VZV IgG Negative Negative [facility] Comment: Interpretive Data Negative: ??No detectable [...] last revised on 2017. Testing performed by: [facility], [address] [place]., [address] Blood specimen (specimen) 09/09/2018 5:24 PM CDT 09/09/2018 6:28 PM CDT Narrative [facility] - 09/10/2018 10:18 AM CDT us Yaquelin Hill MD LAB MICROBIOLOGY - [facility] KATELYN WILLIS Final Result Performing Organization Address City/State/[facility] Co de Phone Number [facility] Department [place] [address] * (ABNORMAL) CMV, IgG and IgM antibodies (09/09/2018 5:24 PM CDT) CMV IgG Positive(A) Negative [facility] Comment: Interpretive Data Negative - No detectable CMV IgG antibody. Equivocal- Uncertain Immune Status. ??Additional sample should be sent. Positive - Indicates presence of detectable CMV IgG antibody. Current interpretive data was last revised on 2017. Testing performed by: [facility], [address] [place] [address] CMV IgM Negative Negative [facility] Comment: Interpretive Data Negative - No detectable CMV IgM antibody. Equivocal- Uncertain Immune Status. ??Additional sample should be sent. Positive - Indicates presence of detectable CMV IgM antibody. Current interpretive data was last revised on 2017. Testing performed by: [facility], [address] [place]., [address] Blood specimen (specimen) 09/09/2018 5:24 PM CDT 09/09/2018 6:28 PM CDT Narrative [facility] - 09/10/2018 10:16 AM CDT Yaquelin Hill MD LAB MICROBIOLOGY - GENERAL KATELYN WILLIS Final Result [facility] Department [place] [address] * Ron-Paredes virus VCA, IgM (09/09/2018 5:24 PM CDT) EBV VCA IgM Negative Negative [facility] Comment: Interpretive Data Results ? Interpretation [...] Interpretive data revised 02/25/2017. Testing performed by: [facility], [address] [place]., [address] Blood specimen (specimen) 09/09/2018 5:24 PM CDT 09/09/2018 6:28 PM CDT Katlin [facility] - 09/10/2018 10:17 AM CDT Yaquelin Hill MD LAB BLOOD ORDERABLES Final Resu lt Performing Organization Address [facility] [place] [address] * (ABNORMAL) Ron Paredes virus VCA, IgG (09/09/2018 5:24 PM CDT) [facility] EBV VCA IgG Positive( A) Negative [facility] Comment: Interpretive Data Results ? Interpretation Negative ?No detectable antibody to VCA IgG ?antibody. Equivocal ? Uncertain immune status, suggest ?sending additional sample. Positive ?Indicates the presence of antibody; ?90% of the adult population will ?have been infected with EBV sometime ?in the past. Interpretive data revised 02/25/2017. Testing performed by: [facility], [address] [place]., [address] Blood specimen (specimen) 09/09/2018 5:24 PM CDT 09/09/2018 6:28 PM CDT Narrative [facility] - 09/10/2018 10:17 AM CDT Yaquelin Hill MD LAB BLOOD ORDERABLES Final Resu lt Performing Organization Address [facility] [place] [address] * Hepatitis C antibody (09/09/2018 5:24 PM CDT) [facility] Hep C Ab Nonreactive Nonreactive [facility] Comment: Interpretive Data Positive results should be confirmed by a molecular method. If positive, a second separately collected sample should be submitted for Hepatitis C Virus (HCV) RNA Detection and Quantitation by Real-Time Reverse Head Correction Officer-PCR (RT-PCR). Current interpretive data was last revised on 2016. Testing performed by: [facility], [address] [place] [address]., [id number] Blood specimen (specimen) 09/09/2018 5:24 PM CDT 09/09/2018 6:43 PM CDT Narrative [facility] - 09/10/2018 10:18 AM CDT Yaquelin Hill MD LAB MICROBIOLOGY - GENERAL [facility] Edited Result - Final Performing Organization Address [facility] [place] [address] * Hepatitis A antibody, IgM (09/09/2018 5:24 PM CDT) Hep A IgM Nonreactive Nonreactive [facility] Comment: Interpretive Data If test is reported as GRAYZONE, new sample should be drawn in two weeks for testing. Current interpretive data was last revised on 2016. Testing performed by: [facility], [address] [place] [address]., [id number] Blood specimen (specimen) 09/09/2018 5:24 PM CDT 09/09/2018 6:43 PM CDT Narrative [facility] - 09/10/2018 10:18 AM CDT Yaquelin Hill MD LAB MICROBIOLOGY - GENERAL KATELYN WILLIS Edited Result - Final Performing Organization Address [facility] [place] [address] * Hepatitis A antibody, IgG (09/09/2018 5:24 PM CDT) Hep A IgG Nonreactive Nonreactive [facility] Comment:Testing performed by : [facility], [address] [place] [address]., [id number] Blood specimen (specimen) 09/09/2018 5:24 PM CDT 09/09/2018 6:43 PM CDT Narrative [facility] - 09/10/2018 9:38 AM CDT Yaquelin Hill MD LAB BLOOD [place]AB[place] [address] * (ABNORMAL) HSV 2 antibody, IgG (09/09/2018 5:24 PM CDT) HSV 2 IgG Positive( A) Negative [facility] Comment: Interpretive Data 1. Negative: No detectable IgG antibody to HSV-2. 2. Equivocal: Presence or absence of detectable antibodies to HSV-2 cannot be determined and the test should be repeated. 3. Positive: Indicates presence of detectable IgG antibody to HSV-2. Current interpretive data was last revised on 2017. Testing performed by: [facility], [address] [place]., [address] Blood specimen (specimen) 09/09/2018 5:24 PM CDT 09/09/2018 6:28 PM CDT Narrative [facility] - 09/10/2018 10:18 AM CDT Yaquelin Hill MD LAB MICROBIOLOGY - GENERAL ORDE RABLES Final Result Performing Organization Address City/[facility]/[place] [address] * (ABNORMAL) HSV 1 antibody, IgG (09/09/2018 5:24 PM CDT) HSV 1 IgG Positive( A) Negative [facility] Comment: Interpretive Data 1. Negative: No detectable IgG antibody to HSV-1. 2. Equivocal: Presence or absence of detectable antibodies to HSV-1 cannot be determined and the test should be repeated. 3. Positive: Indicates presence of detectable IgG antibody to HSV-1. Current interpretive data was last revised on 2017. Testing performed by: [facility], [address] [place]., [address] Blood specimen (specimen) 09/09/2018 5:24 PM CDT 09/09/2018 6:28 PM CDT Narrative [facility] - 09/10/2018 10:18 AM CDT Yaquelin Hill MD LAB MICROBIOLOGY - GENERAL [facility] Final Result Performing Organization Address [facility] [place] [address] * IgM (09/09/2018 5:24 PM CDT) Immunoglobulin M 67.1 40.0 - 230.0 mg/dL [facility] Blood specimen (specimen) 09/09/2018 5:24 PM CDT 09/09/2018 5:34 PM CDT Narrative [facility] - 09/09/2018 6:16 PM CDT Yaquelin Hill MD LAB BLOOD ORDERABLES Final Resu lt Performing Organization Address [facility] [place] [address] * IgA (09/09/2018 5:24 PM CDT) Immunoglobulin A 294.7 70.0 - 400.0 mg/dL [facility] Blood specimen (specimen) 09/09/2018 5:24 PM CDT 09/09/2018 5:34 PM CDT Narrative [facility] - 09/09/2018 6:17 PM CDT Yaquelin Hill MD LAB BLOOD [place]AB[place] [address] * IgG (09/09/2018 5:24 PM CDT) Immunoglobulin G 1,248.0 700.0 - 1,600.0 mg/dL [facility] Blood specimen (specimen) 09/09/2018 5:24 PM CDT 09/09/2018 5:34 PM CDT Narrative [facility] - 09/09/2018 6:16 PM CDT Yaquelin Hill MD LAB BLOOD ORDERABLES Final Resu lt Performing Organization Address [facility] [place] [address] * IgE (09/09/2018 5:24 PM CDT) Pathologist [facility] IgE 3.1 1.0 - 100.0 IUnits/mL [facility] Blood specimen (specimen) 09/09/2018 5:24 PM CDT 09/09/2018 5:34 PM CDT [facility] - 09/09/2018 6:24 PM CDT Yaquelin Hill MD LAB BLOOD ORDERABLES Final Resu lt Performing Organization Address [facility] [place] [address] * T4, free (09/09/2018 5:24 PM CDT) Pathologist [facility] Free T4 1.29 0.90 - 1.70 ng/dL [facility] Blood specimen (specimen) 09/09/2018 5:24 PM CDT 09/09/2018 5:34 PM CDT Narrative [facility] - 09/09/2018 6:16 PM CDT Yaquelin Hill MD LAB BLOOD ORDERABLES Final Resu lt Performing Organization Address [facility] [place] [address] * TSH (09/09/2018 5:24 PM CDT) Thyroid Stimulating Hormone 2.31 0.30 - 4.20 mcIUnit/mL [facility] Blood specimen (specimen) 09/09/2018 5:24 PM CDT 09/09/2018 5:34 PM CDT Narrative [facility] - 09/09/2018 6:16 PM CDT Yaquelni Hill MD LAB BLOOD ORDERABLES Final Resu lt Performing Organization Address [facility] [place] [address] * Lactate dehydrogenase (LD) (09/09/2018 5:24 PM CDT) [facility] Lactate dehydrogenase (LDH) 183 100 - 250 Units/L [facility] Blood specimen (specimen) 09/09/2018 5:24 PM CDT 09/09/2018 5:34 PM CDT Narrative [facility] - 09/09/2018 6:17 PM CDT Yaquelin Hill MD LAB BLOOD ORDERABLES Final Resu lt Performing Organization Address [facility] [place] [address] * Bilirubin, total and direct (09/09/2018 5:24 PM CDT) Bilirubin, total 0.3 0.1 - 1.2 mg/dL [facility] Bilirubin, direct 0.1 0.1 - 0.3 mg/dL [facility] Bili direct/total ratio N/A <=0.2 Ratio [facility] Comment:Ratio of conjugated to total bilirubin has little diagnostic utility when total bilirubin concentrations are normal. Blood specimen (specimen) 09/09/2018 5:24 PM CDT 09/09/2018 5:34 PM CDT Narrative [facility] - 09/09/2018 6:17 PM CDT us Yaquelin Hill MD LAB BLOOD ORDERABLES Final Resu lt [facility] Department [place] [address] * Comprehensive metabolic panel (09/09/2018 5:24 PM CDT) Sodium 141 135 - 145 mmol/L [facility] Potassium, pl 3.7 3.3 - 4.9 mmol/L [facility] Chloride 110 97 - 110 mmol/L [facility] CO2 26 22 - 32 mmol/L [facility] Anion gap 5 2 - 15 mmol/L [facility] BUN 16 8 - 25 mg/dL [facility] Creatinine 0.65 0.60 - 1.10 mg/dL [facility] Glucose 96 70 - 199 mg/dL [facility] Comment: Interpretive Data Fasting glucose >/= 126 [...] 2017. Calcium 9.2 8.5 - 10.3 mg/dL [facility] Bilirubin, total 0.3 0.1 - 1.2 mg/dL [facility] Protein, pl 7.1 6.5 - 8.5 g/dL [facility] Albumin 4.0 3.5 - 5.0 g/dL [facility] Alk phos 63 40 - 130 Units/L [facility] ALT 14 7 - 45 Units/L [facility] AST 16 10 - 45 Units/L [facility] Blood specimen (specimen) 09/09/2018 5:24 PM CDT 09/09/2018 5:34 PM CDT Narrative [facility] - 09/09/2018 6:17 PM CDT us Yaquelin Hill MD LAB BLOOD ORDERABLES Final Resu lt Performing Organization Address [facility] Co de Phone Number [facility] Department [place] [address] * (ABNORMAL) CBC with auto differential (09/09/2018 5:24 PM CDT) WBC 11.2(H) 3.8 - 9.9 K/cumm [facility] Hgb 13.5 11.9 - 15.5 g/dL [facility] Hct 40.6 35.6 - 45.5 % [facility] Plt 238 150 - 400 K/cumm [facility] MPV 11.8 9.1 - 12.3 fL [facility] RBC 4.39 3.90 - 5.20 M/cumm [facility] MCV 92.5 81.3 - 96.4 fL [facility] MCH 30.8 27.1 - 33.3 pg [facility] MCHC 33.3 32.3 - 35.7 g/dL [facility] RDW CV 13.2 11.1 - 14.9 % [facility] RDW SD 44.6 35.7 - 48.1 fL [facility] NRBC abs 0.00 0.00 - 0.01 K/cumm [facility] Blood specimen (specimen) 09/09/2018 5:24 PM CDT 09/09/2018 5:34 PM CDT Narrative [facility] - 09/09/2018 5:47 PM CDT us Yaquelin Hill MD LAB BLOOD ORDERABLES Final Resu lt Performing Organization Address City/[facility] Co de Phone Number [facility] [place] [address] * hCG, urine, qualitative (09/09/2018 5:18 PM CDT) HCG, ur Negative Negative [facility] Urine 09/09/2018 5:18 PM CDT 09/09/2018 5:35 PM CDT Narrative [facility] - 09/09/2018 5:55 PM CDT us Yaquelin Hill MD LAB URINE ORDERABLES Final Resu lt [facility] [place] [address] documented in this encounter Visit Diagnoses Diagnosis Stem cell donor- Primary Stem cell donor documented in this encounter Orders Lab Orders Without Results Count Last Ordered D ate First Ordered Date HCG, URINE, QUALITATIVE 1 09/04/2018 documented in this encounter Care Teams Loading Rack Supervisor Relationship Specialty Start Date End Date No, Physician PCP - General 09/04/18 09/06/18 Evaristo Wills MD PCP - General 09/07/18 12/11/22 documented as of this encounter
--- OUTSIDE RECORDS SUMMARY | 2024-12-06 18:01 | XMS_ITS | Encounter Summary ---
Author Organization [facility] Healthcare Address [address] [place] [address] Care Team Providers Care Foundation Director Name Role Phone No, Physician Primary Care Provider [phone] Reason for Referral * Diagnostic Imaging (Routine) - Closed Specialty Diagnoses / Procedures Referred By Contac t Referred To Contact Diagnoses Bone marrow donor Procedures XR Chest Pa Lateral 2 Views Yaquelin Hill MD Phone: tel: fax: [address] [phone] Referral ID Status Reason Start Date Expiration Date Visits Re quested Visits Authorized [id number] Closed 08/17/2018 02/26/2020 1 1 Reason for Visit * Diagnostic Imaging (Routine) - Closed Specialty Diagnoses / Procedures Referred By Contac t Referred To Contact Diagnoses Bone marrow donor Procedures XR Chest Pa Lateral 2 Views Yaquelin Hill MD Phone: tel: fax: [address] [phone] Referral ID Status Reason Start Date Expiration Date Visits Re quested Visits Authorized [id number] Closed 08/17/2018 02/26/2020 1 1 Encounter Details Date Type Department Care Team (Late st Contact Info) Description 09/04/2018 9:15 AM CDT - 09/04/2018 11:59 PM CDT Hospital Encounter [facility] [place] [address] Yaquelin Hill MD [address] [place] [address] Bone marrow donor Discharge Disposition: Discharge to home or [...] on file 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 Dictated by: Isidro Dorantes M.D. Electronically signed by: Satish Vail M.D. Narrative 09/04/2018 11:01 AM CDT EXAMINATION: XR CHEST PA LATERAL 2 VIEWS HISTORY: 38-year-old woman bone marrow donor. COMPARISON: None. FINDINGS: 2 views of the chest are submitted. Lungs are clear. ??There is no focal consolidation, pleural effusion, or pneumothorax. ??The cardiomediastinal silhouette is normal. Procedure Note Satish Vail MD - 09/04/2018 EXAMINATION: XR CHEST PA LATERAL 2 VIEWS HISTORY: 38-year-old woman bone marrow donor. COMPARISON: None. FINDINGS: 2 views of the chest are submitted. Lungs are clear. There is no focal consolidation, pleural effusion, or pneumothorax. The cardiomediastinal silhouette is normal. IMPRESSION: Normal chest radiograph. Dictated by: Isidro Dorantes M.D. Electronically signed by: Satish Vail M.D. Yaquelin Hill MD IMG XR PROCEDURES Final Result documented in this encounter Visit Diagnoses Diagnosis Bone marrow donor documented in this encounter Care Teams Foundation Director Relationship Specialty Start Date End Date No, Physician PCP - General 09/04/18 09/06/18 documented as of this encounter
--- OUTSIDE RECORDS SUMMARY | 2024-12-06 18:01 | XMS_ITS | Encounter Summary ---
Author Organization [facility] Address [address] [facility] [address] [place] [address] Phone Care Team Providers Care Director Data Management Name Role Phone No, Physician Primary Care Provider [phone] Reason for Referral * (Routine) - Closed Specialty Diagnoses / Procedures Referred By Contac t Referred To Contact Diagnoses Bone marrow donor Procedures ECG 12 lead Yaquelin Hill MD Phone: tel: fax: [address] [phone] Referral ID Status Reason Start Date Expiration Date Visits Re quested Visits Authorized [id number] Closed 08/17/2018 02/26/2020 1 1 Reason for Visit * (Routine) - Closed Specialty Diagnoses / Procedures Referred By Contac t Referred To Contact Diagnoses Bone marrow donor Procedures ECG 12 lead Yaquelin Hill MD Phone: tel: fax: [address] [phone] Referral ID Status Reason Start Date Expiration Date Visits Re quested Visits Authorized [id number] Closed 08/17/2018 02/26/2020 1 1 Encounter Details Date Type Department Care Team (Latest Contact Info) Description 09/04/2018 9:39 AM CDT - 09/04/2018 11:59 PM CDT Hospital Encounter [facility] Pediatric Cardiology [facility] [address] [place] [address] Bone marrow donor Discharge Disposition: Discharge to [...] on file 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 Gender Identity Female 07/30/2024 4:35 PM [...] Procedure Name Priority Date/Time Associated Diagnosis Comments ECG 12-LEAD Routine 09/04/2018 10:04 AM CDT Bone marrow donor documented in this encounter Results * ECG 12 lead (09/04/2018 10:04 AM CDT) Ventricular Rate EKG/Min Ventricular Rate:65 BPM [facility] Atrial Rate Atrial Rate:65 BPM [facility] PA-Interval (MSEC) P-R Interval:120 ms [facility] QRS-Interval (MSEC) QRS Duration:86 ms [facility] QT-Interval (MSEC) Q-T Interval:428 ms [facility] QTc QTC Calculation(Be zet):445 ms [facility] P [place] P Newport:48 degrees [facility] R Newport R Newport:40 degrees [facility] T Newport T Newport:33 degrees [facility] Diagnosis Diagnosis:Norm al sinus rhythm Normal ECG No previous ECGs available Confirmed by RASHEED PLAZA ([id number]) on 09/05/2018 9:37:18 PM [facility] 09/04/2018 9:57 AM CDT 09/05/2018 9:37 PM CDT us Yaquelin Hill MD ECG ORDERABLES Final Result [facility] documented in this encounter Visit Diagnoses Diagnosis Bone marrow donor documented in this encounter Care Teams Director Data Management Relationship Specialty Start Date End Date No, Physician PCP - General 09/04/18 09/06/18 documented as of this encounter
--- OUTSIDE RECORDS SUMMARY | 2024-12-06 18:01 | XMS_ITS | Encounter Summary ---
Author Organization [facility] Healthcare Address [address] [place] [address] Care Team Providers Care Flotation Tender Helper Name Role Phone Evaristo Wills MD Primary Care Provider [phone] Encounter Details Date Type Department Care Team (Late st Contact Info) Description 04/28/2018 10:42 AM CDT - 04/28/2018 11:59 PM CDT Hospital Encounter [facility] [phone] Rosemarie Jung MD [address] [place] [address] [address] [place] [address] Discharge Disposition: Discharge to home or self care Social History Tobacco Use Types Packs/Day Years Used Date Smoking Tobacco: Never Assessed Comments Unknown Sex and Gender Information Value Date Recorded Sex Assigned at Not on file 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 Gender Identity Female 07/30/2024 4:35 PM CDT Sexual Orientation Choose not to disclose 2023 4:35 PM CDT documented as of this encounter Discharge Disposition Disposition Code Departure Means Destination Discharge to home or self care documented in this encounter Plan of Treatment Pending Results Name Type Priority Associated Diagnoses Date /Time Crossmatch Lab Routine 04/28/2018 11: 40 AM CDT Scheduled Orders Name Type Priority Associated Diagnoses Orde r Schedule Crossmatch Lab Routine Once for 1 Occ urrences starting 04/28/2018 until 04/28/2018 documented as of this encounter Procedures Procedure Name Priority Date/Time Associated Diagnosis Comments SPECIMEN TRACKING Routine 04/28/2018 11: 40 AM CDT B IC Routine 04/28/2018 11:40 AM CDT CMV, IGG AND IGM ANTIBODIES Routine 04/28/2018 11:40 AM CDT ABO/RH Routine 04/28/2018 11:40 AM CDT DISCHARGE LABORATORY CUMULATIVE REPORT 04/28/2018 12:00 AM CDT documented in this encounter Results * (ABNORMAL) CMV, IgG and IgM antibodies (04/28/2018 11:40 AM CDT) CMV IgG Positive(A) Negative [facility] Comment: Interpretive Data Negative - No detectable CMV IgG antibody. Equivocal- Uncertain Immune Status. ??Additional sample should be sent. Positive - Indicates presence of detectable CMV IgG antibody. Current interpretive data was last revised on 2017. CMV IgM Negative Negative [facility] Comment: Interpretive Data Negative - No detectable CMV IgM antibody. Equivocal- Uncertain Immune Status. ??Additional sample should be sent. Positive - Indicates presence of detectable CMV IgM antibody. Current interpretive data was last revised on 2017. Blood specimen (specimen) 04/28/2018 11:40 AM CDT 04/28/2018 3:44 PM CDT Narrative [facility] - 04/29/2018 9:40 AM CDT us Rosemarie Jung MD LAB MICROBIOLOGY - GENERAL ORD ERABLES Final Result [facility] Department [place] [address] * B IC (04/28/2018 11:40 AM CDT) Antibody Screen Interp Negative ABSC [facility] Blood specimen (specimen) 04/28/2018 11:40 AM CDT 04/28/2018 11:59 AM CDT Narrative [facility] - 04/28/2018 12:37 PM CDT Rosemarie Jung MD LAB BLOOD ORDERABLES Final Res ult Performing Organization Address City/[facility]/[place] [address] * Specimen tracking (04/28/2018 11:40 AM CDT) Specimen Blood [facility] Specimen sent to [facility] Date sent [id number] [facility] Other 04/28/2018 11:4 0 AM CDT 04/28/2018 12:24 PM CDT Narrative [facility] - 04/28/2018 12:28 PM CDT Rosemarie Jung MD LAB BLOOD ORDERABLES Final Res ult Performing Organization Address [facility]/ZIP Co de Phone Number [facility] [place] [address] * ABO/Rh (04/28/2018 11:40 AM CDT) ABO Rh A Positive [facility] Blood specimen (specimen) 04/28/2018 11:40 AM CDT 04/28/2018 11:59 AM CDT Narrative [facility] - 04/28/2018 12:19 PM CDT Rosemarie Jung MD LAB BLOOD BANK TEST ORDERABLES Final Result Performing Organization Address City/[facility]/[place] [address] * DISCHARGE LABORATORY CUMULATIVE REPORT (04/28/2018 12:00 AM CDT) Narrative 04/28/2018 12:00 AM CDT Ordered by an unspecified provider. René Gleason MD LAB BLOOD ORDERABLES Alexandrea l Result documented in this encounter Visit Diagnoses Not on filedocumented in this encounter Care Teams Flotation Tender Helper Relationship Specialty Start Date End Date Evaristo Wills MD PCP - General 09/17/07 09/03/18 documented as of this encounter
--- OUTSIDE RECORDS SUMMARY | 2024-12-06 18:01 | XMS_ITS | Encounter Summary ---
Author Organization [facility] Healthcare Address [address] [place] [address] Care Team Providers Care Ceramics Teacher Name Role Phone Evaristo Wills MD Primary Care Provider Encounter Details Date Type Department Care Team (Late st Contact Info) Description 02/05/2008 6:04 PM CHIEF DEPUTY CLERK/BAILIFF - 02/05/2008 11:59 PM CHIEF DEPUTY CLERK/BAILIFF Hospital Encounter [facility] Narayan Bautista, DO [address] [place] [address] Social History Tobacco Use Types Packs/Day Years Used Date Smoking Tobacco: Never Assessed Comments Unknown Sex and Gender Information Value Date Recorded Sex Assigned at Not on file Legal Sex Female 9:09 AM CHIEF DEPUTY CLERK/BAILIFF Gender Identity Female 07/30/2024 4:35 PM CDT Sexual Orientation Choose not to disclose 2023 4:35 PM CDT documented as of this encounter Plan of Treatment Not on file documented as of this encounter Visit Diagnoses Not on filedocumented in this encounter Care Teams Ceramics Teacher Relationship Specialty Start Date End Date Evaristo Wills MD PCP - General 09/17/07 09/03/18 documented as of this encounter
--- OUTSIDE RECORDS SUMMARY | 2024-12-06 18:01 | XMS_ITS | Encounter Summary ---
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
--- OUTSIDE RECORDS SUMMARY | 2024-12-06 18:01 | XMS_ITS | Encounter Summary ---
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
--- OUTSIDE RECORDS SUMMARY | 2024-12-06 18:01 | XMS_ITS | Encounter Summary ---
Author Organization [facility] Healthcare Address [address] [place] [address] Care Team Providers Care Measurer Name Role Phone Evaristo Wills MD Primary Care Provider [phone] Encounter Details Date Type Department Care Team (Late st Contact Info) Description 07/06/2009 5:34 PM CDT - 07/06/2009 11:59 PM CDT Hospital Encounter [facility] MEGHANCONiDaz Coronado MD [address] [place] [address] [address] Exposure to sexually transmitted disease (STD) Social History Tobacco Use Types Packs/Day Years Used Date Smoking Tobacco: Never Assessed Comments Unknown Sex and Gender Information Value Date Recorded Sex Assigned at Not on file 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
--- OUTSIDE RECORDS SUMMARY | 2024-12-06 18:01 | XMS_ITS | Encounter Summary ---
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
--- OUTSIDE RECORDS SUMMARY | 2024-12-06 18:01 | XMS_ITS | Encounter Summary ---
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
--- OUTSIDE RECORDS SUMMARY | 2024-12-06 18:01 | XMS_ITS | Encounter Summary ---
Author Organization [facility] Address [address] [facility] [address] [place] [address] Phone Care Team Providers Care Crisis Clinician Name Role Phone Evaristo Wills MD Primary Care Provider [phone] Encounter Details Date Type Department Care Team (Late st Contact Info) Description 05/28/2018 Orders Only [facility] Hematology and Oncology [address] [facility] [address] [place] [address] Rosemarie Jung MD [facility] [address] [place], [place] [id number] Transplant donor evaluation (Primary Dx) Social History Tobacco Use Types Packs/Day Years Used Date Smoking Tobacco: Never Assessed Comments Unknown Sex and Gender Information Value Date Recorded Sex Assigned at Not on file Legal Sex Female 9:09 AM APPLICATION SUPPORT CONSULTANT Gender Identity Female 07/30/2024 4:35 PM CDT Sexual Orientation Choose not to disclose 2023 4:35 PM CDT documented as of this encounter Plan of Treatment Not on file documented as of this encounter Visit Diagnoses Diagnosis Transplant donor evaluation- Primary Other specified general medical examination documented in this encounter Care Teams Crisis Clinician Relationship Specialty Start Date End Date Evaristo Wills MD PCP - General 09/17/07 09/03/18 documented as of this encounter
--- OUTSIDE RECORDS SUMMARY | 2024-12-06 18:01 | XMS_ITS | Encounter Summary ---
Author Organization [facility] Healthcare Address [address] [place] [address] Care Team Providers Care Hyperion Developer Name Role Phone Evaristo Wills MD Primary Care Provider [phone] Reason for Referral * (Routine) - Closed Specialty Diagnoses / Procedures Referred By Contac t Referred To Contact Diagnoses Bone marrow donor Procedures ECG 12 lead Yaquelin Hill MD Phone: tel: fax: [address] [address] Referral ID Status Reason Start Date Expiration Date Visits Re quested Visits Authorized [id number] Closed 08/17/2018 02/26/2020 1 1 * Diagnostic Imaging (Routine) - Closed Specialty Diagnoses / Procedures Referred By Contac t Referred To Contact Diagnoses Bone marrow donor Procedures XR Chest Pa Lateral 2 Views Yaquelin Hill MD Phone: tel: fax: [address] [phone] Referral ID Status Reason Start Date Expiration Date Visits Re quested Visits Authorized [id number] Closed 08/17/2018 02/26/2020 1 1 Encounter Details Date Type Department Care Team (Late st Contact Info) Description 08/17/2018 Orders Only [facility] [address] [facility] [place] [address] Lana HubbardMani Bone marrow donor (Primary Dx) Social History Tobacco Use Types Packs/Day Years Used Date Smoking Tobacco: Never Assessed Comments Unknown Sex and Gender Information Value Date Recorded Sex Assigned at Not on file 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 Gender Identity Female 07/30/2024 4:35 PM CDT Sexual Orientation Choose not to disclose 2023 4:35 PM CDT documented as of this encounter Plan of Treatment Not on file documented as of this encounter Results * ECG 12 lead (09/04/2018 10:04 AM CDT) Ventricular Rate EKG/Min Ventricular Rate:65 BPM [facility] Atrial Rate Atrial Rate:65 BPM [facility] MN-Interval (MSEC) P-R Interval:120 ms [facility] QRS-Interval (MSEC) QRS Duration:86 ms [facility] QT-Interval (MSEC) Q-T Interval:428 ms [facility] QTc QTC Calculation(Be zet):445 ms [facility] P [place] P Hiller:48 degrees [facility] R Hiller R Hiller:40 degrees [facility] T Hiller T Hiller:33 degrees [facility] Diagnosis Diagnosis:Norm al sinus rhythm Normal ECG No previous ECGs available Confirmed by RASHEED PLAZA ([id number]) on 09/05/2018 9:37:18 PM [facility] 09/04/2018 9:57 AM CDT 09/05/2018 9:37 PM CDT us Yaquelin Hill MD ECG ORDERABLES Final Result [facility] * XR Chest Pa Lateral 2 Views [...] this encounter Visit Diagnoses Diagnosis Bone marrow donor- Primary Bone marrow donor documented in this encounter Care Teams Hyperion Developer Relationship Specialty Start Date End Date Evaristo Wills MD PCP - General 09/17/07 09/03/18 documented as of this encounter
--- OUTSIDE RECORDS SUMMARY | 2024-12-06 18:01 | XMS_ITS | Encounter Summary ---
Author Organization [facility] Healthcare Address [address] [place] [address] Care Team Providers Care Compensation And Hris Analyst Name Role Phone Unavailable Primary Care Provider Unavailabl e Encounter Details Date Type Department Care Team (Late st Contact Info) Description 05/28/2007 12:01 AM CDT - 05/28/2007 11:59 PM CDT Hospital Encounter [facility] Diaz Deshpande MD [address] [place] [address] [place] [address] Social History Tobacco Use Types Packs/Day Years Used Date Smoking Tobacco: Never Assessed Comments Unknown Sex and Gender Information Value Date Recorded Sex Assigned at Not on file 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
--- OUTSIDE RECORDS SUMMARY | 2024-12-06 18:01 | XMS_ITS | Encounter Summary ---
Author Organization [facility] Healthcare Address [address] [place] [address] Care Team Providers Care New Vehicle Sales Consultant Name Role Phone Evaristo Wills MD Primary Care Provider [phone] Encounter Details Date Type Department Care Team (Late st Contact Info) Description 09/09/2018 Orders Only [facility] Center One [facility], [address]th [place] [address] Neela Ortiz, PhD 1 [facility] [address] [place] [address] Social History Tobacco Use Types Packs/Day Years Used Date Smoking Tobacco: Some Days Cigarettes Comments:5 cigarettes per we ek Alcohol Use Standard Drinks/Week Comments Yes 0 (1 standard drink = 0.6 oz pur e alcohol) once per month Comments Unknown Sex and Gender Information Value Date Recorded Sex Assigned at Not on file 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
--- OUTSIDE RECORDS SUMMARY | 2024-12-06 18:01 | XMS_ITS | Encounter Summary ---
Author Organization [facility] Healthcare Address [address] [place] [address] Care Team Providers Care Pitch Worker Name Role Phone Evaristo Wills MD Primary Care Provider [phone] Encounter Details Date Type Department Care Team (Late st Contact Info) Description 09/07/2009 6:28 PM CDT - 09/07/2009 11:59 PM CDT Hospital Encounter [facility] Coronado MD [address] [place] [address] [address] Exposure to sexually transmitted disease (STD) Social History Tobacco Use Types Packs/Day Years Used Date Smoking Tobacco: Never Assessed Comments Unknown Sex and Gender Information Value Date Recorded Sex Assigned at Not on file 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
--- OUTSIDE RECORDS SUMMARY | 2024-12-06 18:01 | XMS_ITS | Encounter Summary ---
Author Organization [facility] Healthcare Address [address] [place] [address] Care Team Providers Care Glove Cutter Name Role Phone Evaristo Wills MD Primary Care Provider [phone] Encounter Details Date Type Department Care Team (Late st Contact Info) Description 11/03/2007 8:40 AM TRANSPORTATION SUPERINTENDENT - 11/03/2007 11:59 PM TRANSPORTATION SUPERINTENDENT Hospital Encounter [facility] Glass MD [address] [place] [address] [address] Social History Tobacco Use Types Packs/Day Years Used Date Smoking Tobacco: Never Assessed Comments Unknown Sex and Gender Information Value Date Recorded Sex Assigned at Not on file Legal Sex Female 9:09 AM TRANSPORTATION SUPERINTENDENT Gender Identity Female 07/30/2024 4:35 PM CDT Sexual Orientation Choose not to disclose 2023 4:35 PM CDT documented as of this encounter Plan of Treatment Not on file documented as of this encounter Visit Diagnoses Not on filedocumented in this encounter Care Teams Glove Cutter Relationship Specialty Start Date End Date Evaristo Wills MD PCP - General 09/17/07 09/03/18 documented as of this encounter
--- OUTSIDE RECORDS SUMMARY | 2024-12-06 18:01 | XMS_ITS | Encounter Summary ---
Author Organization [facility] Address [address] [facility] [address] [place] [address] Phone Care Team Providers Care Crate Opener Name Role Phone Evaristo Wills MD Primary Care Provider [phone] Encounter Details Date Type Department Care Team (Late st Contact Info) Description 04/28/2018 Orders Only [facility] Pediatrics Hematology and Oncology [address] [facility] [address] [place] [address] Rosemarie Jung MD [facility] [address] [place], [place] [id number] Social History Tobacco Use Types Packs/Day Years Used Date Smoking Tobacco: Never Assessed Comments Unknown Sex and Gender Information Value Date Recorded Sex Assigned at Not on file Legal Sex Female 9:09 AM ORDER DEPARTMENT SUPERVISOR Gender Identity Female 07/30/2024 4:35 PM CDT Sexual Orientation Choose not to disclose 2023 4:35 PM CDT documented as of this encounter Plan of Treatment Not on file documented as of this encounter Procedures Procedure Name Priority Date/Time Associated Diagnosis Comments HLA-A* HIGH RESOLUTION TYPING BY SBT, NON-RENAL Routine 04/28/2018 11:11 AM CDT documented in this encounter Results * HLA-A* High Resolution Typing by SBT, Non-Renal (04/28/2018 11:11 AM CDT) SBT HISTOTRAC A First Allele A*01:01 HISTOTRAC A Second Allele A*02:01 HISTOTRAC 04/28/2018 11:1 1 AM CDT 06/17/2018 9:59 AM CDT Narrative HISTOTRAC - 06/17/2018 9:59 AM CDT DNA was extracted from whole blood or buccal cell specimens, and relevant genomic regions were amplified by polymerase chain reactions (PCR). HLA ??typing was performed on PCR amplicons using reverse sequence-specific oligonucleotide (r- SSO), sequence-specific primers (SSP), and/or sequence based typing (SBT) ??based techniques. R-SSO, SSP, and SBT are FDA approved as IVD tests and validated by the [facility]. Testing performed at the [facility], [address] [place] [address], 5th [place], [address]. [place] # [id number]. Vinicio Campbell M.D., Ph D., HLA Car Unloader Castillo Larkin M.D., Lamp Mechanic, [facility] Current methodology comment last revised on 08/05/17. us Rosemarie Jung MD LAB BLOOD ORDERABLES Final Res ult HISTCARLOS EDUARDO documented in this encounter Visit Diagnoses Not on filedocumented in this encounter Care Teams Crate Opener Relationship Specialty Start Date End Date Evaristo Wills MD PCP - General 09/17/07 09/03/18 documented as of this encounter
--- OUTSIDE RECORDS SUMMARY | 2024-12-06 18:01 | XMS_ITS | Encounter Summary ---
Author Organization [facility] Healthcare Address [address] [place] [address] Care Team Providers Care Electro Mechanical Assembler Name Role Phone Evaristo Wills MD Primary Care Provider [phone] Encounter Details Date Type Department Care Team (Late st Contact Info) Description 11/04/2007 8:45 AM SLIDE FASTENER REPAIRER - 11/04/2007 12:00 PM SLIDE FASTENER REPAIRER Hospital Encounter [facility] Glass MD [address] [place] [address] [address] Social History Tobacco Use Types Packs/Day Years Used Date Smoking Tobacco: Never Assessed Comments Unknown Sex and Gender Information Value Date Recorded Sex Assigned at Not on file Legal Sex Female 9:09 AM SLIDE FASTENER REPAIRER Gender Identity Female 07/30/2024 4:35 PM CDT Sexual Orientation Choose not to disclose 2023 4:35 PM CDT documented as of this encounter Plan of Treatment Not on file documented as of this encounter Visit Diagnoses Not on filedocumented in this encounter Care Teams Electro Mechanical Assembler Relationship Specialty Start Date End Date Evaristo Wills MD PCP - General 09/17/07 09/03/18 documented as of this encounter
--- OUTSIDE RECORDS SUMMARY | 2024-12-06 18:01 | XMS_ITS | Encounter Summary ---
Author Organization [facility] Healthcare Address [address] [place] [address] Care Team Providers Care Heel Shaper Name Role Phone Evaristo Wills MD Primary Care Provider [phone] Encounter Details Date Type Department Care Team (Late st Contact Info) Description 09/17/2007 4:30 PM CDT - 09/17/2007 11:59 PM CDT Hospital Encounter [facility] Social History Tobacco Use Types Packs/Day Years Used Date Smoking Tobacco: Never Assessed Comments Unknown Sex and Gender Information Value Date Recorded Sex Assigned at Not on file Legal Sex Female 9:09 AM BUSINESS ACCOUNT EXECUTIVE Gender Identity Female 07/30/2024 4:35 PM CDT Sexual Orientation Choose not to disclose 2023 4:35 PM CDT documented as of this encounter Plan of Treatment Not on file documented as of this encounter Visit Diagnoses Not on filedocumented in this encounter Care Teams Heel Shaper Relationship Specialty Start Date End Date Evaristo Wills MD PCP - General 09/17/07 09/03/18 documented as of this encounter
--- OUTSIDE RECORDS SUMMARY | 2024-12-06 18:01 | XMS_ITS | Encounter Summary ---
Author Organization [facility] Healthcare Address [address] [place] [address] Care Team Providers Care Scale Mechanic Name Role Phone Unavailable Primary Care Provider Unavailabl e Encounter Details Date Type Department Care Team (Late st Contact Info) Description 05/25/2007 9:46 AM CDT - 05/25/2007 11:59 PM CDT Hospital Encounter [facility] Social History Tobacco Use Types Packs/Day Years Used Date Smoking Tobacco: Never Assessed Comments Unknown Sex and Gender Information Value Date Recorded Sex Assigned at Not on file Legal Sex Female 9:09 AM HOME HEALTH CARE SOCIAL WORKER Gender Identity Female 07/30/2024 4:35 PM CDT Sexual Orientation Choose not to disclose 2023 4:35 PM CDT documented as of this encounter Plan of Treatment Not on file documented as of this encounter Visit Diagnoses Not on filedocumented in this encounter
== END 2024-11-29 09:31 | disposition home or self-care (01) ==
PROVIDERS: Emergency Provider Registered Nurse
DX: J40 Bronchitis, not specified as acute or chronic (principal); I10 Essential (primary) hypertension; F17.290 Nicotine dependence, other tobacco product, uncomplicated
CPT/HCPCS: 99213; G0463